=== PATIENT | male | born 1990 | race Caucasian/White ===

== ENCOUNTER 2016-09-14 23:15 | Emergency (ER) | payer BC, OTHER ==
[~2016-09-14] VITALS: Ht 175.3 cm; Wt 66.0 kg
[~2016-09-14 23:15] MED LIST: CALC0.5C2 PO; [UNRECOGNIZED DRUG - CODE] PO
[2016-09-14 23:20] VITALS: TEMP 36.8; Ht 175.3 cm; Wt 66.0 kg
[2016-09-14] MEDS ORDERED: SODIUM CHLORIDE 0.9% 1000ML 1,000 ML IV STA (23:40)
[2016-09-15 00:27] LABS: ALT/SGPT 24 U/L (12-78); AST/SGOT 17 U/L (15-37); BLOOD UREA NITROGEN 15 mg/dl (7-18); BUN/CREATININE RATIO 5.2 (10-20); CALCIUM 7.5 mg/dl (8.5-10.1); CARBON DIOXIDE 17 mmol/L (21-32); CHLORIDE 115 mmol/L (98-107); GLUCOSE 84 mg/dl (70-99); MAGNESIUM 1.9 mg/dl (1.8-2.4); POTASSIUM 3.6 mmol/L (3.5-5.1); SODIUM 143 mmol/L (136-145)
[2016-09-15 00:29] LABS: HEMATOCRIT 32.2 % (42-52); MEAN CELL VOLUME 86.3 fL (80-100); MEAN CORPUSCULAR HEMOGLOBIN 29.5 pg (25-34); MEAN CORPUSCULAR HGB CONC 34.2 g/dl (32-36); MEAN PLATELET VOLUME 9.6 fL (7.4-10.4); PLATELET COUNT 156 K/uL (130-400); RED BLOOD COUNT 3.73 M/uL (4.7-6.1); WHITE BLOOD COUNT 5.29 K/uL (4.8-10.8)
[2016-09-15 00:30] LABS: ALKALINE PHOSPHATASE 136 U/L (45-117)
[2016-09-15 00:31] LABS: BASO % 0.6 %; BASO ABS # 0.03 K/uL (0-0.2); COMPLETE YES; EOS % 2.8 %; LYMPH % 24.8 %; LYMPH ABS # 1.31 K/uL (1.2-3.4); MONO % 6.2 %; NEUT % 65.6 %; PLT ESTIMATE NORMAL
--- NOTE | 2016-09-15 01:56 | EMERGENCY ROOM VISIT NOTE ---
History First contact with patient: 23:23 Chief Complaint: ABDOMINAL PAIN Stated Complaint: SHAKING - DIARRHEA - SIDE PAIN - JOINT PAIN Nursing Triage Summary: Pt c/o of diarrhea, abdominal pain, nausea. States he has stage 3 CKD and the last time this happened "he couldn't move." History of Present Illness The patient is a 26 year old male who presents to the Emergency Room with complaints of diarrhea, cramping and feeling faint. The patient states that his symptoms began one week ago and has been intermittent. He reports he has had diarrhea, pain in his right side and feelings of lightheadedness. He states this his joints are achy. The patient has had similar episodes in the past and has needed admitted for electrolyte abnormalities. He has stage III kidney failure and sees Dr. Nolan. He reports that his symptoms at this time are not as severe as they have been in the past. He has been attempting to increase his fluid intake. He rates his overall discomfort a 5/10. He denies any chest pain, shortness of breath, vomiting or syncope. Review of Systems A complete 10 point review of systems was reviewed with the patient with pertinent positives and negatives as per history of present illness. All else were negative. Past Medical/Surgical History Medical Problems: (1) CKD (chronic kidney disease), stage III (2) Fanconi syndrome (3) Nephrogenic diabetes insipidus (4) Renal tubular acidosis Family History Crohn's disease MOTHER Kidney disease Social History Smoking Status: Current Every Day Smoker Alcohol Use: none Drug Use: none Current/Historical Medications Scheduled Calcitriol (Rocaltrol), 0.5 MCG PO DAILY Cholecalciferol (Vitamin D3), 7,000 INTER.UNIT PO DAILY Cysteamine Bitartrate (Cystagon), 100 MG PO QID Cysteamine Bitartrate (Cystagon), 450 MG PO QID Levocarnitine (Metabolic Modif (Levocarnitine), 660 MG PO TID Magnesium Oxide (Mg Supplement (Magnesium Oxide), 400 MG PO DAILY Omeprazole (Omeprazole), 20 MG PO QAM Potassium Chloride (Klor-Con M20), 6 TABS PO QID Sodium Bicarbonate (Antacid) (Sodium Bicarbonate), 2 TABS PO TID Scheduled PRN Ondansetron Hcl (Zofran), 8 MG PO Q8 PRN for Nausea Allergies Coded Allergies: No Known Allergies (Verified , 09/14/16) Physical Exam Vital Signs Date Time Temp Pulse Resp B/P (MAP) Pulse Ox O2 Delivery O2 Flow Rate FiO2 09/15/16 02:02 78 18 100/52 97 09/15/16 01:39 78 18 100/52 97 Room Air 09/14/16 23:20 36.8 79 18 119/66 98 Physical Exam VITALS: Vitals are noted on the nurse's note and reviewed by myself. Vital signs stable. GENERAL: This is a 26-year-old male, in no acute distress, nondiaphoretic, well- developed well-nourished. SKIN: Capillary reflex less than 2 seconds. HEENT: Normocephalic. PERRLA. EOMI. Nares patent. Mucous membranes moist. Neck is supple without nuchal rigidity. HEART: Regular rate and rhythm without murmurs gallops or rubs. LUNGS: Clear to auscultation bilaterally without wheezes, rales or rhonchi. ABDOMEN: Positive bowel sounds x 4. Soft, nontender, without masses or organomegaly. MUSCULOSKELETAL: Full range of motion throughout, strength 5/5 throughout. NEURO: Patient was alert and oriented to person place and time. Normal sensation to light and sharp touch. Medical Decision & Procedures ER Provider Diagnostic Interpretation: CHEST X-RAY: No acute cardiopulmonary abnormality. Laboratory Results 09/14/16 23:59 Red Blood Count 3.73, Mean Corpuscular Volume 86.3, Mean Corpuscular Hemoglobin 29.5, Mean Corpuscular Hemoglobin Concent 34.2, Mean Platelet Volume 9.6, Neutrophils (%) (Auto) 65.6, Lymphocytes (%) (Auto) 24.8, Monocytes (%) (Auto) 6.2, Eosinophils (%) (Auto) 2.8, Basophils (%) (Auto) 0.6, Neutrophils # (Auto) 3.47, Lymphocytes # (Auto) 1.31, Monocytes # (Auto) 0.33, Eosinophils # (Auto) 0.15, Basophils # (Auto) 0.03 09/14/16 23:59 Test 09/14/16 23:59 White Blood Count 5.29 K/uL (4.8-10.8) Red Blood Count 3.73 M/uL (4.7-6.1) Hemoglobin 11.0 g/dL (14.0-18.0) Hematocrit 32.2 % (42-52) Mean Corpuscular Volume 86.3 fL (80-100) Mean Corpuscular Hemoglobin 29.5 pg (25-34) Mean Corpuscular Hemoglobin Concent 34.2 g/dl (32-36) Platelet Count 156 K/uL (130-400) Mean Platelet Volume 9.6 fL (7.4-10.4) Neutrophils (%) (Auto) 65.6 % Lymphocytes (%) (Auto) 24.8 % Monocytes (%) (Auto) 6.2 % Eosinophils (%) (Auto) 2.8 % Basophils (%) (Auto) 0.6 % Neutrophils # (Auto) 3.47 K/uL (1.4-6.5) Lymphocytes # (Auto) 1.31 K/uL (1.2-3.4) Monocytes # (Auto) 0.33 K/uL (0.11-0.59) Eosinophils # (Auto) 0.15 K/uL (0-0.5) Basophils # (Auto) 0.03 K/uL (0-0.2) RDW Standard Deviation 42.7 fL (36.4-46.3) RDW Coefficient of Variation 13.4 % (11.5-14.5) Immature Granulocyte % (Auto) 0.0 % Immature Granulocyte # (Auto) 0.00 K/uL (0.00-0.02) Platelet Estimate NORMAL Red Blood Cell Morphology Unremarkable Anion Gap 11.0 mmol/L (3-11) Est Creatinine Clear Calc Drug Dose 36.7 ml/min Estimated GFR () 33.6 Estimated GFR (Non- 28.9 BUN/Creatinine Ratio 5.2 (10-20) Calcium Level 7.5 mg/dl (8.5-10.1) Magnesium Level 1.9 mg/dl (1.8-2.4) Total Bilirubin 0.2 mg/dl (0.2-1) Direct Bilirubin < 0.1 mg/dl (0-0.2) Aspartate Amino Transf (AST/SGOT) 17 U/L (15-37) Alanine Aminotransferase (ALT/SGPT) 24 U/L (12-78) Alkaline Phosphatase 136 U/L (45-117) Total Protein 6.8 gm/dl (6.4-8.2) Albumin 3.2 gm/dl (3.4-5.0) Medications Administered Medications (Trade) Dose Ordered Sig/Rafat Route Start Time Stop Time Status Last Admin Dose Admin Sodium Chloride 1,000 ml @ 999 mls/hr Q1H1M STAT IV 09/14/16 23:40 09/15/16 00:40 DC 09/15/16 00:02 999 MLS/HR ED Course The patient was evaluated as above. Labs were drawn and IV access was obtained. Patient was medicated with 1 L normal saline solution. Patient was reevaluated and stated he was feeling better. Discharge instructions were reviewed with the patient. The patient verbalized understanding of my assessment and treatment plan and was discharged home in good condition. Medical Decision Differential diagnosis includes acute kidney injury, dehydration, electrolyte abnormality, infection, among others. The patient is a 26-year-old male who presents today complaining of generalized cramping and diarrhea. Labs revealed no leukocytosis or concerning anemia. Patient's creatinine was found to be 2.90, which is his baseline. Patient is hypocalcemic at 7.5, but this also appears to be his baseline. Patient has been admitted multiple times previously for hypokalemia, however potassium is within normal limits today. The patient was informed of these findings. He felt better after 1 L of fluids. The patient appears to be at his baseline. I do not feel he needs admission at this time, however cautioned him that if his condition worsens he will need to return. 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 The patient's case was reviewed with Dr. Cordova, ED attending physician, who agreed with my assessment and treatment plan. Based on the patient's presentation and work up, I feel the patient is stable for outpatient treatment. The patient was educated to return to the emergency department for any worsening of their current condition or new/concerning symptoms. He will follow up with his renewable energy trader. Medication reconciliation: I attest that I have personally reviewed the patient 's current medication list. Blood pressure screening: Patient was found to have low-normal blood pressure on screening and does not require follow-up. Impression Primary Impression: Diarrhea Departure Information Dispostion Home / Self-Care Condition GOOD Referrals Malorie Nolan I., DO (PCP) Patient Instructions My [facility] Additional Instructions Drink plenty of fluids to stay well-hydrated. Call Dr. Nolan's office tomorrow to schedule follow-up. Return to the emergency department sooner for any worsening of your current condition or new/concerning symptoms.
[2016-09-15 02:02] VITALS: BP 100/52; PULSE 78; O2SAT 97
--- NOTE | 2016-09-15 07:19 | DIAGNOSTIC IMAGING REPORT ---
SINGLE VIEW CHEST CLINICAL HISTORY: Generalized abdominal pain. Diarrhea. FINDINGS: An AP, portable, upright chest radiograph is compared to study dated 09/26/2015. The examination is degraded by portable technique and patient rotation. The cardiomediastinal silhouette is unremarkable. There are patchy airspace opacities at the left lung base. No large pleural effusion or Pneumothorax is seen. The bony thorax is grossly intact. IMPRESSION: There are patchy airspace opacities at the left lung base. This could represent atelectasis versus developing pneumonia. Clinical correlation will be required. Electronically signed by: Jos Jimenez M.D. 09/15/2016 7:17 AM Dictated Date/Time: 09/15/2016 7:16 AM
== END 2016-09-15 02:02 | disposition home or self-care (01) ==
LOC: C.EDB 23:16 → C.EDA 09-15 02:02
DX: R19.7 Diarrhea, unspecified (principal); N18.3 Chronic kidney disease, stage 3 (moderate); N25.1 Nephrogenic diabetes insipidus; N25.89 Other disorders resulting from impaired renal tubular function; Z83.79 Family history of other diseases of the digestive system; Z84.1 Family history of disorders of kidney and ureter; F17.210 Nicotine dependence, cigarettes, uncomplicated; Z79.899 Other long term (current) drug therapy

== ENCOUNTER 2016-11-12 15:08 | Observation (INO) | payer BC, OTHER ==
[~2016-11-12] VITALS: Ht 175.3 cm; Wt 68.1 kg
[2016-11-12] MEDS ORDERED: ONDANSETRON INJ 2 MG/ML 2 ML VIAL IV STA (15:28)
[2016-11-12] MEDS ORDERED: ALBUT/IPRATROP 3MG/0.5MG NEB 3 ML VIAL INH STA (15:28)
[2016-11-12] MEDS ORDERED: MoRPHine SULFATE 10 MG/ML CARP/VIAL IM STA (15:28)
[2016-11-12] MEDS ORDERED: SODIUM CHLORIDE 0.9% 1000ML 1,000 ML IV STA (15:28)
[2016-11-12 15:39] LABS: BASO % 0.3 %; BASO ABS # 0.02 K/uL (0-0.2); COMPLETE YES; IG% 0.2 %; LYMPH % 12.8 %; LYMPH ABS # 0.84 K/uL (1.2-3.4); MEAN CELL VOLUME 86.4 fL (80-100); MEAN CORPUSCULAR HEMOGLOBIN 29.9 pg (25-34); MEAN CORPUSCULAR HGB CONC 34.6 g/dl (32-36); MEAN PLATELET VOLUME 9.8 fL (7.4-10.4); MONO % 4.9 %; NEUT % 81.8 %; PLATELET COUNT 158 K/uL (130-400); RED BLOOD COUNT 4.05 M/uL (4.7-6.1); WHITE BLOOD COUNT 6.57 K/uL (4.8-10.8)
[2016-11-12 15:52] LABS: POINT OF CARE TROPONIN I < 0.030 ng/ml (0-0.045)
[2016-11-12] MEDS ORDERED: MoRPHine SULFATE 10 MG/ML CARP/VIAL IV STA (15:54)
[2016-11-12 15:57] LABS: ALT/SGPT 21 U/L (12-78); AST/SGOT 12 U/L (15-37); BLOOD UREA NITROGEN 28 mg/dl (7-18); BUN/CREATININE RATIO 8.3 (10-20); CALCIUM 8.5 mg/dl (8.5-10.1); CARBON DIOXIDE 20 mmol/L (21-32); CHLORIDE 113 mmol/L (98-107); GLUCOSE 101 mg/dl (70-99); POTASSIUM 3.8 mmol/L (3.5-5.1); SODIUM 141 mmol/L (136-145)
[2016-11-12 16:00] LABS: ALKALINE PHOSPHATASE 153 U/L (45-117)
[2016-11-12] MEDS ORDERED: MoRPHine SULFATE 4 MG/ML 1 ML CARP\\VIAL IV STA (16:11)
--- NOTE | 2016-11-12 16:30 | DIAGNOSTIC IMAGING REPORT ---
CHEST ONE VIEW PORTABLE HISTORY: Atypical CHEST PAIN COMPARISON: Chest 09/15/2016. FINDINGS: The lungs are clear. Cardiac silhouette is normal in size. No pleural effusions. No pneumothorax. IMPRESSION: No acute process. Electronically signed by: Keegan Osuna M.D. 11/12/2016 4:28 PM Dictated Date/Time: 11/12/2016 4:27 PM
[2016-11-12] MEDS ORDERED: CALC1CAP36 PO (16:43)
[2016-11-12] MEDS ORDERED: POTTAB2 PO (16:43)
[2016-11-12] MEDS ORDERED: [UNRECOGNIZED DRUG - CODE] OPB (16:43)
[2016-11-12] MEDS ORDERED: [UNRECOGNIZED DRUG - CODE] PO (16:43)
[2016-11-12] MEDS ORDERED: CALC500C3 PO (16:43)
[2016-11-12] MEDS ORDERED: CALCIUM CARBONATE 500 MG CHEWABLE PO PRN (17:30)
[2016-11-12] MEDS ORDERED: IV FLUIDS COMPLETED PRN ×2 (17:30→18:45)
[2016-11-12] MEDS ORDERED: ONDANSETRON 8 MG TAB PO PRN (17:30)
--- NOTE | 2016-11-12 17:36 | DIAGNOSTIC IMAGING REPORT ---
RENAL ULTRASOUND CLINICAL HISTORY: Left flank pain. Acute renal failure. COMPARISON STUDY: CT of the abdomen and pelvis August 20, 2011. TECHNIQUE: Sonography of the kidneys and the urinary bladder was performed. FINDINGS: The right kidney measures 9.2 x 3.6 x 4.6 cm and the left measures 10.3 x 3.1 x 4.5 cm. There is no hydronephrosis. Echogenic foci within each kidney suggest medullary nephrocalcinosis with numerous tiny calculi identified. Both ureteral jets were identified. Mild renal cortical thinning is noted. Interval note is made of moderate splenomegaly. IMPRESSION: 1. No hydronephrosis. 2. Findings consistent with medullary nephrocalcinosis. 3. Moderate splenomegaly, similar to CT of August 20, 2011. Electronically signed by: Sascha Garcia M.D. 11/12/2016 5:34 PM Dictated Date/Time: 11/12/2016 5:28 PM
[2016-11-12 17:40] VITALS: O2SAT 99; Ht 175.3 cm; Wt 68.1 kg
--- NOTE | 2016-11-12 17:48 | History and Physical ---
History & Physical Date & Time of Service: Nov 12, 2016 at 17:26 Chief Complaint: Side Pain,Chest Pain,Vomitting Primary Care Physician: Malorie Nolan DO History of Present Illness Source: patient Patient is a 26yo M with a PMH of Fanconi syndrome, CKD Stage IV, nephrogenic diabetes insipidus and hypertriglyceridemia who presents with chest pain and L flank pain x 1 week. Chest pain is located on the left side and is sharp, intermittent and non-radiating. Worse with inspiration and with any type of movement. Is currently a 5/10 and at its worst is ranked as a 9/10. Denies experiencing pain like this in the past. Denies an increase in physical activity or recent muscular strain. Denies IVDU. No palpitations, dyspnea, SOB. Does endorse a productive cough over the past few days but no fever, chills. Patient also endorses L sided flank pain over the past week that started at the same time as the chest pain. Describes pain as stabbing, intermittent, worse with urination and movement. Associated with nausea and 1-2 episodes of vomiting /day that is mostly bile. Has also been experiencing a decreased appetite and a few episodes of diarrhea over the past few days. Denies any dysuria, hematuria, change in color or odor. Denies a history of kidney stones. Of note, patient follows with Dr. Nolan for Fanconi syndrome. Has been taking medications as prescribed. Per last visit on 11/02, had a discussion about the need for dialysis in the future and potential transplant once GFR is <20. During clinic visit, Cr was 3.8, GFR was in low 20s and K was stable. Today, Cr is 3.4, GFR is 24 and K is stable. Past Medical/Surgical History Medical Problems: (1) CKD (chronic kidney disease), stage III Status: Chronic (2) Fanconi syndrome Status: Chronic (3) Nephrogenic diabetes insipidus Status: Chronic (4) Renal tubular acidosis Status: Chronic Family History Crohn's disease MOTHER Kidney disease Social History Smoking Status: Current Every Day Smoker (1/2 PPD x 6 years) Drug Use: none Housing status: lives with roommate Occupational Status: employed Immunizations History of Tetanus Vaccine?: Yes Tetanus Immunization Date: Sep 06, 2008 Multi-Drug Resistant Organisms History of MDRO: No Allergies Coded Allergies: No Known Allergies (Verified , 09/14/16) Home Medications Scheduled Calcitriol (Calcitriol), 0.25 MCG PO DAILY Cholecalciferol (Vitamin D3), 7,000 INTER.UNIT PO DAILY Cysteamine Bitartrate (Cystagon), 4 CAP PO QID Cysteamine Bitartrate (Cystagon), 2 CAP PO QID Cysteamine Hcl (Cystaran), 1 DROP OPB Q1H Levocarnitine (Metabolic Modif (Levocarnitine), 660 MG PO TID Magnesium Oxide (Mg Supplement (Magnesium Oxide), 400 MG PO DAILY Omeprazole (Omeprazole), 20 MG PO QAM Pot Phosphate Monobasic W/ Sod (Phospha 250 Neutral), 1 CAP PO BID Potassium Chloride (Klor-Con M20), 7 TABS PO QID Sodium Bicarbonate (Antacid) (Sodium Bicarbonate), 3 TABS PO QID Scheduled PRN Calcium Carbonate (Tums), 3 TABS PO HS PRN for Ondansetron Hcl (Zofran), 8 MG PO Q8 PRN for Nausea Review of Systems Ten systems reviewed and negative except as noted in the HPI. Physical Exam Vital Signs Date Time Temp Pulse Resp B/P (MAP) Pulse Ox O2 Delivery O2 Flow Rate FiO2 11/12/16 16:08 70 18 124/67 98 Room Air 11/12/16 15:40 76 11/12/16 15:11 36.8 84 16 120/71 100 Room Air General Appearance: WD/WN, no apparent distress Head: normocephalic, atraumatic Eyes: normal inspection, PERRL, sclerae normal ENT: hearing grossly normal Neck: supple, no adenopathy, trachea midline Respiratory/Chest: chest non-tender (No TTP of L chest wall ), lungs clear, normal breath sounds, no respiratory distress Cardiovascular: regular rate, rhythm, no murmur, normal peripheral pulses Abdomen/GI: normal bowel sounds, non tender, soft, no organomegaly Back: normal inspection, no muscle spasm, + left CVA tenderness Extremities/Musculoskelatal: normal inspection, no calf tenderness, normal capillary refill, no pedal edema Neurologic/Psych: no motor/sensory deficits, alert, normal mood/affect ( Somewhat flattened affect), oriented x 3 Skin: normal color, warm/dry, no rash Diagnostics Laboratory Results Results Past 24 Hours Test 11/12/16 15:29 11/12/16 15:34 Range/Units White Blood Count 6.57 4.8-10.8 K/uL Red Blood Count 4.05 4.7-6.1 M/uL Hemoglobin 12.1 14.0-18.0 g/dL Hematocrit 35.0 42-52 % Mean Corpuscular Volume 86.4 80-100 fL Mean Corpuscular Hemoglobin 29.9 25-34 pg Mean Corpuscular Hemoglobin Concent 34.6 32-36 g/dl Platelet Count 158 130-400 K/uL Mean Platelet Volume 9.8 7.4-10.4 fL Neutrophils (%) (Auto) 81.8 % Lymphocytes (%) (Auto) 12.8 % Monocytes (%) (Auto) 4.9 % Eosinophils (%) (Auto) 0.0 % Basophils (%) (Auto) 0.3 % Neutrophils # (Auto) 5.38 1.4-6.5 K/uL Lymphocytes # (Auto) 0.84 1.2-3.4 K/uL Monocytes # (Auto) 0.32 0.11-0.59 K/uL Eosinophils # (Auto) 0.00 0-0.5 K/uL Basophils # (Auto) 0.02 0-0.2 K/uL RDW Standard Deviation 42.4 36.4-46.3 fL RDW Coefficient of Variation 13.3 11.5-14.5 % Immature Granulocyte % (Auto) 0.2 % Immature Granulocyte # (Auto) 0.01 0.00-0.02 K/uL Sodium Level 141 136-145 mmol/L Potassium Level 3.8 3.5-5.1 mmol/L Chloride Level 113 98-107 mmol/L Carbon Dioxide Level 20 21-32 mmol/L Anion Gap 8.0 3-11 mmol/L Blood Urea Nitrogen 28 7-18 mg/dl Creatinine 3.40 0.60-1.40 mg/dl Est Creatinine Clear Calc Drug Dose 32.3 ml/min Estimated GFR () 27.7 Estimated GFR (Non- 23.9 BUN/Creatinine Ratio 8.3 10-20 Random Glucose 101 70-99 mg/dl Calcium Level 8.5 8.5-10.1 mg/dl Total Bilirubin 0.3 0.2-1 mg/dl Direct Bilirubin < 0.1 0-0.2 mg/dl Aspartate Amino Transf (AST/SGOT) 12 15-37 U/L Alanine Aminotransferase (ALT/SGPT) 21 12-78 U/L Alkaline Phosphatase 153 45-117 U/L Total Protein 7.3 6.4-8.2 gm/dl Albumin 3.3 3.4-5.0 gm/dl Lipase 126 73-393 U/L Bedside D-Dimer 444 0-450 ng/mlFEU Bedside Troponin I < 0.030 0-0.045 ng/ml Diagnostic Radiology Renal Ultrasound: CXR normal Normal EKG Impression Assessment and Plan Patient is a 26yo M with a PMH of Fanconi syndrome, CKD Stage IV, nephrogenic diabetes insipidus and hypertriglyceridemia who presents with chest pain and L flank pain x 1 week. L flank pain: -Stabbing, intermittent pain x 1 week - Associated nausea/vomiting -Afebrile, no leukocytosis, UA pending -Renal ultrasound: -findings consistent with medullary nephrocalcinosis -no hydronephrosis -moderate splenomegaly, similar to 2012 ultrasound -Started protonix, zofran -Continue NSS fluid resuscitation -Discussed with Dr. Nolan. Will see patient tomorrow Diarrhea: -Stool cx and c diff gene ordered -Unlikely infectious cause. No fever, chills, leukocytosis Chest pain: -Unlikely ACS due to young age, no risk factors -No MSK pain on exam, no epigastric pain -CXR normal. No pleural effusions, pneumothorax -ECG normal, vitals stable -D dimer normal -Trop x 1 negative -Continue trending cardiac enzymes -Monitor on tele Fanconi syndrome: -Followed closely by Dr. Nolan -Continue all home meds -Family will bring in Cystagon, as it is not on formulary Chronic Kidney Disease Stage IV: -2/2 Fanconi syndrome -Kidney function is currently at baseline; no RY -Cr is currently close to baseline at 3.4 -Has ranged from 2.9 - 3.8 over the past few months -GFR ranges in the mid-20s and is currently 24 -Per last clinic note, the plan is to discuss dialysis further at next appointment -Plan to refer patient for transplant once GFR <20 DVT Ppx: unfractionated heparin Code status: FULL PCP: Ovidio Maharaj Dispo: Plan to return home once medically stable Attending addendum: Agree with the above H&P, please see above for more details. Patient presents to the hospital for complaints of left sided flank and chest pain as well as referral from outpatient Nephro clinic due to worse creatinine. The patient states his chest pain is worse with movement and deep breathing, but not made worse with palpation. He states he has constant pain but also sharp stabbing sensation of pain. He also reports having diarrhea and decreased PO intake. He states his symptoms have been ongoing for about a week. He was called regarding his worsening creatinine from labs yesterday and was encouraged to come in for evaluation in light of his other complaints. Cardiac: RR, S1 and S2 auscultated, no murmurs, no chest wall tenderness to palpation Resp: CTA B/L no wheezes, rales, rhonchi GI: soft, mildly tender on the left, ND, + BS, + left flank pain but no CVA tenderness LEFT SIDED CHEST PAIN: -unlikely cardiac, EKG and first CM were negative -will complete serial CM -CXR negative -most likely related to intercostals or MSK pain; doubt this is related to pulmonary source but is considered in the differential LEFT FLANK PAIN: -renal US does not show evidence of hydro or obstructing renal calculus -patient to be placed on IV fluids -Nephro consulted and aware of patient Level of Care Telemetry Resuscitation Status FULL RESUSCITATION VTE Prophylaxis VTE Risk Assessment Done? Y/N: Yes Risk Level: Moderate Given or contraindicated: Unfractionated heparin SQ
[2016-11-12 18:22] VITALS: BP 108/61; PULSE 69; TEMP 36.7; O2SAT 99
[2016-11-12] MEDS ORDERED: [UNRECOGNIZED DRUG - CODE] PO (18:23)
[2016-11-12] MEDS: SODIUM CHLORIDE 0.9% 1000ML 1,000 ML IV SCH (18:32)
[2016-11-12 19:17] LABS: PARTIAL THROMBOPLASTIN RATIO 1.1; PROTHROMBIN TIME (PATIENT) 10.9 SECONDS (9.0-12.0)
[2016-11-12] MEDS ORDERED: NURSING VERBAL MED ORDER ONE (19:45)
[2016-11-12 20:00] VITALS: BP 109/61; PULSE 59; TEMP 37; O2SAT 99
[2016-11-12] MEDS: PANTOprazole SOD 40 MG TAB PO SCH (20:04)
[2016-11-12] MEDS: POT PHOSPHATE MONOBASIC W/ SOD TAB PO SCH (20:06)
[2016-11-12] MEDS ORDERED: LEVO330T PO (20:37)
[2016-11-12] MEDS ORDERED: MAGN1TAB19 PO (20:37)
[2016-11-12] MEDS ORDERED: OMEP20TA PO (20:37)
[2016-11-12] MEDS ORDERED: SODI650T8 PO (20:37)
[2016-11-12] MEDS ORDERED: VTMD1000 PO (20:37)
[2016-11-12] MEDS ORDERED: POTASSIUM CHLORIDE 20 MEQ TABCR PO SCH (21:00)
[2016-11-12] MEDS: HEPARIN SOD 5000 UNIT/0.5 ML CARP SQ SCH (21:00)
[2016-11-12] MEDS ORDERED: [UNRECOGNIZED DRUG - OTHER] PO SCH (21:00)
[2016-11-12] MEDS ORDERED: SODIUM BICARBONATE 650 MG TAB PO SCH (21:00)
[2016-11-12] MEDS ORDERED: [UNRECOGNIZED DRUG - OTHER] PO SCH (21:00)
[2016-11-12 21:54] LABS: CKMB/CK RATIO 3.7 (0-3.0)
[2016-11-12 22:42] LABS: URINE APPEARANCE CLEAR (CLEAR); URINE BILIRUBIN NEG (NEG); URINE COLOR YELLOW; URINE EPITHELIAL CELL AUTO 0-5 /lpf (0-5); URINE NITRITE NEG (NEG); URINE SPECIFIC GRAVITY 1.012 (1.000-1.030); UROBILINOGEN NEG (NEG)
[2016-11-12 22:44] LABS: MANUAL MICROSCOPIC REQUIRED? NO; REVIEW REQ? NO
[2016-11-12 23:10] LABS: BENZODIAZEPINE, URINE NEG (NEG); COCAINE,URINE NEG (NEG); PHENCYCLIDINE, URINE NEG (NEG)
[2016-11-12] MEDS ORDERED: MCRK20 PO (23:19)
[2016-11-12] MEDS ORDERED: ONDA8TAB6 PO (23:21)
[2016-11-12 23:48] VITALS: BP 100/59; PULSE 65; TEMP 36.7; O2SAT 98
[2016-11-13] VITALS (10 sets, daily range): BP systolic 104–108; BP diastolic 54–63; PULSE 62–79; TEMP 36.5–37; O2SAT 96–100
[2016-11-13] MEDS: [UNRECOGNIZED DRUG - OTHER] PO SCH ×5 (00:24→23:40)
[2016-11-13] MEDS: [UNRECOGNIZED DRUG - OTHER] PO SCH ×5 (00:24→23:41)
[2016-11-13] MEDS: POTASSIUM CHLORIDE 20 MEQ TABCR PO SCH ×5 (00:25→23:38)
[2016-11-13] MEDS: SODIUM BICARBONATE 650 MG TAB PO SCH ×5 (00:26→23:36)
--- NOTE | 2016-11-13 00:51 | EMERGENCY ROOM VISIT NOTE ---
ED Visit Note First contact with patient: 15:16 Chief Complaint: Having chest pain and left flank pain. History of Present Illness: Mr. Kapoor is a 26-year-old white male who ambulates into the ED complaining of left-sided chest pain and left flank pain. Historically patient has a history of Fanconi syndrome and chronic kidney disease. Patient reports approximately one week ago at the same time he started developing left sided chest pain and left flank pain while at rest. He reports initially it was mild and has gradually increased in intensity. He describes both of his discomfort as a sharp, stabbing sensation. The chest pain is located just lateral to the sternum at the level of the nipple and extends over to the anterior axillary line and his flank pain is located over the costovertebral angle. He rates both his discomfort 7/10. His pains are nonradiating. His pains worsen with palpation and deep inspiration. He has not identified any alleviating factors related to the pain. He has not taken any medications for pain prior to arrival at the hospital. Associated with his pain he reports he has been having some mild chills but no yoni fevers, he has had a decreased appetite, he has been nauseated and has had 2 episodes of bilious vomiting today. He denies sweats, skin eruptions, skin color changes, headache, dizziness, lightheadedness, upper respiratory tract symptoms, cough, wheezing, shortness of breath, palpitations, orthopnea, dependent edema, previous clots, claudication, cramping, recent surgery/inactivity/extended travel, abdominal pain, diarrhea, constipation, urinary symptoms, hematuria, genital paresthesias , bowel and bladder dysfunction, lower extremity weakness/numbness/tingling. Review of Systems: As noted above in history of present illness. All body systems were reviewed and found to be negative as noted above. Past Medical History: As previously noted and nephrogenic diabetes insipidus, renal tubular acidosis. Current Medications: Medications Dose Route/Sig Max Daily Dose Days Date Category Dose Instructions Phospha 250 Neutral (Pot Phosphate Monobasic W/ Sod) 1 Tab Tab 1 Cap PO BID 11/12/16 Reported Cystagon (Cysteamine Bitartrate) 50 Mg Cap 2 Cap PO QID 11/12/16 Reported Cystaran (Cysteamine Hcl) 0.44 % Annie 1 Drop OPB Q1H 11/12/16 Reported WHILE AWAKE Tums (Calcium Carbonate) 500 Mg Chew 3 Tabs PO HS PRN 11/12/16 Reported Calcitriol 0.25 Mcg Cap 0.25 Mcg PO DAILY 11/12/16 Reported Zofran (Ondansetron HCl) 8 Mg Tab 8 Mg PO Q8 PRN 09/26/15 Reported Klor-Con M20 (Potassium Chloride) 20 Meq Tabcr 7 Tabs PO QID 09/26/15 Reported Omeprazole 20 Mg Tab 20 Mg PO QAM 02/19/15 Reported Magnesium Oxide (Magnesium Oxide (Mg Supplement) 400 Mg Tab 400 Mg PO DAILY 02/19/15 Reported Vitamin D3 (Cholecalciferol) 1,000 Inter.unit Tab 7,000 Inter.unit PO DAILY 02/19/15 Reported Sodium Bicarbonate (Sodium Bicarbonate (Antacid)) 650 Mg Tab 3 Tabs PO QID 02/19/15 Reported Levocarnitine (Levocarnitine (Metabolic Modif) 330 Mg Tab 660 Mg PO TID 02/19/15 Reported Cystagon (Cysteamine Bitartrate) 150 Mg Cap 4 Cap PO QID 02/19/15 Reported TAKE WITH 2, 50 MG CAPS QID Allergies to Medications: Patient denies. Social History: Patient is currently employed; he feels safe in his home environment; he admits to tobacco use and denies alcohol use. Physical Examination: Vital Signs: Date Time Temp Pulse Resp B/P (MAP) Pulse Ox O2 Delivery O2 Flow Rate FiO2 11/12/16 16:08 70 18 124/67 98 Room Air 11/12/16 15:40 76 11/12/16 15:11 36.8 84 16 120/71 100 Room Air GENERAL: 26-year-old male in moderate distress due to pain, nontoxic-appearing, afebrile and hemodynamically stable. NEUROLOGICAL: Awake, alert and oriented to person, place and time. Answering questions appropriately and following commands. Normal gait. Good hand eye coordination. No focal motor sensory deficits. SKIN: Warm, dry and pink. No soft tissue eruptions or trauma noted. HEENT: Atraumatic and normocephalic. PERRLA. Sclera white and conjunctiva pink. No drainage from naris. Oral cavity moist and pink. Pharynx is nonerythematous or edematous. Speech normal. No lymphadenopathy. Trachea midline. No jugular venous distention. No carotid bruits. BACK: No tenderness over the bony cervical, thoracic and lumbar spine. No tenderness or spasm of the paraspinous muscles. Positive left-sided CVA tenderness CVA tenderness. THORAX: Lungs sounds are clear to auscultation with mild decrease of air in the bases. Equal bilaterally with symmetrical chest wall. No wheezing, rales or rhonchi. Mild to moderate tenderness over the left anterior chest wall without bony deformity, bony crepitus, swelling, erythema or subcutaneous air. No increased respiratory effort or rate. HEART: Regular rate and rhythm. No gallops, rubs or murmurs are appreciated. PMI is not displaced. No lifts, heaves or thrills. ABDOMEN: Flat, soft and nontender. Positive bowel sounds in all quadrants. No guarding, rigidity or organomegaly. EXTREMITIES: Moves all extremities well on command and with purpose. All distal neurovascular statuses are intact and equal bilaterally. No calf tenderness or cords. ED Course: Patient is assessed as noted above. Patient's medication list was reviewed. Laboratory Testing: Test 11/12/16 15:29 11/12/16 15:34 Range/Units White Blood Count 6.57 4.8-10.8 K/uL Red Blood Count 4.05 4.7-6.1 M/uL Hemoglobin 12.1 14.0-18.0 g/dL Hematocrit 35.0 42-52 % Mean Corpuscular Volume 86.4 80-100 fL Mean Corpuscular Hemoglobin 29.9 25-34 pg Mean Corpuscular Hemoglobin Concent 34.6 32-36 g/dl Platelet Count 158 130-400 K/uL Mean Platelet Volume 9.8 7.4-10.4 fL Neutrophils (%) (Auto) 81.8 % Lymphocytes (%) (Auto) 12.8 % Monocytes (%) (Auto) 4.9 % Eosinophils (%) (Auto) 0.0 % Basophils (%) (Auto) 0.3 % Neutrophils # (Auto) 5.38 1.4-6.5 K/uL Lymphocytes # (Auto) 0.84 1.2-3.4 K/uL Monocytes # (Auto) 0.32 0.11-0.59 K/uL Eosinophils # (Auto) 0.00 0-0.5 K/uL Basophils # (Auto) 0.02 0-0.2 K/uL RDW Standard Deviation 42.4 36.4-46.3 fL RDW Coefficient of Variation 13.3 11.5-14.5 % Immature Granulocyte % (Auto) 0.2 % Immature Granulocyte # (Auto) 0.01 0.00-0.02 K/uL Sodium Level 141 136-145 mmol/L Potassium Level 3.8 3.5-5.1 mmol/L Chloride Level 113 98-107 mmol/L Carbon Dioxide Level 20 21-32 mmol/L Anion Gap 8.0 3-11 mmol/L Blood Urea Nitrogen 28 7-18 mg/dl Creatinine 3.40 0.60-1.40 mg/dl Est Creatinine Clear Calc Drug Dose 32.3 ml/min Estimated GFR () 27.7 Estimated GFR (Non- 23.9 BUN/Creatinine Ratio 8.3 10-20 Random Glucose 101 70-99 mg/dl Calcium Level 8.5 8.5-10.1 mg/dl Total Bilirubin 0.3 0.2-1 mg/dl Direct Bilirubin < 0.1 0-0.2 mg/dl Aspartate Amino Transf (AST/SGOT) 12 15-37 U/L Alanine Aminotransferase (ALT/SGPT) 21 12-78 U/L Alkaline Phosphatase 153 45-117 U/L Total Protein 7.3 6.4-8.2 gm/dl Albumin 3.3 3.4-5.0 gm/dl Lipase 126 73-393 U/L Bedside D-Dimer 444 0-450 ng/mlFEU Bedside Troponin I < 0.030 0-0.045 ng/ml Chest X-Rays: Were read by myself and the radiologist showing no acute infiltrates, effusions or pneumothorax. Normal heart silhouette and bony anatomy. Renal Ultrasound: Was reviewed by myself and read by the radiologist and shows no hydronephrosis, medullary nephrocalcinosis, and moderate splenomegaly. EKG: Was read by myself and reviewed with my attending and shows normal sinus rhythm with a ventricular rate of 69 bpm. Early repolarization was noted. This was compared to a previous from [address] elevations present in the inferior leads, nonspecific changes in the ST segments in the anterior leads , nonspecific T-wave abnormalities no longer evident in the inferior leads, T- wave inversions in the anterior leads are no longer present. Patient was hydrated with normal saline and was given a total of 10 mg of morphine IV for pain, 4 mg of Zofran IV and an albuterol/Atrovent nebulizer breathing treatment. Patient was reassessed multiple times during his stay in the emergency department. Patient's case was reviewed with Dr. Elias; we agreed on diagnostic approach, treatment, disposition and plan. Patient's case was consulted with case management and Ms. Dylan Canas, hospitalist, for medical observation/admission. Patient was educated about today's findings. Clinical Impression: Acute renal failure. Left flank pain. Left-sided chest pain. Decision-Making: Initially my differential diagnosis I considered kidney stone, pyelonephritis, musculoskeletal disorder, pulmonary embolism, acute coronary syndrome, pneumonia, thoracic aneurysm and other causes. Disposition and Plan: Patient is to be brought in the hospital for observation/ admission; please see the [facility] hospitalist notes and orders for final disposition and plan.
[2016-11-13 03:32] LABS: HEMATOCRIT 30.8 % (42-52); MEAN CORPUSCULAR HEMOGLOBIN 29.4 pg (25-34); MEAN CORPUSCULAR HGB CONC 33.4 g/dl (32-36); MEAN PLATELET VOLUME 9.9 fL (7.4-10.4); PLATELET COUNT 129 K/uL (130-400); WHITE BLOOD COUNT 5.52 K/uL (4.8-10.8)
[2016-11-13 03:47] LABS: ALT/SGPT 16 U/L (12-78); AST/SGOT 7 U/L (15-37); BLOOD UREA NITROGEN 24 mg/dl (7-18); BUN/CREATININE RATIO 6.8 (10-20); CALCIUM 7.7 mg/dl (8.5-10.1); CARBON DIOXIDE 19 mmol/L (21-32); CHLORIDE 119 mmol/L (98-107); GLUCOSE 94 mg/dl (70-99); POTASSIUM 4.2 mmol/L (3.5-5.1); SODIUM 144 mmol/L (136-145)
[2016-11-13 03:52] LABS: ALB/GLOB RATIO 0.9 (0.9-2); ALKALINE PHOSPHATASE 104 U/L (45-117); CKMB/CK RATIO 4.5 (0-3.0)
[2016-11-13] MEDS: SODIUM CHLORIDE 0.9% 1000ML 1,000 ML IV SCH ×3 (04:43→21:26)
[2016-11-13] MEDS ORDERED: ONDANSETRON INJ 2 MG/ML 2 ML VIAL ONE (07:48)
[2016-11-13] MEDS ORDERED: NURSING VERBAL MED ORDER ONE (08:00)
[2016-11-13] MEDS ORDERED: ONDANSETRON INJ 2 MG/ML 2 ML VIAL IV ONE (08:00)
[2016-11-13] MEDS: CHOLECALCIFEROL 1000 INTER.UNIT TAB PO SCH (08:22)
[2016-11-13] MEDS: CALCITRIOL 0.25 MCG CAP PO SCH (08:22)
[2016-11-13] MEDS: MAGNESIUM OXIDE 400 MG TAB PO SCH (08:22)
[2016-11-13] MEDS: PANTOprazole SOD 40 MG TAB PO SCH (08:22)
[2016-11-13] MEDS: POT PHOSPHATE MONOBASIC W/ SOD TAB PO SCH ×2 (08:22→20:27)
[2016-11-13] MEDS: HEPARIN SOD 5000 UNIT/0.5 ML CARP SQ SCH ×3 (08:26→20:30)
[2016-11-13] MEDS ORDERED: CALCIUM GLUCONATE 10% 1,000 MG in SODIUM CHLORIDE 0.9% 50ML 50 ML IV ONE (08:30)
[2016-11-13] MEDS ORDERED: ONDANSETRON INJ 2 MG/ML 2 ML VIAL IV PRN (08:30)
--- NOTE | 2016-11-13 17:43 | Progress Note ---
Internal Med Progress Note Date of Service: Nov 13, 2016. Provider Documentation: SUBJECTIVE: back pain and chest pain has improved markedly was nauseous this AM symptom has resolved finished dinner offers no complain parents present at bedside worried about -pt being very stressed and depressed lately had poor appetite -concern his symptom may be related to to that requesting to have therapist /psychiatrist to assess for depression OBJECTIVE: Vital Signs-as noted below Exam: General-young male, chronically ill appearing , at present no apparent distress Eyes-sclera non icteric ENT-nad Neck-no JVD Lungs-CTA Heart-regular S1/S2 Abdomen-soft, non tender Extremities-no lower ext edema Neuro-no focal deficit , AAO x3 Lab data as noted below. ASSESSMENT & PLAN: Patient is a 26yo M with a PMH of Fanconi syndrome, CKD Stage IV, nephrogenic diabetes insipidus and hypertriglyceridemia who presented with chest pain and L flank pain x 1 week. L flank pain: -not sure of the etiology , possible dehydration ? symptom has improved with IV hydration -Afebrile, no leukocytosis, UA negative -Renal ultrasound: -findings consistent with medullary nephrocalcinosis -no hydronephrosis -moderate splenomegaly, similar to 2012 ultrasound -offers no complain or pain or discomfort was nauseous earlier today symptom has resolved , tolerating diet DEPRESSION : parents mentions pt having a lot of stress -dealing with his chronic illness / difficulty with relationship ( girlfriend /fiance ) has been very depressed and withdrawn poor appetite mentions to parent few times " it is not worth living like this " pt has never been on antidepressants has not been able to establish with psychiatrist pt and family will like to have consult with Psychiatrist while in hospital to discuss with depression symptom /possible antidepressant and establish out pt follow up Psychiatry consult requested Chest pain: no symptom at present -CXR normal. No pleural effusions, pneumothorax -ECG normal, vitals stable -D dimer normal stable to transfer to medical floor Fanconi syndrome: renal function , electrolytes stable at baseline -Followed closely by Dr. Nolan ; consulted -Continue all home meds Chronic Kidney Disease Stage IV: -2/2 Fanconi syndrome -Kidney function is currently at baseline; -Cr is currently close to baseline at 3.4 -Has ranged from 2.9 - 3.8 over the past few months -GFR ranges in the mid-20s and is currently 24 -Per last clinic note, the plan is to discuss dialysis further at next appointment -Plan to refer patient for transplant once GFR <20 DVT Ppx: unfractionated heparin Code status: FULL DISPOSITION discharge home in next 1-2 days as medically stable medicine follow up with Dr Maharaj Nephrology follow up with Dr Nolan Vital Signs: Date Time Temp Pulse Resp B/P (MAP) Pulse Ox O2 Delivery O2 Flow Rate FiO2 11/14/16 06:53 36.8 70 18 111/66 (81) 99 Room Air 11/14/16 04:00 60 Room Air 11/14/16 02:58 36.7 80 17 111/60 (77) 98 Room Air 11/14/16 00:03 36.4 60 15 114/68 (83) 100 Room Air 11/13/16 23:59 99 Room Air 11/13/16 20:00 Room Air 11/13/16 19:44 36.6 62 17 108/60 (76) 100 Room Air 11/13/16 16:00 Room Air 11/13/16 15:48 36.5 78 17 108/62 (77) 100 Room Air 11/13/16 12:00 99 Room Air 11/13/16 11:30 37.0 63 17 105/63 (77) 99 Room Air Lab Results: Results Past 24 Hours Test 11/14/16 06:31 Range/Units Sodium Level 145 136-145 mmol/L Potassium Level 4.3 3.5-5.1 mmol/L Chloride Level 119 98-107 mmol/L Carbon Dioxide Level 20 21-32 mmol/L Anion Gap 6.0 3-11 mmol/L Blood Urea Nitrogen 13 7-18 mg/dl Creatinine 3.10 0.60-1.40 mg/dl Est Creatinine Clear Calc Drug Dose 35.4 ml/min Estimated GFR () 31.0 Estimated GFR (Non- 26.7 BUN/Creatinine Ratio 4.2 10-20 Random Glucose 95 70-99 mg/dl Calcium Level 7.8 8.5-10.1 mg/dl Phosphorus Level 2.0 2.5-4.9 mg/dl Magnesium Level 2.0 1.8-2.4 mg/dl
[2016-11-13] MEDS: LEVOCARNITINE 330 MG TAB PO SCH (21:25)
[2016-11-14 00:03] VITALS: BP 114/68; PULSE 60; TEMP 36.4; O2SAT 100
[2016-11-14 02:58] VITALS: BP 111/60; PULSE 80; TEMP 36.7; O2SAT 98
[2016-11-14 04:00] VITALS: PULSE 60
[2016-11-14] MEDS: [UNRECOGNIZED DRUG - OTHER] PO SCH (06:12)
[2016-11-14] MEDS: [UNRECOGNIZED DRUG - OTHER] PO SCH (06:13)
[2016-11-14] MEDS: POTASSIUM CHLORIDE 20 MEQ TABCR PO SCH (06:14)
[2016-11-14] MEDS: SODIUM BICARBONATE 650 MG TAB PO SCH (06:16)
[2016-11-14 06:53] VITALS: BP 111/66; PULSE 70; TEMP 36.8; O2SAT 99
[2016-11-14 07:20] LABS: BUN/CREATININE RATIO 4.2 (10-20); CALCIUM 7.8 mg/dl (8.5-10.1); CREATININE 3.1 mg/dl (0.60-1.40); POTASSIUM 4.3 mmol/L (3.5-5.1)
[2016-11-14] MEDS: MAGNESIUM OXIDE 400 MG TAB PO SCH (07:55)
[2016-11-14] MEDS: CHOLECALCIFEROL 1000 INTER.UNIT TAB PO SCH (07:55)
[2016-11-14] MEDS: POT PHOSPHATE MONOBASIC W/ SOD TAB PO SCH (07:55)
[2016-11-14] MEDS: CALCITRIOL 0.25 MCG CAP PO SCH (07:55)
[2016-11-14] MEDS: LEVOCARNITINE 330 MG TAB PO SCH (07:56)
[2016-11-14 08:00] VITALS: O2SAT 99
[2016-11-14] MEDS: HEPARIN SOD 5000 UNIT/0.5 ML CARP SQ SCH (08:00)
[2016-11-14] MEDS: PANTOprazole SOD 40 MG TAB PO SCH (08:34)
[2016-11-14] MEDS: SODIUM CHLORIDE 0.9% 1000ML 1,000 ML IV SCH (08:35)
--- NOTE | 2016-11-14 10:30 | Discharge Instructions ---
Discharge Instructions Date of Service Nov 14, 2016. Admission Reason for Admission: Chest Pain, Left Flank Pain Discharge Discharge Diagnosis / Problem: BACK PAIN .NAUSEA -RESOLVED /DEPRESSION Discharge Goals Goal(s): Decrease discomfort, Improve disease control, Diagnostic testing Activity Recommendations Activity Limitations: resume your previous activity . Instructions / Follow-Up Instructions / Follow-Up HOSPITAL FOLLOW UP : 11/18/2016 1:00 PM Cammie Alberto DO Internal Medicine [facility] WILL NEED OUT PATIENT PSYCHIATRY FOLLOW UP Current Hospital Diet Patient's current hospital diet: Renal Diet Discharge Diet Recommended Diet: Renal Diet Pending Studies Studies pending at discharge: no Medical Emergencies . Who to Call and When: Medical Emergencies: If at any time you feel your situation is an emergency, please call 911 immediately. . Non-Emergent Contact Non-Emergency issues call your: Primary Care Provider . . "Provider Documentation" section prepared by Carol Bain. . VTE Core Measure Inpt VTE Proph given/why not?: Unfractionated heparin SQ
--- NOTE | 2016-11-14 10:54 | NEPHROLOGY CONSULTATION ---
DATE OF CONSULTATION: 11/14/2016 DATE OF CONSULTATION: 11/14/2016 ATTENDING OF RECORD: Dr. Bain. REASON FOR CONSULTATION: CKD. 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 The patient over the past 3 months has started taking his cystine eyedrops as well which is good. The patient has been under more stress lately with recent girl problems and presented with chest pain and left flank pain, worse with inspiration. The patient underwent a cardiac workup which was negative. The patient's pain is also improved. Renal ultrasound did show moderate splenomegaly as well as medullary nephrocalcinosis. The patient's creatinine is at baseline at 3.1 with a potassium level that is good for him at 4.3 and bicarb that is good at 20. Magnesium levels are good as well. Troponin is negative x3. REVIEW OF SYSTEMS: Positive headaches. Positive light sensitivity. No shortness of breath. Positive chest pain which has resolved. Positive flank pain that has resolved. Positive intermittent nausea, vomiting. No diarrhea or constipation. No dysuria. No rash or itching. All other review of systems otherwise negative. PAST MEDICAL HISTORY/PAST SURGICAL HISTORY: Cystinosis, CKD stage IV, nephrogenic diabetes insipidus, Fanconi syndrome, RTA. FAMILY HISTORY: Significant for Crohn's disease. SOCIAL HISTORY: Active smoker with intermittent use of marijuana. No alcohol, no drugs other than marijuana. Lives with a friend. MEDICATIONS: Levocarnitine 660 mg p.o. t.i.d., calcitriol 0.25 mcg daily, vitamin D 7000 units daily, magnesium 400 mg daily, Cystagon 700 mg q. 6 hours, potassium 140 mEq q. 6 hours, sodium bicarb 1950 q. 6 hours, heparin 5,000 units subQ q. 12, phosphate supplements twice a day, calcium carbonate as needed, normal saline at 100 mL an hour. PHYSICAL EXAMINATION: VITAL SIGNS: Temperature 36.8, pulse 70, respiratory rate 18, blood pressure 111/66, satting 99% on room air. GENERAL: Awake, alert, oriented x3. EYES: No scleral icterus. EARS, NOSE, THROAT: Moist mucous membranes. NECK: Supple. PULMONARY: Clear to auscultation. CARDIAC: Regular rate and rhythm. ABDOMEN: Bowel sounds positive, soft, nontender, nondistended. EXTREMITIES: No clubbing, cyanosis or edema. NEUROLOGICALLY: Nonfocal. DERM: No rash or ulcers noted. LABORATORY DATA: Sodium was 145, potassium 4.3, chloride is 119, bicarb 20, BUN is 13, creatinine is 3.1, glucose 95, calcium 7.8, phosphorus is 2. Mag is 2. White count is 5. H&H 10 and 30, platelet count 129. UA shows a pH of 7, specific gravity 1.012, 2+ protein, 1+ glucose, trace blood. INR is 1. Urine tox screen is positive for opiates. IMPRESSION AND PLAN: Chronic kidney disease stage IV, creatinine stable. Continue current outpatient Cystagon. Will need this lifelong. When GFR is under 20 will refer for transplant. We will continue to follow up with previously scheduled follow-up appointment with me in [place]. The patient does get monthly lab work for me and will get lab work in the next month to follow levels. The patient overall doing relatively well given his multiple comorbidities. No further changes. Okay from renal perspective to go home and will follow up with me as previously scheduled. Appreciate consultation. SHARIF
[2016-11-14 11:19] VITALS: BP 107/66; PULSE 71; TEMP 37; O2SAT 97
--- NOTE | 2016-11-14 12:04 | Progress Note ---
Internal Med Progress Note Date of Service: Nov 14, 2016. Provider Documentation: SUBJECTIVE: no complain of pain or discomfort no nausea appetite normal evaluated by Nephrology , medically stable to be discharged pt wants to leave [facility] does not want to wait to till to see Psychiatrist OBJECTIVE: Vital Signs-as noted below Exam: General-young male, chronically ill appearing , at present no apparent distress Eyes-sclera non icteric ENT-nad Neck-no JVD Lungs-CTA Heart-regular S1/S2 Abdomen-soft, non tender Extremities-no lower ext edema Neuro-no focal deficit , AAO x3 Lab data as noted below. ASSESSMENT & PLAN: Patient is a 26yo M with a PMH of Fanconi syndrome, CKD Stage IV, nephrogenic diabetes insipidus and hypertriglyceridemia who presented with chest pain and L flank pain x 1 week. L flank pain: -symptom has resolved etiology unknown ? possible dehydration, given IVF renal function remains stable -Afebrile, no leukocytosis, UA negative -Renal ultrasound: -findings consistent with medullary nephrocalcinosis -no hydronephrosis -moderate splenomegaly, similar to 2012 ultrasound -offers no complain or pain or discomfort stable to be discharged home DEPRESSION : parents mentions pt having a lot of stress -dealing with his chronic illness / difficulty with relationship ( girlfriend /fiance ) has been very depressed and withdrawn pt has never been on antidepressants has not been able to establish with psychiatrist Psych consult requested pt does not want to wait till to talk to a psych liaison wants to be discharged has appointment scheduled with Family physician next week , wants to discuss depression on that office visit and have referral to out patient psychiatrist if needed Psychiatry consult requested Chest pain: no cardiac, possible anxiety related no symptom at present -CXR normal. No pleural effusions, pneumothorax -ECG normal, vitals stable -D dimer normal no further cardiac work up needed Fanconi syndrome: renal function , electrolytes stable at baseline -Followed closely by Dr. Nolan ; consulted -appreciate input stable to be discharged home today -Continue all home meds Chronic Kidney Disease Stage IV: -2/2 Fanconi syndrome -Kidney function is currently at baseline; -Cr is currently close to baseline at 3.4 -Has ranged from 2.9 - 3.8 over the past few months -GFR ranges in the mid-20s and is currently 24 -Per last clinic note, the plan is to discuss dialysis further at next appointment -Plan to refer patient for transplant once GFR <20 pt will continue to follow up with Dr Nolan as out patient DVT Ppx: unfractionated heparin Code status: FULL DISPOSITION discharge home today medicine follow up with Dr Alberto at [facility] Nephrology follow up with Dr Nolan Vital Signs: Date Time Temp Pulse Resp B/P (MAP) Pulse Ox O2 Delivery O2 Flow Rate FiO2 11/14/16 11:19 37.0 71 17 107/66 (80) 97 Room Air 11/14/16 10:39 36.8 70 18 99 Room Air 11/14/16 08:00 99 Room Air 11/14/16 06:53 36.8 70 18 111/66 (81) 99 Room Air 11/14/16 04:00 60 Room Air 11/14/16 02:58 36.7 80 17 111/60 (77) 98 Room Air 11/14/16 00:03 36.4 60 15 114/68 (83) 100 Room Air 11/13/16 23:59 99 Room Air 11/13/16 20:00 Room Air 11/13/16 19:44 36.6 62 17 108/60 (76) 100 Room Air 11/13/16 16:00 Room Air 11/13/16 15:48 36.5 78 17 108/62 (77) 100 Room Air 11/13/16 12:00 99 Room Air Lab Results: Results Past 24 Hours Test 11/14/16 06:31 Range/Units Sodium Level 145 136-145 mmol/L Potassium Level 4.3 3.5-5.1 mmol/L Chloride Level 119 98-107 mmol/L Carbon Dioxide Level 20 21-32 mmol/L Anion Gap 6.0 3-11 mmol/L Blood Urea Nitrogen 13 7-18 mg/dl Creatinine 3.10 0.60-1.40 mg/dl Est Creatinine Clear Calc Drug Dose 35.4 ml/min Estimated GFR () 31.0 Estimated GFR (Non- 26.7 BUN/Creatinine Ratio 4.2 10-20 Random Glucose 95 70-99 mg/dl Calcium Level 7.8 8.5-10.1 mg/dl Phosphorus Level 2.0 2.5-4.9 mg/dl Magnesium Level 2.0 1.8-2.4 mg/dl
--- NOTE | 2016-11-14 12:05 | Discharge Summary ---
Discharge Summary Date of Service Nov 14, 2016. Discharge Summary Admission Date: Nov 12, 2016 at 17:02 Discharge Date: Nov 14, 2016 Discharge Disposition: Home Principal Diagnosis: BACK PAIN .NAUSEA -RESOLVED /DEPRESSION Procedures: CHEST XRAY Consultations: NEPHROLOGY ONCAnne Medication Reconciliation Continued Medications: Calcitriol (Calcitriol) 0.25 Mcg Cap 0.25 MCG PO DAILY, #90 Calcium Carbonate (Tums) 500 Mg Chew 3 TABS PO HS PRN for Cholecalciferol (Vitamin D3) 1,000 Inter.unit Tab 7000 INTER.UNIT PO DAILY Cysteamine Bitartrate (Cystagon) 150 Mg Cap 4 CAP PO QID TAKE WITH 2, 50 MG CAPS QID Cysteamine Bitartrate (Cystagon) 50 Mg Cap 2 CAP PO QID Cysteamine Hcl (Cystaran) 0.44 % Annie 1 DROP OPB Q1H, #60 WHILE AWAKE Levocarnitine (Metabolic Modif (Levocarnitine) 330 Mg Tab 660 MG PO TID Magnesium Oxide (Mg Supplement (Magnesium Oxide) 400 Mg Tab 400 MG PO DAILY Omeprazole (Omeprazole) 20 Mg Tab 20 MG PO QAM, 1 Refill Ondansetron Hcl (Zofran) 8 Mg Tab 8 MG PO Q8 PRN for Nausea Pot Phosphate Monobasic W/ Sod (Phospha 250 Neutral) 1 Tab Tab 1 CAP PO BID, #180 Potassium Chloride (Klor-Con M20) 20 Meq Tabcr 7 TABS PO QID Sodium Bicarbonate (Antacid) (Sodium Bicarbonate) 650 Mg Tab 3 TABS PO QID, 5 Refills Admission Information HPI (per Admitting provider): Patient is a 26yo M with a PMH of Fanconi syndrome, CKD Stage IV, nephrogenic diabetes insipidus and hypertriglyceridemia who presents with chest pain and L flank pain x 1 week. Chest pain is located on the left side and is sharp, intermittent and non-radiating. Worse with inspiration and with any type of movement. Is currently a 5/10 and at its worst is ranked as a 9/10. Denies experiencing pain like this in the past. Denies an increase in physical activity or recent muscular strain. Denies IVDU. No palpitations, dyspnea, SOB. Does endorse a productive cough over the past few days but no fever, chills. Patient also endorses L sided flank pain over the past week that started at the same time as the chest pain. Describes pain as stabbing, intermittent, worse with urination and movement. Associated with nausea and 1-2 episodes of vomiting /day that is mostly bile. Has also been experiencing a decreased appetite and a few episodes of diarrhea over the past few days. Denies any dysuria, hematuria, change in color or odor. Denies a history of kidney stones. Of note, patient follows with Dr. Nolan for Fanconi syndrome. Has been taking medications as prescribed. Per last visit on 11/02, had a discussion about the need for dialysis in the future and potential transplant once GFR is <20. During clinic visit, Cr was 3.8, GFR was in low 20s and K was stable. Today, Cr is 3.4, GFR is 24 and K is stable. Physical Exam (per Admitting): General Appearance: WD/WN, no apparent distress Head: normocephalic, atraumatic Eyes: normal inspection, PERRL, sclerae normal ENT: hearing grossly normal Neck: supple, no adenopathy, trachea midline Respiratory/Chest: chest non-tender (No TTP of L chest wall ), lungs clear, normal breath sounds, no respiratory distress Cardiovascular: regular rate, rhythm, no murmur, normal peripheral pulses Abdomen/GI: normal bowel sounds, non tender, soft, no organomegaly Back: normal inspection, no muscle spasm, + left CVA tenderness Extremities/Musculoskelatal: normal inspection, no calf tenderness, normal capillary refill, no pedal edema Neurologic/Psych: no motor/sensory deficits, alert, normal mood/affect ( Somewhat flattened affect), oriented x 3 Skin: normal color, warm/dry, no rash Hospital Course Patient is a 26yo M with a PMH of Fanconi syndrome, CKD Stage IV, nephrogenic diabetes insipidus and hypertriglyceridemia who presented with chest pain and L flank pain x 1 week. L flank pain: -symptom has resolved etiology unknown ? possible dehydration, given IVF renal function remains stable -Afebrile, no leukocytosis, UA negative -Renal ultrasound: -findings consistent with medullary nephrocalcinosis -no hydronephrosis -moderate splenomegaly, similar to 2012 ultrasound -offers no complain or pain or discomfort stable to be discharged home DEPRESSION : parents mentions pt having a lot of stress -dealing with his chronic illness / difficulty with relationship ( girlfriend /fiance ) has been very depressed and withdrawn pt has never been on antidepressants has not been able to establish with psychiatrist Psych consult requested pt does not want to wait till to talk to a psych liaison wants to be discharged has appointment scheduled with Family physician next week , wants to discuss depression on that office visit and have referral to out patient psychiatrist if needed Psychiatry consult requested Chest pain: no cardiac, possible anxiety related no symptom at present -CXR normal. No pleural effusions, pneumothorax -ECG normal, vitals stable -D dimer normal no further cardiac work up needed Fanconi syndrome: renal function , electrolytes stable at baseline -Followed closely by Dr. Nolan ; consulted -appreciate input stable to be discharged home today -Continue all home meds Chronic Kidney Disease Stage IV: -2/2 Fanconi syndrome -Kidney function is currently at baseline; -Cr is currently close to baseline at 3.4 -Has ranged from 2.9 - 3.8 over the past few months -GFR ranges in the mid-20s and is currently 24 -Per last clinic note, the plan is to discuss dialysis further at next appointment -Plan to refer patient for transplant once GFR <20 pt will continue to follow up with Dr Nolan as out patient DVT Ppx: unfractionated heparin Code status: FULL DISPOSITION discharge home today medicine follow up with Dr Alberto at [facility] Nephrology follow up with Dr Nolan Total time spent on discharge = 35 m ins This includes examination of the patient, discharge planning, medication reconciliation, and communication with other providers. Discharge Instructions DI: Medical v4 Discharge Instructions Date of Service Nov 14, 2016. Admission Reason for Admission: Chest Pain, Left Flank Pain Discharge Discharge Diagnosis / Problem: BACK PAIN .NAUSEA -RESOLVED /DEPRESSION Discharge Goals Goal(s): Decrease discomfort, Improve disease control, Diagnostic testing Activity Recommendations Activity Limitations: resume your previous activity . Instructions / Follow-Up Instructions / Follow-Up HOSPITAL FOLLOW UP : 11/18/2016 1:00 PM Cammie Alberto DO Internal Medicine [facility] WILL NEED OUT PATIENT PSYCHIATRY FOLLOW UP Current Hospital Diet Patient's current hospital diet: Renal Diet Discharge Diet Recommended Diet: Renal Diet Pending Studies Studies pending at discharge: no Medical Emergencies . Who to Call and When: Medical Emergencies: If at any time you feel your situation is an emergency, please call 911 immediately. . Non-Emergent Contact Non-Emergency issues call your: Primary Care Provider . . "Provider Documentation" section prepared by Carol Bain. . VTE Core Measure Inpt VTE Proph given/why not?: Unfractionated heparin SQ Additional Copies To Cammie Alberto D.O. Oncu, Kerim I., DO
[2016-11-16 14:29] LABS: COD UR NEGATIVE NG/ML (CUTOFF=50); HYDROCOD UR NEGATIVE NG/ML (CUTOFF=50); HYDROMOR UR NEGATIVE NG/ML (CUTOFF=50); MORPHINE UR 514 NG/ML (CUTOFF=50); NORHYDROCODONE CONF UR NEGATIVE NG/ML (CUTOFF=50); OXYMORPH UR NEGATIVE NG/ML (CUTOFF=50)
--- NOTE | 2016-11-18 14:37 | Psychiatric Consultation ---
Psychiatric Consultation Date of Service: Nov 18, 2016. barrel burner provider was unable to see patient primary to discharge by the primary team.
== END 2016-11-14 11:22 | disposition home or self-care (01) ==
LOC: C.EDB 15:11 → C.2T 17:02 → ENRESERV 17:27 → CANRESERV 11-14 09:17 → ENRESERV 11-14 09:17 → CANBEDREQ 11-14 10:08
PROVIDERS: ADMIT Internal Medicine; ATTEND Hospitalist
DX: R10.9 Unspecified abdominal pain (principal); F32.9 Major depressive disorder, single episode, unspecified; R07.89 Other chest pain; E72.09 Other disorders of amino-acid transport; E11.22 Type 2 diabetes mellitus with diabetic chronic kidney disease; N18.4 Chronic kidney disease, stage 4 (severe); N25.1 Nephrogenic diabetes insipidus; N25.89 Other disorders resulting from impaired renal tubular function; E78.1 Pure hyperglyceridemia; F17.210 Nicotine dependence, cigarettes, uncomplicated; Z79.899 Other long term (current) drug therapy

== ENCOUNTER 2017-02-20 19:06 | Emergency (ER) | payer BC, OTHER ==
[~2017-02-20] VITALS: Ht 175.3 cm; Wt 71.9 kg
[~2017-02-20 19:06] MED LIST changes: -CALC0.5C2 PO; +CALC1CAP36 PO; +CALC500C3 PO; +OMEP20TA PO; +POTTAB2 PO; +VTMD1000 PO; +[UNRECOGNIZED DRUG - CODE] OPB; +[UNRECOGNIZED DRUG - CODE] PO
[2017-02-20 19:08] VITALS: TEMP 36.7; Ht 175.3 cm; Wt 71.9 kg
[2017-02-20] MEDS ORDERED: CHOL1TAB12 PO (19:25)
[2017-02-20] MEDS ORDERED: SERT1TAB88 PO (19:26)
[2017-02-20] MEDS ORDERED: HYDROCODONE/ACETAMOPHEN 5/325MG TAB PO ONE (19:45)
--- NOTE | 2017-02-20 20:07 | DIAGNOSTIC IMAGING REPORT ---
LUMBAR SPINE 5 VIEWS HISTORY: L lumbar back pain COMPARISON: Lumbar spine 07/21/2014. FINDINGS: There is no fracture. No subluxation. Multiple bilateral renal calculi are again noted. No ureteral calculi identified. Disc spaces are preserved. IMPRESSION: 1. No fractures or subluxation within the lumbar spine. 2. Bilateral nephrolithiasis is again noted. Electronically signed by: Keegan Osuna M.D. 02/20/2017 8:05 PM Dictated Date/Time: 02/20/2017 8:00 PM
[2017-02-20] MEDS ORDERED: SODI650T8 PO (20:37)
[2017-02-20] MEDS ORDERED: MAGN1TAB19 PO (20:37)
[2017-02-20] MEDS ORDERED: LEVO330T PO (20:37)
--- NOTE | 2017-02-20 21:04 | DIAGNOSTIC IMAGING REPORT ---
ABDOMEN AND PELVIS CT WITHOUT CONTRAST CT DOSE: 289.96 mGy.cm HISTORY: lower back pain and hematuria TECHNIQUE: Multiaxial CT images of the abdomen and pelvis were performed without the use of intravenous and oral contrast according to the standard department stone protocol. A dose lowering technique was utilized adhering to the principles of ALARA. COMPARISON STUDY: Abdomen and pelvis CT 08/20/2011. FINDINGS: A few linear densities at the lung bases suggestive of subsegmental atelectasis are scarring. No pneumoperitoneum. No pneumatosis. No fractures within the visualized osseous structures. No hepatic or splenic masses on this unenhanced study. The spleen remains enlarged measuring 17.5 cm in length. The unenhanced adrenal glands and pancreas appear unremarkable. The gallbladder is decompressed and not well visualized. There are multiple bilateral renal calculi consistent with medullary nephrocalcinosis. There are no ureteral or bladder calculi identified. The bladder is moderately distended. There is mild hydroureteronephrosis. Suboptimal evaluation for bowel pathology due to the lack of intravenous and oral contrast. However, there is no definite bowel wall thickening or obstruction. Normal appendix. Moderate stool seen throughout the colon. No retroperitoneal lymphadenopathy. Multiple stable prominent mesenteric lymph nodes. IMPRESSION: 1. Multiple bilateral renal calculi consistent with medullary nephrocalcinosis. 2. Mild bilateral hydroureteronephrosis to the level of the ureterovesical junctions. There are no ureteral or bladder stones identified. Therefore, this is likely due to the moderately distended bladder. 3. No definite bowel wall thickening or obstruction. 4. Normal appendix. 5. Stable splenomegaly. 6. Multiple stable prominent mesenteric lymph nodes. Electronically signed by: Keegan Osuna M.D. 02/20/2017 9:03 PM Dictated Date/Time: 02/20/2017 8:52 PM
[2017-02-20 21:58] LABS: BASO % 0.6 %; BASO ABS # 0.03 K/uL (0-0.2); COMPLETE YES; EOS % 3.3 %; LYMPH % 22.8 %; LYMPH ABS # 1.24 K/uL (1.2-3.4); MEAN CELL VOLUME 85.6 fL (80-100); MEAN CORPUSCULAR HEMOGLOBIN 29.6 pg (25-34); MEAN CORPUSCULAR HGB CONC 34.5 g/dl (32-36); MEAN PLATELET VOLUME 9.7 fL (7.4-10.4); MONO % 6.1 %; NEUT % 67.2 %; PLATELET COUNT 171 K/uL (130-400); RED BLOOD COUNT 3.62 M/uL (4.7-6.1); WHITE BLOOD COUNT 5.45 K/uL (4.8-10.8)
[2017-02-20] MEDS ORDERED: ONDANSETRON INJ 2 MG/ML 2 ML VIAL IV STA (22:05)
[2017-02-20] MEDS ORDERED: MoRPHine SULFATE 4 MG/ML 1 ML CARP\\VIAL IV STA (22:05)
[2017-02-20 22:08] LABS: BUN/CREATININE RATIO 11.6 (10-20); CREATININE 3.71 mg/dl (0.60-1.40); POTASSIUM 3.6 mmol/L (3.5-5.1)
[2017-02-20] MEDS ORDERED: OXYC1TAB3 PO (22:43)
[2017-02-20] MEDS ORDERED: OXYCODONE IR HOME PACK PO ONE (22:45)
[2017-02-20 23:00] VITALS: BP 120/57; PULSE 80; O2SAT 98
[2017-02-20] MEDS ORDERED: MCRK20 PO (23:19)
[2017-02-20] MEDS ORDERED: ONDA8TAB6 PO (23:21)
--- NOTE | 2017-02-20 23:24 | EMERGENCY ROOM VISIT NOTE ---
ED Visit Note First contact with patient: 19:12 Chief Complaint: Low back pain. History of Present Illness: Young is a 27-year-old white male who ambulates into the ED complaining of lumbar back pain. Historically patient reports she has a history of chronic kidney disease, Franconi syndrome and renal tubular acidosis. Patient reports after waking yesterday morning, approximately 36 hours ago, he developed lumbar back pain. Since that time the pain has been constant. He places his discomfort just lateral to the L5-S1 area. The pain radiates approximately 3-5 cm laterally of of the spine. He describes his pain as a sharp sensation. He rates his discomfort 8/10. His pain worsens with palpation , sitting down and all movements of the lumbar spine. He has not identified any alleviating factors related to the pain. He reports he has been taking Tylenol for pain without relief of his discomfort. He denies any associated symptoms including fevers, chills, sweats, skin eruptions, skin color changes, recent direct or repetitive trauma to the lumbar spine, upper respiratory tract symptoms, chest pain, abdominal pain, nausea, vomiting, diarrhea, constipation, rectal bleeding, black/tarry stools, urinary symptoms, hematuria, flank pain, genital paresthesias, bowel and bladder dysfunction, lower extremity weakness/ numbness/tingling. Review of Systems: As noted above in history of present illness. All body systems were reviewed and found to be negative as noted above. Past Medical History: As noted previously and neurogenic diabetics insipidus, pneumonia, unspecified stomach disorder. Current Medications: Medications Dose Route/Sig Max Daily Dose Days Date Category Dose Instructions Sertraline HCl 25 Mg Tab 25 Mg PO DAILY 02/20/17 Reported Vitamin D3 (Cholecalciferol) 3,000 Unit Tab 3,000 Inter.unit PO DAILY 02/20/17 Reported Phospha 250 Neutral (Pot Phosphate Monobasic W/ Sod) 1 Tab Tab 1 Tab PO BID 11/12/16 Reported Cystagon (Cysteamine Bitartrate) 50 Mg Cap 100 Mg PO QID 11/12/16 Reported Cystaran (Cysteamine Hcl) 0.44 % Annie 1 Drop OPB Q1H 11/12/16 Reported WHILE AWAKE Tums (Calcium Carbonate) 500 Mg Chew 1,500 Mg PO HS PRN 11/12/16 Reported Calcitriol 0.25 Mcg Cap 0.25 Mcg PO DAILY 11/12/16 Reported Zofran (Ondansetron HCl) 8 Mg Tab 8 Mg PO Q8 PRN 09/26/15 Reported Klor-Con M20 (Potassium Chloride) 20 Meq Tabcr 140 Meq PO QID 09/26/15 Reported TAKE 7 TABLETS DIRECTED Magnesium Oxide (Magnesium Oxide (Mg Supplement) 400 Mg Tab 400 Mg PO DAILY 02/19/15 Reported Sodium Bicarbonate (Sodium Bicarbonate (Antacid)) 650 Mg Tab 1,950 Mg PO QID 02/19/15 Reported TAKE 3 TABLETS DIRECTED Levocarnitine (Levocarnitine (Metabolic Modif) 330 Mg Tab 660 Mg PO TID 02/19/15 Reported Cystagon (Cysteamine Bitartrate) 150 Mg Cap 600 Mg PO QID 02/19/15 Reported Allergies to Medications: Patient denies. Social History: Patient is currently employed; he feels safe in his home environment; he admits to tobacco use and denies alcohol use. Physical Examination: Vital Signs: Date Time Temp Pulse Resp B/P (MAP) Pulse Ox O2 Delivery O2 Flow Rate FiO2 02/20/17 23:00 80 18 120/57 98 02/20/17 21:00 71 16 114/65 99 Room Air 02/20/17 19:08 36.7 88 16 123/71 99 Room Air GENERAL: 27-year-old male in mild to moderate distress due to pain, nontoxic- appearing, afebrile and hemodynamically stable. NEUROLOGICAL: Awake, alert and oriented to person, place and time. Answering questions appropriately and following commands. Normal gait. Good hand eye coordination. No focal motor or sensory deficits. SKIN: Warm, dry and pink. No soft tissue eruptions or trauma noted. HEENT: Atraumatic and normocephalic. PERRLA. Sclera white and conjunctiva pink. No drainage from naris. Oral cavity moist and pink. Pharynx is nonerythematous or edematous. Speech normal. No lymphadenopathy. Trachea midline. No jugular venous distention. BACK: No tenderness over the bony cervical and thoracic spine. No tenderness throughout the cervical and thoracic lumbar paraspinous musculature. No CVA tenderness. Tenderness at the S5 L1 area with left-sided prominence. I do not appreciate any bony deformity, step-offs, swelling, ecchymosis or erythema. There is also mild tenderness in the paraspinous musculature just lateral to this area without any muscle spasm. Decreased range of motion in all movements due to pain. Negative straight leg raise test. THORAX: Lungs sounds are clear to auscultation and equal bilaterally with symmetrical chest wall. No wheezing, rales or rhonchi. ABDOMEN: Flat, soft and nontender. Positive bowel sounds in all quadrants. No guarding, rigidity or organomegaly. EXTREMITIES: Moves all extremities well on command and with purpose. All distal neurovascular statuses are intact and equal bilaterally. No calf tenderness or cords. LOWER EXTREMITY: Gross bony deformity. No tenderness in the hips, knees, ankles or feet. No shortening or malrotation. 5/5 muscle strength in all movements of the hips, knees and ankles. 2+ patellar and Achilles deep tendon reflexes intact and equal bilaterally. ED Course: A she is assessed as noted above. Patient's medication list was reviewed. Patient was given one Percocet 5/325 mg tablet by mouth for pain. Lumbar Spine X-Rays: Were read by myself and the radiologist showing no fractures or subluxations. Radiologist notes bilateral renal calculi. At this time I elected to do urinalysis and found that he had blood in his urine and a noncontrast abdominal/pelvis stone study was performed. Abdominal/Pelvic CT: Was reviewed by myself and read by the radiologist and shows no ureteral or bladder stones identified, multiple bilateral renal calculi consistent with medullary nephrocalcinosis, mild bilateral hydroureter nephrosis to the level of the UVJ; radiologist felt this was related to moderate bladder distention, no bowel wall thickening or obstruction, normal- appearing appendix, stable splenomegaly and multiple stable prominent mesenteric lymph nodes. I reviewed the case with my attending, Dr. Flores; he recommended we do some basic labs to make sure of his kidney function with a hydronephrosis. Laboratory Testing: Test 02/20/17 21:23 Range/Units White Blood Count 5.45 4.8-10.8 K/uL Red Blood Count 3.62 4.7-6.1 M/uL Hemoglobin 10.7 14.0-18.0 g/dL Hematocrit 31.0 42-52 % Mean Corpuscular Volume 85.6 80-100 fL Mean Corpuscular Hemoglobin 29.6 25-34 pg Mean Corpuscular Hemoglobin Concent 34.5 32-36 g/dl Platelet Count 171 130-400 K/uL Mean Platelet Volume 9.7 7.4-10.4 fL Neutrophils (%) (Auto) 67.2 % Lymphocytes (%) (Auto) 22.8 % Monocytes (%) (Auto) 6.1 % Eosinophils (%) (Auto) 3.3 % Basophils (%) (Auto) 0.6 % Neutrophils # (Auto) 3.67 1.4-6.5 K/uL Lymphocytes # (Auto) 1.24 1.2-3.4 K/uL Monocytes # (Auto) 0.33 0.11-0.59 K/uL Eosinophils # (Auto) 0.18 0-0.5 K/uL Basophils # (Auto) 0.03 0-0.2 K/uL RDW Standard Deviation 41.1 36.4-46.3 fL RDW Coefficient of Variation 13.1 11.5-14.5 % Immature Granulocyte % (Auto) 0.0 % Immature Granulocyte # (Auto) 0.00 0.00-0.02 K/uL Sodium Level 141 136-145 mmol/L Potassium Level 3.6 3.5-5.1 mmol/L Chloride Level 111 98-107 mmol/L Carbon Dioxide Level 22 21-32 mmol/L Anion Gap 8.0 3-11 mmol/L Blood Urea Nitrogen 43 7-18 mg/dl Creatinine 3.71 0.60-1.40 mg/dl Est Creatinine Clear Calc Drug Dose 30.5 ml/min Estimated GFR () 24.7 Estimated GFR (Non- 21.3 BUN/Creatinine Ratio 11.6 10-20 Random Glucose 85 70-99 mg/dl Calcium Level 8.0 8.5-10.1 mg/dl Patient reported an increase in pain during his laboratory tests studies and he received 4 mg of morphine IV for pain and 4 mg of Zofran IV. I re-reviewed patient case with Dr. Flores and also compared them to previous laboratory tests performed to the [facility]. We agreed on diagnostic approach, treatment, disposition and plan. Patient was educated about today's findings and instructed on her treatment plan ; he verbalized understanding and agreement with this plan. Clinical Impression: Lumbar back pain. Decision-Making: Initially my differential diagnosis I considered muscle strain , herniated disc, discitis, ureter calculus and other causes. Disposition: Patient discharged home in stable condition accompanied by female friends; prior to departure he was reassessed and subjectively reported he was feeling much better and rated his discomfort 2/10. Plan: Comfort measures were discussed with the patient including use of ice and heat, proper lifting and moving techniques and he was given a short prescription of OxyIR for breakthrough pain and encouraged to use Tylenol every 6 hours as needed for pain. He was given appropriate narcotic precautions and his name was checked in the state database and no red flags were noted. Patient was encouraged to follow-up with his primary care provider for recheck. Patient was encouraged return ED for worsening/uncontrolled pain, fevers, vomiting, genital paresthesias, bowel and bladder dysfunction, lower extremity weakness/numbness/tingling or any new/concerning symptoms.
== END 2017-02-20 22:57 | disposition home or self-care (01) ==
LOC: C.EDB 19:07 → C.EDC 22:57
DX: M54.5 Low back pain (principal); F17.200 Nicotine dependence, unspecified, uncomplicated; Z87.19 Personal history of other diseases of the digestive system; Z87.01 Personal history of pneumonia (recurrent); Z79.899 Other long term (current) drug therapy

== ENCOUNTER 2017-04-21 12:14 | Emergency (ER) | payer BC, OTHER ==
[~2017-04-21] VITALS: Ht 175.3 cm; Wt 74.0 kg
[~2017-04-21 12:14] MED LIST changes: +CHOL1TAB12 PO; +LEVO330T PO; +MAGN1TAB19 PO; +MCRK20 PO; -OMEP20TA PO; +ONDA8TAB6 PO; +OXYC1TAB3 PO; +SERT1TAB88 PO; +SODI650T8 PO; -VTMD1000 PO
[2017-04-21 12:20] VITALS: TEMP 36.9; Ht 175.3 cm; Wt 74.0 kg
[2017-04-21] MEDS ORDERED: ACETAMINOPHEN 500 MG TAB PO STA (12:55)
[2017-04-21] MEDS ORDERED: SODIUM CHLORIDE 0.9% 1000ML 1,000 ML IV STA (12:55)
[2017-04-21 13:36] LABS: BASO % 0.4 %; BASO ABS # 0.02 K/uL (0-0.2); HEMOGLOBIN 10.6 g/dL (14.0-18.0); LYMPH % 16.9 %; LYMPH ABS # 0.89 K/uL (1.2-3.4); MEAN CELL VOLUME 85.2 fL (80-100); MEAN CORPUSCULAR HEMOGLOBIN 29.1 pg (25-34); MEAN CORPUSCULAR HGB CONC 34.2 g/dl (32-36); MEAN PLATELET VOLUME 9.6 fL (7.4-10.4); MONO % 6.1 %; MONO ABS # 0.32 K/uL (0.11-0.59); NEUT % 76.6 %; NEUT ABS # 4.04 K/uL (1.4-6.5); PLATELET COUNT 178 K/uL (130-400); RED CELL DISTRIBUTION WIDTH CV 13.4 % (11.5-14.5); RED CELL DISTRIBUTION WIDTH SD 41.8 fL (36.4-46.3); WHITE BLOOD COUNT 5.27 K/uL (4.8-10.8)
[2017-04-21 13:53] LABS: ALBUMIN 3.5 gm/dl (3.4-5.0); ALT/SGPT 23 U/L (12-78); AST/SGOT 16 U/L (15-37); BLOOD UREA NITROGEN 32 mg/dl (7-18); CALCIUM 8.2 mg/dl (8.5-10.1); CARBON DIOXIDE 16 mmol/L (21-32); CREATININE 4.29 mg/dl (0.60-1.40); GLUCOSE 84 mg/dl (70-99); LIPASE 128 U/L (73-393); POTASSIUM 3.5 mmol/L (3.5-5.1); SODIUM 137 mmol/L (136-145)
[2017-04-21 13:56] LABS: ALKALINE PHOSPHATASE 102 U/L (45-117); TOTAL PROTEIN 7.5 gm/dl (6.4-8.2)
--- NOTE | 2017-04-21 14:45 | DIAGNOSTIC IMAGING REPORT ---
ABDOMEN AND PELVIS CT WITHOUT CONTRAST CT DOSE: 457.51 mGycm HISTORY: Acute right mid abdominal pain R mid ab pain, no CVATTP, no hematuria, CKD/fanconi, blood stool TECHNIQUE: Multiaxial CT images of the abdomen and pelvis were performed without contrast. A dose lowering technique was utilized adhering to the principles of ALARA. COMPARISON STUDY: CT abdomen and pelvis 02/20/2017 FINDINGS: Mild dependent subsegmental bibasilar atelectasis. No pneumatosis or pneumoperitoneum identified. Imaged inferior cardiac chambers are unremarkable. Evaluation of the solid abdominal organs is limited without the use of IV contrast. Within the limitations of the study, the liver, spleen and adrenal glands are within normal limits. Spleen is enlarged, 15.8 cm. Extensive medullary nephrocalcinosis is redemonstrated bilaterally. Mild bilateral hydroureteronephrosis persists without ureteral calculi or distal short process identified. Bladder distention is again noted measuring up to 13 cm in craniocaudal dimension. Prostate appears mildly enlarged for patient age, 4.6 cm transversely. Aorta is normal in course and caliber. No bulky adenopathy. There is no bowel obstruction or focal bowel wall thickening. There is moderate wall thickening of the mid to distal sigmoid colon and rectum with mild surrounding inflammatory stranding. High attenuating material is noted within the lumen of the colon. Additionally, there is mild wall thickening within the transverse colon. No evidence of acute appendicitis. Mildly prominent mesenteric lymph nodes are unchanged. Soft tissues are unremarkable. Mild central depression is noted involving the superior and inferior endplates of the vertebral bodies which is a nonspecific finding. IMPRESSION: 1. Mild wall thickening with surrounding inflammatory stranding involves the transverse and sigmoid colon and rectum suggesting a nonspecific infectious or inflammatory colitis with proctitis. 2. Bilateral medullary nephrocalcinosis. 3. Unchanged mild bilateral hydroureteronephrosis with urinary bladder distention. No obstructing ureteral calculi identified. Correlate clinically to exclude bladder outlet obstruction. 4. Unchanged splenomegaly. Electronically signed by: Caleb Rogel M.D. 04/21/2017 2:44 PM Dictated Date/Time: 04/21/2017 2:33 PM
--- NOTE | 2017-04-21 15:05 | EMERGENCY ROOM VISIT NOTE ---
History Report prepared by Christo: Zach Schaefer Under the Supervision of: Dr. Jimbo Martinez M.D. First contact with patient: 12:36 Chief Complaint: ABDOMINAL PAIN Stated Complaint: BLOOD IN STOOL,LOWER ABD PAIN Nursing Triage Summary: pt to the ED with c/o blood in stool and right sided lower abd pain that started today + diarrhea with bright red blood History of Present Illness The patient is a 27 year old male with a PMH of Fanconi Syndrome, and CKD who presents to the Emergency Room with complaints of intermittent right sided abdominal pain beginning today. He also complains of diarrhea. The patient has noticed bright red blood in his diarrhea. He states that the blood is only present on the stool. Nothing has improved his pain. The patient denies pain with defecation, or leg swelling. He is not on any blood thinners. He has no family history of colon cancer. The patient has no history of kidney stones. 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 Source of History: patient Onset: Today Position: abdomen (right sided) Timing: intermittent Modifying Factors (Relieving): other (none) Associated Symptoms: + hematochezia, + diarrhea Note: The patient denies pain with defecation, or leg swelling. Review of Systems See HPI for pertinent positives and negatives. A total of ten systems were reviewed and were otherwise negative. 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 Family History Crohn's disease MOTHER Kidney disease Social History Smoking Status: Former Smoker Alcohol Use: none Drug Use: none Occupation Status: employed Current/Historical Medications Scheduled Amoxicillin & Pot Clavulanate (Augmentin 500MG), 1 TAB PO BID Calcitriol (Calcitriol), 0.25 MCG PO DAILY Cholecalciferol (Vitamin D3), 3,000 INTER.UNIT PO DAILY Cysteamine Bitartrate (Cystagon), 600 MG PO QID Cysteamine Bitartrate (Cystagon), 100 MG PO QID Cysteamine Hcl (Cystaran), 1 DROP OPB Q1H Levocarnitine (Metabolic Modif (Levocarnitine), 660 MG PO TID Magnesium Oxide (Mg Supplement (Magnesium Oxide), 400 MG PO DAILY Pot Phosphate Monobasic W/ Sod (Phospha 250 Neutral), 1 TAB PO BID Potassium Chloride (Klor-Con M20), 140 MEQ PO QID Sertraline HCl (Sertraline HCl), 25 MG PO DAILY Sodium Bicarbonate (Antacid) (Sodium Bicarbonate), 1,950 MG PO QID Scheduled PRN Calcium Carbonate (Tums), 1,500 MG PO HS PRN for Indigestion Ondansetron Hcl (Zofran), 8 MG PO Q8 PRN for Nausea Oxycodone Immediate Rel Tab (Roxicodone Ir), 5 MG PO Q6H PRN for Pain Allergies Coded Allergies: No Known Allergies (Verified , 04/21/17) Physical Exam Vital Signs Date Time Temp Pulse Resp B/P (MAP) Pulse Ox O2 Delivery O2 Flow Rate FiO2 04/21/17 14:18 60 16 103/62 100 Room Air 04/21/17 12:20 36.9 78 16 121/72 98 Room Air Physical Exam GENERAL: Awake, alert, well-appearing, NAD HENT: Normocephalic, atraumatic. EYES: Normal conjunctiva. Sclera non-icteric. NECK: Supple. No nuchal rigidity. FROM. RESPIRATORY: CTAB, no rhonchi, wheezing, crackles CARDIAC: RRR, no MRG ABDOMEN: Soft, BS+. Mild right mid-abdominal pain. No RLQ tenderness. No CVA TTP. Scar on the left abdomen. RECTAL: No hemorrhoids. No gross blood. No melanotic stool. Hemoccult negative. MSK: No chest wall TTP, no LE edema NEURO: GCS 15, CN 2-12 intact, moves all 4s on command SKIN: No rash or jaundice noted. Tattoos noted. Medical Decision & Procedures ER Provider Diagnostic Interpretation: Radiology results as stated below per my review and radiologist interpretation: ABDOMEN AND PELVIS CT WITHOUT CONTRAST FINDINGS: Mild dependent subsegmental bibasilar atelectasis. No pneumatosis or pneumoperitoneum identified. Imaged inferior cardiac chambers are unremarkable. Evaluation of the solid abdominal organs is limited without the use of IV contrast. Within the limitations of the study, the liver, spleen and adrenal glands are within normal limits. Spleen is enlarged, 15.8 cm. Extensive medullary nephrocalcinosis is redemonstrated bilaterally. Mild bilateral hydroureteronephrosis persists without ureteral calculi or distal short process identified. Bladder distention is again noted measuring up to 13 cm in craniocaudal dimension. Prostate appears mildly enlarged for patient age, 4.6 cm transversely. Aorta is normal in course and caliber. No bulky adenopathy. There is no bowel obstruction or focal bowel wall thickening. There is moderate wall thickening of the mid to distal sigmoid colon and rectum with mild surrounding inflammatory stranding. High attenuating material is noted within the lumen of the colon. Additionally, there is mild wall thickening within the transverse colon. No evidence of acute appendicitis. Mildly prominent mesenteric lymph nodes are unchanged. Soft tissues are unremarkable. Mild central depression is noted involving the superior and inferior endplates of the vertebral bodies which is a nonspecific finding. IMPRESSION: 1. Mild wall thickening with surrounding inflammatory stranding involves the transverse and sigmoid colon and rectum suggesting a nonspecific infectious or inflammatory colitis with proctitis. 2. Bilateral medullary nephrocalcinosis. 3. Unchanged mild bilateral hydroureteronephrosis with urinary bladder distention. No obstructing ureteral calculi identified. Correlate clinically to exclude bladder outlet obstruction. 4. Unchanged splenomegaly. Electronically signed by: Caleb Rogel M.D. 04/21/2017 2:44 PM Laboratory Results 04/21/17 13:10 Red Blood Count 3.64, Mean Corpuscular Volume 85.2, Mean Corpuscular Hemoglobin 29.1, Mean Corpuscular Hemoglobin Concent 34.2, Mean Platelet Volume 9.6, Neutrophils (%) (Auto) 76.6, Lymphocytes (%) (Auto) 16.9, Monocytes (%) (Auto) 6.1, Eosinophils (%) (Auto) 0.0, Basophils (%) (Auto) 0.4, Neutrophils # (Auto) 4.04, Lymphocytes # (Auto) 0.89, Monocytes # (Auto) 0.32, Eosinophils # (Auto) 0.00, Basophils # (Auto) 0.02 04/21/17 13:10 Test 04/21/17 13:00 04/21/17 13:10 Urine Color YELLOW Urine Appearance CLEAR (CLEAR) Urine pH 6.0 (4.5-7.5) Urine Specific [place] 1.006 (1.000-1.030) Urine Protein 2+ (NEG) Urine Glucose (UA) 1+ (NEG) Urine Ketones TRACE (NEG) Urine Occult Blood 1+ (NEG) Urine Nitrite NEG (NEG) Urine Bilirubin NEG (NEG) Urine Urobilinogen NEG (NEG) Urine Leukocyte Esterase NEG (NEG) Urine WBC (Auto) 1-5 /hpf (0-5) Urine RBC (Auto) 0-4 /hpf (0-4) Urine Hyaline Casts (Auto) 0 /lpf (0-5) Urine Epithelial Cells (Auto) 0-5 /lpf (0-5) Urine Bacteria (Auto) NEG (NEG) White Blood Count 5.27 K/uL (4.8-10.8) Red Blood Count 3.64 M/uL (4.7-6.1) Hemoglobin 10.6 g/dL (14.0-18.0) Hematocrit 31.0 % (42-52) Mean Corpuscular Volume 85.2 fL (80-100) Mean Corpuscular Hemoglobin 29.1 pg (25-34) Mean Corpuscular Hemoglobin Concent 34.2 g/dl (32-36) Platelet Count 178 K/uL (130-400) Mean Platelet Volume 9.6 fL (7.4-10.4) Neutrophils (%) (Auto) 76.6 % Lymphocytes (%) (Auto) 16.9 % Monocytes (%) (Auto) 6.1 % Eosinophils (%) (Auto) 0.0 % Basophils (%) (Auto) 0.4 % Neutrophils # (Auto) 4.04 K/uL (1.4-6.5) Lymphocytes # (Auto) 0.89 K/uL (1.2-3.4) Monocytes # (Auto) 0.32 K/uL (0.11-0.59) Eosinophils # (Auto) 0.00 K/uL (0-0.5) Basophils # (Auto) 0.02 K/uL (0-0.2) RDW Standard Deviation 41.8 fL (36.4-46.3) RDW Coefficient of Variation 13.4 % (11.5-14.5) Immature Granulocyte % (Auto) 0.0 % Immature Granulocyte # (Auto) 0.00 K/uL (0.00-0.02) Anion Gap 8.0 mmol/L (3-11) Est Creatinine Clear Calc Drug Dose 26.3 ml/min Estimated GFR () 20.8 Estimated GFR (Non- 17.9 BUN/Creatinine Ratio 7.4 (10-20) Calcium Level 8.2 mg/dl (8.5-10.1) Total Bilirubin 0.4 mg/dl (0.2-1) Direct Bilirubin < 0.1 mg/dl (0-0.2) Aspartate Amino Transf (AST/SGOT) 16 U/L (15-37) Alanine Aminotransferase (ALT/SGPT) 23 U/L (12-78) Alkaline Phosphatase 102 U/L (45-117) Total Protein 7.5 gm/dl (6.4-8.2) Albumin 3.5 gm/dl (3.4-5.0) Lipase 128 U/L (73-393) Laboratory results reviewed by me Medications Administered Medications (Trade) Dose Ordered Sig/Rafat Route Start Time Stop Time Status Last Admin Dose Admin Sodium Chloride 1,000 ml @ 999 mls/hr Q1H1M STAT IV 04/21/17 12:55 04/21/17 13:55 DC 04/21/17 12:55 999 MLS/HR Acetaminophen (Tylenol Tab) 1,000 mg NOW STAT PO 04/21/17 12:55 04/21/17 12:57 DC 04/21/17 12:55 1,000 MG ECG Indication: abdominal pain Rate (beats per minute): 75 Rhythm: normal sinus Findings: ST elevation (likely consistent with benign early repolarization), other (Normal intervals. Normal axis. ) ED Course 1251: The patient was evaluated in room C11B. A complete history and physical exam was performed. 1520: I reevaluated the patient. Discussed results and discharge instructions: he verbalized understanding and agreement. The patient is ready for discharge. Medical Decision The patient is a 27 year old male with a PMH of Fanconi Syndrome, and CKD who presents to the Emergency Room with complaints of intermittent right sided abdominal pain beginning today. Differential diagnosis: Etiologies such as appendicitis, diverticulitis, PUD, biliary pathology, UTI, pancreatitis, obstruction, mesenteric ischemia, aortic pathology, infections, inflammatory bowel disease, renal colic, as well as others were entertained. Patient was seen and evaluated the bedside. Patient does have a known history of Fanconi syndrome. Patient was complaining some mild right sided abdominal pain with some blood in stool. Patient denies any blood with wiping. Patient denies any dizziness or lightheadedness. Patient does not take any blood thinning medications. On exam the patient does have some very mild right-sided abdominal discomfort but no CVA tenderness and has a nonsurgical abdomen. Patient did have blood work completed along with a CT of the abdomen pelvis noncontrast. The patient's blood work showed stable chronic anemia with a normal platelet count. Patient had normal coagulation studies. Patient's kidney function is fairly consistent with priors. Patient CT the abdomen pelvis did show that he does have some nonspecific inflammation to the transverse and sigmoid colon along with some colitis. Patient did have a rectal exam performed which showed no gross blood, no melenic stool, and was Hemoccult negative. Given the patient's findings on CT I did discuss with the pharmacist about an appropriate agent given the nonspecific colitis. Given the patient's stable chronic anemia with normal platelet count and coagulation studies and without any significant discomfort concerning for possible ischemic bowel I believe he is suitable to follow-up as an outpatient. Patient denies any history of IBD or colon cancer within the family. Patient was given a prescription and told to take these medications for the time being. Patient was in suitable for outpatient follow-up and treatment at this time. Patient was given strict follow-up, discharge, and return precautions. All questions were answered. Patient was deemed suitable for outpatient follow-up at this time. Patient agreed with the plan of care and was safely discharged home. Medication Reconcilliation Current Medication List: was personally reviewed by me Blood Pressure Screening Patient's blood pressure: Normal blood pressure Blood pressure disposition: Did not require urgent referral Impression Primary Impression: Colitis Additional Impressions: Proctitis CKD (chronic kidney disease) stage 4, GFR 15-29 ml/min Scribe Attestation The scribe's documentation has been prepared under my direction and personally reviewed by me in its entirety. I confirm that the note above accurately reflects all work, treatment, procedures, and medical decision making performed by me. Departure Information Dispostion Home / Self-Care Prescriptions Amoxicillin & Pot Clavulanate (AUGMENTIN 500MG) 1 Tab Tab 1 TAB PO BID for 7 Days, #14 TAB Prov: Jimbo Martinez M.D. 04/21/17 Referrals Malorie Nolan DO (PCP) Patient Instructions Abdominal Pain - [facility], Bleeding Rectal, My [facility] Additional Instructions Please return to the emergency department if you have worsening or recurrent symptoms not amenable to at-home treatment. Please call for a follow-up appointment with her primary care physician. Please take your medications as prescribed. If you have other concerns and/or complaints please feel free to also call your primary care physician's office or return the ED for further evaluation, management, and treatment. You may take tylenol 1000 mg every 6 hours as needed for pain. Take your medications as prescribed. If taking an antibiotic consider taking a probiotic and/or eating yogurt, but at the least, please take with food as it can cause upset stomach. If culture results are not available at discharge, if they are positive for concern of infection, you will be informed of the results as soon as they are available. You have been examined and treated today on an emergency basis only. This is not a substitute for, or an effort to provide, complete comprehensive medical care. It is impossible to recognize and treat all injuries or illnesses in a single emergency department visit. It is therefore important that you follow up closely with [facility], your PCP, and/or your specialist(s). Call as soon as possible for an appointment. Thank you for your time and consideration. I look forward to speaking with you again soon. Please don't hesitate to call us if you have any questions. Problem Qualifiers
[2017-04-21] MEDS ORDERED: AMOX500T PO (15:18)
[2017-04-21 15:41] VITALS: BP 110/60; PULSE 65; O2SAT 100
== END 2017-04-21 15:42 | disposition home or self-care (01) ==
LOC: C.EDB 12:15 → C.EDC 15:42
DX: K52.9 Noninfective gastroenteritis and colitis, unspecified (principal); K62.89 Other specified diseases of anus and rectum; N18.4 Chronic kidney disease, stage 4 (severe); Z87.891 Personal history of nicotine dependence

== ENCOUNTER 2017-05-17 10:09 | Emergency (ER) | payer BC ==
[~2017-05-17] VITALS: Ht 175.3 cm; Wt 75.9 kg
[~2017-05-17 10:09] MED LIST changes: -CALC1CAP36 PO; -CALC500C3 PO; -CHOL1TAB12 PO; -LEVO330T PO; -MAGN1TAB19 PO; -MCRK20 PO; -ONDA8TAB6 PO; -POTTAB2 PO; -SERT1TAB88 PO; -SODI650T8 PO; -[UNRECOGNIZED DRUG - CODE] OPB; -[UNRECOGNIZED DRUG - CODE] PO; -[UNRECOGNIZED DRUG - CODE] PO
[2017-05-17 10:13] VITALS: TEMP 36.7; Ht 175.3 cm; Wt 75.9 kg
--- NOTE | 2017-05-17 10:50 | EMERGENCY ROOM VISIT NOTE ---
ED Visit Note First contact with patient: 10:18 CHIEF COMPLAINT: Bilateral flank pain, cramping in hands and feet HISTORY OF PRESENTING ILLNESS: This is a 27-year-old male with past medical history significant for Fanconi syndrome with resultant stage IV chronic kidney disease, nephrogenic diabetes insipidus and hypertriglyceridemia who presents to the emergency department with complaint of bilateral flank pain and cramping in his hands and feet. He states that the pain is constant, sharp, 7/10. He has not taken any medications for his pain. Patient states that he was sick with vomiting and diarrhea over the past few days, positive recent sick contacts. He has been feeling dehydrated. He does make a normal amount urine in spite of his kidney disease, but states that his urine has been darker than usual and he has had decreased output. Patient states that he often gets these cramps in his hands and feet when he has electrolyte abnormalities. He states that he is on renal transplant list, but has not been started dialysis. He denies any headaches, neck pain or stiffness, chest pain, shortness of breath, abdominal pain, bloody emesis or stools, dysuria, or rash. REVIEW OF SYSTEMS: A complete 10 point review of systems was reviewed with the patient with pertinent positives and negatives as per history of present illness. All else were negative. PAST MEDICAL HISTORY: Reviewed in chart. SOCIAL HISTORY: Lives at home. ALLERGIES: No known allergies. PHYSICAL EXAM: CONSTITUTIONAL: Pleasant and cooperative. No acute distress, but appears to be in some pain. Mildly dehydrated, but otherwise well appearing and well nourished. HEENT: Normocephalic, atraumatic. Pupils equal, round and reactive to light, EOMI. TMs normal. Pharynx normal. Tacky mucous membranes. NECK: Supple, full active range of motion without discomfort. No cervical adenopathy. RESPIRATORY: Clear to auscultation bilaterally with no wheezing, crackles, rhonchi or stridor. Equal expansion bilaterally. CARDIOVASCULAR: Regular rate and rhythm with no murmurs, rubs or gallops. Normal peripheral perfusion. No edema. GASTROINTESTINAL: Soft, nontender, nondistended. No palpable masses or HSM. Bowel sounds present in all quadrants. Bilateral CVA tenderness to palpation. MUSCULOSKELETAL: Full range of motion of all joints without discomfort. INTEGUMENTARY: No rash or other significant dermatologic conditions noted. NEUROLOGIC: Alert and oriented X 4 with normal affect. Normal strength and sensation all 4 extremities. No focal neurologic deficits noted. Normal speech. Normal gait observed. ED COURSE AND MEDICAL DECISION MAKING: CC: Patient presenting with complaint of flank pain and muscle cramps DIFFERENTIAL DIAGNOSIS: Includes, but not limited to electrolyte imbalance, dehydration, worsening kidney function, UTI, pyelonephritis, renal stone, among others. INTERPRETATION OF LABS: Mild leukopenia and anemia (consistent with baseline), hypokalemia, hypocalcemia (consistent with baseline), renal function appears consistent with baseline, normal liver enzymes. UA negative for infection. MEDICATION RECONCILIATION: I attest that I have personally reviewed the patient 's current medication list. INITIAL VITAL SIGNS REVIEW: I reviewed the patient's initial vital signs and interpret them as follows: T: Afebrile; BP: Normotensive; HR: Within normal limits; RR: Within normal limits; Pulse Ox: Within normal limits on room air. Blood pressure screening: The patient was found to have normal blood pressure on screening and does not require follow-up for repeat blood pressure check. SUMMARY: Patient was evaluated at bedside, history and physical exam performed. Patient is alert and oriented, no acute distress, resting calmly in the stretcher. Patient does have bilateral CVA tenderness to palpation. He states that he has chronic pain here, but this is worse than usual. No abdominal tenderness. He does appear to be mildly dehydrated on exam. Orders were placed at bedside for labs, UA, IV fluids for hydration to evaluate for worsening kidney function and electrolyte abnormality. Patient discussed with Dr. Martinez, who agrees with my assessment and plan. Labs reviewed as above, notable for hypokalemia, this was replaced with 40 mEq oral KCl. Patient reassessed multiple times throughout ED stay, he is feeling improved after pain medication and IV fluids. Patient was updated on all results and plan for discharge, he was encouraged to follow closely with his primary care provider and clinical specialist. Patient was also given strict return precautions should his symptoms worsen, he verbalized understanding. Patient was discharged home in stable condition and ambulatory. Problem List Medical Problems: (1) Chronic kidney disease, stage 4 (severe) Status: Chronic (2) Fanconi syndrome Status: Chronic (3) Nephrogenic diabetes insipidus Status: Chronic (4) Renal tubular acidosis Status: Chronic Current/Historical Medications Scheduled Calcitriol (Calcitriol), 0.25 MCG PO DAILY Cholecalciferol (Vitamin D3), 3,000 INTER.UNIT PO DAILY Cysteamine Bitartrate (Cystagon), 600 MG PO QID Cysteamine Bitartrate (Cystagon), 100 MG PO QID Cysteamine Hcl (Cystaran), 1 DROP OPB Q1H Levocarnitine (Metabolic Modif (Levocarnitine), 660 MG PO TID Magnesium Oxide (Mg Supplement (Magnesium Oxide), 400 MG PO DAILY Pot Phosphate Monobasic W/ Sod (Phospha 250 Neutral), 1 TAB PO BID Potassium Chloride (Klor-Con M20), 140 MEQ PO QID Sertraline HCl (Sertraline HCl), 25 MG PO DAILY Sodium Bicarbonate (Antacid) (Sodium Bicarbonate), 1,950 MG PO QID Scheduled PRN Calcium Carbonate (Tums), 1,500 MG PO HS PRN for Indigestion Ondansetron Hcl (Zofran), 8 MG PO Q8 PRN for Nausea Allergies Coded Allergies: No Known Allergies (Verified , 04/21/17) Vital Signs Date Time Temp Pulse Resp B/P (MAP) Pulse Ox O2 Delivery O2 Flow Rate FiO2 05/17/17 14:08 63 18 108/64 100 05/17/17 12:08 61 18 105/53 99 Room Air 05/17/17 10:13 36.7 72 16 118/78 98 Room Air Laboratory Results 05/17/17 11:04 Red Blood Count 3.57, Mean Corpuscular Volume 85.2, Mean Corpuscular Hemoglobin 29.7, Mean Corpuscular Hemoglobin Concent 34.9, Mean Platelet Volume 9.7, Neutrophils (%) (Auto) 68.9, Lymphocytes (%) (Auto) 20.1, Monocytes (%) (Auto) 6.6, Eosinophils (%) (Auto) 4.0, Basophils (%) (Auto) 0.2, Neutrophils # (Auto) 3.26, Lymphocytes # (Auto) 0.95, Monocytes # (Auto) 0.31, Eosinophils # (Auto) 0.19, Basophils # (Auto) 0.01 05/17/17 11:04 Test 05/17/17 10:55 05/17/17 11:04 Urine Color YELLOW Urine Appearance CLEAR (CLEAR) Urine pH 7.0 (4.5-7.5) Urine Specific [place] 1.007 (1.000-1.030) Urine Protein 3+ (NEG) Urine Glucose (UA) 2+ (NEG) Urine Ketones NEG (NEG) Urine Occult Blood 1+ (NEG) Urine Nitrite NEG (NEG) Urine Bilirubin NEG (NEG) Urine Urobilinogen NEG (NEG) Urine Leukocyte Esterase NEG (NEG) Urine WBC (Auto) /hpf (0-5) Urine RBC (Auto) /hpf (0-4) Urine Hyaline Casts (Auto) /lpf (0-5) Urine Epithelial Cells (Auto) /lpf (0-5) Urine Bacteria (Auto) (NEG) Urine RBC 0-4 /hpf (0-4) Urine WBC 0 /hpf (0-5) Urine Epithelial Cells 0-5 /lpf (0-5) Urine Bacteria NEG (NEG) White Blood Count 4.73 K/uL (4.8-10.8) Red Blood Count 3.57 M/uL (4.7-6.1) Hemoglobin 10.6 g/dL (14.0-18.0) Hematocrit 30.4 % (42-52) Mean Corpuscular Volume 85.2 fL (80-100) Mean Corpuscular Hemoglobin 29.7 pg (25-34) Mean Corpuscular Hemoglobin Concent 34.9 g/dl (32-36) Platelet Count 130 K/uL (130-400) Mean Platelet Volume 9.7 fL (7.4-10.4) Neutrophils (%) (Auto) 68.9 % Lymphocytes (%) (Auto) 20.1 % Monocytes (%) (Auto) 6.6 % Eosinophils (%) (Auto) 4.0 % Basophils (%) (Auto) 0.2 % Neutrophils # (Auto) 3.26 K/uL (1.4-6.5) Lymphocytes # (Auto) 0.95 K/uL (1.2-3.4) Monocytes # (Auto) 0.31 K/uL (0.11-0.59) Eosinophils # (Auto) 0.19 K/uL (0-0.5) Basophils # (Auto) 0.01 K/uL (0-0.2) RDW Standard Deviation 41.1 fL (36.4-46.3) RDW Coefficient of Variation 13.1 % (11.5-14.5) Immature Granulocyte % (Auto) 0.2 % Immature Granulocyte # (Auto) 0.01 K/uL (0.00-0.02) Hypersegmented Polys 1+ Anion Gap 11.0 mmol/L (3-11) Est Creatinine Clear Calc Drug Dose 27.8 ml/min Estimated GFR () 22.2 Estimated GFR (Non- 19.1 BUN/Creatinine Ratio 12.3 (10-20) Calcium Level 7.6 mg/dl (8.5-10.1) Phosphorus Level 3.9 mg/dl (2.5-4.9) Magnesium Level 2.1 mg/dl (1.8-2.4) Total Bilirubin 0.3 mg/dl (0.2-1) Aspartate Amino Transf (AST/SGOT) 17 U/L (15-37) Alanine Aminotransferase (ALT/SGPT) 24 U/L (12-78) Alkaline Phosphatase 105 U/L (45-117) Total Protein 7.4 gm/dl (6.4-8.2) Albumin 3.5 gm/dl (3.4-5.0) Globulin 3.9 gm/dl (2.5-4.0) Albumin/Globulin Ratio 0.9 (0.9-2) Medications Administered Medications (Trade) Dose Ordered Sig/Rafat Route Start Time Stop Time Status Last Admin Dose Admin Sodium Chloride 1,000 ml @ 999 mls/hr Q1H1M STAT IV 05/17/17 10:57 05/17/17 11:57 DC 05/17/17 11:21 999 MLS/HR Morphine Sulfate (MoRPHine SULFATE INJ) 4 mg NOW STAT IV 05/17/17 11:06 05/17/17 11:07 DC 05/17/17 11:21 4 MG Ondansetron HCl (Zofran Inj) 4 mg NOW STAT IV 05/17/17 11:14 05/17/17 11:15 DC 05/17/17 11:21 4 MG Potassium Chloride (Klor-Con M10) 40 meq NOW STAT PO 05/17/17 13:06 05/17/17 13:07 DC 05/17/17 13:15 40 MEQ Departure Information Impression Primary Impression: Hypokalemia Additional Impressions: Bilateral flank pain Dehydration Dispostion Home / Self-Care Condition GOOD Referrals Shanita Maharaj M.D. (PCP) Patient Instructions ED Dehydration, ED Diet High Potassium, My [facility] Additional Instructions You have been treated in the Emergency Department today for dehydration and low potassium level. Laboratory results have ruled out any emergent reasons for further evaluation or admission. You have been given a potassium supplement today. You should also incorporate foods that are high in potassium into your diet. It is ESSENTIAL that you maintain adequate hydration with oral fluids! Some suggestions include: - Water is the IDEAL replacement for lost fluids. You should initially sip at the water to help facilitate increased intestinal absorption rate and to decrease the possibility of nausea/vomiting. - Carbohydrate/Electrolyte-Containing Drinks (i.e. Gatorade, Powerade, Pedialyte). All of these are good choices, but it is important to remember that all of these drinks contain a high concentration of sugar. - Popsicles, ice chips, and fruit juices are all other options. - My FAVORITE dehydration remedy is to mix a 1:1 solution of bottled Gatorade with bottled water. This dilution allows for a palatable flavor with added benefit of a reduction in the amount of sugar consumption. Please follow-up with your primary care provider and your clinical specialist in the next few days for further management. Return to the Emergency Department for severe worsening pain, persistent vomiting and cannot keep anything down, blood in the stool or urine, fevers/ chills, or any other concerns. Problem Qualifiers
[2017-05-17] MEDS ORDERED: SODIUM CHLORIDE 0.9% 1000ML 1,000 ML IV STA (10:57)
[2017-05-17] MEDS ORDERED: MoRPHine SULFATE 4 MG/ML 1 ML CARP\\VIAL IV STA (11:06)
[2017-05-17] MEDS ORDERED: ONDANSETRON INJ 2 MG/ML 2 ML VIAL IV STA (11:14)
[2017-05-17 11:20] LABS: HEMATOCRIT 30.4 % (42-52); HEMOGLOBIN 10.6 g/dL (14.0-18.0); MEAN CELL VOLUME 85.2 fL (80-100); MEAN CORPUSCULAR HEMOGLOBIN 29.7 pg (25-34); MEAN CORPUSCULAR HGB CONC 34.9 g/dl (32-36); MEAN PLATELET VOLUME 9.7 fL (7.4-10.4); PLATELET COUNT 130 K/uL (130-400); RED CELL DISTRIBUTION WIDTH CV 13.1 % (11.5-14.5); RED CELL DISTRIBUTION WIDTH SD 41.1 fL (36.4-46.3); WHITE BLOOD COUNT 4.73 K/uL (4.8-10.8)
[2017-05-17 11:43] LABS: ALBUMIN 3.5 gm/dl (3.4-5.0); CALCIUM 7.6 mg/dl (8.5-10.1); CREATININE 4.06 mg/dl (0.60-1.40); POTASSIUM 3.2 mmol/L (3.5-5.1)
[2017-05-17 11:45] LABS: PHOSPHORUS 3.9 mg/dl (2.5-4.9); TOTAL PROTEIN 7.4 gm/dl (6.4-8.2)
[2017-05-17 11:48] LABS: BASO % 0.2 %; BASO ABS # 0.01 K/uL (0-0.2); EOS ABS # 0.19 K/uL (0-0.5); IG# 0.01 K/uL (0.00-0.02); LYMPH % 20.1 %; LYMPH ABS # 0.95 K/uL (1.2-3.4); MONO % 6.6 %; MONO ABS # 0.31 K/uL (0.11-0.59); NEUT % 68.9 %; NEUT ABS # 3.26 K/uL (1.4-6.5)
[2017-05-17] MEDS ORDERED: POTASSIUM CHLORIDE 10 MEQ TABCR PO STA (13:06)
[2017-05-17 14:08] VITALS: BP 108/64; PULSE 63; O2SAT 100
[2017-05-17] MEDS ORDERED: CALC1CAP36 PO (16:43)
[2017-05-17] MEDS ORDERED: POTTAB2 PO (16:43)
[2017-05-17] MEDS ORDERED: [UNRECOGNIZED DRUG - CODE] PO (16:43)
[2017-05-17] MEDS ORDERED: CALC500C3 PO (16:43)
[2017-05-17] MEDS ORDERED: [UNRECOGNIZED DRUG - CODE] OPB (16:43)
[2017-05-17] MEDS ORDERED: [UNRECOGNIZED DRUG - CODE] PO (18:23)
[2017-05-17] MEDS ORDERED: CHOL1TAB12 PO (19:25)
[2017-05-17] MEDS ORDERED: SERT1TAB88 PO (19:26)
[2017-05-17] MEDS ORDERED: LEVO330T PO (20:37)
[2017-05-17] MEDS ORDERED: MAGN1TAB19 PO (20:37)
[2017-05-17] MEDS ORDERED: SODI650T8 PO (20:37)
[2017-05-17] MEDS ORDERED: MCRK20 PO (23:19)
[2017-05-17] MEDS ORDERED: ONDA-170 PO (23:21)
== END 2017-05-17 14:09 | disposition home or self-care (01) ==
LOC: C.EDB 10:11 → C.EDA 14:09
DX: E87.6 Hypokalemia (principal); R10.9 Unspecified abdominal pain; E86.0 Dehydration; N18.4 Chronic kidney disease, stage 4 (severe); E72.09 Other disorders of amino-acid transport; N25.1 Nephrogenic diabetes insipidus; N25.89 Other disorders resulting from impaired renal tubular function; Z79.891 Long term (current) use of opiate analgesic

== ENCOUNTER 2018-05-20 17:44 | Inpatient (IN) ==
[2018-05-20] MEDS ORDERED: ONDANSETRON INJ 2 MG/ML 2 ML VIAL IV STA (19:27)
[2018-05-20] MEDS ORDERED: SODIUM CHLORIDE 0.9% 1000ML 1,000 ML IV SCH ×2 (19:30→23:28)
--- NOTE | 2018-05-20 19:31 | Emergency Department Note ---
Entered by Minna Khan acting as a scribe for History of Present Illness General Chief complaint: Vomiting Stated complaint: VOMITING, ABD PAIN, STATE 5 KIDNEY FAILURE Time Seen by Provider: 05/20/18 19:22 Source: patient Mode of arrival: ambulatory Limitations: no limitations History of Present Illness Onset (ago): day(s) 2 Location: abdomen Radiation: non-radiation Pain Consistency: + constant Maximum Pain Intensity: 8 Relieved By: + none Exacerbated By: + none Associated symptoms: + weakness and + other (+diarrhea) Treatments prior to arrival: none The patient is a 28 year old male who presents to the Emergency Room with complaints of persistent vomiting since yesterday. He admits to a history of stage 5 kidney failure since , and follows with Dr. Trejo at [facility]. His Mom states he has a history of hypokalemia. He denies any recent sick contacts. The patient also complains of diarrhea, hand cramping and weakness. Home Medications Home Medications Medication Instructions Recorded Confirmed Type Marijuana 1 dose PO BID PRN 03/14/18 03/30/18 History calcitriol 0.25 mcg PO QAM 03/14/18 03/14/18 History calcium carbonate 1,177 mg PO UD PRN 03/14/18 03/30/18 History cholecalciferol (vitamin D3) 1,000 unit PO TID 03/14/18 03/30/18 History [Vitamin D3] cysteamine bitartrate 100 mg PO QID 03/14/18 03/30/18 History cysteamine bitartrate 350 mg PO QID 03/14/18 03/30/18 History levocarnitine 660 mg PO TID 03/14/18 03/14/18 History magnesium oxide 400 mg PO QID 03/14/18 03/30/18 History ondansetron HCl [Zofran] 8 mg PO TID PRN 03/14/18 03/14/18 History potassium chloride [Klor-Con] 140 meq PO QID 03/14/18 03/30/18 History potassium phosphate, monobasic 1 tab PO QID 03/14/18 03/30/18 History sodium bicarbonate 1,950 mg PO QID 03/14/18 03/14/18 History oxycodone-acetaminophen [Percocet] 1 tab PO Q6H PRN #30 tab 03/30/18 Rx Allergies Allergy/AdvReac Type Severity Reaction Status Date / Time No Known Allergies Allergy Verified 03/30/18 06:40 Past Med/Surg History Medical History Fanconi syndrome (Chronic) Nephrogenic diabetes insipidus (Chronic) Chronic kidney disease, stage 4 (severe) (Chronic) DR THOMASON-ON KIDNEY TRANSPLANT LIST THRU [facility] Anemia of chronic disease Depression Nephropathic cystinosis Surgical History History of tooth extraction WISDOM TEETH Social History Preferred Language: Spanish Communication Ability: Effective Beliefs That Will Affect Care: None Current Living Situation: Significant Other Feels Safe at Home: Yes Smoking Status: Never smoker Hx Alcohol Use: No Hx Substance Use: No Review of Systems See HPI for pertinent positives & negatives. and A total of 10 systems reviewed and were otherwise negative Physical Exam Vital Signs Vital Signs - 24 hr 05/20/18 17:47 05/20/18 19:27 05/20/18 20:24 Temperature 36.5 C Temperature Source Oral Sepsis Recent Fever Within 48 Hours No Sepsis New/Unexplained Change in Mental Status No Sepsis Action Taken by Nursing No Action Required Pulse Rate 82 Respiratory Rate 20 25 H Blood Pressure 132/65 Blood Pressure [Left Arm] 129/62 Blood Pressure Mean 87 Blood Pressure Mean [Left Arm] 84 Pulse Oximetry 100 97 97 Oxygen Delivery Method Room Air Room Air Room Air CONSTITUTIONAL/VITAL SIGNS: Reviewed / noted above. GENERAL: Non-toxic in appearance. INTEGUMENTARY: Warm, dry, and [place]. HEAD: Normocephalic. EYES: without scleral icterus or trauma. ENT/OROPHARYNX: clear and moist. LYMPHADENOPATHY/NECK: Is supple without lymphadenopathy or meningismus. RESPIRATORY: Lungs clear and equal. CARDIOVASCULAR: Regular rate and rhythm. GI/ABDOMEN: Soft and nontender. No organomegaly or pulsatile mass. No rebound or guarding. Normal bowel sounds. EXTREMITIES: Warm and well perfused. BACK: No CVA tenderness. NEUROLOGICAL: Intact without focal deficits. PSYCHIATRIC: normal affect. MUSCULOSKELETAL: Normally developed with good muscle tone. Course 1923: Past medical records reviewed. The patient was evaluated in room C1, and a complete history and physical examination were performed. 2011: Nursing informed me the patient has an elevated Potassium. 2022: I discussed the patients case with Yasmine Miller Hospitalist. The patient will be further evaluated. Consultations Consultation #1: I discussed the patients case with Yasmine Miller Hospitalist. The patient will be further evaluated. Time: 20:23 Administered Medications Discontinued Medications Sodium Chloride (Nss 1000ml) 1,000 mls @ 999 mls/hr IV .Q1H1M MELITA Stop: 05/20/18 20:30 Last Admin: 05/20/18 19:51 Dose: 999 mls/hr Documented by: [id number] Ondansetron HCl (Zofran) 4 mg IV NOW STA Stop: 05/20/18 19:28 Last Admin: 05/20/18 19:52 Dose: 4 mg Documented by: [id number] Medical Decision Making Differential Diagnosis Etiologies such as Gastroenteritis, food borne illness, infections, appendicitis, diverticulitis, inflammatory bowel disease, obstruction, GI bleed, biliary pathology as well as others were entertained. Medical Records Attestation: I reviewed the patient's medical records. Home Medications Current Medication List: was personally reviewed by me Laboratory Data Attestation: I reviewed the patient's lab results. Result diagrams: 05/20/18 19:25 05/20/18 19:25 Lab Results 05/20/18 05/20/18 05/20/18 Range/Units 19:25 19:25 19:30 WBC 6.52 (4.8-10.8) K/uL RBC 3.36 L (4.7-6.1) M/uL Hgb 10.0 L (14.0-18.0) g/dL Hct 29.8 L (42-52) % MCV 88.7 (80-100) fL MCH 29.8 (25-34) pg MCHC 33.6 (32-36) g/dL RDW Std Deviation 44.0 (36.4-46.3) fL RDW Coeff of [place] 13.5 (11.5-14.5) % Plt Count 185 (130-400) K/uL MPV 9.3 (7.4-10.4) fL Immature Gran % (Auto) 0.2 % Neut % (Auto) 87.7 % Lymph % (Auto) 8.1 % [place] % (Auto) 3.7 % Eos % (Auto) 0.0 % Baso % (Auto) 0.3 % Immature Gran # (Auto) 0.01 (0.00-0.02) K/uL Neut # (Auto) 5.72 (1.4-6.5) K/uL Lymph # (Auto) 0.53 L (1.2-3.4) K/uL [place] # (Auto) 0.24 (0.11-0.59) K/uL Eos # (Auto) 0.00 (0-0.5) K/uL Baso # (Auto) 0.02 (0-0.2) K/uL Sodium 139 (136-145) mmol/L Potassium 7.9 H* (3.5-5.1) mmol/L Chloride 117 H (98-107) mmol/L Carbon Dioxide 18 L (21-32) mmol/L Anion Gap 5.0 (3-11) BUN 38 H (7-18) mg/dl Creatinine 4.79 H* (0.6-1.4) mg/dl Est Cr Clr Drug Dosing 22.3 ml/min Est GFR ( Amer) 18.0 Est GFR (Non-Af Amer) 15.6 BUN/Creatinine Ratio 8.0 L (10-20) Glucose 100 H (70-99) mg/dl Calcium 7.6 L (8.5-10.1) mg/dl Total Bilirubin 0.4 (0.2-1) mg/dl AST 17 (15-37) U/L ALT 28 (12-78) U/L Alkaline Phosphatase 124 H (45-117) U/L Total Protein 8.2 (6.4-8.2) gm/dl Albumin 3.8 (3.4-5.0) gm/dl Globulin 4.4 H (2.5-4.0) gm/dl Albumin/Globulin Ratio 0.9 (0.9-2) Lipase 158 (73-393) U/L Urine Color Yellow Urine Appearance Clear (Clear) Urine pH 8.5 H (4.5-7.5) Ur Specific [place] 1.009 (1.000-1.030) Urine Protein 1+ H (Negative) Urine Glucose (UA) 1+ H (Negative) Urine Ketones 1+ H (Negative) Urine Blood Trace H (Negative) Urine Nitrite Negative (Negative) Urine Bilirubin Negative (Negative) Urine Urobilinogen Negative (Negative) Ur Leukocyte Esterase Negative (Negative) Urine WBC (Auto) 1-5 (0-5) /hpf Urine RBC (Auto) 0-4 (0-4) /hpf U Hyaline Cast (Auto) 1-5 (0-5) /lpf U Epithel Cells (Auto) 0-5 (0-5) /lpf Urine Bacteria (Auto) Negative (Negative) ECG Data Attestation: I personally reviewed and interpreted this ECG as follows: Indication: weakness Rate (beats per minute): 72 Rhythm: sinus rhythm Findings: + other (Peaked T-waves) Blood Pressure Blood Pressure Findings: Normal blood pressure Blood Pressure Disposition: did not require urgent referral MDM Narrative This is a 28-year-old male who presents to the ED with a chief complaint of nausea, vomiting and diarrhea that started yesterday. He states that he feels weak in his hands are crampy. He has a history of stage V kidney failure due to a chronic problem. The patient follows with Dr. Thomason for this. His physical exam was unremarkable. CBC was unremarkable. Urine revealed some protein and glucose which is chronic for this patient. There was also some ketones and trace blood. The chemistry panel reveals a creatinine of 4.79. This is about baseline for the patient. The potassium 7.9. Twelve-lead EKG re veals a sinus rhythm at a rate of 72 with peaking T waves. The patient was treated with IV fluids as well as IV Zofran. He was given oral Kayexalate, IV sodium bicarbonate, IV insulin, IV dextrose and IV calcium gluconate. The patient will by seen by the hospitalist for further inpatient evaluation. Of note, the patient does have a fistula but he is not currently on dialysis. Impression & Plan Hyperkalemia Critical Care Time I have personally spent 35 minutes of critical care time in the direct management of this patient. This includes bedside care, interpretation of diagnostic studies, and testing, discussion with consultants, patient, and family members, and other required patient management activities. This 35 minutes is in excess of all separately billable procedures. Critical Care Time: Yes Total Critical Care Time: 35 Discharge Plan Visit Data Chief Complaint: Vomiting Stated Complaint: VOMITING, ABD PAIN, STATE 5 KIDNEY FAILURE ED Provider: Dong Waller Discharge Problem: Hyperkalemia Patient Disposition: Being Evaluated by Hospitalist Forms Stand Alone Forms: My [facility] Prescriptions Prescriptions: No Action calcitriol 0.25 mcg Capsule 0.25 mcg PO QAM RF: 0 cholecalciferol (vitamin D3) [Vitamin D3] 1,000 unit Capsule 1,000 unit PO TID RF: 0 calcium carbonate 1,177 mg Tablet,Chewable 1,177 mg PO UD PRN (Reason: Stomach Upset) RF: 0 cysteamine bitartrate 150 mg Capsule 350 mg PO QID RF: 0 cysteamine bitartrate 50 mg Capsule 100 mg PO QID RF: 0 ondansetron HCl [Zofran] 8 mg Tablet 8 mg PO TID PRN (Reason: Nausea) RF: 0 levocarnitine 330 mg Tablet 660 mg PO TID RF: 0 magnesium oxide 400 mg Capsule 400 mg PO QID RF: 0 potassium chloride [Klor-Con] 20 mEq Packet 140 meq PO QID RF: 0 potassium phosphate, monobasic 500 mg Tablet,Soluble 1 tab PO QID RF: 0 sodium bicarbonate 650 mg Tablet 1,950 mg PO QID RF: 0 Marijuana 1 dose PO BID PRN (Reason: Pain) RF: 0 oxycodone-acetaminophen [Percocet] 5-325 mg tablet 1 tab PO Q6H PRN (Reason: pain) Qty: 30 RF: 0 Referrals Referrals: Shanita Maharaj MD [Primary Care Provider] - The scribe's documentation has been prepared under my direction and personally reviewed by me in its entirety. I confirm that the note above accurately reflects all work, treatment, procedures, and medical decision making performed by me.
[2018-05-20 19:36] LABS: Hematocrit (blood only) 29.8 % (42-52); Mean Corpuscular Hgb Conc 33.6 g/dL (32-36); Mean Corpuscular Volume 88.7 fL (80-100); Mean Platelet Volume 9.3 fL (7.4-10.4); Platelet Count 185 K/uL (130-400); RDW Coefficient of Variation 13.5 % (11.5-14.5); Red Blood Count 3.36 M/uL (4.7-6.1); White Blood Count 6.52 K/uL (4.8-10.8)
[2018-05-20 19:50] LABS: Appearance Urine Clear (Clear); Bacteria Urine Automated Negative (Negative); Bilirubin Urine Negative (Negative); Blood Urine Trace (Negative); Color Urine Yellow; Epithelial Cell Urine Auto 0-5 /lpf (0-5); Glucose Urine UA 1+ (Negative); Ketones Urine 1+ (Negative); Leukocyte Esterase Urine Negative (Negative); Nitrite Urine Negative (Negative); RBC Urine Automated 0-4 /hpf (0-4); Specific Gravity Urine 1.009 (1.000-1.030); Urobilinogen Urine Negative (Negative); pH Urine 8.5 (4.5-7.5)
[2018-05-20 19:58] LABS: Protein Urine 1+ (Negative)
[2018-05-20 20:12] LABS: Albumin Globulin Ratio 0.9 (0.9-2); Albumin Level 3.8 gm/dl (3.4-5.0); Bilirubin,Total 0.4 mg/dl (0.2-1); Calcium 7.6 mg/dl (8.5-10.1); Creatinine Clr Calc Pharmacy 22.3 ml/min; Est GFR (Non-African American) 15.6; Globulin 4.4 gm/dl (2.5-4.0); Potassium 7.9 mmol/L (3.5-5.1); Total Protein 8.2 gm/dl (6.4-8.2)
[2018-05-20 20:13] LABS: Basophils # (auto) 0.02 K/uL (0-0.2); Basophils % (auto) 0.3 %; Immature Granulocytes # (auto) 0.01 K/uL (0.00-0.02); Immature Granulocytes % (auto) 0.2 %; Lymphocytes # (auto) 0.53 K/uL (1.2-3.4); Lymphocytes % (auto) 8.1 %; Monocytes # (auto) 0.24 K/uL (0.11-0.59); Monocytes % (auto) 3.7 %; Neutrophils # (auto) 5.72 K/uL (1.4-6.5); Neutrophils % (auto) 87.7 %
[2018-05-20] MEDS ORDERED: SODIUM BICARB 8.4% INJ 50 MEQ/50 ML SYR IV STA (20:13)
[2018-05-20] MEDS ORDERED: DEXTROSE 50% 50 ML SYRINGE IV STA (20:13)
[2018-05-20] MEDS ORDERED: SODIUM POLYSTYRENE SULFONATE 15G/60ML SUSP PO STA (20:13)
[2018-05-20] MEDS ORDERED: NovoLIN-R INSULIN PER UNIT CHARGE IV STA (20:13)
[2018-05-20] MEDS ORDERED: CALCIUM GLUCONATE 10% 10 ML VIAL IV STA (20:13)
--- NOTE | 2018-05-20 21:20 | History & Physical Report ---
Date of Service May 20, 2018 Assessment & Plan (1) Hyperkalemia: Pt presented to ER with c/o N/V/D x 1 day with muscle cramping and generalized weakness. In ER afebrile, P: 82, R: 20-25, BP:132/65, 100% on RA. Found to have K: 7.9. Peaked T waves on EKG In ER was given calcium gluconate 1000mg IV, insulin R 10U IV, dextrose, sodium bicarb 50meq IV, Kayexalte, 1L NSS Nephrology consult (2) End stage renal disease: (3) Fanconi syndrome: Hx CKD IV with recent diagnosis ESRD. Had AV fistula placed in 03/2018. Has not started dialysis yet. reports on transplant list (4) Diarrhea: Pt presented with nasuea, vomiting and diarrhea x approx 10 episodes. C/O diffuse abdominal discomfort, no specific tenderness to palpation on examination In ER was given zofran with reported decreased nausea. Follows with Dr Maharaj for routine care Pt was seen with Dr Lamas. See addendum for assessment and plan. History of Present Illness Chief Complaint: N/V/D Primary Care Provider: Shanita Maharaj Pt is 28 y/o M with PMH amino acid transport disease, fanconi syndrome, infantile nephropathic cystinosis, CKD IV, ESRD, nephrogenic diabetes insipidus presented to ER with c/o N/V/D started yesterday. Pt states had approx 10 episodes of vomiting and diarrhea. C/O diffuse abdominal discomfort. Denies fever/chills. Pt reports still makes urine and denies dysuria, hematuria. Denies back pain/flank pain. C/O muscle cramping and generalized weakness. Had AV fistula placed on 03/30/18 in anticipation of requiring dialysis soon. Follows with Dr Trejo - nephrology. Reports has been continuing to take his medications. Has zofran which helped a little with nausea and vomiting. Hx hypokalemia, denies hx hyperkalemia in past. Pt states couple of days ago was in bathroom and had syncope, denies recurrent syncope. Denies fever/chills, diaphoresis, hematemesis, melena, hematochezia, HEREDIA, vision changes, neck pain, CP, SOB, orthopnea, palpitations, cough, sore throat, choking, otalgia, rhinorrhea, paresthesias, extremity edema, rashes. Denies ill contacts, recent travel, new medications, recent antibiotic use. Allergies Allergy/AdvReac Type Severity Reaction Status Date / Time No Known Allergies Allergy Verified 05/20/18 20:39 Home Medications Home Medications Medication Instructions Recorded Confirmed Type cholecalciferol (vitamin D3) 7 cap PO DAILY 03/14/18 05/20/18 History [Vitamin D3] cysteamine bitartrate 4 cap PO QID 03/14/18 05/20/18 History cysteamine bitartrate 100 mg PO QID 03/14/18 05/20/18 History levocarnitine 660 mg PO TID 03/14/18 05/20/18 History sodium bicarbonate 3 tab PO QID 03/14/18 05/20/18 History amiloride 5 mg PO DAILY 05/20/18 05/20/18 History calcitriol 0.5 mcg PO QAM 05/20/18 05/20/18 History calcium carbonate 3 tab PO HS 05/20/18 05/20/18 History magnesium oxide 400 mg PO DAILY 05/20/18 05/20/18 History omeprazole 1 cap PO DAILY 05/20/18 05/20/18 History ondansetron 8 mg TRANSLINGUAL Q8H PRN 05/20/18 05/20/18 History potassium chloride 7 tab PO QID 05/20/18 05/20/18 History sod phos di, mono-K phos mono 250 mg PO BID 05/20/18 05/20/18 History [Phospha 250 Neutral] venlafaxine 75 mg PO DAILY 05/20/18 05/20/18 History Past Med/Surg History Medical History AV fistula (Chronic) Amino-acid transport disease (Chronic) End stage renal disease (Chronic) Fanconi syndrome (Chronic) Nephrogenic diabetes insipidus (Chronic) Chronic kidney disease, stage 4 (severe) (Chronic) DR THOMASON-ON K[facility]NEY TRANSPLANT L[facility]RU [facility] Anemia of chronic disease Depression Nephropathic cystinosis Surgical History History of tooth extraction WISDOM TEETH Social History Preferred Language: [place] Communication Ability: Effective Beliefs That Will Affect Care: None Current Living Situation: Significant Other Other Information That Helps Us Care for You: No Feels Safe at Home: Yes Safety Concerns: Feels Safe At This Time Smoking Status: Former smoker Hx Alcohol Use: No Hx Substance Use: No Review of Systems All systems reviewed & are unremarkable except as noted in HPI & below Physical Exam Vital Signs (Past 24 Hours): Last Vital Signs Temp 36.5 C 05/20/18 17:47 Pulse 82 05/20/18 17:47 Resp 25 H 05/20/18 20:24 BP 129/62 05/20/18 20:24 Pulse Ox 97 05/20/18 20:24 Physical Exam: General: chronic ill appearing young male, thin Head: normocephalic, atraumatic Eyes: PERRL, EOM's intact, conjunctiva non-injected, anicteric ENT: normal inspection external ears, nose, mucous membranes mildly dry Neck: supple, trachea midline Lungs: clear, no respiratory distress, no wheezing/rhonchi/rales CV: RRR, no pretibial edema Abd: normal BS, soft, non-tender to palpation, no CVA tenderness to palpation Ext: no cyanosis, no calf tenderness Neuro: A&O x 3, no focal deficits noted, normal affect Skin: warm, dry Results & Data Laboratory Results Short CBC 05/20/18 Range/Units 19:25 WBC 6.52 (4.8-10.8) K/uL Hgb 10.0 L (14.0-18.0) g/dL Hct 29.8 L (42-52) % Plt Count 185 (130-400) K/uL BMP 05/20/18 19:25 Sodium 139 Potassium 7.9 H* Chloride 117 H Carbon Dioxide 18 L BUN 38 H Creatinine 4.79 H* Glucose 100 H Calcium 7.6 L Liver Function 05/20/18 Range/Units 19:25 Total Bilirubin 0.4 (0.2-1) mg/dl AST 17 (15-37) U/L ALT 28 (12-78) U/L Alkaline Phosphatase 124 H (45-117) U/L Albumin 3.8 (3.4-5.0) gm/dl Urine 05/20/18 Range/Units 19:30 Urine Color Yellow Urine Appearance Clear (Clear) Urine pH 8.5 H (4.5-7.5) Ur Specific [place] 1.009 (1.000-1.030) Urine Protein 1+ H (Negative) Urine Glucose (UA) 1+ H (Negative) Supervising Physician Co-Signing Physician Notes IM ATTENDING : Patient seen and examined. History obtained from patient and records. Preceding documentation by Ms. Suri Lebron PA-C reviewed. FINAL ASSESSMENT AND PLAN as follows : Hyperkalemia secondary to diarrheal illness (rule out C. 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 difficile DVT prophylaxis Heparin subcu Full code
[2018-05-20] MEDS ORDERED: CALCIUM GLUCONATE 10% 1,000 MG in SODIUM CHLORIDE 0.9% 50 ML IV ONE (21:45)
--- NOTE | 2018-05-20 22:00 | CT Scan Report ---
CT SCAN OF THE ABDOMEN AND PELVIS WITHOUT CONTRAST CLINICAL HISTORY: Generalized abdominal pain COMPARISON STUDY: April 21, 2017 TECHNIQUE: CT scan of the abdomen and pelvis was performed from the lung bases to the proximal femurs . Images are reviewed in the axial, sagittal, and coronal planes. IV contrast was not administered fo r this examination. A dose lowering technique was utilized adhering to the principles of ALARA. CT DOSE: 287.19 mGy.cm FINDINGS: Lower chest: The heart is normal in size and configuration, without pericardial effusion. The lung ba ses and pleural spaces are clear. Liver: The unenhanced liver is normal in size, contour, and attenuation. There is no intrahepatic shahzad iary ductal dilatation. Gallbladder: Unremarkable. Spleen: The spleen is moderately enlarged measuring 16.7 cm. Pancreas: Unremarkable. Adrenal glands: Unremarkable. Kidneys: There are innumerable bilateral renal calculi. There is mild fullness of the renal collectin g systems similar to the prior study. No ureteral calculi are visualized.. Bowel: There are no transition zones indicate bowel obstruction. There is no evidence of acute divert iculitis. The appendix appears normal as visualized. Borderline rectosigmoid wall thickening may be s econdary to nondistention Peritoneum: There is no intraperitoneal free air or abdominal ascites. Vasculature: The abdominal aorta is normal in course and caliber. Adenopathy: None. Pelvic viscera: The bladder, and pelvic viscera are unremarkable. Skeletal structures: No destructive osseous lesions are seen. IMPRESSION: 1. No evidence of bowel obstruction. No evidence of free air 2. Normal appendix. 3. Stable splenomegaly 4. Bilateral medullary nephrocalcinosis. Stable mild fullness of the left collecting systems. No uret eral calculi identified. Electronically signed by: Salty Argueta M.D. 05/20/2018 9:57 PM
[2018-05-20] MEDS ORDERED: SODIUM CHLORIDE 0.9% 1000ML 1,000 ML IV ONE (22:13)
--- NOTE | 2018-05-20 22:15 | XRay Report ---
XR chest 1V portable CLINICAL HISTORY: renal failure COMPARISON STUDY: 11/12/2016 FINDINGS: The heart is the upper limits of normal in size. There is no failure. There is no focal pul monary consolidation. There are no pleural effusions.[ IMPRESSION: No active disease in the chest. Electronically signed by: Salty Argueta M.D. 05/20/2018 10:14 PM
[2018-05-20 22:18] LABS: Base Excess VBG -8.9 mEq/L; pH VBG 7.34 (7.36-7.41)
[2018-05-20 22:25] LABS: Magnesium 1.8 mg/dl (1.8-2.4)
[2018-05-20 22:45] LABS: BUN Creatinine Ratio 7.8 (10-20); Calcium 7.5 mg/dl (8.5-10.1); Creatinine Clr Calc Pharmacy 23.3 ml/min; Est GFR (Non-African American) 16.4; Potassium 6.1 mmol/L (3.5-5.1)
[2018-05-20] MEDS ORDERED: HYDROmorphone INJ 0.5 MG/0.5 ML SYR IV PRN (23:28)
[2018-05-20] MEDS ORDERED: HEPARIN SOD 5,000 UNIT/0.5 ML VIAL SQ SCH (23:28)
[2018-05-20] MEDS ORDERED: ACETAMINOPHEN 325 MG TAB PO PRN (23:28)
[2018-05-20] MEDS ORDERED: SODIUM CHLORIDE 0.45 % 1,000 ML IV SCH (23:45)
[2018-05-20] MEDS: TRAMADOL HCL 50 MG TABLET PO PRN (23:49)
[2018-05-20] MEDS ORDERED: INSULIN HUMAN REGULAR PER UNIT 5 UNITS in SYRINGE 0 ML IV STA (23:54)
[2018-05-20] MEDS ORDERED: DEXTROSE 50% 50 ML SYRINGE IV ONE (23:54)
[2018-05-20 23:55] LABS: Hematocrit (blood only) 26.5 % (42-52); Mean Corpuscular Volume 90.8 fL (80-100); Mean Platelet Volume 9.3 fL (7.4-10.4); Platelet Count 133 K/uL (130-400); RDW Coefficient of Variation 13.4 % (11.5-14.5); Red Blood Count 2.92 M/uL (4.7-6.1); White Blood Count 5.63 K/uL (4.8-10.8)
[2018-05-21] MEDS ORDERED: INSULIN HUMAN REGULAR PER UNIT 5 UNITS in SYRINGE 4.95 ML IV ONE (00:30)
[2018-05-21] MEDS ORDERED: DEXTROSE 50% 50 ML SYRINGE IV ONE (00:30)
[2018-05-21] MEDS ORDERED: LOPERAMIDE HCL 2 MG CAP PO PRN (03:42)
[2018-05-21 04:37] LABS: Basophils # (auto) 0.02 K/uL (0-0.2); Basophils % (auto) 0.4 %; Eosinophils # (auto) 0.22 K/uL (0-0.5); Eosinophils % (auto) 4.8 %; Hematocrit (blood only) 24.8 % (42-52); Hemoglobin 8.3 g/dL (14.0-18.0); Immature Granulocytes # (auto) 0.01 K/uL (0.00-0.02); Immature Granulocytes % (auto) 0.2 %; Lymphocytes # (auto) 1.02 K/uL (1.2-3.4); Lymphocytes % (auto) 22.3 %; Mean Corpuscular Hgb Conc 33.5 g/dL (32-36); Mean Corpuscular Volume 90.2 fL (80-100); Mean Platelet Volume 9.1 fL (7.4-10.4); Monocytes # (auto) 0.24 K/uL (0.11-0.59); Monocytes % (auto) 5.3 %; Neutrophils # (auto) 3.06 K/uL (1.4-6.5); Platelet Count 113 K/uL (130-400); RDW Coefficient of Variation 13.5 % (11.5-14.5); RDW Standard Deviation 44.3 fL (36.4-46.3); Red Blood Count 2.75 M/uL (4.7-6.1); White Blood Count 4.57 K/uL (4.8-10.8)
[2018-05-21 05:08] LABS: BUN Creatinine Ratio 6.8 (10-20); Calcium 7.1 mg/dl (8.5-10.1); Est GFR (African American) 18.8; Est GFR (Non-African American) 16.2; Potassium 5.3 mmol/L (3.5-5.1); RBC Morphology Unremarkable
[2018-05-21] MEDS ORDERED: SODIUM CHLORIDE 0.45 % 1,000 ML IV ONE (05:12)
[2018-05-21] MEDS: VENLAFAXINE HCL XR 75 MG CAPXR PO SCH (08:53)
[2018-05-21] MEDS: SODIUM BICARBONATE 650 MG TAB PO SCH ×4 (08:54→21:03)
[2018-05-21] MEDS: PANTOprazole 40 MG TAB PO SCH (08:54)
[2018-05-21 12:43] LABS: BUN Creatinine Ratio 6.4 (10-20); Creatinine Clr Calc Pharmacy 22.4 ml/min; Est GFR (Non-African American) 15.6; Potassium 4.7 mmol/L (3.5-5.1)
--- NOTE | 2018-05-21 13:09 | Nephrology Consultation ---
Date of Consultation May 21, 2018 Assessment & Plan (1) Hyperkalemia: presenting K 7.9 in pt with ESRD not on dialysis but also dependent on massive K supplements historically-takes amiloride and 140 mEq bid K as outpt (rx'd qid 70 mEq K but he is nonadherent). needs med adjustment which is particularly tricky with esrd and nonadherence -all K supplements held since admission and K improving/normalized w/ medical therapy -his father tells me he was feeling poorly so doubled up on K on 05/20; also pt admits many high K foods lately -will take off low K diet -repeat labs ordered - see below Present on Admission?: Yes (2) End stage renal disease: -challenging situation b/c pt needs massive repletion historically of phos, of K, of Ca, of mag, of bicarb -- but these needs are changing w/ new ESRD -I told him this will take a few days - he is anxious to leave/worried about bills; we compromised tentatively on 05/23 d/c but labs need to be improved -has maturing AVF; not needing dialysis yet; needs med titration; listed for txplt Present on Admission?: Yes (3) Fanconi syndrome: from cystinosis. levocarnitine and cystagon are nonformulary>pt's dad to bring them in tomorrow first thing; then resume home doses -> he needs to continue cystagon 700 mg qid, now and after txplt >> resume home dose of this and of levocarnitine -will stop amiloride at d/c; cont to hold here -recheck chemistries stat this evening and look to see what supplements need to be resumed of mag, phos, K -continue sodium bicarbonate current dose Present on Admission?: Yes (4) AV fistula: maturing nicely Present on Admission?: Yes (5) Polypharmacy: he has a massive pill burden as OP and is nonadherent frequently; will look to consolidate/eliminate as many pills as possible but will be difficult for him ever to get away from large pill burden Present on Admission?: Yes History of Present Illness Requesting Physician: Dr Martin Attending Physician: Natacha Martin MD History of Present Illness 28 y/o M whom I'm asked to see for hyperkalemia w/ presenting K 7.9 and ECG changes in ER last night. He came to ER b/c of N/V/D and diffuse abd pain. He had calcium gluconate, IV insulin, sodium bicarb, kayexalate, 1LNS. His AVF was placed 03/30/2018. He follows w/ me in CKD clinic, last seen 01/2018. He has ckd 4 w/ nephrotic range proteinuria from nephropathic cystinosis with accompanying severe electrolyte disorders needing massive chronic repletion, including massive doses of K (140 mEq qid). His sbp in clinic is generally 90-100s. His OP creatinine has run in 4s-low 5's since at least late 2016, though in 2018 his creatinine is more mid 5s, last one 5.6 on 03/30. He is active on the transplant list at [facility] [place] and is not currently on dialysis. Repeat K has been 5.3 this am and 4.7 at noon today. His creatinine is running high 4s. He is getting NS at 80 mL hourly; his qid sodium bicarb was continued. cystagon, neutraphos, amiloride, K supplements, mag, levocarnitine all held. Allergies Allergy/AdvReac Type Severity Reaction Status Date / Time No Known Allergies Allergy Verified 05/20/18 20:39 Home Medications Home Medications Medication Instructions Recorded Confirmed Type cholecalciferol (vitamin D3) 7 cap PO DAILY 03/14/18 05/20/18 History [Vitamin D3] cysteamine bitartrate 4 cap PO QID 03/14/18 05/20/18 History cysteamine bitartrate 100 mg PO QID 03/14/18 05/20/18 History levocarnitine 660 mg PO TID 03/14/18 05/20/18 History sodium bicarbonate 3 tab PO QID 03/14/18 05/20/18 History amiloride 5 mg PO DAILY 05/20/18 05/20/18 History calcitriol 0.5 mcg PO QAM 05/20/18 05/20/18 History calcium carbonate 3 tab PO HS 05/20/18 05/20/18 History magnesium oxide 400 mg PO DAILY 05/20/18 05/20/18 History omeprazole 1 cap PO DAILY 05/20/18 05/20/18 History ondansetron 8 mg TRANSLINGUAL Q8H PRN 05/20/18 05/20/18 History potassium chloride 7 tab PO QID 05/20/18 05/20/18 History sod phos di, mono-K phos mono 250 mg PO BID 05/20/18 05/20/18 History [Phospha 250 Neutral] venlafaxine 75 mg PO DAILY 05/20/18 05/20/18 History Patient History Medical History AV fistula (Chronic) Amino-acid transport disease (Chronic) End stage renal disease (Chronic) Fanconi syndrome (Chronic) Nephrogenic diabetes insipidus (Chronic) Chronic kidney disease, stage 4 (severe) (Chronic) DR THOMASON-ON KIDNEY TRANSPLANT LIST [facility]RU [facility] Anemia of chronic disease Depression Nephropathic cystinosis Surgical History History of tooth extraction WISDOM TEETH Social History Preferred Language: [place] Communication Ability: Effective Beliefs That Will Affect Care: None Current Living Situation: Significant Other Other Information That Helps Us Care for You: No Feels Safe at Home: Yes Safety Concerns: Feels Safe At This Time Smoking Status: Former smoker Hx Alcohol Use: No Hx Substance Use: No Review of Systems Constitutional: + fatigue and + weakness; no fever Eyes: no worsening vision Ear, Nose, Mouth, Throat: no dry mouth Respiratory: no dyspnea Cardiovascular: no chest pain, no palpitations and no edema Gastrointestinal: as per Subjective / HPI Genitourinary (Male): no dysuria, no difficulty urinating, no urinary hesitancy and no hematuria Musculoskeletal: no back pain, no joint pain and no myalgia Integumentary: no rash and no non-healing lesions Neurologic: no falls Psychiatric: no behavioral changes Endocrine: + fatigue Hematologic / Lymphatic: no easy bleeding Physical Exam Vital Signs (Past 24 Hours): Last Vital Signs Temp 36.8 C 05/21/18 11:31 Pulse 70 05/21/18 11:31 Resp 18 05/21/18 11:31 BP 106/57 L 05/21/18 11:31 Pulse Ox 100 05/21/18 11:31 Constitutional: well developed and well nourished on ra maneuvers readily for exam focussed on his phone for much of interview Eyes: EOM intact bilaterally ENMT: Ears: no external ear abnormality Nose: no external nose abnormality Mouth: + dry oral mucous membranes Neck: no nuchal rigidity Respiratory: normal respiratory effort Auscultation: + diminished lung sounds Cardiovascular: RRR, no murmur, no edema Extremities: + AV fistula (L r-c + t/b) Gastrointestinal (Abdomen): Inspection/Auscultation: normal bowel sounds Percussion/Palpation: abdomen soft; abdomen nontender Musculoskeletal: no cyanosis or clubbing, extremities motor strength 5/5 Extremities: strength 5/5 throughout Skin: no rashes, warm and dry Neurologic: gaitan, fluent speech, no tremor Psychiatric: Orientation: alert, oriented x 3 and + guarded Eye Contact: + poor eye contact Speech: normal rate/rhythm/volume of speech Affect: + flat affect Results & Data Laboratory Results Abnormal lab results 05/20/18 05/20/18 05/20/18 Range/Units 19:25 19:25 19:30 WBC (4.8-10.8) K/uL RBC 3.36 L (4.7-6.1) M/uL Hgb 10.0 L (14.0-18.0) g/dL Hct 29.8 L (42-52) % Plt Count (130-400) K/uL Lymph # (Auto) 0.53 L (1.2-3.4) K/uL VBG pH (7.36-7.41) VBG pCO2 (38-50) mmHg Potassium 7.9 H* (3.5-5.1) mmol/L Chloride 117 H (98-107) mmol/L Carbon Dioxide 18 L (21-32) mmol/L BUN 38 H (7-18) mg/dl Creatinine 4.79 H* (0.6-1.4) mg/dl BUN/Creatinine Ratio 8.0 L (10-20) Glucose 100 H (70-99) mg/dl Calcium 7.6 L (8.5-10.1) mg/dl Alkaline Phosphatase 124 H (45-117) U/L Globulin 4.4 H (2.5-4.0) gm/dl Urine pH 8.5 H (4.5-7.5) Urine Protein 1+ H (Negative) Urine Glucose (UA) 1+ H (Negative) Urine Ketones 1+ H (Negative) Urine Blood Trace H (Negative) 05/20/18 05/20/18 05/20/18 Range/Units 22:04 22:05 23:46 WBC (4.8-10.8) K/uL RBC 2.92 L (4.7-6.1) M/uL Hgb 9.0 L (14.0-18.0) g/dL Hct 26.5 L (42-52) % Plt Count (130-400) K/uL Lymph # (Auto) (1.2-3.4) K/uL VBG pH 7.34 L (7.36-7.41) VBG pCO2 30 L (38-50) mmHg Potassium 6.1 H* D (3.5-5.1) mmol/L Chloride 121 H (98-107) mmol/L Carbon Dioxide 17 L (21-32) mmol/L BUN 36 H (7-18) mg/dl Creatinine 4.59 H* (0.6-1.4) mg/dl BUN/Creatinine Ratio 7.8 L (10-20) Glucose (70-99) mg/dl Calcium 7.5 L (8.5-10.1) mg/dl Alkaline Phosphatase (45-117) U/L Globulin (2.5-4.0) gm/dl Urine pH (4.5-7.5) Urine Protein (Negative) Urine Glucose (UA) (Negative) Urine Ketones (Negative) Urine Blood (Negative) 05/21/18 05/21/18 05/21/18 Range/Units 04:22 04:22 11:53 WBC 4.57 L (4.8-10.8) K/uL RBC 2.75 L (4.7-6.1) M/uL Hgb 8.3 L (14.0-18.0) g/dL Hct 24.8 L (42-52) % Plt Count 113 L (130-400) K/uL Lymph # (Auto) 1.02 L (1.2-3.4) K/uL VBG pH (7.36-7.41) VBG pCO2 (38-50) mmHg Potassium 5.3 H (3.5-5.1) mmol/L Chloride 120 H 117 H (98-107) mmol/L Carbon Dioxide 17 L 18 L (21-32) mmol/L BUN 31 H 31 H (7-18) mg/dl Creatinine 4.63 H* 4.79 H* (0.6-1.4) mg/dl BUN/Creatinine Ratio 6.8 L 6.4 L (10-20) Glucose (70-99) mg/dl Calcium 7.1 L 7.0 L (8.5-10.1) mg/dl Alkaline Phosphatase (45-117) U/L Globulin (2.5-4.0) gm/dl Urine pH (4.5-7.5) Urine Protein (Negative) Urine Glucose (UA) (Negative) Urine Ketones (Negative) Urine Blood (Negative)
[2018-05-21 14:54] LABS: Hematocrit (blood only) 24.4 % (42-52); Hemoglobin 8.1 g/dL (14.0-18.0)
--- NOTE | 2018-05-21 14:55 | Hospitalist Progress Note ---
Date of Service May 21, 2018 Assessment & Plan (1) Hyperkalemia: Presented on admission with N/V/D muscle cramping and generalized weakness. Received ER was given calcium gluconate 1000mg IV, insulin R 10U IV, dextrose, sodium bicarb 50meq IV, Kayexalte, 1L NSS K 4.7 today Nephrology on broad (2) End stage renal disease: (3) Fanconi syndrome: Hx CKD IV with recent diagnosis ESRD. Had AV fistula placed in 03/2018. Continue monitor (4) Diarrhea: CT abd showed no evidence of bowel obstruction. No evidence of free air Tolerated diet Resolved Anemia Due to chronic kidney dx/ in the setting of dilution from IVF Hbg dropped 8.3 Monitor H/H DVT px pt ambulated Heparin D/C due to low hemoglobin Subjective Pt was seen and examined Lying in bed with no distress Pt said that diarrhea and vomiting stopped Tolerated clear liquid diet Denies any chest pain, palpitation, dizziness and SOB Physical Exam Vital Signs (Past 24 Hours): Last Vital Signs Temp 36.8 C 05/21/18 11:31 Pulse 70 05/21/18 11:31 Resp 18 05/21/18 11:31 BP 106/57 L 05/21/18 11:31 Pulse Ox 100 05/21/18 11:31 Physical Exam: General- No acute distress Head- atraumatic Eyes- PERRL, EOMI, ENT- oropharynx clear Neck- supple, no JVD Lungs- clear to auscultation Heart- regular rhythm; no murmur Abdomen- normal bowel sounds, soft, nontender Extremities- no calf tenderness Neuro- alert, oriented x 3; PERRL, EOMI; no facial palsy; no dysarthria Skin- warm & dry
[2018-05-21] MEDS: TRAMADOL HCL 50 MG TABLET PO PRN (19:07)
[2018-05-21 19:33] LABS: BUN Creatinine Ratio 5.7 (10-20); Est GFR (African American) 16.7; Est GFR (Non-African American) 14.4; Magnesium 1.7 mg/dl (1.8-2.4); Phosphorus 4.1 mg/dl (2.5-4.9); Potassium 4.1 mmol/L (3.5-5.1)
[2018-05-21] MEDS ORDERED: CALCIUM GLUCONATE 10% 2,000 MG in SODIUM CHLORIDE 0.9% 50 ML IV ONE (20:45)
[2018-05-21] MEDS: POTASSIUM CHLORIDE 20 MEQ TABCR PO SCH (21:00)
[2018-05-21] MEDS: MAGNESIUM OXIDE 400 MG TAB PO SCH (21:01)
[2018-05-21] MEDS: CALCIUM CARBONATE 1250MG TAB PO SCH (21:02)
[2018-05-21] MEDS: ERGOCALCIFEROL 50,000 UNITS CAP PO SCH (21:02)
[2018-05-22 07:51] LABS: BUN Creatinine Ratio 5.5 (10-20); Calcium 6.9 mg/dl (8.5-10.1); Creatinine Clr Calc Pharmacy 19.2 ml/min; Est GFR (African American) 15.5; Est GFR (Non-African American) 13.3; Magnesium 1.6 mg/dl (1.8-2.4); Phosphorus 4.1 mg/dl (2.5-4.9); Potassium 4.1 mmol/L (3.5-5.1)
[2018-05-22] MEDS ORDERED: MAGNESIUM SULFATE / D5W 1 GM/100 ML BAG IV ONE (09:15)
[2018-05-22 09:37] LABS: Hematocrit (blood only) 25.7 % (42-52); Hemoglobin 8.6 g/dL (14.0-18.0)
[2018-05-22] MEDS: MAGNESIUM OXIDE 400 MG TAB PO SCH ×2 (09:53→20:38)
[2018-05-22] MEDS: POTASSIUM CHLORIDE 20 MEQ TABCR PO SCH ×2 (09:53→20:38)
[2018-05-22] MEDS: CALCIUM CARBONATE 1250MG TAB PO SCH ×4 (09:53→20:37)
[2018-05-22] MEDS: ERGOCALCIFEROL 50,000 UNITS CAP PO SCH (09:54)
[2018-05-22] MEDS: SODIUM BICARBONATE 650 MG TAB PO SCH ×4 (09:54→20:37)
[2018-05-22] MEDS: PROCHLORPERAZINE 5 MG in SYRINGE 4 ML IV PRN (10:32)
--- NOTE | 2018-05-22 11:55 | Nephrology Progress Note ---
Date of Service May 22, 2018 Assessment & Plan (1) Hyperkalemia: presenting K 7.9 in pt with ESRD not on dialysis but also dependent on massive K supplements historically-takes amiloride and 140 mEq bid K as outpt (rx'd qid 70 mEq K but he is nonadherent). needs med adjustment which is pa rticularly tricky with esrd and nonadherence. his father tells me he was feeling poorly so doubled up on K on 05/20; also pt admits many high K foods lately -all K supplements held 1st 24 hrs after admission AND he had med tx to lower K >> 05/21 evening we resumed 80 po K bid and K 4.1 this am ->>>will start amiloride 5 mg daily (home med) and lower K to 40 mEq bid and see how he's doing -cont regular K diet -repeat labs ordered - see below (2) End stage renal disease: -challenging situation b/c pt needs massive repletion historically of phos, of K, of Ca, of mag, of bicarb -- but these needs are changing w/ new ESRD -I told him this will take a few days - he is anxious to leave/worried about bills; we compromised tentatively on 05/23 d/c but labs need to be improved -has maturing AVF; not needing dialysis yet; needs med titration; listed for txplt >not uremic except on the verge of this in terms of electrolyte issues (3) Fanconi syndrome: from cystinosis. levocarnitine and cystagon are nonformulary>pt on 05/22 AM resumed home doses -> he needs to continue cystagon 700 mg qid, now and after txplt -recheck chemistries stat this evening and look to see what supplements need to be resumed of mag, phos, K -continue sodium bicarbonate current dose -increased calcium to 2500 bid, for 2 gm elemental Ca daily; pharmacy help appreciated getting the calcium formulation w/ most elemental Ca in smallest # of pills -cont D2 daily (sic) 50K units (4) AV fistula: maturing nicely (5) Polypharmacy: he has a massive pill burden as OP and is nonadherent frequently; will look to consolidate/eliminate as many pills as possible but will be difficult for him ever to get away from large pill burden Subjective had emesis this am he states from pills. no n/v now. ate only about 1/2 of lunch > states this is normal fo rhim; parents do not contradict. no edema, no sob, no tremor or confusion Physical Exam Vital Signs (Past 24 Hours): Last Vital Signs Temp 36.9 C 05/22/18 07:00 Pulse 92 H 05/22/18 07:00 Resp 20 05/22/18 07:00 BP 113/69 05/22/18 07:00 Pulse Ox 94 05/22/18 07:00 Constitutional: well developed and well nourished on RA maenuversreadily for exam Eyes: EOM intact bilaterally ENMT: Ears: no external ear abnormality Nose: no external nose abnormality Mouth: + dry oral mucous membranes Neck: no nuchal rigidity Respiratory: normal respiratory effort Auscultation: + diminished lung sounds Cardiovascular: RRR, no murmur, no edema Extremities: + AV fistula (L r-c + t/b) Gastrointestinal (Abdomen): Inspection/Auscultation: normal bowel sounds Pe rcussion/Palpation: abdomen soft; abdomen nontender Musculoskeletal: no cyanosis or clubbing, extremities motor strength 5/5 Extremities: strength 5/5 throughout Skin: no rashes, warm and dry Psychiatric: Orientation: alert, oriented x 3 and + guarded Eye Contact: + poor eye contact Speech: normal rate/rhythm/volume of speech Affect: + flat affect Results & Data Laboratory Results Abnormal lab results 05/21/18 05/21/18 05/21/18 Range/Units 11:53 14:44 18:44 Hgb 8.1 L (14.0-18.0) g/dL Hct 24.4 L (42-52) % Chloride 117 H 115 H (98-107) mmol/L Carbon Dioxide 18 L (21-32) mmol/L BUN 31 H 29 H (7-18) mg/dl Creatinine 4.79 H* 5.11 H* D (0.6-1.4) mg/dl BUN/Creatinine Ratio 6.4 L 5.7 L (10-20) Calcium 7.0 L 7.0 L (8.5-10.1) mg/dl Ionized Calcium (1.12-1.32) mmol/L Magnesium 1.7 L (1.8-2.4) mg/dl 05/21/18 05/22/18 05/22/18 Range/Units 18:44 07:03 07:03 Hgb (14.0-18.0) g/dL Hct (42-52) % Chloride 117 H (98-107) mmol/L Carbon Dioxide 20 L (21-32) mmol/L BUN 29 H (7-18) mg/dl Creatinine 5.44 H* D (0.6-1.4) mg/dl BUN/Creatinine Ratio 5.5 L (10-20) Calcium 6.9 L (8.5-10.1) mg/dl Ionized Calcium 0.98 L 0.96 L (1.12-1.32) mmol/L Magnesium 1.6 L (1.8-2.4) mg/dl 05/22/18 Range/Units 07:07 Hgb 8.6 L (14.0-18.0) g/dL Hct 25.7 L (42-52) % Chloride (98-107) mmol/L Carbon Dioxide (21-32) mmol/L BUN (7-18) mg/dl Creatinine (0.6-1.4) mg/dl BUN/Creatinine Ratio (10-20) Calcium (8.5-10.1) mg/dl Ionized Calcium (1.12-1.32) mmol/L Magnesium (1.8-2.4) mg/dl
[2018-05-22] MEDS: PANTOprazole 40 MG TAB PO SCH (12:59)
[2018-05-22] MEDS: VENLAFAXINE HCL XR 75 MG CAPXR PO SCH (12:59)
[2018-05-22] MEDS: [UNRECOGNIZED DRUG - REMARK] PO SCH ×3 (13:51→20:38)
[2018-05-22] MEDS: [UNRECOGNIZED DRUG - REMARK] PO SCH ×3 (13:51→20:39)
[2018-05-22] MEDS: [UNRECOGNIZED DRUG - REMARK] PO SCH ×2 (13:53→20:40)
[2018-05-22] MEDS: AMILORIDE 5 MG PO SCH (17:00)
[2018-05-22 18:49] LABS: BUN Creatinine Ratio 4.8 (10-20); Calcium 6.4 mg/dl (8.5-10.1); Creatinine Clr Calc Pharmacy 18.5 ml/min; Est GFR (African American) 14.7; Est GFR (Non-African American) 12.7; Magnesium 2.1 mg/dl (1.8-2.4); Potassium 3.7 mmol/L (3.5-5.1)
--- NOTE | 2018-05-22 19:56 | Hospitalist Progress Note ---
Date of Service May 22, 2018 Assessment & Plan (1) Hyperkalemia: Presented on admission with N/V/D muscle cramping and generalized weakness. Received ER was given calcium gluconate 1000mg IV, insulin R 10U IV, dextrose, sodium bicarb 50meq IV, Kayexalte, 1L NSS K 3.7 today Nephrology on broad Check BMP in am (2) End stage renal disease: (3) Fanconi syndrome: Hx CKD IV with recent diagnosis ESRD. Had AV fistula placed in 03/2018. Continue monitor (4) Diarrhea: CT abd showed no evidence of bowel obstruction. No evidence of free air Tolerated diet Resolved Anemia Due to chronic kidney dx/ in the setting of dilution from IVF Hbg increased to 8.6 Monitor H/H DVT px Heparin D/C due to low hemoglobin Disposition Will discharge once medically stable from nephrology standpoint Subjective Pt was seen and examined Lying in bed with no distress Playing video game in his home Denies any complaints Physical Exam Vital Signs (Past 24 Hours): Last Vital Signs Temp 37 C 05/22/18 19:14 Pulse 90 05/22/18 19:23 Resp 20 05/22/18 19:14 BP 116/68 05/22/18 19:14 Pulse Ox 97 05/22/18 19:14 Physical Exam: General- No acute distress Head- atraumatic Eyes- PERRL, EOMI, ENT- oropharynx clear Neck- supple, no JVD Lungs- clear to auscultation Heart- regular rhythm; no murmur Abdomen- normal bowel sounds, soft, nontender Extremities- no calf tenderness Neuro- alert, oriented x 3; PERRL, EOMI; no facial palsy; no dysarthria Skin- warm & dry
[2018-05-22] MEDS ORDERED: CALCIUM GLUCONATE 10% 10 ML VIAL IV STA (20:24)
[2018-05-22] MEDS ORDERED: CALCIUM GLUCONATE 10% 2,000 MG in SODIUM CHLORIDE 0.9% 50 ML IV ONE (20:30)
--- NOTE | 2018-05-23 08:02 | Nephrology Progress Note ---
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 levocarnitine and cystagon are nonformulary>pt on 05/22 AM resumed home doses -> he needs to continue cystagon 700 mg qid, now and after txplt -recheck chemistries stat this evening and look to see what supplements need to be resumed of mag, phos, K -continue sodium bicarbonate current dose -increased calcium to 2500 bid, for 2 gm elemental Ca daily on 05/22 > pharmacy help appreciated getting the calcium formulation w/ most elemental Ca in smallest # of pills; even so ca needs high and ca cont to drop; he's been getting 2 gm ca gluconate infusinos daily; will incresae ca to 3750 tid -cont D2 daily (sic) 50K units; resumed calcitriol >>>if can't stabilize Ca, may need ca gtt (3) AV fistula: he was to get avf duplex today to follow maturation -- spoke to vascular they will do short/mini eval (4) Polypharmacy: he has a massive pill burden as OP and is nonadherent frequently; will look to consolidate/eliminate as many pills as possible but will be difficult for him ever to get away from large pill burden (5) Hypokalemia: presenting K 7.9 in pt with ESRD not on dialysis but also dependent on massive K supplements historically-takes amiloride and 140 mEq bid K as outpt (rx'd qid 70 mEq K but he is nonadherent). needs med adjustment which is particularly tricky with esrd and nonadherence. his father tells me he was feeling poorly so doubled up on K on 05/20; also pt admits many high K foods lately -all K supplements held 1st 24 hrs after admission AND he had med tx to lower K >> 3/16 evening we resumed 80 po K bid and K 3.0 this pm -will incresae amiloride to 10 mg daily (home med) -increase K to 100 mEq tid -cont regular K diet -repeat labs bid - see below Present on Admission?: No Subjective seen on rounds at 0840; slept well; tolerating pills; only c/o is emesis; no sob, no mm/joint pain; no palpitations; no rash; no voiding c/o; ambulates w/o issue Physical Exam Vital Signs (Past 24 Hours): Last Vital Signs Temp 36.9 C 05/23/18 06:56 Pulse 70 05/23/18 06:56 Resp 18 05/23/18 06:56 BP 112/66 05/23/18 06:56 Pulse Ox 99 05/23/18 06:56 Constitutional: well developed and well nourished on ra, a & o x 3 Eyes: EOM intact bilaterally ENMT: Ears: no external ear abnormality Nose: no external nose abnormality Mouth: + dry oral mucous membranes Neck: no nuchal rigidity Respiratory: normal respiratory effort Auscultation: + diminished lung sounds Cardiovascular: RRR, no murmur, no edema Extremities: + AV fistula (L r-c + t/b) Gastrointestinal (Abdomen): Inspection/Auscultation: normal bowel sounds Percussion/Palpation: abdomen soft; abdomen nontender Musculoskeletal: no cyanosis or clubbing, extremities motor strength 5/5 Extremities: strength 5/5 throughout Skin: no rashes, warm and dry Psychiatric: Orientation: alert, oriented x 3 and + guarded Eye Contact: + poor eye contact Speech: normal rate/rhythm/volume of speech Affect: + flat affect Results & Data Laboratory Results Abnormal lab results 05/22/18 05/22/18 05/23/18 Range/Units 07:07 18:00 07:38 Hgb 8.6 L (14.0-18.0) g/dL Hct 25.7 L (42-52) % Chloride 109 H (98-107) mmol/L Carbon Dioxide 20 L (21-32) mmol/L BUN 27 H (7-18) mg/dl Creatinine 5.66 H* (0.6-1.4) mg/dl BUN/Creatinine Ratio 4.8 L (10-20) Glucose 113 H (70-99) mg/dl Calcium 6.4 L (8.5-10.1) mg/dl Ionized Calcium 0.92 L (1.12-1.32) mmol/L
[2018-05-23] MEDS: PANTOprazole 40 MG TAB PO SCH (08:20)
[2018-05-23] MEDS: SODIUM BICARBONATE 650 MG TAB PO SCH ×4 (08:20→20:38)
[2018-05-23] MEDS: VENLAFAXINE HCL XR 75 MG CAPXR PO SCH (08:20)
[2018-05-23] MEDS: POTASSIUM CHLORIDE 20 MEQ TABCR PO SCH ×2 (08:21→21:07)
[2018-05-23] MEDS: CALCIUM CARBONATE 1250MG TAB PO SCH ×2 (08:21→21:19)
[2018-05-23] MEDS: MAGNESIUM OXIDE 400 MG TAB PO SCH ×2 (08:22→20:35)
[2018-05-23] MEDS: ERGOCALCIFEROL 50,000 UNITS CAP PO SCH (08:22)
[2018-05-23] MEDS: [UNRECOGNIZED DRUG - REMARK] PO SCH ×4 (08:23→20:36)
[2018-05-23] MEDS: AMILORIDE 5 MG PO SCH (08:23)
[2018-05-23] MEDS: [UNRECOGNIZED DRUG - REMARK] PO SCH ×4 (08:24→20:36)
[2018-05-23] MEDS: [UNRECOGNIZED DRUG - REMARK] PO SCH ×3 (08:24→20:36)
[2018-05-23 08:28] LABS: BUN Creatinine Ratio 4.8 (10-20); Calcium 6.8 mg/dl (8.5-10.1); Creatinine Clr Calc Pharmacy 17.3 ml/min; Est GFR (Non-African American) 12.1; Magnesium 2.2 mg/dl (1.8-2.4); Phosphorus 4.5 mg/dl (2.5-4.9); Potassium 3.7 mmol/L (3.5-5.1)
[2018-05-23] MEDS: CALCITRIOL 0.25 MCG CAPSULE PO SCH (08:35)
--- NOTE | 2018-05-23 10:22 | Communication Note ---
Date of Service: May 23, 2018 Pt's AVF eval at nephrology request. L forearm AVF with excellent thrill and bruit. AVF usable for HD whenever needed. Will cancel all office appts. Thank you
[2018-05-23] MEDS: PROCHLORPERAZINE 5 MG in SYRINGE 4 ML IV PRN ×2 (13:16→21:08)
[2018-05-23 20:01] LABS: BUN Creatinine Ratio 4.6 (10-20); Calcium 6.6 mg/dl (8.5-10.1); Creatinine Clr Calc Pharmacy 16.8 ml/min; Est GFR (African American) 13.5; Est GFR (Non-African American) 11.6; Magnesium 2.1 mg/dl (1.8-2.4); Phosphorus 3.9 mg/dl (2.5-4.9)
[2018-05-23] MEDS ORDERED: POTASSIUM CHLORIDE 10 MEQ TABCR PO STA (20:10)
[2018-05-23] MEDS ORDERED: CALCIUM GLUCONATE 10% 2,000 MG in SODIUM CHLORIDE 0.9% 50 ML IV STA (20:46)
--- NOTE | 2018-05-23 20:53 | Hospitalist Progress Note ---
Date of Service May 23, 2018 Assessment & Plan (1) Hyperkalemia: Presented on admission with N/V/D muscle cramping and generalized weakness. Received ER was given calcium gluconate 1000mg IV, insulin R 10U IV, dextrose, sodium bicarb 50meq IV, Kayexalte, 1L NSS K 3.7 today Nephrology on broad Check BMP in am (2) End stage renal disease: (3) Fanconi syndrome: Hx CKD IV with recent diagnosis ESRD. Had AV fistula placed in 03/2018. Nephrology on board Amiloride resumed Continue monitor (4) Diarrhea: CT abd showed no evidence of bowel obstruction. No evidence of free air Tolerated diet Resolved Anemia Due to chronic kidney dx/ in the setting of dilution from IVF Hbg increased to 8.6 Monitor H/H DVT px Heparin D/C due to low hemoglobin Disposition Will discharge once medically stable from nephrology standpoint Subjective Pt was seen and examined Lying in bed with no distress Denies any complaints Physical Exam Vital Signs (Past 24 Hours): Last Vital Signs Temp 36.9 C 05/23/18 15:16 Pulse 71 05/23/18 15:40 Resp 20 05/23/18 15:16 BP 112/64 05/23/18 15:16 Pulse Ox 95 05/23/18 15:16 Physical Exam: General- No acute distress Head- atraumatic Eyes- PERRL, EOMI, ENT- oropharynx clear Neck- supple, no JVD Lungs- clear to auscultation Heart- regular rhythm; no murmur Abdomen- normal bowel sounds, soft, nontender Extremities- no calf tenderness Neuro- alert, oriented x 3; PERRL, EOMI; no facial palsy; no dysarthria Skin- warm & dry
[2018-05-23] MEDS: AMILORIDE PO SCH (21:06)
[2018-05-23] MEDS: TRAMADOL HCL 50 MG TABLET PO PRN (21:20)
[2018-05-24] MEDS: [UNRECOGNIZED DRUG - REMARK] PO SCH ×4 (08:07→21:10)
[2018-05-24] MEDS: [UNRECOGNIZED DRUG - REMARK] PO SCH ×3 (08:07→21:10)
[2018-05-24] MEDS: CALCIUM CARBONATE 1250MG TAB PO SCH ×3 (08:07→21:11)
[2018-05-24] MEDS: [UNRECOGNIZED DRUG - REMARK] PO SCH ×4 (08:07→21:09)
[2018-05-24] MEDS: ERGOCALCIFEROL 50,000 UNITS CAP PO SCH (08:08)
[2018-05-24] MEDS: SODIUM BICARBONATE 650 MG TAB PO SCH ×4 (08:08→21:11)
[2018-05-24] MEDS: CALCITRIOL 0.25 MCG CAPSULE PO SCH (08:08)
[2018-05-24] MEDS: POTASSIUM CHLORIDE 20 MEQ TABCR PO SCH ×3 (08:09→21:08)
[2018-05-24] MEDS: MAGNESIUM OXIDE 400 MG TAB PO SCH ×2 (08:10→21:09)
[2018-05-24] MEDS: PANTOprazole 40 MG TAB PO SCH (08:10)
[2018-05-24] MEDS: VENLAFAXINE HCL XR 75 MG CAPXR PO SCH (08:10)
[2018-05-24] MEDS: AMILORIDE PO SCH (08:11)
[2018-05-24 08:45] LABS: BUN Creatinine Ratio 4.4 (10-20); Calcium 7.7 mg/dl (8.5-10.1); Creatinine Clr Calc Pharmacy 16.6 ml/min; Est GFR (African American) 13.3; Est GFR (Non-African American) 11.5; Magnesium 2.4 mg/dl (1.8-2.4); Phosphorus 3.9 mg/dl (2.5-4.9)
[2018-05-24] MEDS: PROCHLORPERAZINE 5 MG in SYRINGE 4 ML IV PRN (08:53)
--- NOTE | 2018-05-24 19:18 | Nephrology Progress Note ---
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 levocarnitine and cystagon are nonformulary>pt on 05/22 AM resumed home doses -> he needs to continue cystagon 700 mg qid, now and after txplt -recheck chemistries stat this evening and look to see what supplements need to be resumed of mag, phos, K -continue sodium bicarbonate current dose -last evening I increased calcium to 2500 bid, for 2 gm elemental Ca daily on 05/22 > pharmacy help appreciated getting the calcium formulation w/ most elemental Ca in smallest # of pills; even so ca needs high and ca cont to drop; he's been getting 2 gm ca gluconate infusions daily as recently as yesterday am; yesterday further increased ca to 3750 tid -cont D2 daily (sic) 50K units; resumed calcitriol >>>if can't stabilize Ca, may need ca gtt (3) AV fistula: ready to use (4) Polypharmacy: he has a massive pill burden as OP and is nonadherent frequently; will look to consolidate/eliminate as many pills as possible but will be difficult for him ever to get away from large pill burden (5) Hypokalemia: presenting K 7.9 in pt with ESRD not on dialysis but also dependent on massive K supplements historically-takes amiloride and 140 mEq bid K as outpt (rx'd qid 70 mEq K but he is nonadherent). needs med adjustment which is particularly tricky with esrd and nonadherence. his father tells me he was feeling poorly so doubled up on K on 05/20; also pt admits many high K foods lately -all K supplements held 1st 24 hrs after admission AND he had med tx to lower K >> 05/21 evening we resumed 80 po K bid and K dropping despite this -on 05/23 increased amiloride to 10 mg daily (home med) -increase K to 100 mEq tid on 05/23 -cont regular K diet -repeat labs bid - see above Subjective seen on rounds at 0930; no c/o N fatigue, focal numbness/weakness, paresthesias, denies voiding c/o or sob Physical Exam Vital Signs (Past 24 Hours): Last Vital Signs Temp 37.2 C 05/24/18 15:10 Pulse 79 05/24/18 15:10 Resp 16 05/24/18 15:10 BP 121/65 05/24/18 15:10 Pulse Ox 97 05/24/18 15:10 Constitutional: well developed and well nourished on ra maneuvers readily for exam Eyes: EOM intact bilaterally ENMT: Ears: no external ear abnormality Nose: no external nose abnormality Mouth: + dry oral mucous membranes Neck: no nuchal rigidity Respiratory: normal respiratory effort Auscultation: + diminished lung sounds Cardiovascular: RRR, no murmur, no edema Extremities: + AV fistula (L r-c + t/b) Gastrointestinal (Abdomen): Inspection/Auscultation: normal bowel sounds Percussion/Palpation: abdomen soft; abdomen nontender Musculoskeletal: no cyanosis or clubbing, extremities motor strength 5/5 Extremities: strength 5/5 throughout Skin: no rashes, warm and dry Neurologic: gaitan, fluent speech Psychiatric: Orientation: alert, oriented x 3 and + guarded Eye Contact: + fair eye contact and + poor eye contact Speech: normal rate/rhythm/volume of speech Affect: + flat affect Results & Data Laboratory Results Abnormal lab results 05/23/18 05/23/18 05/24/18 Range/Units 18:40 18:40 07:44 Potassium 3.0 L D (3.5-5.1) mmol/L Chloride 110 H 114 H (98-107) mmol/L Carbon Dioxide 20 L (21-32) mmol/L BUN 28 H 27 H (7-18) mg/dl Creatinine 6.10 H* 6.16 H* (0.6-1.4) mg/dl BUN/Creatinine Ratio 4.6 L 4.4 L (10-20) Glucose 158 H (70-99) mg/dl Calcium 6.6 L 7.7 L D (8.5-10.1) mg/dl Ionized Calcium 0.89 L (1.12-1.32) mmol/L PTH Intact (18.4-80.1) pg/ml 05/24/18 05/24/18 05/24/18 Range/Units 07:44 07:44 18:34 Potassium (3.5-5.1) mmol/L Chloride (98-107) mmol/L Carbon Dioxide (21-32) mmol/L BUN (7-18) mg/dl Creatinine (0.6-1.4) mg/dl BUN/Creatinine Ratio (10-20) Glucose (70-99) mg/dl Calcium (8.5-10.1) mg/dl Ionized Calcium 1.04 L 1.09 L (1.12-1.32) mmol/L PTH Intact 362.3 H (18.4-80.1) pg/ml
[2018-05-24 19:22] LABS: BUN Creatinine Ratio 4.4 (10-20); Calcium 7.9 mg/dl (8.5-10.1); Creatinine Clr Calc Pharmacy 17.4 ml/min; Est GFR (African American) 14.1; Est GFR (Non-African American) 12.2; Magnesium 2.4 mg/dl (1.8-2.4); Phosphorus 3.1 mg/dl (2.5-4.9); Potassium 4.4 mmol/L (3.5-5.1)
--- NOTE | 2018-05-24 19:30 | Hospitalist Progress Note ---
Date of Service May 24, 2018 Assessment & Plan (1) Hyperkalemia: Presented on admission with N/V/D muscle cramping and generalized weakness. Received ER was given calcium gluconate 1000mg IV, insulin R 10U IV, dextrose, sodium bicarb 50meq IV, Kayexalte, 1L NSS Repeat K 4.4 this afternoon Nephrology on broad Check BMP in am (2) End stage renal disease: (3) Fanconi syndrome: Hx CKD IV with recent diagnosis ESRD. Had AV fistula placed in 03/2018. Nephrology on board Amiloride increased to 10mg Continue monitor (4) Diarrhea: CT abd showed no evidence of bowel obstruction. No evidence of free air Tolerated diet Resolved Hypocalcemia Ca replaced as per nephrology continue monitor Anemia Due to chronic kidney dx/ in the setting of dilution from IVF Hbg increased to 8.6 Monitor H/H DVT px Heparin D/C due to low hemoglobin Disposition Will discharge once medically stable from nephrology standpoint Subjective Pt was seen and examined Lying in bed with no distress Pt said that he feels fine Denies any complains Physical Exam Vital Signs (Past 24 Hours): Last Vital Signs Temp 37.2 C 05/24/18 15:10 Pulse 79 05/24/18 15:10 Resp 16 05/24/18 15:10 BP 121/65 05/24/18 15:10 Pulse Ox 97 05/24/18 15:10 Physical Exam: General- No acute distress Head- atraumatic Eyes- PERRL, EOMI, ENT- oropharynx clear Neck- supple, no JVD Lungs- clear to auscultation Heart- regular rhythm; no murmur Abdomen- normal bowel sounds, soft, nontender Extremities- no calf tenderness Neuro- alert, oriented x 3; PERRL, EOMI; no facial palsy; no dysarthria Skin- warm & dry
[2018-05-25] MEDS: POTASSIUM CHLORIDE 20 MEQ TABCR PO SCH ×3 (08:28→20:58)
[2018-05-25] MEDS: CALCIUM CARBONATE 1250MG TAB PO SCH ×3 (08:28→21:01)
[2018-05-25] MEDS: VENLAFAXINE HCL XR 75 MG CAPXR PO SCH (08:28)
[2018-05-25] MEDS: SODIUM BICARBONATE 650 MG TAB PO SCH ×4 (08:29→21:00)
[2018-05-25] MEDS: PANTOprazole 40 MG TAB PO SCH (08:29)
[2018-05-25] MEDS: MAGNESIUM OXIDE 400 MG TAB PO SCH (08:29)
[2018-05-25] MEDS: ERGOCALCIFEROL 50,000 UNITS CAP PO SCH (08:29)
[2018-05-25] MEDS: [UNRECOGNIZED DRUG - REMARK] PO SCH ×4 (08:30→21:03)
[2018-05-25] MEDS: [UNRECOGNIZED DRUG - REMARK] PO SCH ×4 (08:31→21:02)
[2018-05-25] MEDS: AMILORIDE PO SCH (08:32)
[2018-05-25] MEDS: CALCITRIOL 0.25 MCG CAPSULE PO SCH (08:33)
[2018-05-25] MEDS: [UNRECOGNIZED DRUG - REMARK] PO SCH ×3 (08:33→21:05)
[2018-05-25 09:05] LABS: BUN Creatinine Ratio 4.3 (10-20); Calcium 8.1 mg/dl (8.5-10.1); Creatinine Clr Calc Pharmacy 17.1 ml/min; Est GFR (African American) 13.8; Est GFR (Non-African American) 11.9; Magnesium 2.5 mg/dl (1.8-2.4); Phosphorus 3.6 mg/dl (2.5-4.9); Potassium 4.9 mmol/L (3.5-5.1)
--- NOTE | 2018-05-25 14:36 | Nephrology Progress Note ---
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 levocarnitine and cystagon are nonformulary>pt on 05/22 AM resumed home doses -> he needs to continue cystagon 700 mg qid, now and after txplt ->>>>recheck chemistries in AM ->>>>increased sodium bicarbonate dose to 2600 mg ->>>>lowered mag to daily from bid ->>>>lowered K to 60 mEq tid -cont D2 daily (sic) 50K units; resumed calcitriol daily -cont oc MARICRUZ 500 3750 mg tid >> at d/c he needs a supplement that has 500-600 mg elemental calcium per tablet (3) AV fistula: ready to use (4) Polypharmacy: he has a massive pill burden as OP and is nonadherent frequently; will look to consolidate/eliminate as many pills as possible but will be difficult for him ever to get away from large pill burden Subjective N today and eating less today; needs food to take meds and needs zofran to keep meds down; not sob, no edema; no emesis; no rashes; denies voiding concerns. no paresthesias or tingling Physical Exam Vital Signs (Past 24 Hours): Last Vital Signs Temp 36.9 C 05/25/18 04:55 Pulse 54 L 05/25/18 07:24 Resp 18 05/25/18 04:55 BP 117/73 05/25/18 04:55 Pulse Ox 98 05/25/18 04:55 Constitutional: well developed and well nourished on ra, maneuvers readily for exam; untouched dinner tray at bedside Eyes: EOM intact bilaterally ENMT: Ears: no external ear abnormality Nose: no external nose abnormality Mouth: + dry oral mucous membranes Neck: no nuchal rigidity Respiratory: normal respiratory effort Auscultation: + diminished lung sounds Cardiovascular: RRR, no murmur, no edema Extremities: + AV fistula (L r-c + t/b) Gastrointestinal (Abdomen): Inspection/Auscultation: normal bowel sounds Percussion/Palpation: abdomen soft; abdomen nontender Musculoskeletal: no cyanosis or clubbing, extremities motor strength 5/5 Extremities: strength 5/5 throughout Skin: no rashes, warm and dry Psychiatric: Orientation: alert, oriented x 3 and + guarded Eye Contact: + fair eye contact and + poor eye contact Speech: normal rate/rhythm/volume of speech Affect: + flat affect Results & Data Laboratory Results Abnormal lab results 05/24/18 05/24/18 05/25/18 Range/Units 18:34 18:34 07:49 Chloride 112 H 117 H (98-107) mmol/L Carbon Dioxide 20 L (21-32) mmol/L BUN 26 H 25 H (7-18) mg/dl Creatinine 5.87 H* 5.96 H* (0.6-1.4) mg/dl BUN/Creatinine Ratio 4.4 L 4.3 L (10-20) Calcium 7.9 L 8.1 L (8.5-10.1) mg/dl Ionized Calcium 1.09 L (1.12-1.32) mmol/L Magnesium 2.5 H (1.8-2.4) mg/dl 05/25/18 Range/Units 07:49 Chloride (98-107) mmol/L Carbon Dioxide (21-32) mmol/L BUN (7-18) mg/dl Creatinine (0.6-1.4) mg/dl BUN/Creatinine Ratio (10-20) Calcium (8.5-10.1) mg/dl Ionized Calcium 1.11 L (1.12-1.32) mmol/L Magnesium (1.8-2.4) mg/dl
--- NOTE | 2018-05-25 16:07 | Hospitalist Progress Note ---
Date of Service May 25, 2018 Assessment & Plan (1) Hyperkalemia: Presented on admission with N/V/D muscle cramping and generalized weakness. Received ER was given calcium gluconate 1000mg IV, insulin R 10U IV, dextrose, sodium bicarb 50meq IV, Kayexalte, 1L NSS Repeat K 4.9 today Nephrology on broad Case discussed with Nephrology and changed potassium supplement to 60mg TID and bicarb increased 2600 mg Check BMP later (2) End stage renal disease: (3) Fanconi syndrome: Hx CKD IV with recent diagnosis ESRD. Had AV fistula placed in 03/2018. Nephrology on board Amiloride increased to 10mg Continue monitor (4) Diarrhea: CT abd showed no evidence of bowel obstruction. No evidence of free air Tolerated diet Resolved Hypocalcemia Ca replaced as per nephrology Continue calcium supplement Continue monitor Anemia Due to chronic kidney dx/ in the setting of dilution from IVF Hbg increased to 8.6 Monitor H/H DVT px Heparin D/C due to low hemoglobin Disposition Will discharge once medically stable from nephrology standpoint Subjective Pt was seen and examined Lying in bed with no distress with mother at bedside Pt said that is very anxious to go home Mother asked if he can get blood work done as an outpatient instead to stay in the hospital Mother said that in the past he used to get blood work done every other day to monitor his electrolytes Mother said that he has an appointment with his PCP on Wednesday and follow up appointment with Nephro on Wednesday Denies any chest pain, palpitation, dizziness and SOB Physical Exam Vital Signs (Past 24 Hours): Last Vital Signs Temp 36.5 C 05/25/18 12:00 Pulse 86 05/25/18 12:00 Resp 18 05/25/18 12:00 BP 163/49 H 05/25/18 12:00 Pulse Ox 99 05/25/18 12:00 Physical Exam: General- No acute distress Head- atraumatic Eyes- PERRL, EOMI, ENT- oropharynx clear Neck- supple, no JVD Lungs- clear to auscultation Heart- regular rhythm; no murmur Abdomen- normal bowel sounds, soft, nontender Extremities- no calf tenderness Neuro- alert, oriented x 3; PERRL, EOMI; no facial palsy; no dysarthria Skin- warm & dry
[2018-05-25] MEDS ORDERED: ONDANSETRON INJ 2 MG/ML 2 ML VIAL IV ONE (17:50)
[2018-05-25 19:53] VITALS: O2SAT 98
[2018-05-25] MEDS: TRAMADOL HCL 50 MG TABLET PO PRN (21:11)
[2018-05-25] MEDS: PROCHLORPERAZINE 5 MG in SYRINGE 4 ML IV PRN (21:39)
[2018-05-26 08:13] LABS: BUN Creatinine Ratio 4.5 (10-20); Calcium 8.1 mg/dl (8.5-10.1); Creatinine Clr Calc Pharmacy 16.5 ml/min; Est GFR (African American) 13.7; Est GFR (Non-African American) 11.8; Magnesium 2.4 mg/dl (1.8-2.4); Phosphorus 3.4 mg/dl (2.5-4.9); Potassium 4.3 mmol/L (3.5-5.1)
[2018-05-26] MEDS ORDERED: MAGNESIUM OXIDE 400 MG TAB PO SCH (09:00)
[2018-05-26] MEDS: [UNRECOGNIZED DRUG - REMARK] PO SCH ×2 (09:16→14:08)
[2018-05-26] MEDS: [UNRECOGNIZED DRUG - REMARK] PO SCH ×2 (09:17→14:08)
[2018-05-26] MEDS: [UNRECOGNIZED DRUG - REMARK] PO SCH ×2 (09:17→14:08)
[2018-05-26] MEDS: ERGOCALCIFEROL 50,000 UNITS CAP PO SCH (09:18)
[2018-05-26] MEDS: VENLAFAXINE HCL XR 75 MG CAPXR PO SCH (09:19)
[2018-05-26] MEDS: PANTOprazole 40 MG TAB PO SCH (09:19)
[2018-05-26] MEDS: CALCIUM CARBONATE 1250MG TAB PO SCH ×2 (09:19→14:07)
[2018-05-26] MEDS: POTASSIUM CHLORIDE 20 MEQ TABCR PO SCH ×2 (09:20→14:09)
[2018-05-26] MEDS: SODIUM BICARBONATE 650 MG TAB PO SCH ×2 (09:20→14:09)
[2018-05-26] MEDS: AMILORIDE PO SCH (09:21)
[2018-05-26] MEDS: CALCITRIOL 0.25 MCG CAPSULE PO SCH (09:22)
--- NOTE | 2018-05-26 09:31 | Nephrology Progress Note ---
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 levocarnitine and cystagon are nonformulary>pt on 05/22 AM resumed home doses -> he needs to continue cystagon 700 mg qid, now and after txplt ->>>>increased sodium bicarbonate dose to 2600 mg ->>>>lowered mag to daily from bid ->>>>lowered K to 60 mEq tid -cont D2 daily (sic) 50K units; resumed calcitriol daily -cont oc MARICRUZ 500 3750 mg tid >> at d/c he needs a supplement that has 500-600 mg elemental calcium per tablet>> LABS STABLE TODAY 05/26; DISCHARGE RECS: -KEEP 05/30 CKD CLINIC APPT w/ me -check non fasting labs AM of clinic appt<<<we will order tehse in epic -continue all meds as currently ordered at d/c -ER or weekend clinic w/ stat labs if ANY concerns over weekend -I will give him handout on supplements w/ highest elemental Ca content at clinic visit (3) AV fistula: ready to use (4) Polypharmacy: he has a massive pill burden as OP and is nonadherent frequently; will look to consolidate/eliminate as many pills as possible but will be difficult for him ever to get away from large pill burden Subjective seen on rounds this am 0710. fiancee bedside. emesis controlled, not sob, no edema. eating ok he states. no voiding concerns. Physical Exam Vital Signs (Past 24 Hours): Last Vital Signs Temp 36.8 C 05/26/18 07:35 Pulse 63 05/26/18 07:40 Resp 20 05/26/18 07:35 BP 110/65 05/26/18 07:35 Pulse Ox 98 05/26/18 07:35 Constitutional: well developed and well nourished on RA , manevuers readily for exam Eyes: EOM intact bilaterally ENMT: Ears: no external ear abnormality Nose: no external nose abnormality Mouth: + dry oral mucous membranes Neck: no nuchal rigidity Respiratory: normal respiratory effort Auscultation: + diminished lung sounds Cardiovascular: RRR, no murmur, no edema Extremities: + AV fistula (L r-c + t/b) Gastrointestinal (Abdomen): Inspection/Auscultation: normal bowel sounds Percussion/Palpation: abdomen soft; abdomen nontender Musculoskeletal: no cyanosis or clubbing, extremities motor strength 5/5 Extremities: strength 5/5 throughout Skin: no rashes, warm and dry Psychiatric: Orientation: alert, oriented x 3 and + guarded Eye Contact: + fair eye contact and + poor eye contact Speech: normal rate/rhythm/volume of speech Affect: + flat affect Results & Data Laboratory Results Abnormal lab results 05/26/18 Range/Units 07:10 Chloride 114 H (98-107) mmol/L BUN 27 H (7-18) mg/dl Creatinine 6.03 H* (0.6-1.4) mg/dl BUN/Creatinine Ratio 4.5 L (10-20) Calcium 8.1 L (8.5-10.1) mg/dl
--- NOTE | 2018-05-26 11:40 | Hospitalist Progress Note ---
Date of Service May 26, 2018 Assessment & Plan (1) Hyperkalemia: Serum potassium at time of admission was 7.9. Received calcium gluconate, insulin/dextrose, sodium bicarb, and Kayexalate. Nephrology consulted. Potassium chloride replacement adjusted. Serum potassium day of discharge was 4.3. KCl dose at time of discharge 60 mEq TID. Follow labs closely as an outpatient. (2) End stage renal disease: CKD stage V. Hemodialysis anticipated, but not yet necessary. Ongoing management per Nephrology. (3) Fanconi syndrome: Ongoing management per Nephrology. (4) Anemia: Hgb 8-10. Probable anemia of chronic kidney disease. Management per Nephrology. (5) DVT prophylaxis: Initially received SQ heparin, then SCDs utilized. (6) Discharge planning issues: Discharged to home. Family Medicine follow-up with Dr. Maharaj. Nephrology follow-up with Dr. Trejo. Subjective Feels well. Anxious to go home. Physical Exam Vital Signs (Past 24 Hours): Last Vital Signs Temp 36.8 C 05/26/18 07:35 Pulse 63 05/26/18 07:40 Resp 20 05/26/18 07:35 BP 110/65 05/26/18 07:35 Pulse Ox 98 05/26/18 07:35 Constitutional: no acute distress Respiratory: no respiratory distress Auscultation: lungs clear to auscultation bilaterally Cardiovascular: Rate/Rhythm: regular rate and regular rhythm Vessels: no JVD Extremities: no calf tenderness and no edema Gastrointestinal (Abdomen): normal bowel sounds, soft, nontender, no hepatosplenomegaly Skin: no rashes, warm and dry Psychiatric: Orientation: alert and oriented x 3 Results & Data Diagnostic Findings Sodium 141, potassium 4.3, chloride 114, CO2 21, BUN 27, creatinine 6.03, random glucose 96, calcium 8.1, ionized calcium 1.12, magnesium 2.4.
[2018-05-26 12:10] VITALS: BP 116/71; PULSE 86; TEMP 98.4
[2018-05-26] MEDS: PROCHLORPERAZINE 5 MG in SYRINGE 4 ML IV PRN (14:07)
--- NOTE | 2018-05-30 03:52 | Discharge Summary ---
Date of Service Date of admission: 05/20/18 Date of discharge: 05/26/18 Admission HPI Per Admitting Provider Pt is 28 y/o M with PMH amino acid transport disease, fanconi syndrome, infantile nephropathic cystinosis, CKD IV, ESRD, nephrogenic diabetes insipidus presented to ER with c/o N/V/D started yesterday. Pt states had approx 10 episodes of vomiting and diarrhea. C/O diffuse abdominal discomfort. Denies fever/chills. Pt reports still makes urine and denies dysuria, hematuria. Denies back pain/flank pain. C/O muscle cramping and generalized weakness. Had AV fistula placed on 03/30/18 in anticipation of requiring dialysis soon. Follows with Dr Trejo - nephrology. Reports has been continuing to take his medications. Has zofran which helped a little with nausea and vomiting. Hx hypokalemia, denies hx hyperkalemia in past. Pt states couple of days ago was in bathroom and had syncope, denies recurrent syncope. Denies fever/chills, diaphoresis, hematemesis, melena, hematochezia, HEREDIA, vision changes, neck pain, CP, SOB, orthopnea, palpitations, cough, sore throat, choking, otalgia, rhinorrhea, paresthesias, extremity edema, rashes. Denies ill contacts, recent travel, new medications, recent antibiotic use. Admission Exam Per Admitting Provider General: chronic ill appearing young male, thin Head: normocephalic, atraumatic Eyes: PERRL, EOM's intact, conjunctiva non-injected, anicteric ENT: normal inspection external ears, nose, mucous membranes mildly dry Neck: supple, trachea midline Lungs: clear, no respiratory distress, no wheezing/rhonchi/rales CV: RRR, no pretibial edema Abd: normal BS, soft, non-tender to palpation, no CVA tenderness to palpation Ext: no cyanosis, no calf tenderness Neuro: A&O x 3, no focal deficits noted, normal affect Skin: warm, dry Principal Diagnosis hyperkalemia CKD V Fanconi's syndrome Discharge Data Allergies Allergy/AdvReac Type Severity Reaction Status Date / Time No Known Allergies Allergy Verified 05/20/18 20:39 Consultations 05/20/18 20:35 ED Decision to Admit Stat 05/20/18 23:28 Consult Nephrology Routine Ordered Studies 05/20/18 21:29 CT abd pelvis wo con Stat Hospital Course (1) Hyperkalemia: Serum potassium at time of admission was 7.9. Received calcium gluconate, insulin/dextrose, sodium bicarb, and Kayexalate. Nephrology consulted. Potassium chloride replacement adjusted. Serum potassium day of discharge was 4.3. KCl dose at time of discharge 60 mEq TID. Follow labs closely as an outpatient. (2) End stage renal disease: CKD stage V. Hemodialysis anticipated, but not yet necessary. Ongoing management per Nephrology. (3) Fanconi syndrome: Ongoing management per Nephrology. (4) Anemia: Hgb 8-10. Probable anemia of chronic kidney disease. Management per Nephrology. (5) DVT prophylaxis: Initially received SQ heparin, then SCDs utilized. (6) Discharge planning issues: Discharged to home. Family Medicine follow-up with Dr. Maharaj. Nephrology follow-up with Dr. Trejo. Total Time Total Time Spent Total Time Spent (In Minutes): 35 Discharge Plan Discharge Items Patient Disposition: Home - Self-Care Reason For Visit: high potassium Discharge Diagnosis: high potassium Condition: Good Discharge Goals: Improve disease control Activity: Resume your previous activity Non-emergency contact: Primary Care Provider, Hospitalist and Supervisor Engine [employer] Call non-emergency contact if: you have any medication questions and your symptoms worsen Follow-up/Referrals: Kate Trejo MD, PhD [Family Provider] - (05/30/2018 2:10 PM Nephrology [facility]) Shanita Maharaj MD [Primary Care Provider] - (05/27/2018 11:00 AM) Diet: See below Diet Comment: as instructed by Dr. Trejo Addtl Provider Instructions: Please have labs drawn on 05/[address] Trejo. Please discuss growth on your right face with Dr. Maharaj. OTHER INSTRUCTIONS: Seek medical attention if you have: * temperature above 101 * chest pain or trouble breathing * abdominal pain, nausea, vomiting * diarrhea, dark stools or bloody stools * weakness, muscle spasms * any unanswered questions or concerns Call 911 if symptoms are severe. Call if you have any questions or problems. My cell # is [phone]. You can also reach a [facility] hospitalist on duty at [facility] 24 hours a day by calling [phone]. Prescriptions: New potassium chloride 20 mEq tablet extended release 60 meq PO TID 30 Days Qty: 270 RF: 5 magnesium oxide 400 mg magnesium tablet 400 mg PO DAILY Qty: 30 RF: 5 sodium bicarbonate 650 mg tablet 2,600 mg PO QID 30 Days Qty: 480 RF: 5 Continued cholecalciferol (vitamin D3) [Vitamin D3] 1,000 unit Capsule 7 cap PO DAILY RF: 0 cysteamine bitartrate 150 mg Capsule 600 mg PO QID RF: 0 cysteamine bitartrate 50 mg Capsule 100 mg PO QID RF: 0 levocarnitine 330 mg Tablet 660 mg PO TID RF: 0 ondansetron 8 mg tablet,disintegrating 8 mg Translingual Q8H PRN (Reason: Nausea) RF: 0 calcitriol 0.5 mcg capsule 0.5 mcg PO QAM RF: 0 Phospha 250 Neutral 250 mg tablet 250 mg PO BID RF: 0 calcium carbonate 500 mg calcium (1,250 mg) Tablet,Chewable 3 tab PO HS RF: 0 venlafaxine 75 mg Capsule,Extended Release 24hr 75 mg PO DAILY RF: 0 amiloride 5 mg Tablet 5 mg PO DAILY RF: 0 omeprazole 20 mg Capsule,Delayed Release(Dr/Ec) 1 cap PO DAILY RF: 0 Discontinued sodium bicarbonate 650 mg Tablet 3 tab PO QID RF: 0 potassium chloride 20 mEq Tablet,Er Particles/Crystals 7 tab PO QID RF: 0 magnesium oxide 400 mg magnesium Tablet 400 mg PO BID RF: 0 Stand-Alone Forms: My [facility] Discharge Orders: Discharge Order (Routine); Ordered 05/26/18 Ordered By: Mikey Bennett Admission Data Admit Date/Time: 05/20/18 21:40 Attending Provider: Mikey Bennett Admit Provider: Chente Lamas Primary Care Provider: Shanita Maharaj Other Providers: Chente Lamas ; Kate Trejo ; Natacha Martin Service: Telemetry Other Interventions: Discharge Summary Assessment (RN) Last Done: 05/26/18 13:26 DC Date/Time DO NOT enter until pt leaves facility: 05/26/18 14:30
== END 2018-05-26 14:30 | disposition home or self-care (01) | DRG 640 ==
LOC: ED 17:44 → 2W 21:40 → SUATTDRO 21:40 → 2W 22:57

== ENCOUNTER 2019-01-29 11:57 | Inpatient (IN) ==
[2019-01-29] MEDS ORDERED: PANTOprazole 80 MG in DEXTROSE 5% 100 ML IV ONE (12:45)
[2019-01-29 12:52] LABS: Basophils # (auto) 0.03 K/uL (0-0.2); Basophils % (auto) 0.4 %; Eosinophils # (auto) 0.36 K/uL (0-0.5); Eosinophils % (auto) 5.3 %; Hematocrit (blood only) 32.8 % (42-52); Hemoglobin 11.1 g/dL (14.0-18.0); Immature Granulocytes # (auto) 0.01 K/uL (0.00-0.02); Immature Granulocytes % (auto) 0.1 %; Lymphocytes % (auto) 10.2 %; Mean Corpuscular Hemoglobin 31.4 pg (25-34); Mean Corpuscular Hgb Conc 33.8 g/dL (32-36); Mean Corpuscular Volume 92.7 fL (80-100); Mean Platelet Volume 10.3 fL (7.4-10.4); Monocytes # (auto) 0.38 K/uL (0.11-0.59); Monocytes % (auto) 5.6 %; Neutrophils # (auto) 5.35 K/uL (1.4-6.5); Neutrophils % (auto) 78.4 %; Platelet Count 117 K/uL (130-400); RDW Coefficient of Variation 15.8 % (11.5-14.5); RDW Standard Deviation 53.7 fL (36.4-46.3); Red Blood Count 3.54 M/uL (4.7-6.1); White Blood Count 6.83 K/uL (4.8-10.8)
[2019-01-29 13:23] LABS: Albumin Level 3.5 gm/dl (3.4-5.0); BUN Creatinine Ratio 6.6 (10-20); Bilirubin,Total 0.3 mg/dl (0.2-1); Calcium 8.2 mg/dl (8.5-10.1); Creatinine Clr Calc Pharmacy 15.8 ml/min; Est GFR (African American) 11.6; Globulin 3.5 gm/dl (2.5-4.0); Magnesium 2.8 mg/dl (1.8-2.4); Phosphorus 6.5 mg/dl (2.5-4.9); Potassium 3.4 mmol/L (3.5-5.1)
[2019-01-29] MEDS: PANTOprazole 40 MG in DEXTROSE 5% 100 ML IV SCH ×2 (13:37→19:39)
--- NOTE | 2019-01-29 13:37 | CT Scan Report ---
CT abd pelvis wo con CT DOSE: 294.49 mGy.cm HISTORY: Pain abd pain vomiting blood TECHNIQUE: Multiaxial CT images of the abdomen and pelvis were performed without contrast. A dose lo wering technique was utilized adhering to the principles of ALARA. COMPARISON STUDY: 05/20/2018 FINDINGS: Minimal basilar dependent atelectasis. Extensive bilateral renal calcifications consistent with medullary sponge type kidney. Mild renal atrophy bilaterally. No evidence for an obstructing urinary tract calculus. Nonobstructive bowel pattern. Scattered radiopaque material throughout the bowel consistent with silvia sted medication. No evidence for gallbladder distention. Bladder is midline. There are no contained c alcifications. The appendix is poorly seen although there is no significant right lower quadrant infi ltrative process. IMPRESSION: 1. Stable bilateral nephrocalcinosis. 2. Mild bilateral renal atrophy. 3. Otherwise negative study of the abdomen and pelvis. The above report was generated using voice recognition software. It may contain grammatical, syntax or spelling errors. Electronically signed by: Messi Quevedo M.D. 01/29/2019 1:35 PM
--- NOTE | 2019-01-29 14:10 | Emergency Department Note ---
Entered by Polly Vela acting as a scribe for History of Present Illness General Chief complaint: Vomiting Stated complaint: THROWING UP BLOOD Source: patient History of Present Illness Onset (ago): hour(s) (1 hour and 15 minutes) Location: abdomen Pain Consistency: + other (episode ) Maximum Pain Intensity: 5 Quality: + other (vomiting up blood ) Associated symptoms: + other (positive abdominal pain) The patient is a 29 year old male with a PMHx of ESRD, Fanconi syndrome, and anemia who presents to the Emergency Room with complaints of an episode of vomiting up blood that occurred at 1115, approximately 1 hour and 15 minutes prior to arrival. The patient states that he had an episode of vomiting followed by another episode that had approximately 1/2 cup of bright red blood in it. The patient reports some abdominal pain currently. He states that he is on dialysis 5 days per week and states that he does this at home. The patient denies being on blood thinners. He denies ever having a colonoscopy or endoscopy. He notes that he did have some dark tarry stools earlier today but took a dose of iron last week. No other complaints with the exception of the epigastric abdominal pain which has been persistent. Home Medications Home Medications Medication Instructions Recorded Confirmed Type cysteamine bitartrate 50 mg PO TID 03/14/18 01/29/19 History cysteamine bitartrate 150 mg PO TID 03/14/18 01/29/19 History amiloride 5 mg PO QAM 05/20/18 01/29/19 History calcium carbonate 3 tab PO HS 05/20/18 01/29/19 History ondansetron 8 mg TRANSLINGUAL Q8H PRN 05/20/18 01/29/19 History calcium acetate 1,334 mg PO TIDM 01/29/19 01/29/19 History calcium acetate 667 mg PO UD 01/29/19 01/29/19 History cholecalciferol (vitamin D3) 4,000 unit PO QAM 01/29/19 01/29/19 History [Vitamin D3] ergocalciferol (vitamin D2) 50,000 unit PO WK 01/29/19 01/29/19 History magnesium oxide 400 mg PO QAM 01/29/19 01/29/19 History potassium chloride 40 meq PO QAM 01/29/19 01/29/19 History sodium bicarbonate 2,600 mg PO TID 01/29/19 01/29/19 History Allergies Allergy/AdvReac Type Severity Reaction Status Date / Time No Known Allergies Allergy Verified 01/29/19 13:36 Past Med/Surg History Medical History Amino-acid transport disease (Chronic) Anemia of chronic disease AV fistula (Chronic) Chronic kidney disease, stage 4 (severe) (Chronic) DR THOMASON-ON KIDNEY TRANSPLANT LIST THRU [facility] Depression End stage renal disease (Chronic) Fanconi syndrome (Chronic) Nephrogenic diabetes insipidus (Chronic) Nephropathic cystinosis Surgical History History of tooth extraction WISDOM TEETH Family History Other Crohn's disease Social History Preferred Language: Azeri Communication Ability: Effective Pulp Cooker Required: No Beliefs That Will Affect Care: None Current Living Situation: Significant Other Feels Safe at Home: Yes Smoking Status: Former smoker Tobacco Type: cigarettes ; Cigarettes Per Day: hx of 1+ ; Second Hand Exposure: No ; Hx Alcohol Use: No Hx Substance Use: No Review of Systems See HPI for pertinent positives & negatives. and A total of 10 systems reviewed and were otherwise negative Physical Exam Vital Signs Vital Signs - 24 hr 01/29/19 12:03 01/29/19 12:28 01/29/19 13:58 Temperature 36.5 C Temperature Source Oral Pulse Rate 66 Pulse Rate [Apical] 64 Respiratory Rate 20 18 Respiratory Effort / Characteristics Non-Labored Respiratory Depth Normal Blood Pressure 120/78 Blood Pressure [Right Arm] 120/71 Blood Pressure Mean 92 Blood Pressure Mean [Right Arm] 87 Pulse Oximetry 100 99 99 Oxygen Delivery Method Room Air Room Air Room Air Sepsis Recent Fever Within 48 Hours No Sepsis Action Taken by Nursing No Action Required GENERAL: Chronically ill-appearing, sitting up in bed, disheveled. EYE EXAM: normal conjunctiva OROPHARYNX: no exudate, no erythema, lips, buccal mucosa, and tongue normal and mucous membranes are dry NECK: supple, no nuchal rigidity, no adenopathy, non-tender LUNGS: Clear to auscultation. Normal chest wall mechanics HEART: no murmurs, S1 normal and S2 normal ABDOMEN: Tenderness to palpation of the epigastric region. Abdomen soft, normo- active bowel sounds, no masses, no rebound or guarding. BACK: Back is symmetrical on inspection and there is no deformity, no midline tenderness, no CVA tenderness. SKIN: no rashes and no bruising RECTAL: hem neg UPPER EXTREMITIES: Upper extremities are grossly normal. Fistula in the right forearm, positive thrill/bruit. LOWER EXTREMITIES: No pitting edema. NEURO EXAM: Normal sensorium, cranial nerves II-XII grossly intact, normal speech, no gross weakness of arms, no gross weakness of legs. Course Course ED COURSE: Vital signs were reviewed and showed normal vitals. The patients medical record was reviewed The above diagnostic studies were performed and reviewed. ED treatments and interventions as stated above. 1227: The patient was evaluated in room A4B. A complete history and physical examination was performed. 1352: Upon reevaluation, the patient is feeling better and resting comfortably. I discussed my findings with the patient and he understands and agrees with the treatment plan. 1354: I discussed the case with Dr. Thomason-Nephrology who states that the patient can be dialyzed tomorrow. Based on the patients age, coexisting illnesses, exam and lab findings the decision to treat as an inpatient was made. The patient remained stable while under my care. 1439: The patient will be evaluated for further management by Dr. Bennett- [facility] Hospitalist service. Administered Medications Pantoprazole Sodium 40 mg/ (Dextrose) 100 mls @ 20 mls/hr IV Q5H MELITA Stop: 02/28/19 12:59 Last Admin: 01/29/19 13:37 Dose: 20 mls/hr Documented by: [id number] Discontinued Medications Pantoprazole Sodium 80 mg/ (Dextrose) 120 mls @ 480 mls/hr IV ONE ONE Stop: 01/29/19 12:59 Last Infusion: 01/29/19 13:18 Dose: 0 mls/hr Documented by: [id number] Admin: 01/29/19 13:01 Dose: 480 mls/hr Documented by: [id number] Medical Decision Making Differential Diagnosis Differential diagnosis: Etiologies such as gastroenteritis, food borne illness, infections, appendicitis, diverticulitis, inflammatory bowel disease, obstruction, GI bleed, biliary pathology, as well as others were entertained. Medical Records Attestation: I reviewed the patient's medical records. Home Medications Current Medication List: was personally reviewed by me Laboratory Data Attestation: I reviewed the patient's lab results. Result diagrams: 01/29/19 12:40 01/29/19 12:40 Lab Results 01/29/19 01/29/19 01/29/19 Range/Units 12:40 12:40 13:05 WBC 6.83 (4.8-10.8) K/uL RBC 3.54 L (4.7-6.1) M/uL Hgb 11.1 L (14.0-18.0) g/dL Hct 32.8 L (42-52) % MCV 92.7 (80-100) fL MCH 31.4 (25-34) pg MCHC 33.8 (32-36) g/dL RDW Std Deviation 53.7 H (36.4-46.3) fL RDW Coeff of Chalo 15.8 H (11.5-14.5) % Plt Count 117 L (130-400) K/uL MPV 10.3 (7.4-10.4) fL Immature Gran % (Auto) 0.1 % Neut % (Auto) 78.4 % Lymph % (Auto) 10.2 % Grundy % (Auto) 5.6 % Eos % (Auto) 5.3 % Baso % (Auto) 0.4 % Immature Gran # (Auto) 0.01 (0.00-0.02) K/uL Neut # (Auto) 5.35 (1.4-6.5) K/uL Lymph # (Auto) 0.70 L (1.2-3.4) K/uL Grundy # (Auto) 0.38 (0.11-0.59) K/uL Eos # (Auto) 0.36 (0-0.5) K/uL Baso # (Auto) 0.03 (0-0.2) K/uL Sodium 139 (136-145) mmol/L Potassium 3.4 L (3.5-5.1) mmol/L Chloride 107 (98-107) mmol/L Carbon Dioxide 21 (21-32) mmol/L Anion Gap 11.0 (3-11) BUN 46 H (7-18) mg/dl Creatinine 6.86 H* (0.6-1.4) mg/dl Est Cr Clr Drug Dosing 15.8 ml/min Est GFR ( Amer) 11.6 Est GFR (Non-Af Amer) 10.0 BUN/Creatinine Ratio 6.6 L (10-20) Glucose 90 (70-99) mg/dl Calcium 8.2 L (8.5-10.1) mg/dl Phosphorus 6.5 H (2.5-4.9) mg/dl Magnesium 2.8 H (1.8-2.4) mg/dl Total Bilirubin 0.3 (0.2-1) mg/dl AST 11 L (15-37) U/L ALT 18 (12-78) U/L Alkaline Phosphatase 46 (45-117) U/L Total Protein 7.0 (6.4-8.2) gm/dl Albumin 3.5 (3.4-5.0) gm/dl Globulin 3.5 (2.5-4.0) gm/dl Albumin/Globulin Ratio 1.0 (0.9-2) Lipase 132 (73-393) U/L Blood Type O Positive Antibody Screen NEGATIVE Imaging Data Radiologist's Impression: Radiology results as stated below per my review and the radiologist's interpretation: CT abd pelvis wo con CT DOSE: 294.49 mGy.cm HISTORY: Pain abd pain vomiting blood TECHNIQUE: Multiaxial CT images of the abdomen and pelvis were performed without contrast. A dose lowering technique was utilized adhering to the principles of ALARA. COMPARISON STUDY: 05/20/2018 FINDINGS: Minimal basilar dependent atelectasis. Extensive bilateral renal calcifications consistent with medullary sponge type kidney. Mild renal atrophy bilaterally. No evidence for an obstructing urinary tract calculus. Nonobstructive bowel pattern. Scattered radiopaque material throughout the bowel consistent with ingested medication. No evidence for gallbladder distention. Marin dder is midline. There are no contained calcifications. The appendix is poorly seen although there is no significant right lower quadrant infiltrative process. IMPRESSION: 1. Stable bilateral nephrocalcinosis. 2. Mild bilateral renal atrophy. 3. Otherwise negative study of the abdomen and pelvis. The above report was generated using voice recognition software. It may contain grammatical, syntax or spelling errors. Electronically signed by: Messi Quevedo M.D. 01/29/2019 1:35 PM Blood Pressure Blood Pressure Findings: Normal blood pressure MDM Narrative Patient is a 29-year-old male with a past medical history of end-stage renal disease on dialysis Wednesday through Wednesday and Wednesday at home, fanconi syndrome, amino acid transfer disease, and nephrogenic diabetes who presents the ER for epigastric abdominal pain associated with vomiting half a cup of bright red blood prior to arrival. This was the second vomit or time vomiting today. IV was established blood work was obtained. Labs show no significant leukocytosis and hemoglobin of 11 up from a baseline of 8. Platelets are slightly low at 117. BMP with a creatinine 3.4. Creatinine was 6.86. Mag and phosphorus elevated. LFTs were unremarkable. Lipase was normal. BUN was double his baseline but rectal was heme-negative. With the hematemesis and dialysis do favor observation although question if this was a Chantale-Rosenberg tear. No vomiting while in the ER. CT abdomen pelvis showed no acute pathology. No history of varices. Discussed with nephrology and they agree that he does not need dialysis today and can stay here. Discussed with the hospitalist for observation. Patient/family were updated bedside. Impression & Plan Hematemesis, CKD (chronic kidney disease), Nausea, Weakness Discharge Plan Visit Data Chief Complaint: Vomiting Stated Complaint: THROWING UP BLOOD ED Provider: Azael Willis Discharge Problem: Hematemesis, CKD (chronic kidney disease), Nausea, Weakness Patient Disposition: Being Evaluated by Hospitalist Forms Stand Alone Forms: My [facility] Prescriptions Prescriptions: No Action sodium bicarbonate 650 mg tablet 2,600 mg PO TID RF: 0 ergocalciferol (vitamin D2) 50,000 unit capsule 50,000 unit PO WK RF: 0 calcium acetate 667 mg capsule 1,334 mg PO TIDM RF: 0 calcium acetate 667 mg capsule 667 mg PO UD RF: 0 Vitamin D3 4,000 unit capsule 4,000 unit PO QAM RF: 0 potassium chloride 20 mEq tablet extended release 40 meq PO QAM RF: 0 magnesium oxide 400 mg magnesium tablet 400 mg PO QAM RF: 0 cysteamine bitartrate 150 mg Capsule 150 mg PO TID RF: 0 cysteamine bitartrate 50 mg Capsule 50 mg PO TID RF: 0 ondansetron 8 mg tablet,disintegrating 8 mg Translingual Q8H PRN (Reason: Nausea) RF: 0 calcium carbonate 500 mg calcium (1,250 mg) Tablet,Chewable 3 tab PO HS RF: 0 amiloride 5 mg Tablet 5 mg PO QAM RF: 0 Referrals Referrals: Shanita Maharaj MD [Primary Care Provider] - Discharge Problem: Hematemesis Qualifiers: Nausea presence: with nausea Qualified Code(s): K92.0 - Hematemesis CKD (chronic kidney disease) Qualifiers: Chronic kidney disease stage: unspecified stage Qualified Code(s): N18.9 - Chronic kidney disease, unspecified The scribe's documentation has been prepared under my direction and personally reviewed by me in its entirety. I confirm that the note above accurately reflects all work, treatment, procedures, and medical decision making performed by me.
--- NOTE | 2019-01-29 14:56 | History & Physical Report ---
Date of Service January 29, 2019 Assessment & Plan (1) Hematemesis: Presented to ED with hematemesis. Patient reports dark stools, but stool was heme-negative in ED. No risk factors for PUD. History suggests Chantale-Rosenberg tear. H&H stable / hemodynamically stable. Received pantoprazole bolus and started on pantoprazole infusion in the ED which will be continued. Follow serial H&H's. Consult GI. (2) CKD (chronic kidney disease): CKD 5 on home hemodialysis 5 days a week. 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 Will administer bicarb and potassium chloride intravenously until GI symptoms improved. Consult Nephrology (discussed case with Dr. Ruiz). (3) Cystinosis: Continue cysteamine bitartrate. (4) DVT prophylaxis: No anticoagulants because of upper GI bleed. SCDs. Ambulate. (5) Discharge planning issues: Anticipated discharge to home. Family Medicine follow-up with Dr. Maharaj. Nephrology follow-up with Dr. Trejo. History of Present Illness Chief Complaint: hematemesis Primary Care Provider: Shanita Maharaj MD 29-year-old male followed by Dr. Maharaj for Family Medicine and Dr. Trejo for Nephrology. 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 Frequent nausea related to medications. Noted some pharyngitis associated with cough 2 days prior to admission; both symptoms have resolved. Experienced nausea and vomiting this morning. Initial emesis was clear, but second emesis was grossly bloody. No abdominal pain. Recent dark stools; no hematochezia. No history of peptic ulcer disease or other upper GI problems. Rarely uses nonsteroidal anti-inflammatory drugs and no recent use. Does not take any steroids. Only occasional alcohol intake. Allergies Allergy/AdvReac Type Severity Reaction Status Date / Time No Known Allergies Allergy Verified 01/29/19 13:36 Home Medications Home Medications Medication Instructions Recorded Confirmed Type cysteamine bitartrate 100 mg PO QID 03/14/18 01/29/19 History cysteamine bitartrate 600 mg PO QID 03/14/18 01/29/19 History calcium carbonate 3 tab PO BID 05/20/18 01/29/19 History ondansetron 8 mg TRANSLINGUAL Q8H PRN 05/20/18 01/29/19 History calcium acetate 1,334 mg PO TIDM 01/29/19 01/29/19 History cholecalciferol (vitamin D3) 4,000 unit PO DAILY 01/29/19 01/29/19 History [Vitamin D3] magnesium oxide 400 mg PO QAM 01/29/19 01/29/19 History potassium chloride 40 meq PO DAILY 01/29/19 01/29/19 History sodium bicarbonate 2,600 mg PO QID 01/29/19 01/29/19 History Past Med/Surg History Medical History (Updated 01/30/19 @ 03:34 by Mikey Bennett MD) Anemia (Chronic) Anemia of chronic disease AV fistula (Chronic) Cystinosis Depression End stage renal disease (Chronic) Dr. Trejo. Home hemodialysis. 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) Surgical History History of tooth extraction WISDOM TEETH Family History (Updated 01/30/19 @ 03:26 by Mikey Bennett MD) Mother Crohn's disease Social History (Updated 01/30/19 @ 03:26 by Mikey Bennett MD) Preferred Language: Pashto Communication Ability: Effective Bench Mechanic Required: No Beliefs That Will Affect Care: None Current Living Situation: Parent Other Information That Helps Us Care for You: No Feels Safe at Home: Yes Safety Concerns: Feels Safe At This Time Smoking Status: Current every day smoker Tobacco Type: cigarettes ; Cigarettes Per Day: 10 ; Do You Dip or Chew Tobacco: No ; Second Hand Exposure: No ; Tobacco Cessation Education Requested by Patient: No Hx Alcohol Use: Yes Alcohol Intake Frequency: Rarely Hx Substance Use: No Review of Systems Constitutional: + weight loss (few pounds); no fever Eyes: no diplopia and no worsening vision Ear, Nose, Mouth, Throat: + sore throat (resolved); no nasal congestion and no sinus pain/pressure Respiratory: + cough (resolved); no dyspnea Cardiovascular: no chest pain, no palpitations and no edema Gastrointestinal: as per Subjective / HPI Genitourinary: no dysuria and no hematuria Musculoskeletal: no joint pain and no myalgia Integumentary: no rash and no new lesions Neurologic: + headache(s) (occasional) Endocrine: no polydipsia and no polyuria Hematologic / Lymphatic: + easy bruising; no easy bleeding and no lymphadenopathy Physical Exam Constitutional: WD/WN, vitals as above no acute distress Eyes: PERRL, conjunctivae normal, anicteric sclerae ENMT: external ear and nose normal, oropharynx normal Neck: trachea midline, no thyromegaly Respiratory: normal respiratory effort, lungs clear to auscultation Cardiovascular: Rate/Rhythm: regular rate Heart Sounds: + murmur (I/ systolic murmur at base); no gallop and no cardiac rub Vessels: no JVD Extremities: normal capillary refill; no calf tenderness and no edema Gastrointestinal (Abdomen): normal bowel sounds, soft, nontender, no hepatos plenomegaly Musculoskeletal: Head/Neck/Chest: neck supple Extremities: strength 5/5 throughout; no cyanosis and no clubbing AV fistula LUE Skin: no rashes, warm and dry Neurologic: PERRL, EOMI no facial palsy no dysarthria or aphasia Psychiatric: Orientation: alert and oriented x 3 Affect: euthymic affect Lymphatic: no cervical lymphadenopathy Results & Data Vital Signs (Past 12 Hours) Vital Signs Temp Pulse Pulse Resp BP BP Pulse Ox 01/29/19 13:58 64 18 120/71 99 01/29/19 12:28 99 01/29/19 12:03 36.5 C 66 20 120/78 100 Laboratory Results Laboratory Tests 01/29/19 12:40 WBC 6.83 Hgb 11.1 L Plt Count 117 L Laboratory Tests 01/29/19 12:40 Sodium 139 Potassium 3.4 L Chloride 107 Carbon Dioxide 21 BUN 46 H Creatinine 6.86 H* Glucose 90 Calcium 8.2 L Phosphorus 6.5 H Magnesium 2.8 H Stools heme negative per ED provider. Code Status & VTE Plan VTE Prophylaxis Plan VTE Prophylaxis will be ordered: Yes (1) CKD (chronic kidney disease) Chronic kidney disease stage: unspecified stage Qualified Code(s): N18.9 - Chronic kidney disease, unspecified (2) Hematemesis Nausea presence: with nausea Qualified Code(s): K92.0 - Hematemesis
[2019-01-29] MEDS ORDERED: ZOLPIDEM TARTRATE 5 MG TAB PO PRN (16:03)
[2019-01-29 17:02] LABS: BUN Creatinine Ratio 6.9 (10-20); Calcium 8.5 mg/dl (8.5-10.1); Creatinine Clr Calc Pharmacy 15.9 ml/min; Est GFR (African American) 11.7; Est GFR (Non-African American) 10.1; Potassium 3.1 mmol/L (3.5-5.1)
[2019-01-29 17:38] LABS: Appearance Urine Clear (Clear); Bacteria Urine Automated Negative (Negative); Bilirubin Urine Negative (Negative); Blood Urine 1+ (Negative); Color Urine Yellow; Glucose Urine UA 2+ (Negative); Ketones Urine 1+ (Negative); Leukocyte Esterase Urine Negative (Negative); Nitrite Urine Negative (Negative); RBC Urine Automated 0-4 /hpf (0-4); Specific Gravity Urine 1.011 (1.000-1.030); Urobilinogen Urine Negative (Negative); pH Urine 7.5 (4.5-7.5)
[2019-01-29] MEDS: SODIUM BICARBONATE 8.4% 150 MEQ, POTASSIUM CHLORIDE 40 MEQ in DEXTROSE 5% 1,000 ML IV SCH (17:47)
[2019-01-29 17:52] LABS: Protein Urine 3+ (Negative)
[2019-01-29 17:53] LABS: Sulfosalicylic Acid Urine Positive (Negative)
[2019-01-29 18:06] LABS: Hematocrit (blood only) 32.1 % (42-52); Hemoglobin 10.8 g/dL (14.0-18.0)
[2019-01-29 18:38] LABS: BUN Creatinine Ratio 6.6 (10-20); Calcium 8.2 mg/dl (8.5-10.1); Creatinine Clr Calc Pharmacy 15.7 ml/min; Est GFR (African American) 11.6; Potassium 3.2 mmol/L (3.5-5.1)
[2019-01-29] MEDS ORDERED: [UNRECOGNIZED DRUG - OTHER] PO SCH (21:00)
[2019-01-29] MEDS ORDERED: [UNRECOGNIZED DRUG - OTHER] PO SCH (21:00)
[2019-01-29] MEDS: [UNRECOGNIZED DRUG - OTHER] PO SCH (21:02)
[2019-01-29] MEDS: [UNRECOGNIZED DRUG - OTHER] PO SCH (21:03)
[2019-01-30 03:00] LABS: Hematocrit (blood only) 32.4 % (42-52); Hemoglobin 10.9 g/dL (14.0-18.0)
[2019-01-30 03:30] LABS: BUN Creatinine Ratio 6.3 (10-20); Creatinine Clr Calc Pharmacy 15.3 ml/min; Est GFR (African American) 11.2; Est GFR (Non-African American) 9.7; Potassium 3.2 mmol/L (3.5-5.1)
[2019-01-30] MEDS: PANTOprazole 40 MG in DEXTROSE 5% 100 ML IV SCH ×4 (04:07→16:37)
[2019-01-30] MEDS: POTASSIUM CHLORIDE / WTR 10 MEQ/100 ML PLCT IV SCH ×2 (04:07→05:20)
[2019-01-30] MEDS: SODIUM BICARBONATE 8.4% 150 MEQ, POTASSIUM CHLORIDE 40 MEQ in DEXTROSE 5% 1,000 ML IV SCH ×2 (04:07→16:37)
--- NOTE | 2019-01-30 07:57 | Gastrointestinal Consultation ---
Date of Consultation January 30, 2019 Assessment & Plan (1) Hematemesis: 29 year old male with ESRD on home hemodialysis following w/ Dr. Ruiz, anemia of CKD w/ baseline HGB 9 recently started on PO iron who presents through the ED for evaluation of hematemesis x 1 on 01/29/19. He was made NPO, started on PPI bolus and drip and has remained hemodynamically stable. DDX discussed to include esophagitis, M-W tear etc NPO Continue IV PPI Trend HGB Monitor and document all GI output Appreciate nephrology consultation regarding timely of dialysis Tentative plan for EGD today Thank you for allowing us to participate in the care of this patient. Please call with any acute changes, questions or concerns. Please see addendum below with additional recommendation from my supervising physician. Attg add: I interviewed and examined pt, reviewed chart and labs now with single episode of hematemesis without hgb or BP drop. Suspect esophagitis, EGD today. Present on Admission?: Yes History of Present Illness Reason for Consultation: hematemesis Requesting Physician: Donald Attending Physician: Mikey Bennett MD History of Present Illness 29 year old male with history of ESRD on home hemodialysis 5x a week secondary to cystinosis, anemia of CKD w/ baseline HGB 9 who presents through the ED for evaluation of hematemesis - GI asked to evaluate. Pt notes that he has been suffering from upper respiratory symptoms x Wednesday. Suggests that yesterday developed mild upper abdominal pain associated w/ nausea and vomiting. The first episode was clear - the second episode was bright red blood. Suggests about 1/2 cup to 1 cup of blood. No clots. No coffee ground emesis. Notes his stools have looked dark x 3 days. Suggests he recently started on PO iron as an OP. No BRB. No weight loss. 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 Stool heme - No NSAIDs No ETOH New med: iron EGD/Colon: none Allergies Allergy/AdvReac Type Severity Reaction Status Date / Time No Known Allergies Allergy Verified 01/29/19 13:36 Home Medications Home Medications Medication Instructions Recorded Confirmed Type cysteamine bitartrate 100 mg PO QID 03/14/18 01/29/19 History cysteamine bitartrate 600 mg PO QID 03/14/18 01/29/19 History calcium carbonate 3 tab PO BID 05/20/18 01/29/19 History ondansetron 8 mg TRANSLINGUAL Q8H PRN 05/20/18 01/29/19 History calcium acetate 1,334 mg PO TIDM 01/29/19 01/29/19 History cholecalciferol (vitamin D3) 4,000 unit PO DAILY 01/29/19 01/29/19 History [Vitamin D3] magnesium oxide 400 mg PO QAM 01/29/19 01/29/19 History potassium chloride 40 meq PO DAILY 01/29/19 01/29/19 History sodium bicarbonate 2,600 mg PO QID 01/29/19 01/29/19 History Patient History Medical History Anemia (Chronic) Anemia of chronic disease AV fistula (Chronic) Cystinosis Depression End stage renal disease (Chronic) Dr. Trejo. Home hemodialysis. 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) Surgical History History of tooth extraction WISDOM TEETH Family History Mother Crohn's disease Social History (Updated 01/30/19 @ 03:26 by Mikey Bennett MD) Preferred Language: Romansh Communication Ability: Effective Patent Prosecution Attorney Required: No Beliefs That Will Affect Care: None Current Living Situation: Parent Other Information That Helps Us Care for You: No Feels Safe at Home: Yes Safety Concerns: Feels Safe At This Time Smoking Status: Current every day smoker Tobacco Type: cigarettes ; Cigarettes Per Day: 10 ; Do You Dip or Chew Tobacco: No ; Second Hand Exposure: No ; Tobacco Cessation Education Requested by Patient: No Hx Alcohol Use: Yes Alcohol Intake Frequency: Rarely Hx Substance Use: No Review of Systems Constitutional: no fever, no chills and no fatigue Respiratory: no cough and no dyspnea Cardiovascular: no chest pain, no dyspnea and no dyspnea on exertion Gastrointestinal: + hematemesis (x 1 yesterday); no abdominal pain, no early satiety, no heartburn, no coffee ground emesis, no blood in stools and no melena Physical Exam Constitutional: well developed and well nourished; no acute distress Respiratory: normal respiratory effort; no respiratory distress Auscultation: lungs clear to auscultation bilaterally Cardiovascular: Rate/Rhythm: regular rate and regular rhythm Gastrointestinal (Abdomen): Inspection/Auscultation: normal bowel sounds Percussion/Palpation: abdomen soft; abdomen nontender, no guarding and abdomen not rigid Skin: no rashes, warm and dry Results & Data Vital Signs (Past 12 Hours) Vital Signs Temp Pulse Pulse Resp BP Pulse Ox 01/30/19 07:07 36.8 C 61 16 109/56 L 98 01/30/19 04:03 36.4 C L 55 L 16 119/66 98 01/29/19 23:02 36.6 C 63 16 117/65 99 01/29/19 23:00 54 L Laboratory Results 01/30/19 01/30/19 01/30/19 Range/Units 07:56 07:56 07:56 WBC (4.8-10.8) K/uL RBC (4.7-6.1) M/uL Hgb Pending (14.0-18.0) g/dL Hct Pending (42-52) % MCV (80-100) fL MCH (25-34) pg MCHC (32-36) g/dL RDW Std Deviation (36.4-46.3) fL RDW Coeff of [place] (11.5-14.5) % Plt Count (130-400) K/uL MPV (7.4-10.4) fL Immature Gran % (Auto) % Neut % (Auto) % Lymph % (Auto) % [place] % (Auto) % Eos % (Auto) % Baso % (Auto) % Immature Gran # (Auto) (0.00-0.02) K/uL Neut # (Auto) (1.4-6.5) K/uL Lymph # (Auto) (1.2-3.4) K/uL [place] # (Auto) (0.11-0.59) K/uL Eos # (Auto) (0-0.5) K/uL Baso # (Auto) (0-0.2) K/uL PT Pending INR Pending APTT Pending PTT Ratio Pending Sodium Pending (136-145) mmol/L Potassium Pending (3.5-5.1) mmol/L Chloride Pending (98-107) mmol/L Carbon Dioxide Pending (21-32) mmol/L Anion Gap Pending (3-11) BUN Pending (7-18) mg/dl Creatinine Pending (0.6-1.4) mg/dl Est Cr Clr Drug Dosing Pending ml/min Est GFR ( Amer) Pending Est GFR (Non-Af Amer) Pending BUN/Creatinine Ratio Pending (10-20) Glucose Pending (70-99) mg/dl Calcium Pending (8.5-10.1) mg/dl Phosphorus Pending (2.5-4.9) mg/dl Magnesium (1.8-2.4) mg/dl Total Bilirubin (0.2-1) mg/dl AST (15-37) U/L ALT (12-78) U/L Alkaline Phosphatase (45-117) U/L Total Protein (6.4-8.2) gm/dl Albumin (3.4-5.0) gm/dl Globulin (2.5-4.0) gm/dl Albumin/Globulin Ratio (0.9-2) Lipase (73-393) U/L Urine Color Urine Appearance (Clear) Urine pH (4.5-7.5) Ur Specific [place] (1.000-1.030) Urine Protein (Negative) Urine Glucose (UA) (Negative) Urine Ketones (Negative) Urine Blood (Negative) Urine Nitrite (Negative) Urine Bilirubin (Negative) Urine Urobilinogen (Negative) Ur Leukocyte Esterase (Negative) Urine WBC (Auto) (0-5) /hpf Urine RBC (Auto) (0-4) /hpf U Hyaline Cast (Auto) (0-5) /lpf U Epithel Cells (Auto) (0-5) /lpf Urine Bacteria (Auto) (Negative) Blood Type Antibody Screen 01/30/19 01/30/19 01/29/19 Range/Units 02:47 02:47 17:50 WBC (4.8-10.8) K/uL RBC (4.7-6.1) M/uL Hgb 10.9 L (14.0-18.0) g/dL Hct 32.4 L (42-52) % MCV (80-100) fL MCH (25-34) pg MCHC (32-36) g/dL RDW Std Deviation (36.4-46.3) fL RDW Coeff of [place] (11.5-14.5) % Plt Count (130-400) K/uL MPV (7.4-10.4) fL Immature Gran % (Auto) % Neut % (Auto) % Lymph % (Auto) % [place] % (Auto) % Eos % (Auto) % Baso % (Auto) % Immature Gran # (Auto) (0.00-0.02) K/uL Neut # (Auto) (1.4-6.5) K/uL Lymph # (Auto) (1.2-3.4) K/uL [place] # (Auto) (0.11-0.59) K/uL Eos # (Auto) (0-0.5) K/uL Baso # (Auto) (0-0.2) K/uL PT INR APTT PTT Ratio Sodium 138 139 (136-145) mmol/L Potassium 3.2 L 3.2 L (3.5-5.1) mmol/L Chloride 109 H 112 H (98-107) mmol/L Carbon Dioxide 20 L 17 L (21-32) mmol/L Anion Gap 9.0 10.0 (3-11) BUN 45 H 45 H (7-18) mg/dl Creatinine 7.06 H* 6.88 H* (0.6-1.4) mg/dl Est Cr Clr Drug Dosing 15.3 15.7 ml/min Est GFR ( Amer) 11.2 11.6 Est GFR (Non-Af Amer) 9.7 10.0 BUN/Creatinine Ratio 6.3 L 6.6 L (10-20) Glucose 99 84 (70-99) mg/dl Calcium 8.0 L 8.2 L (8.5-10.1) mg/dl Phosphorus (2.5-4.9) mg/dl Magnesium (1.8-2.4) mg/dl Total Bilirubin (0.2-1) mg/dl AST (15-37) U/L ALT (12-78) U/L Alkaline Phosphatase (45-117) U/L Total Protein (6.4-8.2) gm/dl Albumin (3.4-5.0) gm/dl Globulin (2.5-4.0) gm/dl Albumin/Globulin Ratio (0.9-2) Lipase (73-393) U/L Urine Color Urine Appearance (Clear) Urine pH (4.5-7.5) Ur Specific [place] (1.000-1.030) Urine Protein (Negative) Urine Glucose (UA) (Negative) Urine Ketones (Negative) Urine Blood (Negative) Urine Nitrite (Negative) Urine Bilirubin (Negative) Urine Urobilinogen (Negative) Ur Leukocyte Esterase (Negative) Urine WBC (Auto) (0-5) /hpf Urine RBC (Auto) (0-4) /hpf U Hyaline Cast (Auto) (0-5) /lpf U Epithel Cells (Auto) (0-5) /lpf Urine Bacteria (Auto) (Negative) Blood Type Antibody Screen 01/29/19 01/29/19 01/29/19 Range/Units 17:50 17:11 16:10 WBC (4.8-10.8) K/uL RBC (4.7-6.1) M/uL Hgb 10.8 L (14.0-18.0) g/dL Hct 32.1 L (42-52) % MCV (80-100) fL MCH (25-34) pg MCHC (32-36) g/dL RDW Std Deviation (36.4-46.3) fL RDW Coeff of [place] (11.5-14.5) % Plt Count (130-400) K/uL MPV (7.4-10.4) fL Immature Gran % (Auto) % Neut % (Auto) % Lymph % (Auto) % [place] % (Auto) % Eos % (Auto) % Baso % (Auto) % Immature Gran # (Auto) (0.00-0.02) K/uL Neut # (Auto) (1.4-6.5) K/uL Lymph # (Auto) (1.2-3.4) K/uL [place] # (Auto) (0.11-0.59) K/uL Eos # (Auto) (0-0.5) K/uL Baso # (Auto) (0-0.2) K/uL PT INR APTT PTT Ratio Sodium 140 (136-145) mmol/L Potassium 3.1 L (3.5-5.1) mmol/L Chloride 112 H (98-107) mmol/L Carbon Dioxide 18 L (21-32) mmol/L Anion Gap 10.0 (3-11) BUN 47 H (7-18) mg/dl Creatinine 6.83 H* (0.6-1.4) mg/dl Est Cr Clr Drug Dosing 15.9 ml/min Est GFR ( Amer) 11.7 Est GFR (Non-Af Amer) 10.1 BUN/Creatinine Ratio 6.9 L (10-20) Glucose 87 (70-99) mg/dl Calcium 8.5 (8.5-10.1) mg/dl Phosphorus (2.5-4.9) mg/dl Magnesium (1.8-2.4) mg/dl Total Bilirubin (0.2-1) mg/dl AST (15-37) U/L ALT (12-78) U/L Alkaline Phosphatase (45-117) U/L Total Protein (6.4-8.2) gm/dl Albumin (3.4-5.0) gm/dl Globulin (2.5-4.0) gm/dl Albumin/Globulin Ratio (0.9-2) Lipase (73-393) U/L Urine Color Yellow Urine Appearance Clear (Clear) Urine pH 7.5 (4.5-7.5) Ur Specific [place] 1.011 (1.000-1.030) Urine Protein 3+ H (Negative) Urine Glucose (UA) 2+ H (Negative) Urine Ketones 1+ H (Negative) Urine Blood 1+ H (Negative) Urine Nitrite Negative (Negative) Urine Bilirubin Negative (Negative) Urine Urobilinogen Negative (Negative) Ur Leukocyte Esterase Negative (Negative) Urine WBC (Auto) 1-5 (0-5) /hpf Urine RBC (Auto) 0-4 (0-4) /hpf U Hyaline Cast (Auto) 1-5 (0-5) /lpf U Epithel Cells (Auto) 10-20 H (0-5) /lpf Urine Bacteria (Auto) Negative (Negative) Blood Type Antibody Screen 01/29/19 01/29/19 01/29/19 Range/Units 13:05 12:40 12:40 WBC 6.83 (4.8-10.8) K/uL RBC 3.54 L (4.7-6.1) M/uL Hgb 11.1 L (14.0-18.0) g/dL Hct 32.8 L (42-52) % MCV 92.7 (80-100) fL MCH 31.4 (25-34) pg MCHC 33.8 (32-36) g/dL RDW Std Deviation 53.7 H (36.4-46.3) fL RDW Coeff of [place] 15.8 H (11.5-14.5) % Plt Count 117 L (130-400) K/uL MPV 10.3 (7.4-10.4) fL Immature Gran % (Auto) 0.1 % Neut % (Auto) 78.4 % Lymph % (Auto) 10.2 % [place] % (Auto) 5.6 % Eos % (Auto) 5.3 % Baso % (Auto) 0.4 % Immature Gran # (Auto) 0.01 (0.00-0.02) K/uL Neut # (Auto) 5.35 (1.4-6.5) K/uL Lymph # (Auto) 0.70 L (1.2-3.4) K/uL [place] # (Auto) 0.38 (0.11-0.59) K/uL Eos # (Auto) 0.36 (0-0.5) K/uL Baso # (Auto) 0.03 (0-0.2) K/uL PT INR APTT PTT Ratio Sodium 139 (136-145) mmol/L Potassium 3.4 L (3.5-5.1) mmol/L Chloride 107 (98-107) mmol/L Carbon Dioxide 21 (21-32) mmol/L Anion Gap 11.0 (3-11) BUN 46 H (7-18) mg/dl Creatinine 6.86 H* (0.6-1.4) mg/dl Est Cr Clr Drug Dosing 15.8 ml/min Est GFR ( Amer) 11.6 Est GFR (Non-Af Amer) 10.0 BUN/Creatinine Ratio 6.6 L (10-20) Glucose 90 (70-99) mg/dl Calcium 8.2 L (8.5-10.1) mg/dl Phosphorus 6.5 H (2.5-4.9) mg/dl Magnesium 2.8 H (1.8-2.4) mg/dl Total Bilirubin 0.3 (0.2-1) mg/dl AST 11 L (15-37) U/L ALT 18 (12-78) U/L Alkaline Phosphatase 46 (45-117) U/L Total Protein 7.0 (6.4-8.2) gm/dl Albumin 3.5 (3.4-5.0) gm/dl Globulin 3.5 (2.5-4.0) gm/dl Albumin/Globulin Ratio 1.0 (0.9-2) Lipase 132 (73-393) U/L Urine Color Urine Appearance (Clear) Urine pH (4.5-7.5) Ur Specific [place] (1.000-1.030) Urine Protein (Negative) Urine Glucose (UA) (Negative) Urine Ketones (Negative) Urine Blood (Negative) Urine Nitrite (Negative) Urine Bilirubin (Negative) Urine Urobilinogen (Negative) Ur Leukocyte Esterase (Negative) Urine WBC (Auto) (0-5) /hpf Urine RBC (Auto) (0-4) /hpf U Hyaline Cast (Auto) (0-5) /lpf U Epithel Cells (Auto) (0-5) /lpf Urine Bacteria (Auto) (Negative) Blood Type O Positive Antibody Screen NEGATIVE (1) Hematemesis Nausea presence: with nausea Qualified Code(s): K92.0 - Hematemesis
[2019-01-30 08:09] LABS: Hematocrit (blood only) 31.4 % (42-52); Hemoglobin 10.8 g/dL (14.0-18.0)
[2019-01-30 08:21] LABS: INR 1.1 (0.9-1.1); Partial Thromboplastin Time 28.3 Seconds (21.0-31.0); Prothrombin Time 10.9 Seconds (9.0-12.0)
[2019-01-30 08:47] LABS: Calcium 8.1 mg/dl (8.5-10.1); Est GFR (Non-African American) 9.5; Potassium 3.4 mmol/L (3.5-5.1)
[2019-01-30] MEDS: [UNRECOGNIZED DRUG - OTHER] PO SCH ×3 (09:00→20:56)
[2019-01-30] MEDS: [UNRECOGNIZED DRUG - OTHER] PO SCH ×3 (09:00→20:55)
--- NOTE | 2019-01-30 09:49 | Nephrology Consultation ---
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 Last dialysis was on Wednesday. His electrolytes are stable with no signs of volume overload. We will hold off on dialysis today to allow time for EGD. We will dialyze him tomorrow morning if still inpatient. 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 No further episodes of hematemesis today. He is planned for EGD later today. Continue PPI per primary team. 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 Continue current sodium bicarbonate drip with potassium chloride. At 40 mEq of potassium by mouth today. (4) Anemia: Hemoglobin of 10.8 today. No need for Epogen with dialysis History of Present Illness Reason for Consultation: ESRD on dialysis complicated by hematemesis Requesting Physician: Mikey Bennett MD Attending Physician: Mikey Bennett MD History of Present Illness This is a 28-year-old male with ESRD secondary to cystinosis on home hemodialysis 5 days a week who was admitted on 01/29/2019 with hematemesis. Patient dialyzes using a left forearm AV fistula. He is off Wednesday and Wednesday. His last dialysis was Wednesday. He did not dialyze yesterday due to hematemesis. He had 2 days help respiratory symptoms. This was followed by episode of vomiting which was initially clear but the second 1 was grossly bloody. He denies any vomiting today. He is n.p.o. No shortness of breath. He is on a bicarb drip with potassium supplements. Mother was at the bedside all questions were answered. He is planned for EGD later today. Allergies Allergy/AdvReac Type Severity Reaction Status Date / Time No Known Allergies Allergy Verified 01/29/19 13:36 Home Medications Home Medications Medication Instructions Recorded Confirmed Type cysteamine bitartrate 100 mg PO QID 03/14/18 01/29/19 History cysteamine bitartrate 600 mg PO QID 03/14/18 01/29/19 History calcium carbonate 3 tab PO BID 05/20/18 01/29/19 History ondansetron 8 mg TRANSLINGUAL Q8H PRN 05/20/18 01/29/19 History calcium acetate 1,334 mg PO TIDM 01/29/19 01/29/19 History cholecalciferol (vitamin D3) 4,000 unit PO DAILY 01/29/19 01/29/19 History [Vitamin D3] magnesium oxide 400 mg PO QAM 01/29/19 01/29/19 History potassium chloride 40 meq PO DAILY 01/29/19 01/29/19 History sodium bicarbonate 2,600 mg PO QID 01/29/19 01/29/19 History Patient History Medical History (Updated 01/30/19 @ 03:34 by Mikey Bennett MD) Anemia (Chronic) Anemia of chronic disease AV fistula (Chronic) Cystinosis Depression End stage renal disease (Chronic) Dr. Trejo. Home hemodialysis. 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) Surgical History History of tooth extraction WISDOM TEETH Family History (Updated 01/30/19 @ 03:26 by Mikey Bennett MD) Mother Crohn's disease Social History (Updated 01/30/19 @ 03:26 by Mikey Bennett MD) Preferred Language: Estonian Communication Ability: Effective Electrical Checkout Mechanic Required: No Beliefs That Will Affect Care: None Current Living Situation: Parent Other Information That Helps Us Care for You: No Feels Safe at Home: Yes Safety Concerns: Feels Safe At This Time Smoking Status: Current every day smoker Tobacco Type: cigarettes ; Cigarettes Per Day: 10 ; Do You Dip or Chew Tobacco: No ; Second Hand Exposure: No ; Tobacco Cessation Education Requested by Patient: No Hx Alcohol Use: Yes Alcohol Intake Frequency: Rarely Hx Substance Use: No Review of Systems Review of Systems: All systems reviewed & are unremarkable except as noted in HPI & below Physical Exam Physical Exam: General exam: Appears comfortable, no acute distress HEENT: Pupils are equal and reactive to light Neck: No JVD, neck is supple trachea is midline Respiratory system: Clear breath sounds bilaterally. Gastrointestinal: Abdomen is soft, non distended, non tender, bowel sounds are present CVS: Regular rate and rhythm. No murmurs, rubs or gallops Musculoskeletal: No joint or muscle tenderness Extremities: Non tender, no edema, peripheral pulses are present Neuro: Oriented, no tremors, no focal neurological deficits Skin: No rashes Access: Left fore arm AV fistula with good bruit Results & Data Vital Signs (Past 12 Hours) Vital Signs Temp Pulse Pulse Resp BP Pulse Ox 01/30/19 07:07 36.8 C 61 16 109/56 L 98 01/30/19 04:03 36.4 C L 55 L 16 119/66 98 01/29/19 23:02 36.6 C 63 16 117/65 99 01/29/19 23:00 54 L Laboratory Results Laboratory Results - last 24 hr 01/29/19 01/29/19 01/29/19 12:40 12:40 13:05 WBC 6.83 RBC 3.54 L Hgb 11.1 L Hct 32.8 L MCV 92.7 MCH 31.4 MCHC 33.8 RDW Std Deviation 53.7 H RDW Coeff of Ch[place] 15.8 H Plt Count 117 L MPV 10.3 Immature Gran % (Auto) 0.1 Neut % (Auto) 78.4 Lymph % (Auto) 10.2 Good[place] % (Auto) 5.6 Eos % (Auto) 5.3 Baso % (Auto) 0.4 Immature Gran # (Auto) 0.01 Neut # (Auto) 5.35 Lymph # (Auto) 0.70 L Good[place] # (Auto) 0.38 Eos # (Auto) 0.36 Baso # (Auto) 0.03 PT INR APTT PTT Ratio Sodium 139 Potassium 3.4 L Chloride 107 Carbon Dioxide 21 Anion Gap 11.0 BUN 46 H Creatinine 6.86 H* Est Cr Clr Drug Dosing 15.8 Est GFR ( Amer) 11.6 Est GFR (Non-Af Amer) 10.0 BUN/Creatinine Ratio 6.6 L Glucose 90 Calcium 8.2 L Phosphorus 6.5 H Magnesium 2.8 H Total Bilirubin 0.3 AST 11 L ALT 18 Alkaline Phosphatase 46 Total Protein 7.0 Albumin 3.5 Globulin 3.5 Albumin/Globulin Ratio 1.0 Lipase 132 Urine Color Urine Appearance Urine pH Ur Specific Sharon Urine Protein Urine Glucose (UA) Urine Ketones Urine Blood Urine Nitrite Urine Bilirubin Urine Urobilinogen Ur Leukocyte Esterase Urine WBC (Auto) Urine RBC (Auto) U Hyaline Cast (Auto) U Epithel Cells (Auto) Urine Bacteria (Auto) Blood Type O Positive Antibody Screen NEGATIVE 01/29/19 01/29/19 01/29/19 16:10 17:11 17:50 WBC RBC Hgb 10.8 L Hct 32.1 L MCV MCH MCHC RDW Std Deviation RDW Coeff of [place] Plt Count MPV Immature Gran % (Auto) Neut % (Auto) Lymph % (Auto) [place] % (Auto) Eos % (Auto) Baso % (Auto) Immature Gran # (Auto) Neut # (Auto) Lymph # (Auto) Good[place] # (Auto) Eos # (Auto) Baso # (Auto) PT INR APTT PTT Ratio Sodium 140 Potassium 3.1 L Chloride 112 H Carbon Dioxide 18 L Anion Gap 10.0 BUN 47 H Creatinine 6.83 H* Est Cr Clr Drug Dosing 15.9 Est GFR ( Amer) 11.7 Est GFR (Non-Af Amer) 10.1 BUN/Creatinine Ratio 6.9 L Glucose 87 Calcium 8.5 Phosphorus Magnesium Total Bilirubin AST ALT Alkaline Phosphatase Total Protein Albumin Globulin Albumin/Globulin Ratio Lipase Urine Color Yellow Urine Appearance Clear Urine pH 7.5 Ur Specific Sharon 1.011 Urine Protein 3+ H Urine Glucose (UA) 2+ H Urine Ketones 1+ H Urine Blood 1+ H Urine Nitrite Negative Urine Bilirubin Negative Urine Urobilinogen Negative Ur Leukocyte Esterase Negative Urine WBC (Auto) 1-5 Urine RBC (Auto) 0-4 U Hyaline Cast (Auto) 1-5 U Epithel Cells (Auto) 10-20 H Urine Bacteria (Auto) Negative Blood Type Antibody Screen 01/29/19 01/30/19 01/30/19 17:50 02:47 02:47 WBC RBC Hgb 10.9 L Hct 32.4 L MCV MCH MCHC RDW Std Deviation RDW Coeff of [place] Plt Count MPV Immature Gran % (Auto) Neut % (Auto) Lymph % (Auto) [place] % (Auto) Eos % (Auto) Baso % (Auto) Immature Gran # (Auto) Neut # (Auto) Lymph # (Auto) Good[place] # (Auto) Eos # (Auto) Baso # (Auto) PT INR APTT PTT Ratio Sodium 139 138 Potassium 3.2 L 3.2 L Chloride 112 H 109 H Carbon Dioxide 17 L 20 L Anion Gap 10.0 9.0 BUN 45 H 45 H Creatinine 6.88 H* 7.06 H* Est Cr Clr Drug Dosing 15.7 15.3 Est GFR ( Amer) 11.6 11.2 Est GFR (Non-Af Amer) 10.0 9.7 BUN/Creatinine Ratio 6.6 L 6.3 L Glucose 84 99 Calcium 8.2 L 8.0 L Phosphorus Magnesium Total Bilirubin AST ALT Alkaline Phosphatase Total Protein Albumin Globulin Albumin/Globulin Ratio Lipase Urine Color Urine Appearance Urine pH Ur Specific Sharon Urine Protein Urine Glucose (UA) Urine Ketones Urine Blood Urine Nitrite Urine Bilirubin Urine Urobilinogen Ur Leukocyte Esterase Urine WBC (Auto) Urine RBC (Auto) U Hyaline Cast (Auto) U Epithel Cells (Auto) Urine Bacteria (Auto) Blood Type Antibody Screen 01/30/19 01/30/19 01/30/19 07:56 07:56 07:56 WBC RBC Hgb 10.8 L Hct 31.4 L MCV MCH MCHC RDW Std Deviation RDW Coeff of [place] Plt Count MPV Immature Gran % (Auto) Neut % (Auto) Lymph % (Auto) Good[place] % (Auto) Eos % (Auto) Baso % (Auto) Immature Gran # (Auto) Neut # (Auto) Lymph # (Auto) Gooding # (Auto) Eos # (Auto) Baso # (Auto) PT 10.9 INR 1.1 APTT 28.3 PTT Ratio 1.0 Sodium 139 Potassium 3.4 L Chloride 110 H Carbon Dioxide 19 L Anion Gap 11.0 BUN 42 H Creatinine 7.18 H* Est Cr Clr Drug Dosing 15.0 Est GFR ( Amer) 11.0 Est GFR (Non-Af Amer) 9.5 BUN/Creatinine Ratio 6.0 L Glucose 96 Calcium 8.1 L Phosphorus 5.0 H D Magnesium Total Bilirubin AST ALT Alkaline Phosphatase Total Protein Albumin Globulin Albumin/Globulin Ratio Lipase Urine Color Urine Appearance Urine pH Ur Specific Sharon Urine Protein Urine Glucose (UA) Urine Ketones Urine Blood Urine Nitrite Urine Bilirubin Urine Urobilinogen Ur Leukocyte Esterase Urine WBC (Auto) Urine RBC (Auto) U Hyaline Cast (Auto) U Epithel Cells (Auto) Urine Bacteria (Auto) Blood Type Antibody Screen (1) Hematemesis Nausea presence: with nausea Qualified Code(s): K92.0 - Hematemesis
[2019-01-30] MEDS ORDERED: PROPOFOL IV EMULSION 10 MG/ML 20 ML VIAL IV ONE (12:17)
[2019-01-30] MEDS ORDERED: LIDOCAINE HCL 2% 2 ML VIAL/AMP(20MG/ML) INFIL ONE (12:17)
--- NOTE | 2019-01-30 12:24 | Anesthesiology Consultation ---
Date of Service January 30, 2019 Assessment & Plan (1) Encounter for pre-operative examination: Chart Review Chart Review: Acceptable Risk for Surgery Consults Requested none ASA ASA4 Proposed Anesthesia Anesthesia Type: MAC Risk / Benefits Reviewed With: PT / POA / Parent / Guardian, Accepts Plan and Informed Consent Obtained History Surgery Operation Date: 01/30/19 17:40 Proposed Procedures p Esophagogastroduodenoscopy - GI Bleed Dr Blake Mcclure Height/Weight Height: 5 ft 9 in Weight: 68.7 kg Allergies Allergy/AdvReac Type Severity Reaction Status Date / Time No Known Allergies Allergy Verified 01/29/19 13:36 Medications Home Medications Medication Instructions Recorded Confirmed Last Taken cysteamine bitartrate 100 mg PO QID 03/14/18 01/29/19 01/29/19 08:00 cysteamine bitartrate 600 mg PO QID 03/14/18 01/29/19 01/29/19 08:00 calcium carbonate 3 tab PO BID 05/20/18 01/29/19 01/28/19 ondansetron 8 mg TRANSLINGUAL Q8H PRN 05/20/18 01/29/19 07/10/18 23:55 calcium acetate 1,334 mg PO TIDM 01/29/19 01/29/19 01/29/19 08:00 cholecalciferol (vitamin D3) 4,000 unit PO DAILY 01/29/19 01/29/19 Unknown [Vitamin D3] magnesium oxide 400 mg PO QAM 01/29/19 01/29/19 01/29/19 potassium chloride 40 meq PO DAILY 01/29/19 01/29/19 01/29/19 sodium bicarbonate 2,600 mg PO QID 01/29/19 01/29/19 01/29/19 08:00 Active Medications Generic Name Dose Route Start Last Admin Trade Name Freq PRN Reason Stop Dose Admin Cysteamine Bitartrate 1 ea 01/29/19 21:00 01/29/19 21:03 Cystagon PO 02/28/19 20:59 1 ea TID MELITA Administration Cysteamine Bitartrate 1 ea 01/29/19 21:00 01/29/19 21:02 Cystagon PO 02/28/19 20:59 1 ea TID MELITA Administration Pantoprazole Sodium 40 mg/ 100 mls @ 20 mls/hr 01/29/19 13:00 01/30/19 09:28 Dextrose IV 02/28/19 12:59 20 mls/hr Q5H MELITA Administration Sodium Bicarbonate 150 meq/ 1,170 mls @ 100 mls/hr 01/29/19 16:30 01/30/19 04:07 Potassium Chloride 40 meq/ IV 02/28/19 16:29 100 mls/hr Dextrose .[id number] MELITA Administration NPO Date Last Intake of Fluids: 01/29/19 Time Last Intake of Fluids: 21:00 Date Last Intake of Solids: 01/28/19 Past Medical History Medical History Anemia (Chronic) Anemia of chronic disease AV fistula (Chronic) Cystinosis Depression End stage renal disease (Chronic) Dr. Trejo. Home hemodialysis. 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) Exercise / Class Metabolic Activity II 4-5 Yardwork/Stairs/Walk up hill Past Family History Family History Mother Crohn's disease Past Surgical History Surgical History History of tooth extraction WISDOM TEETH Past Anesthesia History No Hx of Anesthesia Complications and No Family Hx of Anesthesia Complications History of PONV No Hx of PONV and No Hx of Motion Sickness Social History Smoking Status: Current every day smoker tobacco type: cigarettes Smoking cigarettes per day: 10 Do You Dip or Chew Tobacco: No Hx Alcohol Use: Yes Hx Substance Use: No substance use type: does not use Substance Use Type Other:: MEDICAL MARIJUANA FOR PAIN-DAILY BID PRN-WILL BRING CARD Physical Exam Vital Signs Last Vital Signs Temp 99.1 F 01/30/19 12:20 Pulse 68 01/30/19 12:20 Resp 16 01/30/19 12:20 BP 129/73 01/30/19 12:20 Pulse Ox 96 01/30/19 11:58 ENMT Mouth: + chipped teeth (Bottom R) Thyromental Distance: > or= 3.5 Finger Breadths Mallampati Class: II Neck normal visual inspection Respiratory normal respiratory effort Auscultation: lungs clear to auscultation bilaterally Cardiovascular Rate/Rhythm: regular rate and regular rhythm Testing Laboratory Results 01/30/19 07:56 01/30/19 07:56 PT 10.9 Seconds (9.0-12.0) 01/30/19 07:56 INR 1.1 (0.9-1.1) 01/30/19 07:56 APTT 28.3 Seconds (21.0-31.0) 01/30/19 07:56 Urine Color Yellow 01/29/19 17:11 Urine Appearance Clear (Clear) 01/29/19 17:11 Urine pH 7.5 (4.5-7.5) 01/29/19 17:11 Ur Specific [place] 1.011 (1.000-1.030) 01/29/19 17:11 Urine Protein 3+ (Negative) H 01/29/19 17:11 Urine Glucose (UA) 2+ (Negative) H 01/29/19 17:11 Urine Ketones 1+ (Negative) H 01/29/19 17:11 Urine Nitrite Negative (Negative) 01/29/19 17:11 Ur Leukocyte Esterase Negative (Negative) 01/29/19 17:11 Urine WBC (Auto) 1-5 /hpf (0-5) 01/29/19 17:11 Urine RBC (Auto) 0-4 /hpf (0-4) 01/29/19 17:11 U Hyaline Cast (Auto) 1-5 /lpf (0-5) 01/29/19 17:11 U Epithel Cells (Auto) 10-20 /lpf (0-5) H 01/29/19 17:11 Urine Bacteria (Auto) Negative (Negative) 01/29/19 17:11 Blood Type O Positive 01/29/19 13:05 Antibody Screen NEGATIVE 01/29/19 13:05
--- NOTE | 2019-01-30 12:36 | History & Physical Report ---
Date of Service January 30, 2019 History of Present Illness Primary Care Provider: Shanita Maharaj MD Allergies Allergy/AdvReac Type Severity Reaction Status Date / Time No Known Allergies Allergy Verified 01/29/19 13:36 Home Medications Home Medications Medication Instructions Recorded Confirmed Type cysteamine bitartrate 100 mg PO QID 03/14/18 01/29/19 History cysteamine bitartrate 600 mg PO QID 03/14/18 01/29/19 History calcium carbonate 3 tab PO BID 05/20/18 01/29/19 History ondansetron 8 mg TRANSLINGUAL Q8H PRN 05/20/18 01/29/19 History calcium acetate 1,334 mg PO TIDM 01/29/19 01/29/19 History cholecalciferol (vitamin D3) 4,000 unit PO DAILY 01/29/19 01/29/19 History [Vitamin D3] magnesium oxide 400 mg PO QAM 01/29/19 01/29/19 History potassium chloride 40 meq PO DAILY 01/29/19 01/29/19 History sodium bicarbonate 2,600 mg PO QID 01/29/19 01/29/19 History Past Med/Surg History Medical History Anemia (Chronic) Anemia of chronic disease AV fistula (Chronic) Cystinosis Depression End stage renal disease (Chronic) Dr. Trejo. Home hemodialysis. 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) Surgical History History of tooth extraction WISDOM TEETH Family History Mother Crohn's disease Social History (Updated 01/30/19 @ 03:26 by Mikey Bennett MD) Preferred Language: Spanish Communication Ability: Effective Workers Compensation Coordinator Required: No Beliefs That Will Affect Care: None Current Living Situation: Parent Other Information That Helps Us Care for You: No Feels Safe at Home: Yes Safety Concerns: Feels Safe At This Time Smoking Status: Current every day smoker Tobacco Type: cigarettes ; Cigarettes Per Day: 10 ; Do You Dip or Chew Tobacco: No ; Second Hand Exposure: No ; Tobacco Cessation Education Requested by Patient: No Hx Alcohol Use: Yes Alcohol Intake Frequency: Rarely Hx Substance Use: No Results & Data Vital Signs (Past 12 Hours) Vital Signs Temp Pulse Pulse Resp BP Pulse Ox 01/30/19 12:20 37.3 C 68 16 129/73 01/30/19 11:58 37.0 C 69 20 110/59 L 96 01/30/19 08:30 55 L 01/30/19 07:07 36.8 C 61 16 109/56 L 98 01/30/19 04:03 36.4 C L 55 L 16 119/66 98 Code Status & VTE Plan VTE Prophylaxis Plan VTE Prophylaxis will be ordered: Yes
--- NOTE | 2019-01-30 12:51 | GI REPORT ---
Patient Name: Korey Kapoor Procedure Date: 01/30/2019 12:28 PM Date of : 1990 Admit Type: Inpatient Age: 29 Gender: Male Attending MD: Felicia Mcclure MD Procedure: Upper GI endoscopy Providers: Felicia Mcclure MD Referring MD: Mikey Clayton Indications: Hematemesis Medicines: See the Anesthesia note for documentation of the administered medications Complications: No immediate complications. Estimated Blood Loss: Estimated blood loss: none. Procedure: Pre-Anesthesia Assessment: - ASA Grade Assessment: IV - A patient with severe systemic disease that is a constant threat to life. After obtaining informed consent, the endoscope was passed under direct vision. Throughout the procedure, the patient's blood pressure, pulse, and oxygen saturations were monitored continuously. The scope was introduced through the mouth, and advanced to the second part of duodenum. The upper GI endoscopy was accomplished without difficulty. The patient tolerated the procedure well. Findings: LA Grade B (one or more mucosal breaks greater than 5 mm, not extending between the tops of two mucosal folds) esophagitis with no bleeding was found. The exam of the esophagus was otherwise normal. There was a large amount of bilious fluid and food in the stomach. The stomach mucosa was grossly normal. The duodenum was normal. Impression: - LA Grade B reflux esophagitis. - Possible gastroparesis, with large amount of retained food. Recommendation: - Discharge patient to floor. Resume diet, once daily oral PPI. Would not pursue further w/u gastroparesis unless patient develops symptoms suggestive of this; will educate him about need for small frequent meals\. Felicia Mcclure M.D. eFlicia Mcclure MD 01/30/2019 12:50:31 PM This report has been signed electronically. Note Initiated On: 01/30/2019 12:28 PM Number of Addenda: 0 I attest to the content of the Intraoperative Record and orders documented therein, exceptions below {[id number]}
--- NOTE | 2019-01-30 13:26 | Anesthesiology Progress Note ---
Date of Service January 30, 2019 Anesthesia Post Procedure Vital Signs Vital Signs: Temp Pulse Pulse Pulse Resp BP BP 01/30/19 13:08 64 16 109/68 01/30/19 12:57 74 16 110/66 01/30/19 12:20 99.1 F 68 16 129/73 01/30/19 11:58 98.6 F 69 20 110/59 L 01/30/19 08:30 55 L 01/30/19 07:07 98.2 F 61 16 109/56 L 01/30/19 04:03 97.5 F L 55 L 16 119/66 01/29/19 23:02 97.9 F 63 16 117/65 01/29/19 23:00 54 L 01/29/19 19:18 98.2 F 65 18 113/58 L 01/29/19 15:59 65 01/29/19 15:20 66 17 120/74 01/29/19 13:58 64 18 120/71 Pulse Ox 01/30/19 13:08 98 01/30/19 12:57 97 01/30/19 12:20 01/30/19 11:58 96 01/30/19 08:30 01/30/19 07:07 98 01/30/19 04:03 98 01/29/19 23:02 99 01/29/19 23:00 01/29/19 19:18 98 01/29/19 15:59 01/29/19 15:20 98 01/29/19 13:58 99 Transfer of Care Handoff Completed per policy Notes Mental Status: alert / awake / arousable and participated in evaluation Patient Amnestic to Procedure: Yes Nausea / Vomiting: adequately controlled Pain: adequately controlled Airway Patency, RR, SpO2: stable & adequate BP & HR: stable & adequate Hydration State: stable & adequate Anesthetic Complications: no major complications apparent and Pt Satisfied with anesthetic care
[2019-01-30] MEDS: POTASSIUM CHLORIDE PWD 20 MEQ PACK PO SCH (14:39)
[2019-01-30 16:27] LABS: Hepatitis B Surface Ab Quant 85.76 mIU/mL (>or=10mIU/mL Immune); Hepatitis B Surface Antibody Immune
[2019-01-30 16:38] LABS: Hepatitis B Surface Antigen Neg (Neg)
[2019-01-30] MEDS: CALCIUM ACETATE 667 MG CAP PO SCH (16:40)
[2019-01-30] MEDS: SODIUM BICARBONATE 650 MG TAB PO SCH ×3 (18:08→20:56)
[2019-01-30] MEDS: CALCIUM CARBONATE 500 MG CHEWABLE TAB PO SCH ×2 (18:09→18:34)
[2019-01-30] MEDS: FAMOTIDINE 20 MG in SYRINGE 3 ML IV SCH (20:55)
[2019-01-30] MEDS: PANTOprazole 40 MG TAB PO SCH (20:58)
--- NOTE | 2019-01-30 21:52 | Hospitalist Progress Note ---
Date of Service January 30, 2019 Assessment & Plan (1) Hematemesis: Presented to ED with hematemesis. Patient reports dark stools, but stool was heme-negative in ED. No risk factors for PUD. Received pantoprazole bolus / infusion. H/H stable. GI consulted. EGD demonstrated grade B reflux esophagitis, possible gastroparesis. Ongoing treatment with PPI recommended. (2) CKD (chronic kidney disease): CKD 5 on home hemodialysis 5 days a week. 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 Received IV with bicarb and potassium chloride due to GI symptoms. Nephrology consulted. Management of hemodialysis and electrolytes per Nephrology. (3) Cystinosis: Continue cysteamine bitartrate. (4) DVT prophylaxis: No anticoagulants because of upper GI bleed. SCDs. Ambulate. (5) Discharge planning issues: Anticipated discharge to home. Family Medicine follow-up with Dr. Maharaj. Nephrology follow-up with Dr. Trejo. Subjective Recheck for UGI bleed and other problems. Patient seen in their room around 1400. No further emesis. No melena or hematochezia. No abdominal pain. Under EGD today without incident- findings as noted in A&P. Review of Systems: Constitutional- no fever. Cardiac- no chest pain. Pulmonary- no cough or SOB. GI- as noted above. - no urinary symptoms. Otherwise, as noted above. Physical Exam Constitutional: no acute distress Eyes: + anicteric sclerae Respiratory: no respiratory distress Auscultation: lungs clear to auscultation bilaterally Cardiovascular: Rate/Rhythm: regular rate and regular rhythm Heart Sounds: no gallop and no cardiac rub Vessels: no JVD Extremities: no calf tenderness and no edema Gastrointestinal (Abdomen): normal bowel sounds, soft, nontender, no hepatosplenomegaly Musculoskeletal: Extremities: + extremities abnormal to inspection (AV fistula LUE) Skin: no rashes, warm and dry Psychiatric: Orientation: alert and oriented x 3 Results & Data Vital Signs (Past 12 Hours) Vital Signs Temp Pulse Pulse Resp BP Pulse Ox 01/30/19 19:39 37.0 C 62 18 113/69 99 01/30/19 15:18 37.5 C 68 18 123/75 100 01/30/19 14:26 36.6 C 60 18 131/61 99 01/30/19 14:00 36.5 C 66 16 129/65 98 01/30/19 13:40 36.7 C 60 18 119/69 100 01/30/19 13:23 61 16 112/70 100 01/30/19 13:08 64 16 109/68 98 01/30/19 12:57 74 16 110/66 97 01/30/19 12:20 37.3 C 68 16 129/73 01/30/19 11:58 37.0 C 69 20 110/59 L 96 Laboratory Results 01/30/19 07:56 01/30/19 07:56 (1) Hematemesis Nausea presence: with nausea Qualified Code(s): K92.0 - Hematemesis (2) CKD (chronic kidney disease) Chronic kidney disease stage: unspecified stage Qualified Code(s): N18.9 - Chronic kidney disease, unspecified
[2019-01-31 06:21] LABS: Hematocrit (blood only) 34.2 % (42-52); Hemoglobin 11.6 g/dL (14.0-18.0)
[2019-01-31 07:09] LABS: BUN Creatinine Ratio 6.2 (10-20); Creatinine Clr Calc Pharmacy 14.8 ml/min; Est GFR (African American) 10.9; Est GFR (Non-African American) 9.4
[2019-01-31] MEDS ORDERED: HEPARIN SOD (PORCINE) 1000 UNIT/ML 10 ML VIAL IV SCH (08:00)
[2019-01-31] MEDS ORDERED: SODIUM CHLORIDE 0.9% 1000ML 1,000 ML IV PRN (08:02)
[2019-01-31] MEDS: SODIUM BICARBONATE 650 MG TAB PO SCH ×2 (08:06→12:11)
[2019-01-31] MEDS: CALCIUM ACETATE 667 MG CAP PO SCH ×2 (08:06→12:11)
[2019-01-31] MEDS: CALCIUM CARBONATE 500 MG CHEWABLE TAB PO SCH (08:06)
[2019-01-31] MEDS: PANTOprazole 40 MG TAB PO SCH (08:07)
[2019-01-31] MEDS: [UNRECOGNIZED DRUG - OTHER] PO SCH (08:07)
[2019-01-31] MEDS: POTASSIUM CHLORIDE PWD 20 MEQ PACK PO SCH (08:07)
[2019-01-31] MEDS: [UNRECOGNIZED DRUG - OTHER] PO SCH (08:08)
[2019-01-31] MEDS: FAMOTIDINE 20 MG in SYRINGE 3 ML IV SCH (08:35)
[2019-01-31] MEDS ORDERED: CHOLECALCIFEROL 1,000 UNITS TAB PO SCH (09:00)
[2019-01-31] MEDS ORDERED: POTASSIUM CHLORIDE 20 MEQ TABCR PO SCH (09:00)
[2019-01-31] MEDS ORDERED: MAGNESIUM OXIDE 400 MG TAB PO SCH (09:00)
--- NOTE | 2019-01-31 09:55 | Nephrology Progress Note ---
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 Last dialysis was on Wednesday. His electrolytes are stable with no signs of volume overload. We will hold off on dialysis today. Patient prefers to be discharged dialysis so he can do home hemodialysis in the evening. (2) Hematemesis: Due to gastritis by EGD. No further episodes of hematemesis today. Continue PPI per primary team. 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 And agree with current potassium supplementation. Patient will continue home regimen of supplements for potassium and sodium bicarbonate. (4) Anemia: Hemoglobin is stable. He will continue Procrit per protocol outpatient Subjective He feels better today. No shortness of breath, vomiting or hematemesis. He had an EGD yesterday which showed mild gastritis and gastroparesis. Recommendation was PPIs. Patient eager to be discharged home and prefers to do home dialysis. Review of Systems Review of Systems: All systems reviewed & are unremarkable except as noted in HPI & below Physical Exam Physical Exam: General exam: Appears comfortable, no acute distress HEENT: Pupils are equal and reactive to light Neck: No JVD, neck is supple trachea is midline Respiratory system: Clear breath sounds bilaterally. Gastrointestinal: Abdomen is soft, non distended, non tender, bowel sounds are present CVS: Regular rate and rhythm. No murmurs, rubs or gallops Musculoskeletal: No joint or muscle tenderness Extremities: Non tender, no edema, peripheral pulses are present Neuro: Oriented, no tremors, no focal neurological deficits Skin: No rashes Access: AV fistula on the left forearm with good bruit. Results & Data Vital Signs (Past 12 Hours) Vital Signs Temp Pulse Pulse Resp BP Pulse Ox 01/31/19 08:00 63 01/31/19 07:51 36.7 C 58 L 18 142/72 H 100 01/31/19 03:50 36.8 C 70 19 118/75 99 01/30/19 23:23 36.8 C 65 19 119/70 98 01/30/19 22:20 63 Laboratory Results Laboratory Results - last 24 hr 01/30/19 01/31/19 01/31/19 15:22 05:46 05:46 Hgb 11.6 L Hct 34.2 L Sodium 141 Potassium 3.0 L Chloride 111 H Carbon Dioxide 22 Anion Gap 8.0 BUN 45 H Creatinine 7.21 H* Est Cr Clr Drug Dosing 14.8 Est GFR ( Amer) 10.9 Est GFR (Non-Af Amer) 9.4 BUN/Creatinine Ratio 6.2 L Glucose 92 Calcium 8.0 L Hep Bs Antigen Neg Hep Bs Antibody Immune Hep Bs Antibody, Quant 85.76 (1) Hematemesis Nausea presence: with nausea Qualified Code(s): K92.0 - Hematemesis
[2019-01-31 11:16] VITALS: BP 114/67; TEMP 97.9; O2SAT 99
--- NOTE | 2019-01-31 12:12 | Hospitalist Progress Note ---
Date of Service January 31, 2019 Assessment & Plan (1) Hematemesis: Presented to ED with hematemesis. Patient reports dark stools, but stool was heme-negative in ED. No risk factors for PUD. Received pantoprazole bolus / infusion. H/H stable. GI consulted. EGD demonstrated grade B reflux esophagitis, possible gastroparesis. Ongoing treatment with PPI recommended. (2) CKD (chronic kidney disease): CKD 5 on home hemodialysis 5 days a week. 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 Received IV with bicarb and potassium chloride due to GI symptoms. Nephrology consulted. Management of hemodialysis and electrolytes per Nephrology- to continue usual home hemodialysis routine. Monitor Mg on PPI. (3) Cystinosis: Continue cysteamine bitartrate. (4) DVT prophylaxis: No anticoagulants because of upper GI bleed. SCDs. Ambulating. (5) Discharge planning issues: Discharge to home. Family Medicine follow-up with Dr. Maharaj. Nephrology follow-up with Dr. Trejo. Subjective Doing well. No abdominal pain, nausea, vomiting. Ready to go home. Physical Exam Constitutional: no acute distress Respiratory: no respiratory distress Auscultation: lungs clear to auscultation bilaterally Cardiovascular: Rate/Rhythm: regular rate and regular rhythm Heart Sounds: no gallop and no cardiac rub Vessels: no JVD Extremities: no calf t enderness and no edema Gastrointestinal (Abdomen): normal bowel sounds, soft, nontender, no hepatosplenomegaly Skin: no rashes, warm and dry Psychiatric: Orientation: alert and oriented x 3 Results & Data Vital Signs (Past 12 Hours) Vital Signs Temp Pulse Pulse Resp BP Pulse Ox 01/31/19 11:15 36.6 C 58 L 18 114/67 99 01/31/19 08:00 63 01/31/19 07:51 36.7 C 58 L 18 142/72 H 100 01/31/19 03:50 36.8 C 70 19 118/75 99 Laboratory Results 01/31/19 05:46 01/31/19 05:46 (1) Hematemesis Nausea presence: with nausea Qualified Code(s): K92.0 - Hematemesis (2) CKD (chronic kidney disease) Chronic kidney disease stage: unspecified stage Qualified Code(s): N18.9 - Chronic kidney disease, unspecified
[2019-01-31 12:35] VITALS: PULSE 68
--- NOTE | 2019-02-01 14:45 | Discharge Summary ---
Date of Service Date of Admission: 01/29/19 Date of Discharge: 01/31/19 Admission HPI Per Admitting Provider 29-year-old male followed by Dr. Maharaj for Family Medicine and Dr. Trejo for Nephrology. 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 Frequent nausea related to medications. Noted some pharyngitis associated with cough 2 days prior to admission; both symptoms have resolved. Experienced nausea and vomiting this morning. Initial emesis was clear, but second emesis was grossly bloody. No abdominal pain. Recent dark stools; no hematochezia. No history of peptic ulcer disease or other upper GI problems. Rarely uses nonsteroidal anti-inflammatory drugs and no recent use. Does not take any steroids. Only occasional alcohol intake. Principal Diagnosis upper GI bleed secondary to esophagitis Discharge Data Allergies Allergy/AdvReac Type Severity Reaction Status Date / Time No Known Allergies Allergy Verified 01/29/19 13:36 Consultations 01/29/19 13:58 ED Decision to Admit Stat 01/30/19 07:00 Consult Gastroenterology Routine Consult Nephrology Routine Procedures Performed Operation Date: 01/30/19 17:40 Actual Procedures p Esophagogastroduodenoscopy - Irphan E Gaslightwala Ordered Studies 01/29/19 12:37 CT abd pelvis wo con Stat Hospital Course (1) Hematemesis: Presented to ED with hematemesis. Patient reports dark stools, but stool was heme-negative in ED. No risk factors for PUD. Received pantoprazole bolus / infusion. H/H stable. GI consulted. EGD demonstrated grade B reflux esophagitis, possible gastroparesis. Ongoing treatment with PPI recommended. (2) CKD (chronic kidney disease): CKD 5 on home hemodialysis 5 days a week. 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 Received IV with bicarb and potassium chloride due to GI symptoms. Nephrology consulted. Management of hemodialysis and electrolytes per Nephrology- to continue usual home hemodialysis routine. Monitor Mg on PPI. (3) Cystinosis: Continue cysteamine bitartrate. (4) DVT prophylaxis: No anticoagulants because of upper GI bleed. SCDs. Ambulating. (5) Discharge planning issues: Discharged to home. Family Medicine follow-up with Dr. Maharaj. Nephrology follow-up with Dr. Trejo. Total Time Total Time Spent Total Time Spent (In Minutes): 35 Discharge Plan Discharge Items Patient Disposition: Home - Self-Care Reason For Visit: vomiting blood Discharge Diagnosis: esophagitis- inflammation of esophagus from acid reflux Condition on Discharge: Good Activity: Resume your previous activity Non-emergency contact: Primary Care Provider, Hospitalist and [place] Call non-emergency contact if: you have any medication questions, your symptoms worsen and your temperature is above 101 Follow-up/Referrals: Shanita Maharaj MD [Primary Care Provider] - (02/08/2019 1:00 PM Medhat Valladares MD (covering for Dr. Maharaj)) Diet: Heart Healthy and Low Potassium (2gm) Addtl Attending Provider Instructions: MEDICATION CHANGES: Start pantoprazole (Protonix) 40 mg daily for acid reflux. SUMMARY OF TEST RESULTS: Endoscopy showed inflammation of esophagus. OTHER INSTRUCTIONS: Continue dialysis as before. Eat small meals with snacks in between. Seek medical attention if you have: * temperature above 101 * chest pain or trouble breathing * abdominal pain, nausea, vomiting * diarrhea, dark stools or bloody stools * any unanswered questions or concerns Call [phone] if symptoms are severe. Please take good care of yourself. Call if you have any questions or problems. You can reach a [facility] hospitalist on duty at [facility] 24 hours a day by calling [phone]. My cell # is [phone]. Pending Studies at Discharge: No Stand-Alone Forms: My [facility], Smoking Cessation Medications and DC Order Prescriptions: New pantoprazole 40 mg tablet,delayed release (DR/EC) 40 mg PO DAILY Qty: 30 RF: 5 Continued sodium bicarbonate 650 mg tablet 2,600 mg PO QID RF: 0 calcium acetate 667 mg capsule 1,334 mg PO TIDM RF: 0 potassium chloride 20 mEq tablet extended release 40 meq PO DAILY RF: 0 magnesium oxide 400 mg magnesium tablet 400 mg PO QAM RF: 0 Vitamin D3 4,000 unit capsule 4,000 unit PO DAILY RF: 0 cysteamine bitartrate 150 mg Capsule 600 mg PO QID RF: 0 cysteamine bitartrate 50 mg Capsule 100 mg PO QID RF: 0 ondansetron 8 mg tablet,disintegrating 8 mg Translingual Q8H PRN (Reason: Nausea) RF: 0 calcium carbonate 500 mg calcium (1,250 mg) Tablet,Chewable 3 tab PO BID RF: 0 Discharge Orders: Discharge Order (Routine); Ordered 01/31/19 Ordered By: Mikey Najera/Other Patient Handouts: GERD, GERD Lifestyle Changes, GERD Meds Admission Data Admit Date/Time: 01/29/19 14:51 Attending Provider: Mikey Bennett Admit Provider: Mikey Bennett Primary Care Provider: Shanita Maharaj Other Providers: Felicia Mcclure ; Mikey Bennett ; Oscar Brumfield Other Interventions: Discharge Summary Assessment (RN) Last Done: 01/31/19 12:31 DC Date/Time DO NOT enter until pt leaves facility: 01/31/19 12:48
== END 2019-01-31 12:48 | disposition home or self-care (01) | DRG 391 ==
LOC: ED 11:57 → 2S 14:51

== ENCOUNTER 2020-04-24 09:46 | Inpatient (IN) ==
[2020-04-24] MEDS ORDERED: CEFEPIME 2,000 MG/20 ML VIAL IV STA (10:01)
[2020-04-24] MEDS ORDERED: ACETAMINOPHEN 325 MG TAB PO STA (10:01)
[2020-04-24] MEDS ORDERED: SODIUM CHLORIDE 0.9% 1000ML 1,000 ML IV ONE (10:01)
--- NOTE | 2020-04-24 10:06 | Emergency Department Note ---
Impression & Plan Pyelonephritis, Renal transplant, status post, High serum chloride ED Provider Note NAME: FAMILIA Youssef YOUNG AGE: 30 SEX: M : 1990 ARRIVES VIA: Walk-In INFORMANT: Patient ED PROVIDER(S): Aazel Willis DO CHIEF COMPLAINT: Fever and abdominal pain HPI: Patient is a 30-year-old male with a past medical history of RTA, anemia, cystinosis, end-stage renal disease initially on dialysis but recently received a kidney transplant in the summer 2019 who presents the ER for abdominal pain. Pain started this morning over his transplanted kidney and in the right lower quadrant. He notes last week he was having fevers as high as 105 but since then does not believe that he has had any. He is still sweating. He denies any headache or change in vision. No cough or runny nose. No chest pain or shortness of breath. Belly pain is fairly persistent. He does have some on his left side and he has some mild left lateral back pain which is worse with twisting turning and bending. Denies any weakness or numbness in his arms or legs. No dysuria urgency or frequency. ROS: See above HPI for pertinent positives & negatives. A total of 10 systems reviewed and were otherwise negative. PAST MEDICAL HISTORY:See Below PAST SURGICAL HISTORY:See Below FAMILY HISTORY:See Below SOCIAL HISTORY:See Below HOME MEDICATIONS:See Below ALLERGIES:See Below VITALS:See Below PHYSICAL EXAMINATION: GENERAL: Sitting up in bed, alert, chronically ill-appearing, disheveled, no ac [place] distress EYE EXAM: normal conjunctiva. OROPHARYNX: no exudate, no erythema, lips, buccal mucosa, and tongue normal and mucous membranes are moist NECK: supple, no nuchal rigidity, no adenopathy, non-tender LUNGS: Clear to auscultation. Normal chest wall mechanics HEART: no murmurs, S1 normal and S2 normal ABDOMEN: abdomen soft, incision in right lower quadrant with palpable mass and mild tenderness, normo-active bowel sounds, no masses, no rebound or guarding. BACK: Back is symmetrical on inspection and there is no deformity, no midline tenderness, no CVA tenderness. Tenderness in the left lumbar paraspinal region UPPER EXTREMITIES: upper extremities are grossly normal. LOWER EXTREMITIES: No pitting edema. NEURO EXAM: Normal sensorium, cranial nerves II-XII grossly intact, normal speech, no gross weakness of arms, no gross weakness of legs. MEDICAL DECISION MAKING: Patient is a 30-year-old male with a past medical history of Fanconi syndrome, cystinosis, RTA initially on dialysis now with a renal transplant who presents the ER for abdominal pain and fevers. He had one episode of vomiting this morning. Last week he had fevers as high as 105. He does not believe he had any fevers recently. Today he is febrile and tachycardic. IV was established blood cultures were obtained. Labs showed no significant leukocytosis and mild anemia 11.5 consistent with previous. INR was at 1.2. BMP with slightly elevated chloride. Lactate was normal. Magnesium was slightly low. T bili and LFTs were normal. Troponin was negative. Covid was negative. Chest x-ray was unremarkable. Patient was given a bolus of IV fluids as well as IV cefepime. CT showed heterogeneous uptake along with inflammation around the transplanted kidney. UA confirms pyelonephritis. Discussed with [facility] nephrology who agrees with keeping the patient here and discussed with the hospitalist who then we discussed the case with nephrology as well as transplant team patient was admitted to [facility]. Triage Nursing notes reviewed. Limited review of prior medical records performed Vital Signs: reviewed and remarkable for febrile and tachycardic Differential diagnosis: Differential diagnosis includes etiologies such as sepsis, UTI, pneumonia, metabolic, electrolyte abnormalities, cardiac sources, intracerebral event, toxicologic, neurological, as well as others were entertained. ER treatment provided: See below Diagnostics interpreted by me: ECG: Sinus rhythm rate of 94 Normal axis No PVCs J-point elevation V3 to V6 Cardiac Monitoring: An order was placed for continuous cardiac monitoring. The monitor shows a rate of 98 with sinus rhythm. Laboratory studies: As stated above and show below. Imaging studies: Portable AP upright view the chest shows no focal infiltrate or pneumothorax Consultation(s): Discussed with hospitalist for further evaluation Discussed with [facility] nephrology who agrees to keep patient here with renal transplant pyelonephritis Procedures: none Critical Care: None Past Med/Surg History Medical History (Updated 04/24/20 @ 13:34 by Suri Lebron PA-C) Anemia Anemia of chronic disease AV fistula Cystinosis Depression End stage renal disease Dr. Trejo. Home hemodialysis. 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 Surgical History (Updated 04/24/20 @ 13:34 by Suri Lebron PA-C) History of tooth extraction WISDOM TEETH Family History Mother Crohn's disease Social History Smoking Status: Current every day smoker Tobacco Type: Cigarettes Cigarettes Per Day: 5; Second Hand Exposure: No; Hx Alcohol Use: No Hx Substance Use: Yes (medical marijuana) Last Used Substance Other:: last pm pt uses vaporizer Substance Use Type Other:: MEDICAL MARIJUANA FOR PAIN-DAILY BID PRN-WILL BRING CARD Preferred Language: [place] Communication Ability: Effective Retort Load Expediter Required: No Beliefs That Will Affect Care: None Current Living Situation: Spouse Other Information That Helps Us Care for You: No Feels Safe at Home: Yes Assistive Devices: None Allergies Allergies Allergy/AdvReac Type Severity Reaction Status Date / Time No Known Allergies Allergy Verified 04/24/20 11:44 Home Meds Home Medications Medication Instructions Recorded Confirmed cysteamine bitartrate [Procysbi] 25 mg PO Q12H 11/27/19 04/24/20 cysteamine bitartrate [Procysbi] 900 mg PO Q12H 11/27/19 04/24/20 tacrolimus 3 mg PO DAILY 11/27/19 04/24/20 amiloride 5 mg PO DAILY 04/24/20 04/24/20 aspirin 81 mg PO DAILY 04/24/20 04/24/20 mycophenolate mofetil 250 mg PO Q12H 04/24/20 04/24/20 tacrolimus 4 mg PO PM 04/24/20 04/24/20 Results & Data (ED) Vital Signs Vital Signs - 24 hr 04/24/20 09:49 04/24/20 10:08 04/24/20 11:16 Temperature 37.9 C H Temperature Source Skin Pulse Rate 100 H Pulse Rate [Apical] Pulse Rate from SpO2 Sensor Pulse Rhythm Regular Pulse Strength Normal Respiratory Rate 20 Respiratory Effort / Characteristics Non-Labored Non-Labored Respiratory Depth Normal Respiratory Pattern Regular Blood Pressure 133/83 Blood Pressure [Left Arm] Blood Pressure Mean 99 Blood Pressure Mean [Left Arm] Pulse Oximetry 99 99 98 Oxygen Delivery Method Room Air Room Air Room Air Sepsis Recent Fever Within 48 Hours No Sepsis New/Unexplained Change in Mental Status N/A Sepsis Action Taken by Nursing No Action Required 04/24/20 11:18 04/24/20 11:30 04/24/20 12:00 Temperature Temperature Source Pulse Rate 83 86 84 Pulse Rate [Apical] Pulse Rate from SpO2 Sensor 85 85 83 Pulse Rhythm Pulse Strength Respiratory Rate 21 25 H Respiratory Effort / Characteristics Respiratory Depth Respiratory Pattern Blood Pressure 113/68 127/74 125/75 Blood Pressure [Left Arm] Blood Pressure Mean 83 91 91 Blood Pressure Mean [Left Arm] Pulse Oximetry 98 99 100 Oxygen Delivery Method Sepsis Recent Fever Within 48 Hours Sepsis New/Unexplained Change in Mental Status Sepsis Action Taken by Nursing 04/24/20 12:20 04/24/20 12:30 04/24/20 13:00 Temperature 37.9 C H Temperature Source Oral Pulse Rate 80 81 Pulse Rate [Apical] 87 Pulse Rate from SpO2 Sensor 80 80 Pulse Rhythm Pulse Strength Respiratory Rate 25 H 20 20 Respiratory Effort / Characteristics Non-Labored Respiratory Depth Normal Respiratory Pattern Regular Blood Pressure 124/68 122/68 Blood Pressure [Left Arm] 125/75 Blood Pressure Mean 86 86 Blood Pressure Mean [Left Arm] 91 Pulse Oximetry 98 97 97 Oxygen Delivery Method Room Air Sepsis Recent Fever Within 48 Hours Sepsis New/Unexplained Change in Mental Status Sepsis Action Taken by Nursing 04/24/20 13:30 Temperature Temperature Source Pulse Rate 81 Pulse Rate [Apical] Pulse Rate from SpO2 Sensor 81 Pulse Rhythm Pulse Strength Respiratory Rate 24 Respiratory Effort / Characteristics Respiratory Depth Respiratory Pattern Blood Pressure 120/70 Blood Pressure [Left Arm] Blood Pressure Mean 86 Blood Pressure Mean [Left Arm] Pulse Oximetry 97 Oxygen Delivery Method Sepsis Recent Fever Within 48 Hours Sepsis New/Unexplained Change in Mental Status Sepsis Action Taken by Nursing Laboratory Data Result diagrams: 04/24/20 10:05 04/24/20 10:05 Lab Results 04/24/20 04/24/20 04/24/20 Range/Units 10:05 10:05 10:05 WBC 10.20 (4.8-10.8) K/uL RBC 4.01 L (4.7-6.1) M/uL Hgb 11.5 L (14.0-18.0) g/dL Hct 34.1 L (42-52) % MCV 85.0 (80-100) fL MCH 28.7 (25-34) pg MCHC 33.7 (32-36) g/dL RDW Std Deviation 42.5 (36.4-46.3) fL RDW Coeff of [place] 13.5 (11.5-14.5) % Plt Count 188 (130-400) K/uL MPV 9.4 (7.4-10.4) fL Immature Gran % (Auto) 0.1 % Neut % (Auto) 88.2 % Lymph % (Auto) 5.0 % [place] % (Auto) 6.5 % Eos % (Auto) 0.0 % Baso % (Auto) 0.2 % Neut # (Auto) 9.00 H (1.4-6.5) K/uL Lymph # (Auto) 0.51 L (1.2-3.4) K/uL [place] # (Auto) 0.66 H (0.11-0.59) K/uL Eos # (Auto) 0.00 (0-0.5) K/uL Baso # (Auto) 0.02 (0-0.2) K/uL Immature Gran # (Auto) 0.01 (0.00-0.02) K/uL PT 11.9 (9.0-12.0) Seconds INR 1.2 H (0.9-1.1) APTT 30.2 (21.0-31.0) Seconds PTT Ratio 1.1 Sodium 141 (136-145) mmol/L Potassium 3.9 (3.5-5.1) mmol/L Chloride 110 H (98-107) mmol/L Carbon Dioxide 22 (21-32) mmol/L Anion Gap 9.0 (3-11) BUN 17 (7-18) mg/dl Creatinine 1.38 (0.6-1.4) mg/dl Est Cr Clr Drug Dosing 71.9 ml/min Est GFR ( Amer) 80.1 Est GFR (Non-Af Amer) 69.1 BUN/Creatinine Ratio 12.5 (10-20) Glucose 105 H (70-99) mg/dl Lactate (0.4-2.0) mmol/L Calcium 8.7 (8.5-10.1) mg/dl Magnesium 1.7 L (1.8-2.4) mg/dl Total Bilirubin 0.4 (0.2-1) mg/dl AST 5 L (15-37) U/L ALT 17 (12-78) U/L Alkaline Phosphatase 53 (45-117) U/L Troponin I < 0.015 (0-0.045) ng/ml Total Protein 8.1 (6.4-8.2) gm/dl Albumin 3.1 L (3.4-5.0) gm/dl Globulin 5.0 H (2.5-4.0) gm/dl Albumin/Globulin Ratio 0.6 L (0.9-2) Procalcitonin (0-0.5) ng/ml Urine Color Urine Appearance (Clear) Urine pH (4.5-7.5) Ur Specific [place] (1.000-1.030) Urine Protein (Negative) Urine Glucose (UA) (Negative) Urine Ketones (Negative) Urine Blood (Negative) Urine Nitrite (Negative) Urine Bilirubin (Negative) Urine Urobilinogen (Negative) Ur Leukocyte Esterase (Negative) Urine WBC (Auto) (0-5) /hpf Urine RBC (Auto) (0-4) /hpf U Hyaline Cast (Auto) (0-5) /lpf U Epithel Cells (Auto) (0-5) /lpf Urine Bacteria (Auto) (Negative) COVID-19 Eval Order SARS-CoV-2, RNA, NAAT (NEGATIVE) 04/24/20 04/24/20 04/24/20 Range/Units 10:05 10:21 10:21 WBC (4.8-10.8) K/uL RBC (4.7-6.1) M/uL Hgb (14.0-18.0) g/dL Hct (42-52) % MCV (80-100) fL MCH (25-34) pg MCHC (32-36) g/dL RDW Std Deviation (36.4-46.3) fL RDW Coeff of [place] (11.5-14.5) % Plt Count (130-400) K/uL MPV (7.4-10.4) fL Immature Gran % (Auto) % Neut % (Auto) % Lymph % (Auto) % [place] % (Auto) % Eos % (Auto) % Baso % (Auto) % Neut # (Auto) (1.4-6.5) K/uL Lymph # (Auto) (1.2-3.4) K/uL [place] # (Auto) (0.11-0.59) K/uL Eos # (Auto) (0-0.5) K/uL Baso # (Auto) (0-0.2) K/uL Immature Gran # (Auto) (0.00-0.02) K/uL PT (9.0-12.0) Seconds INR (0.9-1.1) APTT (21.0-31.0) Seconds PTT Ratio Sodium (136-145) mmol/L Potassium (3.5-5.1) mmol/L Chloride (98-107) mmol/L Carbon Dioxide (21-32) mmol/L Anion Gap (3-11) BUN (7-18) mg/dl Creatinine (0.6-1.4) mg/dl Est Cr Clr Drug Dosing ml/min Est GFR ( Amer) Est GFR (Non-Af Amer) BUN/Creatinine Ratio (10-20) Glucose (70-99) mg/dl Lactate (0.4-2.0) mmol/L Calcium (8.5-10.1) mg/dl Magnesium (1.8-2.4) mg/dl Total Bilirubin (0.2-1) mg/dl AST (15-37) U/L ALT (12-78) U/L Alkaline Phosphatase (45-117) U/L Troponin I (0-0.045) ng/ml Total Protein (6.4-8.2) gm/dl Albumin (3.4-5.0) gm/dl Globulin (2.5-4.0) gm/dl Albumin/Globulin Ratio (0.9-2) Procalcitonin 0.06 (0-0.5) ng/ml Urine Color Urine Appearance (Clear) Urine pH (4.5-7.5) Ur Specific [place] (1.000-1.030) Urine Protein (Negative) Urine Glucose (UA) (Negative) Urine Ketones (Negative) Urine Blood (Negative) Urine Nitrite (Negative) Urine Bilirubin (Negative) Urine Urobilinogen (Negative) Ur Leukocyte Esterase (Negative) Urine WBC (Auto) (0-5) /hpf Urine RBC (Auto) (0-4) /hpf U Hyaline Cast (Auto) (0-5) /lpf U Epithel Cells (Auto) (0-5) /lpf Urine Bacteria (Auto) (Negative) COVID-19 Eval [facility] SARS-CoV-2, RNA, NAAT NEGATIVE (NEGATIVE) 04/24/20 04/24/20 Range/Units 10:25 11:20 WBC (4.8-10.8) K/uL RBC (4.7-6.1) M/uL Hgb (14.0-18.0) g/dL Hct (42-52) % MCV (80-100) fL MCH (25-34) pg MCHC (32-36) g/dL RDW Std Deviation (36.4-46.3) fL RDW Coeff of [place] (11.5-14.5) % Plt Count (130-400) K/uL MPV (7.4-10.4) fL Immature Gran % (Auto) % Neut % (Auto) % Lymph % (Auto) % [place] % (Auto) % Eos % (Auto) % Baso % (Auto) % Neut # (Auto) (1.4-6.5) K/uL Lymph # (Auto) (1.2-3.4) K/uL [place] # (Auto) (0.11-0.59) K/uL Eos # (Auto) (0-0.5) K/uL Baso # (Auto) (0-0.2) K/uL Immature Gran # (Auto) (0.00-0.02) K/uL PT (9.0-12.0) Seconds INR (0.9-1.1) APTT (21.0-31.0) Seconds PTT Ratio Sodium (136-145) mmol/L Potassium (3.5-5.1) mmol/L Chloride (98-107) mmol/L Carbon Dioxide (21-32) mmol/L Anion Gap (3-11) BUN (7-18) mg/dl Creatinine (0.6-1.4) mg/dl Est Cr Clr Drug Dosing ml/min Est GFR ( Amer) Est GFR (Non-Af Amer) BUN/Creatinine Ratio (10-20) Glucose (70-99) mg/dl Lactate 0.6 (0.4-2.0) mmol/L Calcium (8.5-10.1) mg/dl Magnesium (1.8-2.4) mg/dl Total Bilirubin (0.2-1) mg/dl AST (15-37) U/L ALT (12-78) U/L Alkaline Phosphatase (45-117) U/L Troponin I (0-0.045) ng/ml Total Protein (6.4-8.2) gm/dl Albumin (3.4-5.0) gm/dl Globulin (2.5-4.0) gm/dl Albumin/Globulin Ratio (0.9-2) Procalcitonin (0-0.5) ng/ml Urine Color Yellow Urine Appearance Cloudy A (Clear) Urine pH 7.0 (4.5-7.5) Ur Specific [place] 1.028 (1.000-1.030) Urine Protein 2+ H (Negative) Urine Glucose (UA) 1+ H (Negative) Urine Ketones Trace H (Negative) Urine Blood 1+ H (Negative) Urine Nitrite Positive A (Negative) Urine Bilirubin Negative (Negative) Urine Urobilinogen Negative (Negative) Ur Leukocyte Esterase 1+ H (Negative) Urine WBC (Auto) >30 H (0-5) /hpf Urine RBC (Auto) 10-30 H (0-4) /hpf U Hyaline Cast (Auto) 10-30 H (0-5) /lpf U Epithel Cells (Auto) 0-5 (0-5) /lpf Urine Bacteria (Auto) 2+ H (Negative) COVID-19 Eval Order SARS-CoV-2, RNA, NAAT (NEGATIVE) Administered Medications Discontinued Medications Acetaminophen (Acetaminophen 325 Mg Tab) 650 mg PO NOW STA Stop: 04/24/20 10:02 Last Admin: 04/24/20 11:13 Dose: 650 mg Documented by: [id number] Sodium Chloride (Nss 1000ml) 1,000 mls @ 999 mls/hr IV .Q1H1M ONE Stop: 04/24/20 11:01 Last Admin: 04/24/20 11:14 Dose: 999 mls/hr Documented by: [id number] Cefepime HCl (Maxipime) 2,000 mg in 20 mls @ 5 mls/min IV NOW STA; Protocol Stop: 04/24/20 10:04 Last Admin: 04/24/20 11:13 Dose: 5 mls/min Documented by: [id number] Ioversol (Ioversol 100ml) 94 ml IV ONCE ONE Stop: 04/24/20 11:15 Last Admin: 04/24/20 11:14 Dose: 94 ml Documented by: [id number] Discharge Plan Visit Data Chief Complaint: Pain (Generalized) Stated Complaint: ABD PAIN RADIATING INTO LEGS ED Provider: Azael Willis Discharge Problem: Pyelonephritis, Renal transplant, status post, High serum chloride Forms Stand Alone Forms: My [facility] Prescriptions Prescriptions: No Action mycophenolate mofetil 250 mg capsule 250 mg PO Q12H RF: 0 aspirin 81 mg tablet,delayed release (DR/EC) 81 mg PO DAILY RF: 0 amiloride 5 mg Tablet 5 mg PO DAILY RF: 0 tacrolimus 1 mg capsule 4 mg PO PM RF: 0 tacrolimus 1 mg capsule 3 mg PO DAILY RF: 0 Procysbi 25 mg capsule, delayed rel sprinkle 25 mg PO Q12H RF: 0 Procysbi 75 mg capsule, delayed rel sprinkle 900 mg PO Q12H RF: 0
--- NOTE | 2020-04-24 10:15 | XRay Report ---
XR chest 1V portable CLINICAL HISTORY: SEPSIS COMPARISON STUDY: Chest radiograph May 20, 2018. FINDINGS: Lung volumes are normal. Linear bibasilar opacities favor atelectasis. There is no pneumoth orax or pleural effusion. Cardiac size is normal. Mediastinal contours are normal. There is no eviden ce for pulmonary edema. IMPRESSION: No acute cardiopulmonary findings. ACT 112: Negative or not required by law. Electronically signed by: Sascha Garcia M.D. 04/24/2020 10:14 AM
[2020-04-24 10:18] LABS: Basophils # (auto) 0.02 K/uL (0-0.2); Basophils % (auto) 0.2 %; Hematocrit (blood only) 34.1 % (42-52); Hemoglobin 11.5 g/dL (14.0-18.0); Immature Granulocytes # (auto) 0.01 K/uL (0.00-0.02); Immature Granulocytes % (auto) 0.1 %; Lymphocytes # (auto) 0.51 K/uL (1.2-3.4); Mean Corpuscular Hemoglobin 28.7 pg (25-34); Mean Corpuscular Hgb Conc 33.7 g/dL (32-36); Mean Platelet Volume 9.4 fL (7.4-10.4); Monocytes # (auto) 0.66 K/uL (0.11-0.59); Monocytes % (auto) 6.5 %; Neutrophils % (auto) 88.2 %; Platelet Count 188 K/uL (130-400); RDW Coefficient of Variation 13.5 % (11.5-14.5); RDW Standard Deviation 42.5 fL (36.4-46.3); Red Blood Count 4.01 M/uL (4.7-6.1)
[2020-04-24 10:28] LABS: INR 1.2 (0.9-1.1); Partial Thromboplastin Ratio 1.1; Partial Thromboplastin Time 30.2 Seconds (21.0-31.0); Prothrombin Time 11.9 Seconds (9.0-12.0)
[2020-04-24 10:35] LABS: Alanine Aminotransferase 17 U/L (12-78); Albumin Level 3.1 gm/dl (3.4-5.0); Aspartate Aminotransferase 5 U/L (15-37); BUN Creatinine Ratio 12.5 (10-20); Blood Urea Nitrogen 17 mg/dl (7-18); Calcium 8.7 mg/dl (8.5-10.1); Carbon Dioxide 22 mmol/L (21-32); Chloride 110 mmol/L (98-107); Creatinine Clr Calc Pharmacy 71.9 ml/min; Est GFR (African American) 80.1; Est GFR (Non-African American) 69.1; Glucose 105 mg/dl (70-99); Magnesium 1.7 mg/dl (1.8-2.4); Potassium 3.9 mmol/L (3.5-5.1); Sodium 141 mmol/L (136-145)
[2020-04-24 10:40] LABS: Albumin Globulin Ratio 0.6 (0.9-2); Alkaline Phosphatase 53 U/L (45-117); Bilirubin,Total 0.4 mg/dl (0.2-1); Total Protein 8.1 gm/dl (6.4-8.2); Troponin I < 0.015 ng/ml (0-0.045)
[2020-04-24] MEDS ORDERED: IOVERSOL 100ml IV ONE (11:14)
--- NOTE | 2020-04-24 11:36 | CT Scan Report ---
ABDOMEN AND PELVIS CT WITH IV CONTRAST CT DOSE: 276.72 mGy.cm HISTORY: Right-sided abd pain and fever TECHNIQUE: Multiaxial CT images of the abdomen and pelvis were performed following the use of intrave nous contrast. A dose lowering technique was utilized adhering to the principles of ALARA. COMPARISON STUDY: Abdomen and pelvis CT 01/29/2019. FINDINGS: Patchy ground glass densities within the lung bases posteriorly. This remains unchanged in favor dependent change/atelectasis. No pneumoperitoneum. No pneumatosis. No suspicious lytic or blast ic osseous lesions. The heart remains borderline enlarged. Persistent hepatosplenomegaly. This is not significant changed. The main portal vein is patent. No hepatic or splenic masses identified. The ad renal glands, pancreas, gallbladder within normal limits. [place] atrophic kidneys containing multiple calcifications remain unchanged. No hydronephrosis within the [place] kidneys. Mild bladder wall thic kening given the degree of distention. No pelvic free fluid. No bowel wall thickening or obstruction. Interval right lower quadrant renal transplant. The renal transplant demonstrates slightly heterogen eous enhancement and mild perinephric fat stranding/edema. The renal transplant is slightly enlarged. No hydronephrosis. The transplanted renal vein and artery appear patent. The appendix is not identif ied with certainty. There are fluid-filled nondilated loops of small bowel in the deep pelvis and flu id levels within the proximal colon. This could represent a low-grade ileus. IMPRESSION: 1. Interval right lower quadrant renal transplant. The renal transplant appears slightly enlarged and demonstrates slight heterogeneous enhancement with mild perinephric fat stranding/edema. This raises the possibility of a pyelonephritis. Recommend correlation with urinalysis. 2. No bowel wall thickening or obstruction. Small fluid levels within the proximal colon and small [place] wel may represent a low-grade ileus. 3. Mild bladder wall thickening given the degree of distention. This could represent a cystitis. 4. Atrophic [place] kidneys containing multiple calcifications. No hydronephrosis. 5. No change in the hepatosplenomegaly. ACT 112: Negative or not required by law. Electronically signed by: Keegan Osuna M.D. 04/24/2020 11:34 AM
[2020-04-24 11:39] LABS: Appearance Urine Cloudy (Clear); Bacteria Urine Automated 2+ (Negative); Bilirubin Urine Negative (Negative); Blood Urine 1+ (Negative); Color Urine Yellow; Epithelial Cell Urine Auto 0-5 /lpf (0-5); Glucose Urine UA 1+ (Negative); Ketones Urine Trace (Negative); Leukocyte Esterase Urine 1+ (Negative); Nitrite Urine Positive (Negative); Protein Urine 2+ (Negative); Specific Gravity Urine 1.028 (1.000-1.030); Urobilinogen Urine Negative (Negative); WBC Urine Automated >30 /hpf (0-5)
--- NOTE | 2020-04-24 11:40 | CT Scan Report ---
LUMBAR SPINE CT CT DOSE: HISTORY: back pain l flank febrile renal transplant TECHNIQUE: Multiaxial CT images of the lumbar spine were performed and reformatted in the sagittal an d coronal plane without the use of contrast. A dose lowering technique was utilized adhering to the principles of ALARA. COMPARISON: Lumbar spine CT 11/27/2019. FINDINGS: No fractures. No subluxation. Paraspinal soft tissues are unremarkable. Atrophic kidneys co ntaining multiple calcifications are again noted. Small broad-based posterior disc bulge at L4-L5 res ults in mild central canal narrowing. This remains unchanged. IMPRESSION: No fractures within the lumbar spine. ACT 112: Negative or not required by law. Electronically signed by: Keegan Osuna M.D. 04/24/2020 11:39 AM
--- NOTE | 2020-04-24 13:35 | History & Physical Report ---
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 Today with N/V, left flank pain, right abdominal pain In ER pt with temp of 37.9C, P: 100, R: 20, BP: 133/83, 99% on RA. WBC: 10.2, K: 3.9, Cr: 1.38 (was 1.5 on 04/06/20). Normal lactate and procalcitonin UA: 1+ blood, +nitrite, >30 WBC, 10-30 RBC, 2+ bacteria, 10-[address] ABD/PELVIS: The renal transplant appears slightly enlarged and demonstrates slight heterogeneous enhancement with mild perinephric fat stranding/edema. Mild bladder wall thickening given the degree of distention In ER was given 1L NSS, Cefepime 2GM IV, Tylenol 650mg po Urine culture, Blood cultures pending Will continue Cefepime pending cultures IVF Pt did receive IV contrast CT scan Closely monitor renal functions Nephrology consult Spoke with transplant team - Dr Zeus Main at [facility] [place]. Advises pt admitted with close monitor on creatinine and IV antibiotics/IVF. Would like daily update on pt and creatinine and tacrolimus level. Hold Cellcept per transplant team Continue tacrolimus. Transplant team recommends daily tacrolimus trough Continue amiloride, tacrolimus, Procysbi H/O tubular dysfunction. 04/08/20 nephro had d/c sodium bicarb (4) Hypomagnesemia: magnesium: 1.7 Replace and monitor (5) ST segment changes on electrocardiogram: EKG with ST elevation consistent with repolarization Initial troponin negative. Follow troponin EKG in am DVT Prophylaxis -SCDs Follows with Dr Maharaj for routine care Pt was seen and care coordinated with Dr Ordoñez. 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 Initially reported some mild dysuria. Also c/o sweats, rigors. Today with left flank and right sided abdominal pain, nausea, vomiting. Denies any missed med doses. Reports had normal BM today. Denies hematemesis, hematuria, urinary frequency, urinary retention, diarrhea, constipation, dizziness, syncope, vision changes, neck pain, CP, SOB, orthopnea, palpitations, cough, sore throat, choking, otalgia, rhinorrhea, paresthesias, weakness, extremity weakness, extremity edema, rashes. Pt being admitted for UTI, pyelonephritis Allergies Allergy/AdvReac Type Severity Reaction Status Date / Time No Known Allergies Allergy Verified 04/24/20 11:44 Home Medications Medication Instructions Recorded Confirmed Type cysteamine bitartrate [Procysbi] 25 mg PO Q12H 11/27/19 04/24/20 History cysteamine bitartrate [Procysbi] 900 mg PO Q12H 11/27/19 04/24/20 History tacrolimus 3 mg PO DAILY 11/27/19 04/24/20 History amiloride 5 mg PO DAILY 04/24/20 04/24/20 History aspirin 81 mg PO DAILY 04/24/20 04/24/20 History mycophenolate mofetil 250 mg PO Q12H 04/24/20 04/24/20 History tacrolimus 4 mg PO PM 04/24/20 04/24/20 History Past Med/Surg History Medical History (Updated 04/24/20 @ 13:59 by Suri Lebron PA-C) Anemia Anemia of chronic disease AV fistula Cystinosis Depression End stage renal disease Dr. Trejo. Home hemodialysis. 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 Surgical History History of tooth extraction WISDOM TEETH Family History Mother Crohn's disease Social History Smoking Status: Current every day smoker Tobacco Type: Cigarettes Cigarettes Per Day: 5; Second Hand Exposure: No; Hx Alcohol Use: No Hx Substance Use: Yes (medical marijuana) Last Used Substance Other:: last pm pt uses vaporizer Substance Use Type Other:: MEDICAL MARIJUANA FOR PAIN-DAILY BID PRN-WILL BRING CARD Preferred Language: Austrian Communication Ability: Effective Poultry Hatchery Supervisor Required: No Beliefs That Will Affect Care: None Current Living Situation: Spouse Other Information That Helps Us Care for You: No Feels Safe at Home: Yes Assistive Devices: None Review of Systems Review of Systems: All systems reviewed & are unremarkable except as noted in HPI & below Physical Exam Physical Exam: General: no acute distress, WDWN Head: normocephalic, atraumatic Eyes: conjunctiva non-injected, anicteric ENT: normal inspection external ears, nose, mucous membranes moist Neck: supple, trachea midline Lungs: clear, no respiratory distress, no wheezing/rhonchi/rales CV: RRR, no murmur, no pretibial edema Abd: normal BS, soft, +tenderness left CVA, +tenderness right mid and lower abdomen Ext: no cyanosis, ROM intact Neuro: A&O x 3, no focal deficits noted, normal affect Skin: warm, dry Results & Data Results & Data ([facility]) Vital Signs (Past 12 Hours) Vital Signs Temp Pulse Pulse Resp BP BP Pulse Ox 04/24/20 12:20 37.9 C H 87 25 H 125/75 98 04/24/20 11:30 86 21 127/74 99 04/24/20 11:18 83 113/68 98 04/24/20 11:16 98 04/24/20 10:08 99 04/24/20 09:49 37.9 C H 100 H 20 133/83 99 Laboratory Results Short CBC 04/24/20 Range/Units 10:05 WBC 10.20 (4.8-10.8) K/uL Hgb 11.5 L (14.0-18.0) g/dL Hct 34.1 L (42-52) % Plt Count 188 (130-400) K/uL BMP 04/24/20 10:05 Sodium 141 Potassium 3.9 Chloride 110 H Carbon Dioxide 22 BUN 17 Creatinine 1.38 Glucose 105 H Calcium 8.7 Cardiac Enzymes 04/24/20 Range/Units 10:05 Troponin I < 0.015 (0-0.045) ng/ml Liver Function 04/24/20 Range/Units 10:05 Total Bilirubin 0.4 (0.2-1) mg/dl AST 5 L (15-37) U/L ALT 17 (12-78) U/L Alkaline Phosphatase 53 (45-117) U/L Albumin 3.1 L (3.4-5.0) gm/dl Urine 04/24/20 Range/Units 11:20 Urine Color Yellow Urine Appearance Cloudy A (Clear) Urine pH 7.0 (4.5-7.5) Ur Specific Barn[place] 1.028 (1.000-1.030) Urine Protein 2+ H (Negative) Urine Glucose (UA) 1+ H (Negative) Diagnostic Findings CXR: IMPRESSION: No acute cardiopulmonary findings. CT ABD/PELVIS with IV Contrast: IMPRESSION: 1. Interval right lower quadrant renal transplant. The renal transplant appears slightly enlarged and demonstrates slight heterogeneous enhancement with mild perinephric fat stranding/edema. This raises the possibility of a pyelonephritis. Recommend correlation with urinalysis. 2. No bowel wall thickening or obstruction. Small fluid levels within the proximal colon and small bowel may represent a low-grade ileus. 3. Mild bladder wall thickening given the degree of distention. This could rep resent a cystitis. 4. Atrophic the [place] kidneys containing multiple calcifications. No hydronephrosis. 5. No change in the hepatosplenomegaly. CT Lumbar spine: IMPRESSION: No fractures within the lumbar spine. Supervising Physician Co-Signing Physician Notes Patient is a 30-year-old male with history of cystinosis S/P right renal transplant and other medical problems presents with history of left flank, right lower quadrant abdominal pain, fever associated with nausea, vomiting since 1 week duration. Patient states that the abdominal pain worsens with movement and improved with rest. Please review HPI for complete details of presentation. CT abdomen showed findings suggestive of acute pyelonephritis of the right transplanted kidney. Contacted transplant team at [facility] and obtained recommendations. On exam patient is thin, frail, no apparent distress, normocephalic atraumatic, lungs are clear to auscultation, normal breath sounds, s2,90, abdomen--left flank tender, right lower quadrant tender, normal bowel sounds, alert, awake, oriented, grossly no focal deficits, no pedal edema,+ multiple tattoos. Patient is admitted for management of acute pyelonephritis. Blood, urine cultures obtained. We will start him on IV fluids, IV cefepime. Will check tacrolimus levels daily. We will plan to hold CellCept as per transplant team. Will consult nephrology and monitor renal function. Will replace magnesium. Abnormal EKG noted. No significant change from prior EKG. Patient denies chest pain. Will trend troponins and repeat EKG in the morning. I personally reviewed the record. Patient is interviewed and examined at bedside. Patient's care is coordinated with Suri Felix. Please refer to the documentation above for details of patient's presentation and for discussion of other issues.
[2020-04-24] MEDS ORDERED: [UNRECOGNIZED DRUG - OTHER] PO SCH (15:56)
[2020-04-24] MEDS ORDERED: ONDANSETRON INJ 2 MG/ML 2 ML VIAL IV PRN (15:56)
[2020-04-24] MEDS: SODIUM CHLORIDE 0.9% 1000ML 1,000 ML IV SCH ×2 (16:23→23:52)
[2020-04-24] MEDS ORDERED: MAGNESIUM SULFATE / D5W 1 GM/100 ML BAG IV ONE (16:30)
[2020-04-24] MEDS: CEFEPIME 2,000 MG in SYRINGE 0 ML IV SCH (18:45)
[2020-04-24] MEDS: TACROLIMUS 1 MG CAP PO SCH (20:18)
[2020-04-24] MEDS: ACETAMINOPHEN 325 MG TAB PO PRN ×2 (20:21→23:49)
[2020-04-25] MEDS: CEFEPIME 2,000 MG in SYRINGE 0 ML IV SCH ×3 (01:46→17:58)
[2020-04-25 06:03] LABS: Hematocrit (blood only) 30.9 % (42-52); Mean Corpuscular Hgb Conc 32.4 g/dL (32-36); Mean Corpuscular Volume 86.6 fL (80-100); Mean Platelet Volume 9.2 fL (7.4-10.4); Platelet Count 156 K/uL (130-400); RDW Coefficient of Variation 13.7 % (11.5-14.5); RDW Standard Deviation 43.9 fL (36.4-46.3); Red Blood Count 3.57 M/uL (4.7-6.1); White Blood Count 5.98 K/uL (4.8-10.8)
--- NOTE | 2020-04-25 06:13 | Electrocardiogram Report ---
Test Reason : Blood Pressure : / mmHG Vent. Rate : 094 BPM Atrial Rate : 094 BPM P-R Int : 122 ms QRS Dur : 084 ms QT Int : 352 ms P-R-T Axes : 074 062 042 degrees QTc Int : 440 ms Normal sinus rhythm ST elevation, consider early repolarization Borderline ECG When compared with ECG of 20-MAY-2018 20:22, T wave amplitude has decreased in Anterolateral leads Confirmed by Jose Camara ([id number]) on 04/25/2020 6:13:12 AM Referred By: REFERRED SELF Confirmed By:Joes Camara
[2020-04-25 06:33] LABS: BUN Creatinine Ratio 13.2 (10-20); Calcium 8.3 mg/dl (8.5-10.1); Creatinine Clr Calc Pharmacy 79.6 ml/min; Est GFR (African American) 89.4; Est GFR (Non-African American) 77.1; Magnesium 1.8 mg/dl (1.8-2.4); Potassium 4.2 mmol/L (3.5-5.1)
[2020-04-25] MEDS: ASPIRIN 81 MG ECTAB PO SCH (09:15)
[2020-04-25] MEDS: aMILoride HCL 5 MG TAB PO SCH (09:15)
[2020-04-25] MEDS: TACROLIMUS 1 MG CAP PO SCH ×2 (09:15→20:48)
--- NOTE | 2020-04-25 11:32 | Consultation Report ---
DATE OF CONSULTATION: 04/25/2020 NEPHROLOGY CONSULTATION NOTE REASON FOR CONSULT: Renal transplant patient admitted with possible pyelonephritis. HISTORY OF PRESENT ILLNESS: The patient is a 30-year-old male with past medical history of nephronophthisis stenosis, status post kidney transplant on 06/16/2019 at [facility]. He presented to the Emergency Department yesterday complaining of fever for the last 5-6 days associated with dysuria as well as chills and rigors. He complained of left flank as well as right-sided abdominal pain, nausea, vomiting. Urinalysis was very consistent with UTI. He also had a CAT scan done with contrast and showed possible pyelonephritis in the transplanted kidney. He is currently getting IV fluid and IV antibiotics for presumed pyelonephritis. Prograf level has been sent and is pending. He also had a lumbar spine CT, which did not show any fractures or any suspicious spots. His creatinine at the time of admission was 1.38 and this morning is 1.26, which is consistent with his baseline. ALLERGY LIST: None. MEDICATIONS: Home medications list was reviewed and includes tacrolimus 3 mg daily, amiloride 5 daily, aspirin 81 daily, CellCept 250 q.12, Prograf 4 mg in the evening and 3 mg in the morning. 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 FAMILY HISTORY: Positive for Crohn disease in mother. SOCIAL HISTORY: Current every day smoker. Medical marijuana - yes. Occasional alcohol. and lives with his spouse. REVIEW OF SYSTEMS: Unless stated otherwise in HPI, 12 systems reviewed and negative. PHYSICAL EXAMINATION: GENERAL: Young, thin male who is not in any respiratory distress. He is awake, alert, oriented x3. HEENT: Mucous membranes moist. NECK: Supple. No jugular venous distention. CHEST: Bilateral clear to auscultation. CARDIOVASCULAR: S1, S2 regular. ABDOMEN: Soft, nontender other than mild tenderness in the right mid and lower abdomen. EXTREMITIES: Show no edema. NEUROLOGIC: Awake, alert, oriented x3. No focal deficit noted. SKIN: Warm and dry. VITAL SIGNS: Showed blood pressure 97/54, pulse rate 68, temperature 37.2, 95% on room air. LABORATORY TESTS: Hemoglobin 10, WBC count 6, platelet count 156. Blood work from this morning shows sodium 141, potassium 4.2, chloride 112, CO2 23, creatinine 1.26, calcium 8.3, magnesium 1.8. ASSESSMENT AND PLAN: A 30-year-old male with nephronophthisis, status post kidney transplant in 2019, now admitted with pyelonephritis of the transplanted kidney. 1. Renal transplant status: At this time, renal function is at baseline. We will try to do the Prograf level every day, but the reality is the result does not come on time, so it is of no practical use at this time. I do not expect the patient needing prolonged hospitalization. He is already back to normal. Continue IV antibiotics for 1 more day and consider switching over to oral agent once we have the sensitivities back. Until then, continue IV antibiotics. 2. The patient's blood pressure is somewhat low, so I would continue with IV fluid for at least 1 more day. 3. No further workup is needed.
[2020-04-25] MEDS: SODIUM CHLORIDE 0.45 % 1,000 ML IV SCH (11:41)
--- NOTE | 2020-04-25 19:05 | Hospitalist Progress Note ---
Date of Service April 25, 2020 Assessment & Plan (1) Pyelonephritis: (2) Nephropathic cystinosis: (3) Renal transplant, status post: Per admitting service : Pt is 30 y/o M with H nephropathic cystinosis s/p right kidney [place]16[place] [facility] [place] presents to ER with c/o fever since 04/08/20. with N/V, left flank pain, right abdominal pain In ER pt with temp of 37.9C, P: 100, R: 20, BP: 133/83, 99% on RA. WBC: 10.2, K: 3.9, Cr: 1.38 (was 1.5 on 04/06/20). Normal lactate and procalcitonin UA: 1+ blood, +nitrite, >30 WBC, 10-30 RBC, 2+ bacteria, 10-[address] ABD/PELVIS: The renal transplant appears slightly enlarged and demonstrates slight heterogeneous enhancement with mild perinephric fat stranding/edema. Mild bladder wall thickening given the degree of distention pt has been afebrile since admission flank pain , GI symptoms has resolved urine culture + gram negative bacilli cont on IV cefepime , abx will be changed to PO when sensitivity available will need 7-10 days tx Renal transplant status : appreciate Nephrology consult -renal function remains stable/monitor per admitting team note : Spoke with transplant team - Dr Zeus Main at [facility]. Advises pt admitted with close monitor on creatinine and IV antibiotics/IVF. Would like daily update on pt and creatinine and tacrolimus level. Hold Cellcept per transplant team Continue tacrolimus. Transplant team recommends daily tacrolimus trough Continue amiloride, tacrolimus, Procysbi (4) Hypomagnesemia: replaced (5) ST segment changes on electrocardiogram: EKG with ST elevation consistent with repolarization no complain of chest pain or SOB , no evidence of ACS DVT Prophylaxis -SCDanaid Follows with Dr Maharaj for routine care plan is to discharge home tomorrow with oral antibiotics if pt remains medically stable plan of care discussed with pt in detail agreeable and comfortable with treatment plan , all questions answered Admission and Anticipated Discharge Date Admission Date: April 24, 2020 Subjective Follow up visit for bilateral flank pain /pyelonephritis : pt reports of feeling better no complain of flank pain , no fever or chills normal appetite , no nausea , vomiting or abdominal pain Review of Systems Review of Systems: All systems reviewed & are unremarkable except as noted in Subjective Physical Exam Physical Exam: General: no acute distress, WDWN Head: normocephalic, atraumatic Eyes: conjunctiva non-injected, anicteric ENT: normal inspection external ears, nose, mucous membranes moist Neck: supple, trachea midline Lungs: clear, no respiratory distress, no wheezing/rhonchi/rales CV: RRR, no murmur, no pretibial edema Abd: normal BS, soft, NO CVA TENDERNESS Ext: no cyanosis, ROM intact Neuro: A&O x 3, no focal deficits noted, normal affect Skin: warm, dry Results & Data Results & Data ([facility]) Vital Signs (Past 12 Hours) Vital Signs Temp Pulse Pulse Resp BP Pulse Ox 04/25/20 16:00 79 04/25/20 15:06 36.9 C 75 20 110/60 97 04/25/20 08:00 90 04/25/20 07:47 37.2 C 68 18 97/54 L 95
[2020-04-26] MEDS: SODIUM CHLORIDE 0.45 % 1,000 ML IV SCH (00:16)
[2020-04-26] MEDS: CEFEPIME 2,000 MG in SYRINGE 0 ML IV SCH ×2 (01:06→10:22)
--- NOTE | 2020-04-26 06:09 | Electrocardiogram Report ---
Test Reason : Blood Pressure : / mmHG Vent. Rate : 093 BPM Atrial Rate : 093 BPM P-R Int : 128 ms QRS Dur : 088 ms QT Int : 356 ms P-R-T Axes : 087 083 079 degrees QTc Int : 442 ms Normal sinus rhythm Early repolarization Normal ECG When compared with ECG of 24-APR-2020 10:19, No significant change was found Confirmed by Jose Camara ([id number]) on 04/26/2020 6:09:10 AM Referred By: REFERRED SELF Confirmed By:Jose Camara
[2020-04-26] MEDS: TACROLIMUS 1 MG CAP PO SCH (08:26)
[2020-04-26] MEDS: ASPIRIN 81 MG ECTAB PO SCH (08:27)
[2020-04-26] MEDS: aMILoride HCL 5 MG TAB PO SCH (08:27)
[2020-04-26 10:42] LABS: Basophils # (auto) 0.01 K/uL (0-0.2); Basophils % (auto) 0.2 %; Hematocrit (blood only) 31.1 % (42-52); Hemoglobin 10.4 g/dL (14.0-18.0); Lymphocytes # (auto) 0.74 K/uL (1.2-3.4); Lymphocytes % (auto) 16.5 %; Mean Corpuscular Hemoglobin 28.2 pg (25-34); Mean Corpuscular Volume 84.3 fL (80-100); Mean Platelet Volume 9.6 fL (7.4-10.4); Monocytes # (auto) 0.29 K/uL (0.11-0.59); Monocytes % (auto) 6.5 %; Neutrophils # (auto) 3.45 K/uL (1.4-6.5); Neutrophils % (auto) 76.8 %; Platelet Count 177 K/uL (130-400); RDW Coefficient of Variation 13.5 % (11.5-14.5); RDW Standard Deviation 41.3 fL (36.4-46.3); Red Blood Count 3.69 M/uL (4.7-6.1); White Blood Count 4.49 K/uL (4.8-10.8)
[2020-04-26 10:45] LABS: Mean Corpuscular Hgb Conc 33.4 g/dL (32-36)
--- NOTE | 2020-04-26 10:57 | Progress Notes ---
DATE: 04/26/2020 NEPHROLOGY PROGRESS NOTE SUBJECTIVE: Overnight, no new issues. He feels completely normal and he is desperate to go home. No longer has dysuria or fever or chills. OBJECTIVE: VITAL SIGNS: Blood pressure 122/70, pulse rate 68, temperature 36.7, 96% on room air. HEENT: Mucous membranes moist. NECK: Supple. No jugular venous distention. CHEST: Bilaterally clear to auscultation. CARDIOVASCULAR: S1, S2 regular. ABDOMEN: Soft, nontender. EXTREMITIES: Shows no edema. LABORATORY TESTS: This morning is pending. Prograf level at the time of admission is back and is high at 11.7, but this was not a properly timed drug level, which means it is of no clinical significance. Urine culture report shows gram-negative bacilli and the colony count is low, so they will not be doing any sensitivity report. ASSESSMENT AND PLAN: A 30-year-old male with nephronophthisis status post kidney transplant in 2019, now admitted with possible pyelonephritis of the transplanted kidney. 1. Renal transplant status at this time, renal function is at baseline with normal creatinine. Prograf level has been ordered, but the result has not come back on time, so it is of no practical use. 2. Possible pyelonephritis: The patient has improved very fast, so I am not sure he actually has pyelonephritis, but we should give him the benefit of doubt and we will treat with antibiotics for at least 7 days. Urine culture report says gram-negative bacilli with no sensitivity report. So we will preemptively treat with ciprofloxacin 500 twice daily for 1 week. He will need to be followed up in nephrology clinic/transplant within the next 1 week.
[2020-04-26 11:08] LABS: Albumin Level 2.8 gm/dl (3.4-5.0); BUN Creatinine Ratio 14.3 (10-20); Calcium 8.9 mg/dl (8.5-10.1); Est GFR (African American) 88.5; Est GFR (Non-African American) 76.4; Phosphorus 2.4 mg/dl (2.5-4.9); Potassium 4.4 mmol/L (3.5-5.1)
[2020-04-26] MEDS ORDERED: CIPROFLOXACIN 500 MG TAB PO SCH (11:30)
--- NOTE | 2020-04-26 11:34 | Discharge Summary ---
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 Initially reported some mild dysuria. Also c/o sweats, rigors. Today with left flank and right sided abdominal pain, nausea, vomiting. Denies any missed med doses. Reports had normal BM today. Denies hematemesis, hematuria, urinary frequency, urinary retention, diarrhea, constipation, dizziness, syncope, vision changes, neck pain, CP, SOB, orthopnea, palpitations, cough, sore throat, choking, otalgia, rhinorrhea, paresthesias, weakness, extremity weakness, extremity e kerline, rashes. Pt being admitted for UTI, pyelonephritis Principal Diagnosis Pyelonephritis Hx of renal transplant Discharge Exam Constitutional WD/WN, vitals as above Eyes PERRL, conjunctivae normal, anicteric sclerae ENMT external ear and nose normal, oropharynx normal Neck trachea midline, no thyromegaly Respiratory normal respiratory effort, lungs clear to auscultation Cardiovascular RRR, no murmur, no edema Gastrointestinal (Abdomen) normal bowel sounds, soft, nontender, no hepatosplenomegaly Musculoskeletal no cyanosis or clubbing, extremities motor strength 5/5 Skin no rashes, warm and dry Neurologic PERRL, EOMI, accommodation nl, no face palsy, no dysarthria Psychiatric A+Ox3, euthymic affect Discharge Data Allergies Allergy/AdvReac Type Severity Reaction Status Date / Time No Known Allergies Allergy Verified 04/24/20 11:44 Consultations 04/24/20 11:53 ED Decision to Admit Stat 04/24/20 15:56 Consult Nephrology Routine Ordered Studies 04/24/20 10:01 CT abd pelvis IV con only Stat CT lumbar spine wo con Stat Hospital Course (1) Pyelonephritis: (2) Nephropathic cystinosis: (3) Renal transplant, status post: Per admitting service : Pt is 30 y/o M with PMH nephropathic cystinosis s/p right kidney transplant on 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 with N/V, left flank pain, right abdominal pain In ER pt with temp of 37.9C, P: 100, R: 20, BP: 133/83, 99% on RA. WBC: 10.2, K: 3.9, Cr: 1.38 (was 1.5 on 04/06/20). Normal lactate and procalcitonin UA: 1+ blood, +nitrite, >30 WBC, 10-30 RBC, 2+ bacteria, 10-[address] ABD/PELVIS: The renal transplant appears slightly enlarged and demonstrates slight heterogeneous enhancement with mild perinephric fat stranding/edema. Mild bladder wall thickening given the degree of distention pt has been afebrile since admission flank pain , GI symptoms has resolved urine culture + gram negative bacilli discharged home today with PO Cipro for 7 days Renal transplant status : appreciate Nephrology consult -renal function remains stable/monitor per admitting team note : Spoke with transplant team - Dr Zeus Main at [facility] [place]. Advises pt admitted with close monitor on creatinine and IV antibiotics/IVF. Would like daily update on pt and creatinine and tacrolimus level. Hold Cellcept per transplant team Continue tacrolimus. Transplant team recommends daily tacrolimus trough Continue amiloride, tacrolimus, Procysbi (4) Hypomagnesemia: replaced (5) ST segment changes on electrocardiogram: EKG with ST elevation consistent with repolarization no complain of chest pain or SOB , no evidence of ACS DVT Prophylaxis -SCDs Follows with Dr Maharaj for routine care stable to discharge home today Total Time Total Time Spent Total Time Spent (In Minutes): 35 mins Total Time Includes: Examination of the Patient, Discharge Planning and Medication Reconciliation Discharge Plan Discharge Items Patient Disposition: Home - Self-Care Reason For Visit: PYELONEPHRITIS Discharge Diagnosis: Pyelonephritis Hx of renal transplant Activity: Resume your previous activity Non-emergency contact: Primary Care Provider Call non-emergency contact if: you have any medication questions Follow-up/Referrals: Shanita Maharaj MD [Primary Care Provider] - 05/03/20 11:00 am (Date & Time 05/03/2020 11:00 AM Provider Shanita Maharaj MD Department Internal Medicine [facility] ) Diet: Regular Addtl Attending Provider Instructions: Antibiotic : ciprofloxacin 500mg 1 tablet twice daily for 1 week. take over the counter Probiotics for 2 weeks to prevent diarrhea due to antibiotic Follow up in nephrology clinic/transplant within the next 1 week. Lab work : Basic Metabolic panel with next physician visit Pending Studies at Discharge: No Stand-Alone Forms: My [facility], Smoking Cessation Medications and DC Order Prescriptions: New ciprofloxacin HCl 500 mg Tablet 500 mg PO BID 7 Days Qty: 14 RF: 0 Continued mycophenolate mofetil 250 mg capsule 250 mg PO Q12H RF: 0 aspirin 81 mg tablet,delayed release (DR/EC) 81 mg PO DAILY RF: 0 amiloride 5 mg Tablet 5 mg PO DAILY RF: 0 tacrolimus 1 mg capsule 4 mg PO PM RF: 0 tacrolimus 1 mg capsule 3 mg PO DAILY RF: 0 Procysbi 25 mg capsule, delayed rel sprinkle 25 mg PO Q12H RF: 0 Procysbi 75 mg capsule, delayed rel sprinkle 900 mg PO Q12H RF: 0 Discharge Orders: Discharge Order (Routine); Ordered 04/26/20 Ordered By: Carol Bain Admission Data Admit Date/Time: 04/24/20 13:29 Attending Provider: Carol Bain Admit Provider: Jair Ordoñez Primary Care Provider: Shanita Maharaj Other Providers: Jair Ordoñez ; Micky Velasquez Other Interventions: Discharge Summary Assessment (RN) Last Done: 04/26/20 11:36
== END 2020-04-26 12:44 | disposition home or self-care (01) | DRG 699 ==
LOC: ED 09:46 → 2N 13:29 → SUATTDRO 13:29 → 2N 15:26

== ENCOUNTER 2024-11-13 06:12 | Inpatient (IN) ==
[2024-11-13 06:59] LABS: Hematocrit (blood only) 16.9 % (42.0-52.0); Hemoglobin 5.4 g/dl (14.0-18.0); Mean Corpuscular Hemoglobin 27.3 pg (25.0-34.0); Mean Corpuscular Volume 85.4 fL (80.0-100.0); Platelet Count 160 K/uL (130-400); RDW Standard Deviation 49.8 fL (36.4-46.3); Red Blood Count 1.98 M/uL (4.70-6.10); White Blood Count 1.94 K/ul (4.8-10.8)
[2024-11-13 07:05] LABS: Immature Granulocytes # (auto) 0.01 K/uL (0.01-0.20); Immature Granulocytes % (auto) 0.5 %
[2024-11-13] MEDS ORDERED: SODIUM CHLORIDE 0.9% 100 ML IV PRN (07:08)
[2024-11-13 07:16] LABS: Alanine Aminotransferase 10.0 U/L (7-52); Albumin Globulin Ratio 1.2 (0.9-2); Alkaline Phosphatase 52.0 U/L (34-104); Anion Gap 15.0 (3-11); Bilirubin,Total 0.4 mg/dl (0.2-1.0); Blood Urea Nitrogen 85.0 mg/dl (6-23); Calcium 9.1 mg/dl (8.6-10.3); Carbon Dioxide 25.0 mmol/L (21-32); Chloride 97.0 mmol/L (98-107); Creatinine Clr Calc Pharmacy 9.5 ml/min; Globulin 2.9 gm/dl (2.5-4.0); Glucose 101.0 mg/dl (70-99(Fasting)); Potassium 5.5 mmol/L (3.5-5.1); Sodium 137.0 mmol/L (136-145); Total Protein 6.5 gm/dl (6.0-8.3)
--- NOTE | 2024-11-13 07:31 | Emergency Department Note ---
Impression & Plan Anemia in ESRD (end-stage renal disease), Encounter for hemodialysis for ESRD ED Provider Note CHIEF COMPLAINT: Abnormal laboratory work, missed dialysis HISTORY OF PRESENT ILLNESS: This 34-year-old male patient past medical history of end-stage renal disease on hemodialysis presents to the emergency department from the dialysis clinic stating he needs to have his laboratory work checked. Apparently his hemoglobin had been low on 11/06. The patient has missed his last 2 treatments, but states he feels fine. He is a bit frustrated that he was sent to the hospital instead of having his laboratory repeated at the clinic. He denies fevers, chills, chest pain, palpitations, vomiting and diarrhea. REVIEW OF SYSTEMS: A review of systems was performed with positives and pertinent negatives listed in the history of present illness. 10 systems were reviewed and are otherwise negative. ALLERGIES: see below MEDICATIONS: see below PMH: see below SOCIAL HISTORY: see below DDx: Electrolyte abnormality, anemia, fluid overload, cardiac arrhythmia, pneumonia among others. PHYSICAL EXAM: Vital signs reviewed. Noted to be hypertensive General: Chronically ill-appearing 34-year-old male, in no significant distress. HEENT: No scleral icterus, PERRLA, neck supple. Atraumatic. Pale conjunctiva Cardiovascular: Regular rate and rhythm, no extra sounds. Pulmonary: Clear to auscultation bilaterally, normal work of breathing. Abdomen: Soft, nontender, nondistended, positive bowel sounds. Musculoskeletal: Atraumatic, no peripheral edema. Neurologic: Patient awake alert and oriented x 3, speech is clear Skin: Warm, dry, no rash EMERGENCY DEPARTMENT COURSE/MDM: This patient was evaluated and appeared to be in no significant distress. Laboratory work indicates a hemoglobin of 5.4. Outpatient dialysis center was contacted and stated they were not comfortable dialyzing the patient due to his low hemoglobin. The patient has refused blood transfusion. Dr. Velasquez of nephrology was contacted and made arrangements for the patient to receive dialysis at the hospital today. He will receive Procrit. Patient was advised by both myself and Dr. Velasquez about the severity of his anemia and the risks of not receiving a blood transfusion today however he has again declined. The patient did receive a full dialysis treatment and will be discharged AGAINST MEDICAL ADVICE as blood transfusion and hospitalization have been recommended. Patient is expressed understanding and agrees. I received a phone call from the patient's at approximately 1526 asking more questions about the blood transfusion recommendation. I explained the recommendation for blood transfusion, the risks and benefits. She stated she and her [id number] are having great difficulty "getting through" to the patient regarding the serious nature of the anemia. He was given Procrit. She reports that the patient's father is due to pick him up in the emergency department. He is scheduled for dialysis in 2 days as an outpatient. I advised that they follow-up closely with the patient's business systems developer, Dr. Trejo and return to the emergency department for worsening of symptoms or any medical concerns. [id number] refused blood transfusion and hospitalization, stated he would except dialysis treatment. Potassium is 5.5 and vital signs are stable. Case management will contact the outpatient dialysis center. [phone] case management contacted the outpatient dialysis center who stated they are not comfortable taking the patient back with such a low hemoglobin. The dialysis nurse has requested nephrology consultation regarding the blood transfusion. Dr. Velasquez of [facility] nephrology has been contacted. MONITORING: An order for cardiac monitoring was placed and the patient is noted to be in a normal sinus rhythm at 80 beats per minute. EKG: To my interpretation reveals normal sinus rhythm at [address] segments. Previous septal infarct. No PVC, no PAC. QTc of 419. DIAGNOSIS: Anemia, end-stage renal disease on hemodialysis, noncompliance with dialysis treatment. DISPOSITION: Home/AMA I have personally spent greater than 45 minutes of critical care time in the direct management of this patient. This includes bedside care, interpretation of diagnostic studies, and testing, discussion with consultants, patient, and family members, and other required patient management activities. This 45 minutes is in excess of all separately billable procedures. 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 Trejo. Home hemodialysis. Fanconi syndrome (Chronic) Medical History Anemia of chronic disease Depression Surgical History History of tooth extraction WISDOM TEETH Family History Mother Crohn's disease Social History Smoking Status: Current every day smoker Tobacco Type: E-cigarettes / Vaping Cigarettes Per Day: 5; Second Hand Exposure: No; Do You Dip or Chew Tobacco: No; Hx Alcohol Use: No Hx Substance Use: Yes (medical marijuana) Last Used Substance Other:: last pm pt uses vaporizer Substance Use Type Other:: MEDICAL MARIJUANA FOR PAIN-DAILY BID PRN-WILL BRING CARD Preferred Language: Hungarian Communication Ability: Effective Cycle Repairer Required: No Beliefs That Will Affect Care: None Current Living Situation: Spouse Feels Safe at Home: Yes Assistive Devices: None Allergies Allergies Allergy/AdvReac Type Severity Reaction Status Date / Time No Known Allergies Allergy Verified 11/13/24 09:45 Home Meds Home Medications Medication Instructions Recorded Confirmed cysteamine bitartrate 25 mg 0 mg PO Q12H 11/27/19 11/13/24 capsule,delayed release sprinkle (Procysbi) cysteamine bitartrate 75 mg 0 mg PO Q12H 11/27/19 11/13/24 capsule,delayed release sprinkle (Procysbi) tacrolimus 1 mg capsule, 3 mg PO QAM 11/27/19 11/13/24 immediate-release aspirin 81 mg tablet,delayed 81 mg PO DAILY 04/24/20 11/13/24 release mycophenolate mofetil 250 mg 500 mg PO BID 04/24/20 11/13/24 capsule tacrolimus 1 mg capsule, 2 mg PO HS 04/24/20 11/13/24 immediate-release clindamycin phosphate 1 % topical 1 applic topical QAM 11/13/24 11/13/24 gel dapsone 100 mg tablet 100 mg PO DAILY 11/13/24 11/13/24 fluconazole 200 mg tablet 200 mg PO DAILY 11/13/24 11/13/24 metoprolol tartrate 25 mg tablet 25 mg PO DAILY 11/13/24 11/13/24 Results & Data (ED) Vital Signs Vital Signs - 24 hr 11/13/24 06:16 11/13/24 06:19 11/13/24 06:24 Temperature 36.7 C Temperature Source Oral Pulse Rate 84 82 Pulse Rate [Apical] 81 Pulse Rate from SpO2 Sensor Respiratory Rate 18 Respiratory Effort / Characteristics Non-Labored Spontaneous Respiratory Depth Normal Respiratory Pattern Regular Blood Pressure 154/104 H Blood Pressure [Right Arm] Blood Pressure Mean 120 Blood Pressure Mean [Right Arm] Blood Pressure Position Sitting Blood Pressure Position [Right Arm] Pulse Oximetry 94 Oxygen Delivery Method Room Air Sepsis Recent Fever Within 48 Hours No Sepsis New/Unexplained Change in Mental Status N/A Sepsis Action Taken by Nursing No Action Required 11/13/24 08:00 11/13/24 08:02 11/13/24 09:00 Temperature Temperature Source Pulse Rate 83 89 Pulse Rate [Apical] 82 Pulse Rate from SpO2 Sensor 89 Respiratory Rate 18 16 28 H Respiratory Effort / Characteristics Non-Labored Spontaneous Respiratory Depth Normal Respiratory Pattern Blood Pressure 164/96 H 148/100 H Blood Pressure [Right Arm] 164/96 H Blood Pressure Mean 123 116 Blood Pressure Mean [Right Arm] 118 Blood Pressure Position Blood Pressure Position [Right Arm] Semi-fowlers Pulse Oximetry 98 98 97 Oxygen Delivery Method Room Air Sepsis Recent Fever Within 48 Hours Sepsis New/Unexplained Change in Mental Status Sepsis Action Taken by Nursing 11/13/24 09:30 11/13/24 09:33 Temperature Temperature Source Pulse Rate 78 76 Pulse Rate [Apical] Pulse Rate from SpO2 Sensor 77 Respiratory Rate 17 28 H Respiratory Effort / Characteristics Respiratory Depth Respiratory Pattern Blood Pressure 154/108 H Blood Pressure [Right Arm] Blood Pressure Mean 118 Blood Pressure Mean [Right Arm] Blood Pressure Position Blood Pressure Position [Right Arm] Pulse Oximetry 99 98 Oxygen Delivery Method Sepsis Recent Fever Within 48 Hours Sepsis New/Unexplained Change in Mental Status Sepsis Action Taken by [facility] Medications Current Medication List: was personally reviewed by me Laboratory Data Attestation: I reviewed the patient's lab results. 11/13/24 06:25 11/13/24 06:25 Lab Results 11/13/24 11/13/24 Range/Units 06:25 06:28 WBC 1.94 L (4.8-10.8) K/ul RBC 1.98 L (4.70-6.10) M/uL Hgb 5.4 L* (14.0-18.0) g/dl Hct 16.9 L* (42.0-52.0) % MCV 85.4 (80.0-100.0) fL MCH 27.3 (25.0-34.0) pg MCHC 32.0 (32.0-36.0) g/dL RDW Std Deviation 49.8 H (36.4-46.3) fL RDW Coeff of [place] 16.3 H (11.5-14.5) % Plt Count 160 (130-400) K/uL MPV 10.1 (9.4-12.4) fL Immature Gran % (Auto) 0.5 % Neut % (Auto) 61.3 % Lymph % (Auto) 18.6 % [place] % (Auto) 17.5 % Eos % (Auto) 2.1 % Baso % (Auto) 0.0 % Neut # (Auto) 1.19 L (1.40-6.50) K/uL Lymph # (Auto) 0.36 L (1.20-3.40) K/uL [place] # (Auto) 0.34 (0.11-0.59) K/uL Eos # (Auto) 0.04 (0.00-0.50) K/uL Baso # (Auto) 0.00 (0.00-0.20) K/uL Immature Gran # (Auto) 0.01 (0.01-0.20) K/uL Sodium 137 (136-145) mmol/L Potassium 5.5 H (3.5-5.1) mmol/L Chloride 97 L (98-107) mmol/L Carbon Dioxide 25 (21-32) mmol/L Anion Gap 15 H (3-11) BUN 85 H (6-23) mg/dl Creatinine 11.17 H* (0.6-1.4) mg/dl Est Cr Clr Drug Dosing 9.5 ml/min eGFR 5.67 BUN/Creatinine Ratio 7.6 L (10-20) Glucose 101 H (70-99(Fasting)) mg/dl Calcium 9.1 (8.6-10.3) mg/dl Phosphorus 7.8 H (2.5-4.9) mg/dl Magnesium 2.5 H (1.7-2.4) mg/dl Total Bilirubin 0.4 (0.2-1.0) mg/dl AST 13 (13-39) U/L ALT 10 (7-52) U/L Alkaline Phosphatase 52 (34-104) U/L Total Protein 6.5 (6.0-8.3) gm/dl Albumin 3.6 (3.4-5.0) gm/dl Globulin 2.9 (2.5-4.0) gm/dl Albumin/Globulin Ratio 1.2 (0.9-2) Blood Type O Positive Antibody Screen NEGATIVE Crossmatch See Detail Administered Medications Discontinued Medications Acetaminophen (Acetaminophen Susp 160 Mg/5 Ml Btl) 1,000 mg PO NOW STA Stop: 11/13/24 13:17 Last Admin: 11/13/24 13:54 Dose: 1,000 mg Documented By: TUSHAR Epoetin Pierre (Epoetin Pierre 40,000 Units/Ml Vial) 40,000 units IV NOW STA Stop: 11/13/24 09:29 Last Admin: 11/13/24 13:21 Dose: 40,000 units Documented By: TUSHAR Iron Sucrose 300 mg/ Sodium (Chloride) 265 mls @ 176.667 mls/hr IV TODAY ONE Stop: 11/13/24 12:25 Last Admin: 11/13/24 13:21 Dose: 176.7 mls/hr Documented By: TUSHAR Discharge Plan Visit Data Chief Complaint: Abnormal Labs/Diagnostic Testing Stated Complaint: abnormal lab value/dialysis patient ED Provider: Tabatha Talamantes Discharge Problem: Anemia in ESRD (end-stage renal disease), Encounter for hemodialysis for ESRD Patient Disposition: Against Medical Advice Condition: Fair
[2024-11-13 08:15] LABS: Magnesium 2.5 mg/dl (1.7-2.4)
[2024-11-13 10:31] VITALS: RESP 21; O2SAT 96
--- NOTE | 2024-11-13 12:45 | Electrocardiogram Report ---
Test Reason : Blood Pressure : */* mmHG Vent. Rate : 78 BPM Atrial Rate : 78 BPM P-R Int : 148 ms QRS Dur : 88 ms QT Int : 368 ms P-R-T Axes : 72 58 51 degrees QTcB Int : 419 ms Normal sinus rhythm ST elevation, consider early repolarization, pericarditis, or injury Abnormal ECG When compared with ECG of 25-Oct-2024 16:13, T wave inversion no longer evident in Inferior leads T wave amplitude has increased in Lateral leads Confirmed by Radu Conteh ([id number]) on 11/13/2024 12:44:38 PM Referred By: REFERRED SELF Confirmed By: Radu Conteh
[2024-11-13] MEDS: EPOETIN ALFA 40,000 UNITS/ML VIAL IV STA (13:21)
[2024-11-13] MEDS: IRON SUCROSE 300 MG in SODIUM CHLORIDE 0.9% 250 ML IV ONE (13:21)
[2024-11-13] MEDS: ACETAMINOPHEN SUSP 160 MG/5 ML BTL PO STA (13:54)
--- NOTE | 2024-11-13 14:24 | Nephrology Consultation ---
Date of Consultation November 13, 2024 Assessment & Plan (1) End stage renal disease: recently restarted dialysis after failed transplant. 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 Transplant apparently happened because of nonadherence to medications secondary to social stressors. 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 unfortunately his issues with nonadherence is persistent including missing mu ltiple dialysis since his discharge on November 01. currently has severe anemia. most likely anemia is combination of recent transplant medications as well as severe renal failure with nonadherence. does not appear he is having active bleeding he has refused blood transfusion we will do dialysis for 4 hours today and try to take 2-3 kilos off will also give him Procrit 56460 units and Venofer 300 to help anemia recovery if he stays in the hospital I would like to do dialysis again tomorrow as well as Wednesday to get him back on the schedule. (2) Nephropathic cystinosis: (3) Renal transplant, status post: I spoke with Dr. Olivas at [facility] transplant Department by phone. updated the current clinical situation including nonadherence to dialysis. he suggested to continue tacrolimus--- we will do 1 mg twice daily. we will stop Mycophenolate significantly lower the prednisone to 5 mg with the plan of tapering prednisone by 1 mg every week. so it will be 4 mg for 1 week 3 mg for 1 week 2 mg for 1 week and 1 mg for 1 week then stop. Plan Case complexity high and I was significantly involved with care coordination. involved multiple interaction with Emergency Department physician as well as dialysis nurse and direct phone communication with transplant department at [facility]. 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 This was because of rejection after he stopped taking his medications-- lack of insurance cost personal choice. in fact he was transferred from [facility] to [facility] October 2024 because of that. he was discharged from [facility] on October 31 to continue dialysis at [facility] in [place]. However he has been very noncompliant with dialysis. I reviewed his discharge transplant medication. he had T cell mediated rejection due to non adherence due to social stressors. Received ATG (3 mg/Kg) and steroids. Initiated on dialysis via AVF on 10/25/24. and for outpatient he was supposed to take 1.5 mg of tacrolimus in the morning and 1 mg in the evening as well as mycophenolate 1000 mg twice daily plus prednisone 20 mg with a taper over next few months. I do not know whether the patient is taking these medications or not. it is very difficult to communicate with him. as for this admission he was sent over from the dialysis unit because of severe anemia. Hemoglobin today is 5.4. Does not appear he has bleeding from anywhere he refused to do blood transfusion despite extensive discussion both by phone as well as in-person. he refused to the Emergency Department doctor also. he agreed to do dialysis which he is getting at this time. So far no issues with dialysis. review of systems-------- patient feels completely asymptomatic and says he feels fine and does not feel he needs blood transfusion physical examination: young white male who is thinly built and not in any respiratory distress. mucous membrane is moist neck is supple he does appear pale chest bilateral clear to auscultation CVS S1 and S2 regular abdomen is soft nontender extremities without edema and he has a good AV fistula Allergies Allergy/AdvReac Type Severity Reaction Status Date / Time No Known Allergies Allergy Verified 11/13/24 09:45 Home Medications Medication Instructions Recorded Confirmed Type cysteamine bitartrate 25 mg 0 mg PO Q12H 11/27/19 11/13/24 History capsule,delayed release sprinkle (Procysbi) cysteamine bitartrate 75 mg 0 mg PO Q12H 11/27/19 11/13/24 History capsule,delayed release sprinkle (Procysbi) tacrolimus 1 mg capsule, 3 mg PO QAM 11/27/19 11/13/24 History immediate-release aspirin 81 mg tablet,delayed 81 mg PO DAILY 04/24/20 11/13/24 History release mycophenolate mofetil 250 mg 500 mg PO BID 04/24/20 11/13/24 History capsule tacrolimus 1 mg capsule, 2 mg PO HS 04/24/20 11/13/24 History immediate-release clindamycin phosphate 1 % topical 1 applic topical QAM 11/13/24 11/13/24 History gel dapsone 100 mg tablet 100 mg PO DAILY 11/13/24 11/13/24 History fluconazole 200 mg tablet 200 mg PO DAILY 11/13/24 11/13/24 History metoprolol tartrate 25 mg tablet 25 mg PO DAILY 11/13/24 11/13/24 History Patient History Medical History Anemia of chronic disease Depression Surgical History History of tooth extraction WISDOM TEETH Family History Mother Crohn's disease Social History Smoking Status: Current every day smoker Tobacco Type: E-cigarettes / Vaping Cigarettes Per Day: 5; Second Hand Exposure: No; Do You Dip or Chew Tobacco: No; Hx Alcohol Use: No Hx Substance Use: Yes (medical marijuana) Last Used Substance Other:: last pm pt uses vaporizer Substance Use Type Other:: MEDICAL MARIJUANA FOR PAIN-DAILY BID PRN-WILL BRING CARD Preferred Language: Macedonian Communication Ability: Effective Creel Selector Required: No Beliefs That Will Affect Care: None Current Living Situation: Spouse Feels Safe at Home: Yes Assistive Devices: None Results & Data Vital Signs (Past 12 Hours) Vital Signs Temp Pulse Pulse Pulse Resp BP BP 11/13/24 13:30 97 H 171/106 H 11/13/24 13:00 99 H 159/109 H 11/13/24 12:30 97 H 156/101 H 11/13/24 12:00 61 146/66 H 11/13/24 11:30 90 143/103 H 11/13/24 11:00 88 160/104 H 11/13/24 10:42 88 164/94 H 11/13/24 10:33 36.6 C 92 H 11/13/24 10:03 82 21 149/99 H 11/13/24 09:33 76 28 H 11/13/24 09:30 78 17 154/108 H 11/13/24 09:00 89 28 H 148/100 H 11/13/24 08:02 82 16 164/96 H 11/13/24 08:00 83 18 164/96 H 11/13/24 06:24 81 11/13/24 06:19 82 11/13/24 06:16 36.7 C 84 18 154/104 H Pulse Ox O2 Del Method 11/13/24 13:30 11/13/24 13:00 11/13/24 12:30 11/13/24 12:00 11/13/24 11:30 11/13/24 11:00 11/13/24 10:42 11/13/24 10:33 11/13/24 10:03 96 11/13/24 09:33 98 11/13/24 09:30 99 11/13/24 09:00 97 11/13/24 08:02 98 Room Air 11/13/24 08:00 98 11/13/24 06:24 11/13/24 06:19 11/13/24 06:16 94 Room Air Laboratory Results CBC renal panel
[2024-11-13 16:08] VITALS: BP 157/91; PULSE 99
[2024-11-13 16:09] VITALS: TEMP 97.7
[2024-11-13] MEDS ORDERED: TACROLIMUS 1 MG CAP PO SCH (21:00)
--- NOTE | 2024-11-15 11:15 | Nephrology Consultation ---
Date of Consultation November 15, 2024 History of Present Illness Reason for Consultation: ESRD on dialysis with severe anemia Attending Physician: ED Doctor History of Present Illness Assessment & Plan (1) End stage renal disease: recently restarted dialysis after failed transplant. 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 Transplant apparently happened because of nonadherence to medications secondary to social stressors. 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 unfortunately his issues with nonadherence is persistent including missing multiple dialysis since his discharge on November 01. currently has severe anemia. most likely anemia is combination of recent transplant medications as well as severe renal failure with nonadherence. does not appear he is having active bleeding he has refused blood transfusion on Wednesday but now after his scoled him he has agreed so came to ED. Will do 2 units PRBC with Dialysis while in hospital. we will do dialysis for 4 hours today and try to take 3 kilos off will also give him Procrit 39478 units to help anemia recovery. hgb today was 6.1 compared to 5.4 on wednesday. He can be discharged after Dialysis today--wont stay anyway. next HD outpt in [place] unit. (2) Nephropathic cystinosis: (3) Renal transplant, status post: I spoke with Dr. Olivas at [facility] transplant Department by phone on Wednesday updated the current clinical situation including nonadherence to dialysis. he suggested to continue tacrolimus--- we will do 1 mg twice daily. we will stop Mycophenolate significantly lower the prednisone to 5 mg with the plan of tapering prednisone by 1 mg every week. so it will be 4 mg for 1 week 3 mg for 1 week 2 mg for 1 week and 1 mg for 1 week then stop. So for this admission and discharge should be on prograf 1 bid and pred 5 daily. 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 This was because of rejection after he stopped taking his medications-- lack of insurance cost personal choice. in fact he was transferred from [facility] to [facility] October 2024 because of that. he was discharged from [facility] on October 31 to continue dialysis at [facility] in [place]. However he has been very noncompliant with dialysis. I reviewed his discharge transplant medication. he had T cell mediated rejection due to non adherence due to social stressors. Received ATG (3 mg/Kg) and steroids. Initiated on dialysis via AVF on 10/25/24. and for outpatient he was supposed to take 1.5 mg of tacrolimus in the morning and 1 mg in the evening as well as mycophenolate 1000 mg twice daily plus prednisone 20 mg with a taper over next few months. I do not know whether the patient is taking these medications or not. it is very difficult to communicate with him. as for this admission he was sent over from the dialysis unit because of severe anemia and PRBC. Does not appear he has bleeding from anywhere he refused to do blood transfusion despite extensive discussion both by phone as well as in-person. he refused to the Emergency Department doctor also. he agreed to do dialysis which he is getting at this time. So far no issues with dialysis. review of systems-------- patient feels completely asymptomatic and says he feels fine physical examination: young white male who is thinly built and not in any respiratory distress. mucous membrane is moist neck is supple he does appear pale. face appears puffy chest bilateral clear to auscultation CVS S1 and S2 regular abdomen is soft nontender extremities without edema and he has a good AV fistula Allergies Allergy/AdvReac Type Severity Reaction Status Date / Time No Known Allergies Allergy Verified 11/13/24 09:45 Home Medications Medication Instructions Recorded Confirmed Type cysteamine bitartrate 25 mg 0 mg PO Q12H 11/27/19 11/13/24 History capsule,delayed release sprinkle (Procysbi) cysteamine bitartrate 75 mg 0 mg PO Q12H 11/27/19 11/13/24 History capsule,delayed release sprinkle (Procysbi) tacrolimus 1 mg capsule, 3 mg PO QAM 11/27/19 11/13/24 History immediate-release aspirin 81 mg tablet,delayed 81 mg PO DAILY 04/24/20 11/13/24 History release mycophenolate mofetil 250 mg 500 mg PO BID 04/24/20 11/13/24 History capsule tacrolimus 1 mg capsule, 2 mg PO HS 04/24/20 11/13/24 History immediate-release clindamycin phosphate 1 % topical 1 applic topical QAM 11/13/24 11/13/24 History gel dapsone 100 mg tablet 100 mg PO DAILY 11/13/24 11/13/24 History fluconazole 200 mg tablet 200 mg PO DAILY 11/13/24 11/13/24 History metoprolol tartrate 25 mg tablet 25 mg PO DAILY 11/13/24 11/13/24 History Patient History Medical History Anemia of chronic disease Depression Surgical History History of tooth extraction WISDOM TEETH Family History Mother Crohn's disease Social History Smoking Status: Current every day smoker Tobacco Type: E-cigarettes / Vaping Cigarettes Per Day: 5; Second Hand Exposure: No; Do You Dip or Chew Tobacco: No; Hx Alcohol Use: No Hx Substance Use: Yes (medical marijuana) Last Used Substance Other:: last pm pt uses vaporizer Substance Use Type Other:: MEDICAL MARIJUANA FOR PAIN-DAILY BID PRN-WILL BRING CARD Preferred Language: Turkmen Communication Ability: Effective Seed Buyer Required: No Beliefs That Will Affect Care: None Current Living Situation: Spouse Feels Safe at Home: Yes Assistive Devices: None Allergies Allergy/AdvReac Type Severity Reaction Status Date / Time No Known Allergies Allergy Verified 11/13/24 09:45 Home Medications Medication Instructions Recorded Confirmed Type cysteamine bitartrate 25 mg 25 mg PO UD 11/27/19 11/15/24 History capsule,delayed release sprinkle (Procysbi) cysteamine bitartrate 75 mg 75 mg PO UD 11/27/19 11/15/24 History capsule,delayed release sprinkle (Procysbi) tacrolimus 1 mg capsule, 3 mg PO QAM 11/27/19 11/15/24 History immediate-release aspirin 81 mg tablet,delayed 81 mg PO DAILY 04/24/20 11/15/24 History release mycophenolate mofetil 250 mg 500 mg PO BID 04/24/20 11/15/24 History capsule tacrolimus 1 mg capsule, 2 mg PO HS 04/24/20 11/15/24 History immediate-release clindamycin phosphate 1 % topical 1 applic topical QAM 11/13/24 11/15/24 History gel dapsone 100 mg tablet 100 mg PO DAILY 11/13/24 11/15/24 History fluconazole 200 mg tablet 200 mg PO DAILY 11/13/24 11/15/24 History metoprolol tartrate 25 mg tablet 25 mg PO DAILY 11/13/24 11/15/24 History Patient History Medical History Anemia of chronic disease Depression Surgical History History of tooth extraction WISDOM TEETH Family History Mother Crohn's disease Social History Smoking Status: Former smoker Tobacco Type: E-cigarettes / Vaping Cigarettes Per Day: 5; Second Hand Exposure: No; Do You Dip or Chew Tobacco: No; Hx Alcohol Use: No Hx Substance Use: Yes (medical marijuana) Last Used Substance Other:: last pm pt uses vaporizer Substance Use Type Other:: MEDICAL MARIJUANA FOR PAIN-DAILY BID PRN-WILL BRING CARD Preferred Language: Turkmen Communication Ability: Effective Seed Buyer Required: No Beliefs That Will Affect Care: None Current Living Situation: Spouse Feels Safe at Home: Yes Assistive Devices: None
== END 2024-11-13 15:29 | disposition left against medical advice (07) | DRG 642 ==
LOC: ED 06:12 → EDINP 09:56

== ENCOUNTER 2024-11-15 06:11 | Inpatient (IN) ==
[2024-11-15] MEDS ORDERED: SODIUM CHLORIDE 0.9% 100 ML IV PRN (06:36)
[2024-11-15 06:55] LABS: Hematocrit (blood only) 19.1 % (42.0-52.0); Hemoglobin 6.1 g/dl (14.0-18.0); Mean Corpuscular Hemoglobin 28.0 pg (25.0-34.0); Mean Corpuscular Volume 87.6 fL (80.0-100.0); Platelet Count 192 K/uL (130-400); RDW Standard Deviation 53.2 fL (36.4-46.3); Red Blood Count 2.18 M/uL (4.70-6.10); White Blood Count 3.03 K/ul (4.8-10.8)
--- NOTE | 2024-11-15 07:07 | Emergency Department Note ---
History of Present Illness General Chief complaint: Abnormal Labs/Diagnostic Testing Stated complaint: LOW HEMOGLOBIN, REFUSED TRANFUSION LAST VISIT Time Seen by Provider: 11/15/24 06:27 Source: patient Mode of arrival: ambulatory Limitations: no limitations History of Present Illness Patient is a 34-year-old male who presents for blood transfusion in setting of low hemoglobin level. He was seen 2 days prior and left AMA after refusing transfusion. He is back in today to receive his blood transfusion. He has a history of end-stage renal disease on dialysis and initial low hemoglobin level was discovered at dialysis clinic. He last had dialysis on Wednesday. He denies any lightheadedness, dizziness, palpitations, chest pain or shortness of breath. No melena or hematochezia reported. Unknown if he has had a prior blood transfusion in the past. No prior transfusion in the past 3 months however. Home Medications Medication Instructions Recorded Confirmed Type cysteamine bitartrate 25 mg 25 mg PO UD 11/27/19 11/15/24 History capsule,delayed release sprinkle (Procysbi) cysteamine bitartrate 75 mg 75 mg PO UD 11/27/19 11/15/24 History capsule,delayed release sprinkle (Procysbi) tacrolimus 1 mg capsule, 3 mg PO QAM 11/27/19 11/15/24 History immediate-release aspirin 81 mg tablet,delayed 81 mg PO DAILY 04/24/20 11/15/24 History release mycophenolate mofetil 250 mg 500 mg PO BID 04/24/20 11/15/24 History capsule tacrolimus 1 mg capsule, 2 mg PO HS 04/24/20 11/15/24 History immediate-release clindamycin phosphate 1 % topical 1 applic topical QAM 11/13/24 11/15/24 History gel dapsone 100 mg tablet 100 mg PO DAILY 11/13/24 11/15/24 History fluconazole 200 mg tablet 200 mg PO DAILY 11/13/24 11/15/24 History metoprolol tartrate 25 mg tablet 25 mg PO DAILY 11/13/24 11/15/24 History Allergies Allergy/AdvReac Type Severity Reaction Status Date / Time No Known Allergies Allergy Verified 11/13/24 09:45 Past Med/Surg History Problem List (Updated 11/15/24 @ 11:15 by Esteban Cohen MD) Encounter for hemodialysis for ESRD (Acute) Anemia in ESRD (end-stage renal disease) (Acute) Nausea & vomiting RY (acute kidney injury) (Acute) Hypomagnesemia ST segment changes on electrocardiogram Nephropathic cystinosis Renal transplant, status post (Acute) Pyelonephritis Renal tubular acidosis (Chronic) Anemia (Chronic) 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 Trejo. Home hemodialysis. Fanconi syndrome (Chronic) Medical History Anemia of chronic disease Depression Surgical History History of tooth extraction WISDOM TEETH Family History Mother Crohn's disease Social History Smoking Status: Former smoker Tobacco Type: E-cigarettes / Vaping Cigarettes Per Day: 5; Second Hand Exposure: No; Do You Dip or Chew Tobacco: No; Hx Alcohol Use: No Hx Substance Use: Yes (medical marijuana) Last Used Substance Other:: last pm pt uses vaporizer Substance Use Type Other:: MEDICAL MARIJUANA FOR PAIN-DAILY BID PRN-WILL BRING CARD Preferred Language: Telugu Communication Ability: Effective Confectionery Cooker Required: No Beliefs That Will Affect Care: None Current Living Situation: Spouse Feels Safe at Home: Yes Assistive Devices: None Review of Systems review of systems negative outside of positive findings mentioned in HPI. Physical Exam Vital Signs Vital Signs - 24 hr 11/15/24 06:16 11/15/24 06:19 11/15/24 07:09 Temperature 36.8 C Temperature Source Oral Pulse Rate 90 96 H 95 H Pulse Rate from SpO2 Sensor 95 H Pulse Rhythm Pulse Strength Respiratory Rate 16 22 Respiratory Effort / Characteristics Non-Labored Spontaneous Respiratory Depth Normal Respiratory Pattern Regular Blood Pressure 152/99 H Blood Pressure Mean 116 Blood Pressure Position Pulse Oximetry 100 98 Oxygen Delivery Method Room Air Room Air Sepsis Recent Fever Within 48 Hours No Sepsis New/Unexplained Change in Mental Status N/A Sepsis Action Taken by Nursing No Action Required 11/15/24 08:20 11/15/24 08:35 11/15/24 08:50 Temperature 36.7 C 36.5 C 36.9 C Temperature Source Oral Oral Oral Pulse Rate 86 89 93 H Pulse Rate from SpO2 Sensor Pulse Rhythm Regular Regular Regular Pulse Strength Normal Normal Normal Respiratory Rate 24 22 20 Respiratory Effort / Characteristics Respiratory Depth Respiratory Pattern Blood Pressure 154/100 H 148/97 H 152/93 H Blood Pressure Mean 118 114 112 Blood Pressure Position Sitting Sitting Lying Pulse Oximetry 96 96 98 Oxygen Delivery Method Sepsis Recent Fever Within 48 Hours Sepsis New/Unexplained Change in Mental Status Sepsis Action Taken by Nursing 11/15/24 09:20 11/15/24 10:20 11/15/24 10:20 Temperature 36.7 C 36.7 C Temperature Source Oral Oral Pulse Rate 90 94 H 95 H Pulse Rate from SpO2 Sensor Pulse Rhythm Regular Regular Pulse Strength Normal Normal Respiratory Rate 22 16 Respiratory Effort / Characteristics Respiratory Depth Respiratory Pattern Blood Pressure 147/97 H 151/110 H Blood Pressure Mean 113 123 Blood Pressure Position Lying Sitting Pulse Oximetry 98 99 Oxygen Delivery Method Sepsis Recent Fever Within 48 Hours Sepsis New/Unexplained Change in Mental Status Sepsis Action Taken by Nursing See below Constitutional WD/WN, vitals as above Eyes Pale conjunctiva Respiratory normal respiratory effort, lungs clear to auscultation Cardiovascular RRR, no murmur, no edema Extremities: + AV fistula Musculoskeletal no cyanosis or clubbing, extremities motor strength 5/5 Skin Diffuse pallor Medical Decision Making Differential Diagnosis Acute blood loss anemia, anemia of chronic disease, end-stage renal disease on dialysis Medical Records Attestation: I reviewed the patient's medical records. Home Medications Current Medication List: was personally reviewed by me Laboratory Data Attestation: I reviewed the patient's lab results. 11/15/24 06:20 11/15/24 06:20 Lab Results 11/15/24 11/15/24 11/15/24 Range/Units 06:20 06:25 06:27 WBC 3.03 L (4.8-10.8) K/ul RBC 2.18 L (4.70-6.10) M/uL Hgb 6.1 L* (14.0-18.0) g/dl POC Hgb 5.8 L* (14.0-18.0) g/dl Hct 19.1 L* (42.0-52.0) % POC Hct 17 L* (42-52) % MCV 87.6 (80.0-100.0) fL MCH 28.0 (25.0-34.0) pg MCHC 31.9 L (32.0-36.0) g/dL RDW Std Deviation 53.2 H (36.4-46.3) fL RDW Coeff of [place] 16.8 H (11.5-14.5) % Plt Count 192 (130-400) K/uL MPV 9.9 (9.4-12.4) fL Immature Gran % (Auto) 0.3 % Neut % (Auto) 70.6 % Lymph % (Auto) 11.9 % [place] % (Auto) 16.5 % Eos % (Auto) 0.0 % Baso % (Auto) 0.7 % Neut # (Auto) 2.14 (1.40-6.50) K/uL Lymph # (Auto) 0.36 L (1.20-3.40) K/uL [place] # (Auto) 0.50 (0.11-0.59) K/uL Eos # (Auto) 0.00 (0.00-0.50) K/uL Baso # (Auto) 0.02 (0.00-0.20) K/uL Immature Gran # (Auto) 0.01 (0.01-0.20) K/uL RBC Morphology Unremarkable POC Sodium 133 L (135-144) mmol/L Sodium 136 (136-145) mmol/L POC Potassium 4.5 (3.3-5.0) mmol/L Potassium 4.5 (3.5-5.1) mmol/L POC Chloride 101 (101-112) mmol/L Chloride 98 (98-107) mmol/L Carbon Dioxide 25 (21-32) mmol/L POC Total CO2 23 L (24-31) mmol/L Anion Gap 13 H (3-11) POC Anion Gap 15.0 L (16-25) mmol/L POC BUN 40 H (7-18) mg/dl BUN 45 H D (6-23) mg/dl Creatinine 7.32 H* D (0.6-1.4) mg/dl POC Creatinine 8.2 H* (0.6-1.3) mg/dl Est Cr Clr Drug Dosing 14.4 ml/min eGFR 9.41 BUN/Creatinine Ratio 6.1 L (10-20) Glucose 110 H (70-99(Fasting)) mg/dl POC Glucose (other) 108 H (70-99) mg/dl Calcium 9.1 (8.6-10.3) mg/dl POC Ioniz Calcium Richie 1.12 (1.12-1.32) mmol/l Blood Type O Positive Antibody Screen NEGATIVE Crossmatch See Detail ECG Data Attestation: I personally reviewed and interpreted this ECG as follows: Indication: + other Rate (beats per minute): Missed dialysis Rhythm: + normal sinus ECG Intervals/blocks: + Normal QRS, + Normal QT and + Normal [place] ECG [place]: + Normal Change: no significant change Blood Pressure Blood Pressure Findings: Elevated blood pressure MDM Narrative Patient presents for blood transfusion. Hgb of 6.1 here today. No reported GI bleeding. Anemia 2/2 chronic disease. Order for 2 units of PRBC's here today. Patient due for dialysis today. Dr. Berumen with Nephrology saw patient bedside and recommends dialysis today inpatient. Will reach out to hospitalist team for admission. Impression & Plan Anemia, CKD (chronic kidney disease) Discharge Plan Visit Data Chief Complaint: Abnormal Labs/Diagnostic Testing Stated Complaint: LOW HEMOGLOBIN, REFUSED TRANFUSION LAST VISIT ED Provider: Esteban Cohen Discharge Problem: Anemia, CKD (chronic kidney disease) Patient Disposition: Admitted As Inpatient Condition: Good Forms Stand Alone Forms: My [facility] [employer] Prescriptions Prescriptions: No Action mycophenolate mofetil 250 mg capsule 500 mg PO BID aspirin 81 mg tablet,delayed release (DR/EC) 81 mg PO DAILY tacrolimus 1 mg capsule 2 mg PO HS tacrolimus 1 mg capsule 3 mg PO QAM Procysbi 25 mg capsule, delayed rel sprinkle 25 mg PO UD Patient Comments: Original Directions: 25mg by mouth once daily. Take w/ 12 of the 75mg capsules to equal 900mg. Currently on hold per patient. Rx Instructions: WITH X12(900MG) OF THE 75MG CAPS Procysbi 75 mg capsule, delayed rel sprinkle 75 mg PO UD Patient Comments: Original Directions: 900mg by mouth once daily. Take w/ 1 of the 25mg capsules to equal 900mg. Currently on hold per patient. Rx Instructions: WITH X1 OF THE 25MG CAPS fluconazole 200 mg tablet 200 mg PO DAILY clindamycin phosphate 1 % gel 1 applic TOPICAL QAM dapsone 100 mg tablet 100 mg PO DAILY metoprolol tartrate 25 mg tablet 25 mg PO DAILY Referrals Referrals: Shanita Maharaj MD [Primary Care Provider] -
[2024-11-15 07:13] LABS: Immature Granulocytes # (auto) 0.01 K/uL (0.01-0.20); Immature Granulocytes % (auto) 0.3 %; RBC Morphology Unremarkable
[2024-11-15 07:15] LABS: Anion Gap 13.0 (3-11); Blood Urea Nitrogen 45.0 mg/dl (6-23); Calcium 9.1 mg/dl (8.6-10.3); Carbon Dioxide 25.0 mmol/L (21-32); Chloride 98.0 mmol/L (98-107); Creatinine Clr Calc Pharmacy 14.4 ml/min; Glucose 110.0 mg/dl (70-99(Fasting)); Potassium 4.5 mmol/L (3.5-5.1); Sodium 136.0 mmol/L (136-145)
--- NOTE | 2024-11-15 12:57 | Communication Note ---
Date of Service: November 15, 2024 Attending addendum: The patient was seen and examined in emergency room He is here with low hemoglobin without any significant symptoms and definitely h e wants to go home today following dialysis and blood transfusion Denies any bleeding, no hematemesis and/or melena or bright red rectal bleed Denies any chest pain, palpitation or shortness of breath On examination No apparent distress at rest in the emergency room Remains hemodynamically stable with blood pressure on the upper side at 156/109 Chestclear to auscultation bilaterally HeartS1-S2, regular Abdomenbenign, bowel sound present Extremitiesno edema His labs, EKG and imaging studies reviewed Has significant anemia with hemoglobin of 6.1 with the patient with renal transplant and end-stage renal disease on hemodialysis without any obvious bleeding. The patient was seen and evaluated by wood router hand He will be receiving 2 units of blood transfusion during dialysis and following that he will be discharged He was advised to stay in the hospital for observation and monitoring of blood count but he declined Agree with assessment plan as outlined above by Roma Florian PA-C and take the full responsibility of care in the hospital Dr Dee Monte He received 1 unit of blood and went out for dialysis but that could not be done due to infiltration. He was sent back to emergency room. I saw him in the emergency room and has had a short discussion about dialysis and getting another unit of blood transfusion. He decided not to stay in the hospital even knowing that his infiltration can get worse and also his dialysis was not done and that can be critical for his health and even he could if he goes out of hospital AGAINST MEDICAL ADVICE. He understood the consequences of not staying in the hospital and he still decided to leave and signed AMA form. Dr. Gilma Monte
[2024-11-15] MEDS ORDERED: POLYETHYLENE (MIRALAX) 17 GM PACK PO PRN (13:25)
[2024-11-15] MEDS ORDERED: MAGNESIUM HYDROXIDE SUSP 30 ML UDC PO PRN (13:25)
[2024-11-15] MEDS ORDERED: ONDANSETRON INJ 2 MG/ML 2 ML VIAL IV PRN (13:25)
[2024-11-15] MEDS ORDERED: ACETAMINOPHEN 325 MG TAB PO PRN (13:25)
[2024-11-15] MEDS: EPOETIN ALFA 40,000 UNITS/ML VIAL IV STA (13:56)
[2024-11-15 15:12] VITALS: BP 174/107; RESP 20; O2SAT 99
[2024-11-15 16:30] VITALS: PULSE 92; TEMP 98.2
[2024-11-16] MEDS ORDERED: METOPROLOL TARTRATE 1 MG/ML VIAL IV STA (04:45)
== END 2024-11-15 15:38 | disposition left against medical advice (07) | DRG 683 ==
LOC: ED 06:11 → EDINP 13:08

== ENCOUNTER 2024-11-16 03:32 | Inpatient (IN) ==
[2024-11-16 04:22] LABS: Hematocrit (blood only) 19.2 % (42.0-52.0); Hemoglobin 6.3 g/dl (14.0-18.0); Mean Corpuscular Hemoglobin 28.1 pg (25.0-34.0); Mean Corpuscular Volume 85.7 fL (80.0-100.0); Platelet Count 208 K/uL (130-400); RDW Standard Deviation 50.9 fL (36.4-46.3); Red Blood Count 2.24 M/uL (4.70-6.10); White Blood Count 3.91 K/ul (4.8-10.8)
[2024-11-16 04:32] LABS: Immature Granulocytes # (auto) 0.03 K/uL (0.01-0.20); Immature Granulocytes % (auto) 0.8 %; RBC Morphology Unremarkable
[2024-11-16 04:33] LABS: Alanine Aminotransferase 10.0 U/L (7-52); Albumin Globulin Ratio 1.2 (0.9-2); Alkaline Phosphatase 54.0 U/L (34-104); Anion Gap 16.0 (3-11); Bilirubin,Total 0.4 mg/dl (0.2-1.0); Blood Urea Nitrogen 53.0 mg/dl (6-23); Calcium 8.6 mg/dl (8.6-10.3); Carbon Dioxide 22.0 mmol/L (21-32); Chloride 97.0 mmol/L (98-107); Creatinine Clr Calc Pharmacy 12.9 ml/min; Globulin 3.0 gm/dl (2.5-4.0); Glucose 120.0 mg/dl (70-99(Fasting)); Potassium 4.3 mmol/L (3.5-5.1); Sodium 135.0 mmol/L (136-145); Total Protein 6.7 gm/dl (6.0-8.3)
[2024-11-16] MEDS ORDERED: SODIUM CHLORIDE 0.9% 100 ML IV PRN (04:56)
--- NOTE | 2024-11-16 05:02 | Emergency Department Note ---
Impression & Plan Anemia of chronic disease, Anemia requiring transfusions, ESRD on dialysis ED Provider Note HISTORY OF PRESENT ILLNESS: Patient is a 34-year-old male requesting a blood transfusion and his dialysis. Patient reports he normally receives dialysis on Wednesday/Wednesday/Wednesday. He states that he had blood work done that showed that he was still anemic and was referred to the ER by his doctor for a blood transfusion. He is a renal transplant patient and is on tacrolimus. He denies any chest pain or shortness of breath. ROS: as above PHYSICAL EXAM: Constitutional: Patient appears in no acute distress. HENT: Head: Normocephalic and atraumatic. Eyes: EOMI, PERRL Mouth/Throat: Mucous membranes moist. Neck: Trachea midline. Neck supple. Cardiovascular: RRR, No murmurs, rubs or gallops. Intact distal pulses. Pulmonary/Chest: No respiratory distress. Breath sounds clear and equal bilaterally. No wheezes or rales. Abdominal: Abdomen soft, no tenderness, rebound or guarding. Musculoskeletal: No edema, tenderness or deformity noted. Skin: Warm and dry. No rash, erythema, pallor or cyanosis Psychiatric: Appropriate mood and affect for situation. Neurological: Alert and keenly responsive. CN II-XII grossly intact, moving all extremities equally and fully. MDM: - Vitals signs showed hypertension and tachycardia. - History obtained via patient. History as above. - Chronic conditions affecting care: anemia of chronic disease; ESRD (on HD); renal transplant recipient - Differential diagnoses include, but are not limited to: GI bleed; anemia of chronic disease; electrolyte abnormality; dehydration - Order placed for continuous cardiac monitoring. At this time, monitor showed rate of 97 bpm with normal sinus rhythm, per my interpretation. - External medical records reviewed. Documentation from yesterday's ER visit and attempted admission were reviewed. Patient had left AGAINST MEDICAL ADVICE after his ESRD fistula had infiltrated during dialysis. He received 1 unit of PRBCs. - Laboratory workup interpreted by myself showed leukopenia (WBC 3.91); anemia (Hgb 6.3); stable electrolytes; ESRD (Cr 8.23) - On chart review, the patient did receive a unit of packed red blood cells yesterday. However, this had minimal improvement in his hemoglobin. His hemoglobin went from 6.1 yesterday to only 6.3 today. I did discuss with the patient that he will require multiple transfusions. Also with that amount of volume, he will require dialysis. Discussed this with the patient and he is agreeable to getting treatment at this time. - 2 units of PRBCs ordered. Patient was consented for blood transfusion - Discussion was had with caser about patient's case and need for admission - Hospitalist, Dr. Lamas, consulted for admission - Patient admitted to [facility] service for further evaluation and management. I have personally spent 36 minutes of critical care time in the direct management of this patient. This includes bedside care, interpretation of diagnostic studies, and testing, discussion with consultants, patient, and family members, and other required patient management activities. This 36 minutes is in excess of all separately billable procedures. ASSESSMENT AND PLAN: Diagnosis: Anemia of chronic disease; anemia requiring transfusions; ESRD on dialysis Plan: Admit Past Med/Surg History Problem List (Updated 11/16/24 @ 05:02 by Vicki Cueva MD) ESRD on dialysis (Acute) Anemia requiring transfusions (Acute) Anemia of chronic disease (Acute) Encounter for hemodialysis for ESRD (Acute) Anemia in ESRD (end-stage renal disease) (Acute) Nausea & vomiting RY (acute kidney injury) (Acute) Hypomagnesemia ST segment changes on electrocardiogram Nephropathic cystinosis Renal transplant, status post (Acute) Pyelonephritis Renal tubular acidosis (Chronic) Anemia (Chronic) 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 Trejo. Home hemodialysis. Fanconi syndrome (Chronic) Medical History Anemia of chronic disease Depression Surgical History History of tooth extraction WISDOM TEETH Family History Mother Crohn's disease Social History Smoking Status: Current every day smoker Tobacco Type: E-cigarettes / Vaping Cigarettes Per Day: 5; Second Hand Exposure: No; Do You Dip or Chew Tobacco: No; Hx Alcohol Use: No Hx Substance Use: Yes (medical marijuana) Last Used Substance Other:: last pm pt uses vaporizer Substance Use Type Other:: MEDICAL MARIJUANA FOR PAIN-DAILY BID PRN-WILL BRING CARD Preferred Language: Danish Communication Ability: Effective Radar Air Traffic Controller Required: No Beliefs That Will Affect Care: None Current Living Situation: Spouse Feels Safe at Home: Yes Assistive Devices: None Allergies Allergies Allergy/AdvReac Type Severity Reaction Status Date / Time No Known Allergies Allergy Verified 11/13/24 09:45 Home Meds Home Medications Medication Instructions Recorded Confirmed cysteamine bitartrate 25 mg 25 mg PO UD 11/27/19 11/15/24 capsule,delayed release sprinkle (Procysbi) cysteamine bitartrate 75 mg 75 mg PO UD 11/27/19 11/15/24 capsule,delayed release sprinkle (Procysbi) tacrolimus 1 mg capsule, 3 mg PO QAM 11/27/19 11/15/24 immediate-release aspirin 81 mg tablet,delayed 81 mg PO DAILY 04/24/20 11/15/24 release mycophenolate mofetil 250 mg 500 mg PO BID 04/24/20 11/15/24 capsule tacrolimus 1 mg capsule, 2 mg PO HS 04/24/20 11/15/24 immediate-release clindamycin phosphate 1 % topical 1 applic topical QA 11/13/24 11/15/24 gel dapsone 100 mg tablet 100 mg PO DAILY 11/13/24 11/15/24 fluconazole 200 mg tablet 200 mg PO DAILY 11/13/24 11/15/24 metoprolol tartrate 25 mg tablet 25 mg PO DAILY 11/13/24 11/15/24 Results & Data (ED) Vital Signs Vital Signs - 24 hr 11/16/24 03:37 11/16/24 03:46 11/16/24 03:56 Temperature 36.7 C Temperature Source Temporal Artery Scan Pulse Rate 110 H 101 H Pulse Rate [Apical] Respiratory Rate 18 Respiratory Effort / Characteristics Non-Labored Spontaneous Respiratory Depth Normal Respiratory Pattern Regular Blood Pressure 153/87 H Blood Pressure [Right Arm] Blood Pressure Mean 109 Blood Pressure Mean [Right Arm] Blood Pressure Position [Right Arm] Pulse Oximetry 97 97 Oxygen Delivery Method Room Air Room Air Sepsis Recent Fever Within 48 Hours No Sepsis New/Unexplained Change in Mental Status N/A Sepsis Action Taken by Nursing No Action Required 11/16/24 04:03 Temperature Temperature Source Pulse Rate Pulse Rate [Apical] 101 H Respiratory Rate 19 Respiratory Effort / Characteristics Non-Labored Spontaneous Respiratory Depth Normal Respiratory Pattern Regular Blood Pressure Blood Pressure [Right Arm] 155/95 H Blood Pressure Mean Blood Pressure Mean [Right Arm] 115 Blood Pressure Position [Right Arm] Semi-fowlers Pulse Oximetry 97 Oxygen Delivery Method Room Air Sepsis Recent Fever Within 48 Hours Sepsis New/Unexplained Change in Mental Status Sepsis Action Taken by Nursing Laboratory Data 11/16/24 03:50 11/16/24 03:50 Lab Results 11/16/24 11/16/24 Range/Units 03:50 03:59 WBC 3.91 L (4.8-10.8) K/ul RBC 2.24 L (4.70-6.10) M/uL Hgb 6.3 L* (14.0-18.0) g/dl Hct 19.2 L* (42.0-52.0) % MCV 85.7 (80.0-100.0) fL MCH 28.1 (25.0-34.0) pg MCHC 32.8 (32.0-36.0) g/dL RDW Std Deviation 50.9 H (36.4-46.3) fL RDW Coeff of Chalo 16.6 H (11.5-14.5) % Plt Count 208 (130-400) K/uL MPV 9.7 (9.4-12.4) fL Immature Gran % (Auto) 0.8 % Neut % (Auto) 74.2 % Lymph % (Auto) 10.7 % [place] % (Auto) 12.5 % Eos % (Auto) 1.3 % Baso % (Auto) 0.5 % Neut # (Auto) 2.90 (1.40-6.50) K/uL Lymph # (Auto) 0.42 L (1.20-3.40) K/uL [place] # (Auto) 0.49 (0.11-0.59) K/uL Eos # (Auto) 0.05 (0.00-0.50) K/uL Baso # (Auto) 0.02 (0.00-0.20) K/uL Immature Gran # (Auto) 0.03 (0.01-0.20) K/uL RBC Morphology Unremarkable Sodium 135 L (136-145) mmol/L Potassium 4.3 (3.5-5.1) mmol/L Chloride 97 L (98-107) mmol/L Carbon Dioxide 22 (21-32) mmol/L Anion Gap 16 H (3-11) BUN 53 H (6-23) mg/dl Creatinine 8.23 H* D (0.6-1.4) mg/dl Est Cr Clr Drug Dosing 12.9 ml/min eGFR 8.17 BUN/Creatinine Ratio 6.4 L (10-20) Glucose 120 H (70-99(Fasting)) mg/dl Calcium 8.6 (8.6-10.3) mg/dl Total Bilirubin 0.4 (0.2-1.0) mg/dl AST 12 L (13-39) U/L ALT 10 (7-52) U/L Alkaline Phosphatase 54 (34-104) U/L Total Protein 6.7 (6.0-8.3) gm/dl Albumin 3.7 (3.4-5.0) gm/dl Globulin 3.0 (2.5-4.0) gm/dl Albumin/Globulin Ratio 1.2 (0.9-2) Crossmatch See Detail Discharge Plan Visit Data Chief Complaint: Illness Stated Complaint: NEEDS BLOOD TRANSFUSION,DIALYSIS ED Provider: Vicki Ceuva Discharge Problem: Anemia of chronic disease, Anemia requiring transfusions, ESRD on dialysis Condition: Fair Forms Stand Alone Forms: My [facility] Prescriptions Prescriptions: No Action mycophenolate mofetil 250 mg capsule 500 mg PO BID aspirin 81 mg tablet,delayed release (DR/EC) 81 mg PO DAILY tacrolimus 1 mg capsule 2 mg PO HS tacrolimus 1 mg capsule 3 mg PO QAM Procysbi 25 mg capsule, delayed rel sprinkle 25 mg PO UD Patient Comments: Original Directions: 25mg by mouth once daily. Take w/ 12 of the 75mg capsules to equal 900mg. Currently on hold per patient. Rx Instructions: WITH X12(900MG) OF THE 75MG CAPS Procysbi 75 mg capsule, delayed rel sprinkle 75 mg PO UD Patient Comments: Original Directions: 900mg by mouth once daily. Take w/ 1 of the 25mg capsules to equal 900mg. Currently on hold per patient. Rx Instructions: WITH X1 OF THE 25MG CAPS fluconazole 200 mg tablet 200 mg PO DAILY clindamycin phosphate 1 % gel 1 applic TOPICAL QAM dapsone 100 mg tablet 100 mg PO DAILY metoprolol tartrate 25 mg tablet 25 mg PO DAILY Referrals Referrals: Shanita Maharaj MD [Primary Care Provider] -
--- NOTE | 2024-11-16 05:21 | History & Physical Report ---
Date of Service November 16, 2024 Assessment & Plan (1) Anemia: Plan: Assessment and plan below following discussion of case with ED provider and reviewing patient history/pertinent normal/abnormal diagnostic test results. 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 provider to contact [facility] predatory animal trapper via Leon text for further recommendations once labs resulted (patient known to Dr. Jones) Patient [facility] transplant patrol man (Dr. William Olivas) may need to be contacted for recommendations for dapsone alternative for PJP prophylaxis if dapsone to be held indefinitely due to suspected hematologic side effects of medication. Nephrology consult re: dialysis management Check hemoglobin A1c DVT prophylaxis. SCDs Full code Text document was generated using [employer] voice recognition software. It may contain grammatical or spelling errors. Kindly contact undersigned for clarification of any documentation item in question. History of Present Illness Chief Complaint: Dialysis, blood transfusion Primary Care Provider: Shanita Maharaj MD History obtained from patient and records. 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 Recent [facility] [place] October 25 to 2024 for acute renal transplant rejection. Patient stay complicated by hallucinations. Dapsone added to patient's regimen on discharge for PJP prophylaxis. Hemoglobin 7.4 at time of discharge. Progressive hemoglobin drop since [facility] [place] last month. 2 [facility] ER visits this month for issue. Patient denies chest pain, SOB, abdominal pain, or overt bleeding. Chronic cough symptoms. Patient seen at ER yesterday for progressive anemia and desire for hemodialysis. Blood transfusion and dialysis not completed due to fistula infiltration. Patient refused admission and signed out medical advice. Patient returned to ER seeking to complete contemplated dialysis and blood transfusion. Medical History as above Surgical History : Renal biopsy, kidney transplant, vascular procedures Family History : Crohn's disease Personal/Social history : Ongoing vape use, occasional EtOH intake, currently unemployed, prior employment at [employer] Allergies Allergy/AdvReac Type Severity Reaction Status Date / Time No Known Allergies Allergy Verified 11/13/24 09:45 Home Medications Medication Instructions Recorded Confirmed Type tacrolimus 1 mg capsule, 1 mg PO BID 04/24/20 11/16/24 History immediate-release clindamycin phosphate 1 % topical 1 applic topical QAM 11/13/24 11/16/24 History gel dapsone 100 mg tablet 100 mg PO DAILY 11/13/24 11/16/24 History fluconazole 200 mg tablet 200 mg PO DAILY 11/13/24 11/16/24 History metoprolol tartrate 25 mg tablet 12.5 mg PO BID 11/13/24 11/16/24 History prednisone 5 mg PO DAILY 11/16/24 11/16/24 History valganciclovir 450 mg PO UD 11/16/24 11/16/24 History Past Med/Surg History Problem List (Updated 11/16/24 @ 05:02 by Vicki Cueva MD) ESRD on dialysis (Acute) Anemia requiring transfusions (Acute) Anemia of chronic disease (Acute) Encounter for hemodialysis for ESRD (Acute) Anemia in ESRD (end-stage renal disease) (Acute) Nausea & vomiting RY (acute kidney injury) (Acute) Hypomagnesemia ST segment changes on electrocardiogram Nephropathic cystinosis Renal transplant, status post (Acute) Pyelonephritis Renal tubular acidosis (Chronic) Anemia (Chronic) 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 Trejo. Home hemodialysis. Fanconi syndrome (Chronic) Medical History Anemia of chronic disease Depression Surgical History History of tooth extraction WISDOM TEETH Family History Mother Crohn's disease Social History Smoking Status: Current every day smoker Tobacco Type: E-cigarettes / Vaping Cigarettes Per Day: 5; Second Hand Exposure: No; Do You Dip or Chew Tobacco: No; Hx Alcohol Use: No Hx Substance Use: Yes (medical marijuana) Last Used Substance Other:: last pm pt uses vaporizer Substance Use Type Other:: MEDICAL MARIJUANA FOR PAIN-DAILY BID PRN-WILL BRING CARD Preferred Language: Tongan Communication Ability: Effective Ob Gyn Physician Assistant Required: No Beliefs That Will Affect Care: None Current Living Situation: Spouse Feels Safe at Home: Yes Assistive Devices: None Review of Systems Review of Systems: As per HPI, all other systems reviewed and negative Physical Exam Physical Exam: GENERAL: Comfortable, chronically ill, looks older than stated age, no respiratory distress SKIN: Pallor,, warm HEENT: Pale palpebral conjunctivae, no ptosis, dry buccal mucosa NECK : Supple, no tenderness CHEST : CTA, no tenderness HEART : Tachycardic, no obvious murmurs ABDOMEN: Some distention, nontender RECTAL : Intact sphincter, brown stool (FOBT negative) EXTREMITIES : No LE swelling/tenderness, palpable pulses, no other conspicuous deformities noted NEUROLOGIC : Coherent, no facial asymmetry, no other gross focality Results & Data Results & Data Vital Signs (Past 12 Hours) Vital Signs Temp Pulse Pulse Resp BP BP Pulse Ox 11/16/24 04:03 101 H 19 155/95 H 97 11/16/24 03:56 97 11/16/24 03:46 101 H 11/16/24 03:37 36.7 C 110 H 18 153/87 H 97 O2 Del Method 11/16/24 04:03 Room Air 11/16/24 03:56 Room Air 11/16/24 03:46 11/16/24 03:37 Room Air Laboratory Results Laboratory Results WBC 3.91 K/ul (4.8-10.8) L 11/16/24 03:50 RBC 2.24 M/uL (4.70-6.10) L 11/16/24 03:50 Hgb 6.3 g/dl (14.0-18.0) L* 11/16/24 03:50 Hct 19.2 % (42.0-52.0) L* 11/16/24 03:50 MCV 85.7 fL (80.0-100.0) 11/16/24 03:50 MCH 28.1 pg (25.0-34.0) 11/16/24 03:50 MCHC 32.8 g/dL (32.0-36.0) 11/16/24 03:50 RDW Std Deviation 50.9 fL (36.4-46.3) H 11/16/24 03:50 RDW Coeff of [place]alo 16.6 % (11.5-14.5) H 11/16/24 03:50 Plt Count 208 K/uL (130-400) 11/16/24 03:50 MPV 9.7 fL (9.4-12.4) 11/16/24 03:50 Immature Gran % (Auto) 0.8 % 11/16/24 03:50 Neut % (Auto) 74.2 % 11/16/24 03:50 Lymph % (Auto) 10.7 % 11/16/24 03:50 [place] % (Auto) 12.5 % 11/16/24 03:50 Eos % (Auto) 1.3 % 11/16/24 03:50 Baso % (Auto) 0.5 % 11/16/24 03:50 Neut # (Auto) 2.90 K/uL (1.40-6.50) 11/16/24 03:50 Lymph # (Auto) 0.42 K/uL (1.20-3.40) L 11/16/24 03:50 [place] # (Auto) 0.49 K/uL (0.11-0.59) 11/16/24 03:50 Eos # (Auto) 0.05 K/uL (0.00-0.50) 11/16/24 03:50 Baso # (Auto) 0.02 K/uL (0.00-0.20) 11/16/24 03:50 Immature Gran # (Auto) 0.03 K/uL (0.01-0.20) 11/16/24 03:50 RBC Morphology Unremarkable 11/16/24 03:50 Sodium 135 mmol/L (136-145) L 11/16/24 03:50 Potassium 4.3 mmol/L (3.5-5.1) 11/16/24 03:50 Chloride 97 mmol/L (98-107) L 11/16/24 03:50 Carbon Dioxide 22 mmol/L (21-32) 11/16/24 03:50 Anion Gap 16 (3-11) H 11/16/24 03:50 BUN 53 mg/dl (6-23) H 11/16/24 03:50 Creatinine 8.23 mg/dl (0.6-1.4) H* D 11/16/24 03:50 Est Cr Clr Drug Dosing 12.9 ml/min 11/16/24 03:50 eGFR 8.17 11/16/24 03:50 BUN/Creatinine Ratio 6.4 (10-20) L 11/16/24 03:50 Glucose 120 mg/dl (70-99(Fasting)) H 11/16/24 03:50 Calcium 8.6 mg/dl (8.6-10.3) 11/16/24 03:50 Total Bilirubin 0.4 mg/dl (0.2-1.0) 11/16/24 03:50 AST 12 U/L (13-39) L 11/16/24 03:50 ALT 10 U/L (7-52) 11/16/24 03:50 Alkaline Phosphatase 54 U/L (34-104) 11/16/24 03:50 Total Protein 6.7 gm/dl (6.0-8.3) 11/16/24 03:50 Albumin 3.7 gm/dl (3.4-5.0) 11/16/24 03:50 Globulin 3.0 gm/dl (2.5-4.0) 11/16/24 03:50 Albumin/Globulin Ratio 1.2 (0.9-2) 11/16/24 03:50 Crossmatch See Detail 11/16/24 03:59
[2024-11-16] MEDS ORDERED: PROMETHAZINE 6.25 MG/50.25 ML BAG IV PRN (05:46)
[2024-11-16] MEDS ORDERED: ACETAMINOPHEN 325 MG TAB PO PRN ×2 (05:46→09:06)
[2024-11-16 07:25] LABS: Hemoglobin A1C 5.8 % (4.5-5.6)
[2024-11-16 07:34] LABS: Reticulocytes # 0.070 10^6/uL (0.020-0.100)
[2024-11-16 07:54] LABS: Folate (Folic Acid),Ser orPlas 5.76 ng/ml (>5.38); Iron 124.0 mcg/dl (35-175); Transferrin 199.0 mg/dl (200-360)
[2024-11-16 07:55] LABS: Vitamin B12 577.0 pg/ml (180-914)
[2024-11-16 07:59] LABS: Ferritin 1442.5 ng/ml (8-388)
[2024-11-16] MEDS: FLUCONAZOLE 100 MG TAB PO SCH (08:47)
[2024-11-16] MEDS: TACROLIMUS 1 MG CAP PO SCH (08:47)
[2024-11-16] MEDS: METOPROLOL TARTRATE 25 MG TAB PO SCH (08:48)
--- NOTE | 2024-11-16 10:58 | Nephrology Consultation ---
Date of Consultation November 16, 2024 History of Present Illness Attending Physician: Jaswinder Palafox DO History of Present Illness Assessment & Plan (1) End stage renal disease: recently restarted dialysis after failed transplant. 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 Transplant apparently happened because of nonadherence to medications secondary to social stressors. 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 unfortunately his issues with nonadherence is persistent including missing multiple dialysis since his discharge on November 01. currently has severe anemia. most likely anemia is combination of recent transplant medications as well as severe renal failure with nonadherence. does not appear he is having active bleeding he has refused blood transfusion on Wednesday but now after his scoled him he has agreed so came to ED. Will do 2 units PRBC with Dialysis while in hospital. we will do dialysis for 4 hours today and try to take 3 kilos off will also give him Procrit [id number] units to help anemia recovery yesterday. Could ot do dialysis yesterday because of Infiltration. hgb today was 6.3 He can be discharged after Dialysis today--wont stay anyway. next HD outpt in [place] unit tomorrow. (2) Nephropathic cystinosis: (3) Renal transplant, status post: I spoke with Dr. Olivas at [facility] transplant Department by phone on Wednesday updated the current clinical situation including nonadherence to dialysis. he suggested to continue tacrolimus--- we will do 1 mg twice daily. we will stop Mycophenolate significantly lower the prednisone to 5 mg with the plan of tapering prednisone by 1 mg every week. so it will be 4 mg for 1 week 3 mg for 1 week 2 mg for 1 week and 1 mg for 1 week then stop. So for this admission and discharge should be on prograf 1 bid and pred 5 daily. 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 This was because of rejection after he stopped taking his medications-- lack of insurance cost personal choice. in fact he was transferred from [facility] to [facility] October 2024 because of that. he was discharged from [facility] on October 31 to continue dial ysis at [facility] in [place]. However he has been very noncompliant with dialysis. I reviewed his discharge transplant medication. he had T cell mediated rejection due to non adherence due to social stressors. Received ATG (3 mg/Kg) and steroids. Initiated on dialysis via AV[facility] on 10/25/24. and for outpatient he was supposed to take 1.5 mg of tacrolimus in the morning and 1 mg in the evening as well as mycophenolate 1000 mg twice daily plus prednisone 20 mg with a taper over next few months. I do not know whether the patient is taking these medications or not. it is very difficult to communicate with him. review of systems-------- patient feels completely asymptomatic and says he feels fine physical examination: young white male who is thinly built and not in any respiratory distress. mucous membrane is moist neck is supple he does appear pale. face appears puffy chest bilateral clear to auscultation CVS S1 and S2 regular abdomen is soft nontender extremities without edema and he has a good AV fistula Allergies Allergy/AdvReac Type Severity Reaction Status Date / Time No Known Allergies Allergy Verified 11/13/24 09:45 Home Medications Medication Instructions Recorded Confirmed Type cysteamine bitartrate 25 mg 0 mg PO Q12H 11/27/19 11/13/24 History capsule,delayed release sprinkle (Procysbi) cysteamine bitartrate 75 mg 0 mg PO Q12H 11/27/19 11/13/24 History capsule,delayed release sprinkle (Procysbi) tacrolimus 1 mg capsule, 3 mg PO QAM 11/27/19 11/13/24 History immediate-release aspirin 81 mg tablet,delayed 81 mg PO DAILY 04/24/20 11/13/24 History release mycophenolate mofetil 250 mg 500 mg PO BID 04/24/20 11/13/24 History capsule tacrolimus 1 mg capsule, 2 mg PO HS 04/24/20 11/13/24 History immediate-release clindamycin phosphate 1 % topical 1 applic topical QAM 11/13/24 11/13/24 History gel dapsone 100 mg tablet 100 mg PO DAILY 11/13/24 11/13/24 History fluconazole 200 mg tablet 200 mg PO DAILY 11/13/24 11/13/24 History metoprolol tartrate 25 mg tablet 25 mg PO DAILY 11/13/24 11/13/24 History Patient History Medical History Anemia of chronic disease Depression Surgical History History of tooth extraction WISDOM TEETH Family History Mother Crohn's disease Social History Smoking Status: Current every day smoker Tobacco Type: E-cigarettes / Vaping Cigarettes Per Day: 5; Second Hand Exposure: No; Do You Dip or Chew Tobacco: No; Hx Alcohol Use: No Hx Substance Use: Yes (medical marijuana) Last Used Substance Other:: last pm pt uses vaporizer Substance Use Type Other:: MEDICAL MARIJUANA FOR PAIN-DAILY BID PRN-WILL BRING CARD Preferred Language: Korean Communication Ability: Effective Vamp Cut Out Worker Required: No Beliefs That Will Affect Care: None Current Living Situation: Spouse Feels Safe at Home: Yes Assistive Devices: None Allergies Allergy/AdvReac Type Severity Reaction Status Date / Time No Known Allergies Allergy Verified 11/13/24 09:45 Home Medications Medication Instructions Recorded Confirmed Type tacrolimus 1 mg capsule, 1 mg PO BID 04/24/20 11/16/24 History immediate-release clindamycin phosphate 1 % topical 1 applic topical QAM 11/13/24 11/16/24 History gel dapsone 100 mg tablet 100 mg PO DAILY 11/13/24 11/16/24 History fluconazole 200 mg tablet 200 mg PO DAILY 11/13/24 11/16/24 History metoprolol tartrate 25 mg tablet 12.5 mg PO BID 11/13/24 11/16/24 History prednisone 5 mg PO DAILY 11/16/24 11/16/24 History valganciclovir 450 mg PO UD 11/16/24 11/16/24 History Patient History Medical History Anemia of chronic disease Depression Surgical History History of tooth extraction WISDOM TEETH Family History Mother Crohn's disease Social History Smoking Status: Current every day smoker Tobacco Type: E-cigarettes / Vaping Cigarettes Per Day: 5; Second Hand Exposure: No; Do You Dip or Chew Tobacco: No; Hx Alcohol Use: No Hx Substance Use: Yes (medical marijuana) Last Used Substance Other:: last pm pt uses vaporizer Substance Use Type Other:: MEDICAL MARIJUANA FOR PAIN-DAILY BID PRN-WILL BRING CARD Preferred Language: Korean Communication Ability: Effective Vamp Cut Out Worker Required: No Beliefs That Will Affect Care: None Current Living Situation: Spouse Feels Safe at Home: Yes Assistive Devices: None Results & Data Vital Signs (Past 12 Hours) Vital Signs Temp Pulse Pulse Pulse Resp BP BP 11/16/24 10:30 95 H 143/105 H 11/16/24 10:09 95 H 149/97 H 11/16/24 10:05 36.5 C 95 H 11/16/24 09:41 36.5 C 96 H 23 151/101 H 11/16/24 08:45 36.6 C 108 H 16 155/104 H 11/16/24 07:45 36.9 C 102 H 16 148/96 H 11/16/24 07:15 36.9 C 94 H 15 147/91 H 11/16/24 07:00 36.9 C 98 H 18 144/80 H 11/16/24 06:44 37 C 91 H 16 119/85 11/16/24 06:00 94 H 22 147/83 H 11/16/24 05:45 99 H 18 157/110 H 11/16/24 04:03 101 H 19 155/95 H 11/16/24 03:56 11/16/24 03:46 101 H 11/16/24 03:37 36.7 C 110 H 18 153/87 H Pulse Ox O2 Del Method 11/16/24 10:30 11/16/24 10:09 11/16/24 10:05 11/16/24 09:41 96 11/16/24 08:45 99 11/16/24 07:45 98 11/16/24 07:15 97 11/16/24 07:00 98 11/16/24 06:44 97 11/16/24 06:00 98 Room Air 11/16/24 05:45 94 11/16/24 04:03 97 Room Air 11/16/24 03:56 97 Room Air 11/16/24 03:46 11/16/24 03:37 97 Room Air
[2024-11-16 11:52] VITALS: RESP 18
--- NOTE | 2024-11-16 12:28 | Discharge Summary ---
Discharge Summary Date of Service November 16, 2024 Principal Dx & Hospital Course #1 = Principal Diagnosis (1) Anemia requiring transfusions: (2) Anemia of chronic disease: (3) ESRD on dialysis: (4) Renal transplant, status post: (5) Antibody mediated rejection of renal transplant: (6) Prediabetes: Plan Patient 34-year-old gentleman who is difficulty maintaining compliance with his medications and hemodialysis sessions presented to the emergency room due to the fact that he was severely anemic on outpatient labs had a missed dialysis. Patient had a recent hospitalization at [facility] in [place] being treated for rejection of his renal transplant and had some medications that adjusted which are known to suppress bone marrow and cause anemia. Since then he has had more issues with anemia and has now become symptomatic. He has required transfusions. His outpatient labs revealed significant anemia and was recommended to come to the emergency room. Patient was cared for in the hospital. He was transfused 2 units of packed red blood cells. He received a hemodialysis session. He was evaluated by nephrology. Nephrology had reached out to his transplant team at [facility] Dr. Olivas. Through coordination with him they recommended continuing tacrolimus at 1 mg 2 times daily. His Prograf was discontinued. And he will continue on a prednisone taper starting at 5 mg and decreasing by 1 mg weekly. At the time of discharge the patient is doing well. Significantly improved after receiving blood and will continue to follow-up with his outpatient providers. Notes For Next Care Provider Patient should continue to follow-up with his transplant team and nephrology team. Patient needs to be compliant with hemodialysis sessions Continue to monitor glucose/hemoglobin A1c, evidence of prediabetes. May need treatment started with in the near future Medication Changes From Visit Prograf discontinued Dapsone discontinued Tacrolimus 1 mg 2 times daily Prednisone taper Admission HPI Per Admitting Provider History obtained from patient and records. 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 Recent [facility] confinement October 25 to 2024 for acute renal transplant rejection. Patient stay complicated by hallucinations. Dapsone added to patient's regimen on discharge for PJP prophylaxis. Hemoglobin 7.4 at time of discharge. Progressive hemoglobin drop since [facility] discharge last month. 2 [facility] ER visits this month for issue. Patient denies chest pain, SOB, abdominal pain, or overt bleeding. Chronic cough symptoms. Patient seen at ER yesterday for progressive anemia and desire for hemodialysis. Blood transfusion and dialysis not completed due to fistula infiltration. Patient refused admission and signed out medical advice. Patient returned to ER seeking to complete contemplated dialysis and blood transfusion. Medical History as above Surgical History : Renal biopsy, kidney transplant, vascular procedures Family History : Crohn's disease Personal/Social history : Ongoing vape use, occasional EtOH intake, currently unemployed, prior employment at [employer] Admission Exam Per Admitting Provider See H&P Discharge Exam Constitutional: Alert, nontoxic, underweight HEENT: Mucous membranes moist. Lungs: Decreased breath sounds CV: S1-S2, regular Abdomen: Soft, nontender, nondistended Extremities: No significant edema Neuro: No focal deficits Psych: Cooperative, normal mood Updated Medication List Medication Instructions Recorded Confirmed Type tacrolimus 1 mg capsule, 1 mg PO BID 04/24/20 11/16/24 History immediate-release clindamycin phosphate 1 % topical 1 applic topical QAM 11/13/24 11/16/24 History gel dapsone 100 mg tablet 100 mg PO DAILY 11/13/24 11/16/24 History fluconazole 200 mg tablet 200 mg PO DAILY 11/13/24 11/16/24 History metoprolol tartrate 25 mg tablet 12.5 mg PO BID 11/13/24 11/16/24 History prednisone 5 mg PO DAILY 11/16/24 11/16/24 History prednisone 1 mg tablet See Rx Instructions .Route 11/16/24 Rx .COMPLEX #105 tabs valganciclovir 450 mg PO UD 11/16/24 11/16/24 History Hospital Stay Data Consultations 11/16/24 04:43 ED Decision to Admit Stat 11/16/24 05:45 Consult Nephrology Routine 11/16/24 08:33 Consult Nephrology Routine Diagnostic Imagining Performed Reviewed imaging, laboratory and diagnostic studies. Pertinent findings as below. Presenting hemoglobin 6.3 WBCs 3.9, improved from outpatient studies Platelets 208 Basic metabolic profile consistent with end-stage renal disease Hemoglobin A1c 5.8% Pending Results Patient Have Any Pending Studies at Discharge: Yes Discharge Instructions Given to Patient (Per Discharging Provider) Your significant anemia is most likely due to your recent transplant medications as well as missing hemodialysis and Procrit injections. It is critically important to get to each dialysis session. Dr. Gomez the tactical air control party manager here did speak with Dr. Olivas and together they coordinated the new medication regimen and dosing for your tacrolimus, discontinue mycophenolate and a slow prednisone taper. Total Time Total Time Spent Total Time Spent (In Minutes): 36
[2024-11-16 12:38] VITALS: TEMP 97.9
[2024-11-16 14:25] VITALS: O2SAT 97
[2024-11-16 14:45] VITALS: BP 148/105; PULSE 73
== END 2024-11-16 14:31 | disposition home or self-care (01) | DRG 682 ==
LOC: ED 03:32 → EDINP 05:22 → SUATTDRO 05:22 → EDINP 08:35

== ENCOUNTER 2025-02-03 07:18 | Inpatient (IN) ==
--- NOTE | 2025-02-03 07:56 | Emergency Department Note ---
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 He reports that he has had a mild cough and congestion for a few days, and acutely this morning felt very short of breath. No fever or chills. He denies any chest pain. He states he was watching TV when this occurred this morning. He admits he is feeling better now than he did earlier that day. Patient reports that he has been compliant with his medications, and with dialysis, he had his Wednesday/Wednesday/Wednesday sessions this week, last was yesterday. He denies any headache, lightheadedness or dizziness. No abdominal pain, nausea or vomiting. No urinary symptoms. He denies any sick contacts. Medications were reviewed with him, he is currently on dapsone and prednisone, and tacrolimus although his mycophenolate was discontinued a few months ago. He did not take any medications today. Home Medications Medication Instructions Recorded Confirmed Type clindamycin phosphate 1 % topical 1 applic topical QAM PRN Unknown 11/13/24 02/03/25 History gel fluconazole 200 mg tablet 200 mg PO DAILY 11/13/24 02/03/25 History metoprolol tartrate 25 mg tablet 12.5 mg PO BID 11/13/24 02/03/25 History valganciclovir 450 mg PO UD 11/16/24 11/16/24 History CellCept 250 mg PO UD 02/03/25 02/03/25 History Flomax 0.4 mg PO DAILY 02/03/25 02/03/25 History PhosLo 667 mg PO UD 02/03/25 02/03/25 History amitriptyline 25 mg tablet 25 mg PO HS 02/03/25 02/03/25 History aspirin 81 mg PO DAILY 02/03/25 02/03/25 History cholecalciferol (vitamin D3) 25 1,000 unit PO DAILY 02/03/25 02/03/25 History mcg (1,000 unit) capsule dapsone 100 mg tablet 100 mg PO QAM 02/03/25 02/03/25 History famotidine 10 mg tablet (Heartburn 10 mg PO QAM 02/03/25 02/03/25 History Relief (famotidine)) prednisone 5 mg PO DAILY 02/03/25 02/03/25 History sodium zirconium cyclosilicate 10 10 g PO DAILY 02/03/25 02/03/25 History gram oral powder packet (Lokelma) tacrolimus 0.5 mg capsule, 0.5 mg PO UD 02/03/25 02/03/25 History immediate-release torsemide 100 mg tablet 100 mg PO DAILY 02/03/25 02/03/25 History Allergies Allergy/AdvReac Type Severity Reaction Status Date / Time No Known Allergies Allergy Verified 11/13/24 09:45 Past Med/Surg History Problem List (Updated 02/03/25 @ 15:58 by Magalis Peres) Elevated troponin (Acute) Hypoxia (Acute) Pulmonary edema (Acute) Shortness of breath (Acute) Hypertension Prediabetes Antibody mediated rejection of renal transplant ESRD on dialysis (Acute) Anemia requiring transfusions (Acute) Anemia of chronic disease (Acute) Encounter for hemodialysis for ESRD (Acute) Anemia in ESRD (end-stage renal disease) (Acute) Nausea & vomiting RY (acute kidney injury) (Acute) Hypomagnesemia ST segment changes on electrocardiogram Nephropathic cystinosis Renal transplant, status post (Acute) Pyelonephritis Renal tubular acidosis (Chronic) Anemia (Chronic) 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 Trejo. Home hemodialysis. Fanconi syndrome (Chronic) Medical History Anemia of chronic disease Depression Surgical History History of tooth extraction WISDOM TEETH Family History Mother Crohn's disease Social History Smoking Status: Current every day smoker Tobacco Type: E-cigarettes / Vaping Cigarettes Per Day: 5; Second Hand Exposure: No; Do You Dip or Chew Tobacco: No; Hx Alcohol Use: No Hx Substance Use: Yes Last Used Substance: Days (ago) Last Used Substance Other:: wednesday Substance Use Type Other:: medical marijuana Preferred Language: Hebrew Communication Ability: Effective Emergency Worker Required: No Beliefs That Will Affect Care: None Current Living Situation: Spouse Feels Safe at Home: Yes Safety Concerns: Feels Safe At This Time Assistive Devices: None Review of Systems A total of 10 systems reviewed and were otherwise negative Physical Exam Vital Signs Vital Signs - 24 hr 02/03/25 07:19 02/03/25 07:22 02/03/25 07:35 Temperature 36.6 C Temperature Source Temporal Artery Scan Pulse Rate 111 H Pulse Rate [Apical] 98 H Respiratory Rate 18 20 Respiratory Effort / Characteristics Non-Labored Spontaneous Non-Labored Spontaneous Respiratory Depth Normal Normal Respiratory Pattern Regular Regular Blood Pressure [Right Arm] 165/126 H Blood Pressure Mean [Right Arm] 139 Pulse Oximetry 90 93 88 L Oxygen Delivery Method Room Air Room Air Room Air Oxygen Flow Rate Sepsis Recent Fever Within 48 Hours No Sepsis New/Unexplained Change in Mental Status N/A Sepsis Action Taken by Nursing No Action Required Oxygen Flow Rate - Titration 2 Pulse Oximetry Post Tiitration 92 02/03/25 08:14 02/03/25 08:14 Temperature Temperature Source Pulse Rate 100 H Pulse Rate [Apical] Respiratory Rate Respiratory Effort / Characteristics Respiratory Depth Respiratory Pattern Blood Pressure [Right Arm] Blood Pressure Mean [Right Arm] Pulse Oximetry 94 Oxygen Delivery Method Nasal Cannula Oxygen Flow Rate 2 Sepsis Recent Fever Within 48 Hours Sepsis New/Unexplained Change in Mental Status Sepsis Action Taken by Nursing Oxygen Flow Rate - Titration Pulse Oximetry Post Tiitration CONSTITUTIONAL: Chronically ill-appearing 35-year-old male who is awake and alert and laying on the gurney. He appears older than his stated age. Hypertensive, blood pressure 165/126, he is tachycardic in the 110s. Oxygen saturation on room air between 87-97% and he was placed on 2 L by nasal cannula. EYES: Pupils equal, round, reactive to light and accommodation. EOMs intact without nystagmus. Sclera are anicteric. ENT: Tympanic membranes intact, with normal landmarks. External canals are clear. Oral and nasopharynx are clear. Mucous membranes are moist, no lesions, tongue and gums appear normal. CARDIOVASCULAR: Tachycardic but regular. No JVD. Peripheral pulses easy to palpable. RESPIRATORY: Breath sounds equal and clear to auscultation without wheezes, rales, or rhonchi heard. Full and equal chest expansion without accessory muscle use or retractions. GI: Bowel sounds are present. Abdomen is soft, nontender, nondistended.No guarding or rebound. MUSCULOSKELETAL: Full range of motion of extremities x 4 with good strength. Fistula in the left upper extremity. No cyanosis, edema, joint tenderness or swelling. No deformity. INTEGUMENTARY: No lesions or rash, normal skin turgor. Course Course The patient was seen and assessed as above. External medical records are reviewed. He presents to the emergency department for evaluation of acute shortness of breath. He is hypoxic, oxygen saturations 80-87% on room air and was placed on 2 L by nasal cannula. Laboratory studies, EKG and chest x-ray were obtained. Case reviewed with attending physician, Dr. Avery. Diagnostics, as interpreted by me: Laboratory studies: White count 4800, H&H 11.4 and 34.4, platelet count 119,000. Sodium 136, potassium 4.1, chloride 91, carbon oxide 32, BUN 21, creatinine 7.75, which is chronic and appears to be baseline for the patient. No transaminitis. BNP greater than 4700. Troponin elevated at 306. Urine microscopy without overt signs of infection. Nasal swab negative for viral pathogens. ECG: Sinus tachycardia 101 bpm, no acute ischemic changes. No significant change on review of prior EKGs Cardiac monitoring: An order was placed for continuous cardiac monitoring. The monitor shows a sinus tachycardia 100 bpm per my interpretation. Imaging studies: Interstitial prominence concerning for pulmonary edema. Cardiomegaly. No infiltrate. Patient was reassessed, all laboratory and diagnostic imaging studies reviewed with him and family who are at the bedside. He has new hypoxia, with pulmonary edema noted on chest x-ray, and elevated troponin. I did recommend further inpatient care and he was agreeable. Patient reviewed with the ED watch case polisher, and [facility] Chronic conditions affecting care: Renal transplant status with rejection, end- stage renal disease on hemodialysis, hypertension, prediabetes Differential diagnosis: acute myocardial infarction, acute coronary syndrome, myocarditis, pericarditis, pericardial effusions/tamponade, pulmonary embolism, pneumonia, pneumothorax, cardiomyopathy, congestive heart failure, anemia, COPD/asthma exacerbation, among others. Administered Medications Calcium Acetate (Calcium Acetate 667 Mg Cap/Tab) 667 mg PO TIDM MELITA Stop: 03/05/25 11:59 Last Admin: 02/03/25 12:02 Dose: 667 mg Documented By: [facility] Discontinued Medications Aspirin (Aspirin 81 Mg Ectab) 81 mg PO ONE ONE Stop: 02/03/25 09:57 Last Admin: 02/03/25 10:22 Dose: 81 mg Documented By: CASSIE Furosemide (Furosemide 40 Mg/4 Ml Vial) 40 mg IV ONE ONE Stop: 02/03/25 09:49 Last Admin: 02/03/25 10:01 Dose: 40 mg Documented By: CASSIE Heparin Sodium (Porcine) (Heparin Sod (Porcine) 1000 Unit/Ml) 2,000 units IV ONE ONE Stop: 02/03/25 11:34 Last Admin: 02/03/25 13:37 Dose: Not Given Documented By: TUSHAR Heparin Sodium (Porcine) (Heparin Sod (Porcine) 1000 Unit/Ml) 400 units IV Q1H MELITA Stop: 02/03/25 13:46 Last Admin: 02/03/25 13:37 Dose: Not Given Documented By: Admin: 02/03/25 13:37 Dose: Not Given Documented By: TUSHAR Labetalol HCl (Labetalol Hcl Iv 5 Mg/Ml 20ml) 10 mg IV ONE ONE Stop: 02/03/25 09:48 Last Admin: 02/03/25 10:00 Dose: 10 mg Documented By: CASSIE Metoprolol Tartrate (Metoprolol Tartrate 25 Mg Tab) 12.5 mg PO BID MELITA Stop: 03/05/25 10:29 Last Admin: 02/03/25 13:30 Dose: 12.5 mg Documented By: TUSHAR Medical Decision Making Differential Diagnosis See ED course. Medical Records Attestation: I reviewed the patient's medical records. Home Medications Current Medication List: was personally reviewed by me Laboratory Data Attestation: I reviewed the patient's lab results. 02/03/25 07:35 02/03/25 07:35 Lab Results 02/03/25 02/03/25 Range/Units 07:35 09:45 WBC 4.87 (4.8-10.8) K/ul RBC 3.66 L (4.70-6.10) M/uL Hgb 11.4 L (14.0-18.0) g/dL Hct 34.4 L (42.0-52.0) % MCV 94.0 (80.0-100.0) fL MCH 31.1 (25.0-34.0) pg MCHC 33.1 (32.0-36.0) g/dL RDW Std Deviation 47.6 H (36.4-46.3) fL RDW Coeff of [place] 13.9 (11.5-14.5) % Plt Count 119 L (130-400) K/uL MPV 9.7 (9.4-12.4) fL Immature Gran % (Auto) 0.2 % Neut % (Auto) 83.4 % Lymph % (Auto) 8.8 % [place] % (Auto) 3.3 % Eos % (Auto) 3.1 % Baso % (Auto) 1.2 % Neut # (Auto) 4.06 (1.40-6.50) K/uL Lymph # (Auto) 0.43 L (1.20-3.40) K/uL [place] # (Auto) 0.16 (0.11-0.59) K/uL Eos # (Auto) 0.15 (0.00-0.50) K/uL Baso # (Auto) 0.06 (0.00-0.20) K/uL Immature Gran # (Auto) 0.01 (0.01-0.20) K/uL Sodium 136 (136-145) mmol/L Potassium 4.1 (3.5-5.1) mmol/L Chloride 91 L (98-107) mmol/L Carbon Dioxide 32 (21-32) mmol/L Anion Gap 13 H (3-11) BUN 21 (6-23) mg/dl Creatinine 7.75 H* (0.6-1.4) mg/dl Est Cr Clr Drug Dosing 14.0 ml/min eGFR 8.73 BUN/Creatinine Ratio 2.7 L (10-20) Glucose 112 H (70-99(Fasting)) mg/dl Calcium 9.2 (8.6-10.3) mg/dl Magnesium 2.2 (1.7-2.4) mg/dl Total Bilirubin 1.0 (0.2-1.0) mg/dl AST 17 (13-39) U/L ALT 6 L (7-52) U/L Alkaline Phosphatase 53 (34-104) U/L Troponin I High Sens 306.8 H* 336.0 H* (0-20) pg/ml B-Natriuretic Peptide > 4700 H (0-100) pg/ml Total Protein 7.7 (6.0-8.3) gm/dl Albumin 4.2 (3.4-5.0) gm/dl Globulin 3.5 (2.5-4.0) gm/dl Albumin/Globulin Ratio 1.2 (0.9-2) Imaging Data Attestation: I personally reviewed and interpreted this imaging study as follows: Radiologist's Impression: Chest X-Ray 02/03/25 07:47 Clinical History: Dyspnea Technique: A frontal view of the chest was obtained Comparison is made to the prior examination dated 10/16/2024 Findings: There is new diffuse interstitial prominence, concerning for pulmonary edema. The heart is mildly enlarged. No pleural effusion or pneumothorax is seen . There is suspected left lung base atelectasis No fracture is noted. No foreign body is seen Impression: 1. Cardiomegaly and suspected pulmonary edema 2. Left lung base atelectasis Electronically signed by Pola Bansal 02-03-2025 08:39 AM MDM Narrative See ED course. Impression & Plan Shortness of breath, Pulmonary edema, Hypoxia, Elevated troponin Discharge Plan Visit Data Chief Complaint: Shortness of Breath/Dyspnea Stated Complaint: BREATHING ISSUE ED Provider: Milan Avery ED Midlevel Provider: Magalis Peres Discharge Problem: Shortness of breath, Pulmonary edema, Hypoxia, Elevated troponin Patient Disposition: Admitted As Inpatient Condition: Fair Discharge Instructions Interventions: ED Discharge Assessment Last Done: 02/03/25 10:39
[2025-02-03 08:01] LABS: Hematocrit (blood only) 34.4 % (42.0-52.0); Hemoglobin 11.4 g/dL (14.0-18.0); Immature Granulocytes # (auto) 0.01 K/uL (0.01-0.20); Immature Granulocytes % (auto) 0.2 %; Mean Corpuscular Hemoglobin 31.1 pg (25.0-34.0); Mean Corpuscular Volume 94.0 fL (80.0-100.0); Platelet Count 119 K/uL (130-400); RDW Standard Deviation 47.6 fL (36.4-46.3); Red Blood Count 3.66 M/uL (4.70-6.10); White Blood Count 4.87 K/ul (4.8-10.8)
[2025-02-03 08:23] LABS: Alanine Aminotransferase 6.0 U/L (7-52); Albumin Globulin Ratio 1.2 (0.9-2); Albumin Level 4.2 gm/dl (3.4-5.0); Alkaline Phosphatase 53.0 U/L (34-104); Anion Gap 13.0 (3-11); Bilirubin,Total 1.0 mg/dl (0.2-1.0); Blood Urea Nitrogen 21.0 mg/dl (6-23); Calcium 9.2 mg/dl (8.6-10.3); Carbon Dioxide 32.0 mmol/L (21-32); Chloride 91.0 mmol/L (98-107); Creatinine Clr Calc Pharmacy 14.0 ml/min; Globulin 3.5 gm/dl (2.5-4.0); Glucose 112.0 mg/dl (70-99(Fasting)); Magnesium 2.2 mg/dl (1.7-2.4); Potassium 4.1 mmol/L (3.5-5.1); Sodium 136.0 mmol/L (136-145); Total Protein 7.7 gm/dl (6.0-8.3)
--- NOTE | 2025-02-03 08:39 | XRay Report ---
Clinical History: Dyspnea Technique: A frontal view of the chest was obtained Comparison is made to the prior examination dated 10/16/2024 Findings: There is new diffuse interstitial prominence, concerning for pulmonary edema. The heart is mildly enlarged. No pleural effusion or pneumothorax is seen . There is suspected left lung base atelectasis No fracture is noted. No foreign body is seen Impression: 1. Cardiomegaly and suspected pulmonary edema 2. Left lung base atelectasis Electronically signed by Pola Bansal 02-03-2025 08:39 AM
[2025-02-03 08:55] LABS: Appearance Urine Clear (Clear); Bacteria Urine Automated None Seen (None Seen); Cast Urine Automated 0-2 /lpf (0-2); Epithelial Cell Urine Auto 0-2 /hpf (0-2); Glucose Urine UA Trace (Negative)
[2025-02-03 09:14] LABS: Chlamydia pneumoniae PCR Not Detected (NotDetected); Coronavirus 229E PCR Not Detected (NotDetected); Coronavirus CoV-2 (COVID19)PCR Not Detected (NotDetected); Coronavirus HKU1 PCR Not Detected (NotDetected); Coronavirus NL63 PCR Not Detected (NotDetected); Coronavirus OC43PCR Not Detected (NotDetected); Human Metapneumovirus PCR Not Detected (NotDetected); Parainfluenza Virus 1 PCR Not Detected (NotDetected); Parainfluenza Virus 2 PCR Not Detected (NotDetected); Parainfluenza Virus 3 PCR Not Detected (NotDetected); Parainfluenza Virus 4 PCR Not Detected (NotDetected); Respiratory Syncytial VirusPCR Not Detected (NotDetected); Rhinovirus/Enterovirus PCR Not Detected (NotDetected)
--- NOTE | 2025-02-03 09:19 | History & Physical Report ---
Date of Service February 03, 2025 Assessment & Plan (1) ESRD on dialysis: (2) Chest pain: Plan: Chest Pain: R/O ACS DD: Type 2 OH due to hypertensive Urgency Initial troponin:306 in setting of CKD, hypertensive urgency, sinus tachycardia EKG shows: Sinus tachycardia, T wave inversion in anterior leads, QTc 464 CXR: Cardiomegaly and suspected pulmonary edema, Left lung base atelectasis Obtain resting ECHO Trend serial cardiac enzymes, repeat EKG, fasting lipid panel in AM Continue Aspirin Oxygen PRN Cardiology consulted Will consider IV heparin if needed Hypertensive urgency Continue metoprolol Also on torsemide, Flomax IV labetalol as needed Monitor and adjust antihypertensives as needed Pulmonary edema/volume overload Hypoxia due to above Presented with shortness of breath BNP >4700 Gave IV Lasix in ED Restart torsemide 100 mg daily Volume status to be managed through dialysis Supplemental oxygen as needed Nephrology consulted to help with dialysis Chronic thrombocytopenia Denies any acute bleeding issues Monitor platelet count H/O PVCs Continue metoprolol End-stage renal disease secondary to hereditary cystinosis S/P kidney transplant in 2019 at [facility] H/O transplant rejection Fanconi syndrome Continue immunosuppressive treatment Check tacrolimus levels Nephrology consulted to help with dialysis Other chronic conditions: Chronic anemia Migraine Mood disorder Ongoing vaping, marijuana use H/O Medical noncompliance Obtain urine drug screen Continue home medications as able DVT Px: Heparin SQ CODE STATUS Full code Disposition Admit to telemetry I personally interviewed and examined the patient at bedside. Reviewed imaging studies, blood work, old records and EKG. Discussed with ED staff. I spent a total [id number] coordinating, documenting, and providing care for this patient. 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 Patient states that he woke up this morning with shortness of breath while watching television. He also states having cough with minimal expectoration. Reports retrosternal chest pain initially 4/10 on onset currently 2/10, dull aching type, nonradiating, no aggravating relieving factors. He believes chest pain is secondary to cough. He denies any dyspnea on exertion. Reports being compliant with dialysis. Last dialysis was yesterday. Denies any history of palpitations,orthopnea, PND, dizziness, pedal edema, hemoptysis, fever, chills, headache, focal weakness, change in vision, nausea, vomiting, abdominal pain, diarrhea, dysuria, hematuria. Patient states he did not take any medications today. Allergies Allergy/AdvReac Type Severity Reaction Status Date / Time No Known Allergies Allergy Verified 11/13/24 09:45 Home Medications Medication Instructions Recorded Confirmed Type clindamycin phosphate 1 % topical 1 applic topical QAM PRN Unknown 11/13/24 02/03/25 History gel fluconazole 200 mg tablet 200 mg PO DAILY 11/13/24 02/03/25 History metoprolol tartrate 25 mg tablet 12.5 mg PO BID 11/13/24 02/03/25 History valganciclovir 450 mg PO UD 11/16/24 11/16/24 History CellCept 250 mg PO UD 02/03/25 02/03/25 History Flomax 0.4 mg PO DAILY 02/03/25 02/03/25 History PhosLo 667 mg PO UD 02/03/25 02/03/25 History amitriptyline 25 mg tablet 25 mg PO HS 02/03/25 02/03/25 History aspirin 81 mg PO DAILY 02/03/25 02/03/25 History cholecalciferol (vitamin D3) 25 1,000 unit PO DAILY 02/03/25 02/03/25 History mcg (1,000 unit) capsule dapsone 100 mg tablet 100 mg PO QAM 02/03/25 02/03/25 History famotidine 10 mg tablet (Heartburn 10 mg PO QAM 02/03/25 02/03/25 History Relief (famotidine)) prednisone 5 mg PO DAILY 02/03/25 02/03/25 History sodium zirconium cyclosilicate 10 10 g PO DAILY 02/03/25 02/03/25 History gram oral powder packet (Lokelma) tacrolimus 0.5 mg capsule, 0.5 mg PO UD 02/03/25 02/03/25 History immediate-release torsemide 100 mg tablet 100 mg PO DAILY 02/03/25 02/03/25 History Past Med/Surg History Problem List Prediabetes Antibody mediated rejection of renal transplant ESRD on dialysis (Acute) Anemia requiring transfusions (Acute) Anemia of chronic disease (Acute) Encounter for hemodialysis for ESRD (Acute) Anemia in ESRD (end-stage renal disease) (Acute) Nausea & vomiting RY (acute kidney injury) (Acute) Hypomagnesemia ST segment changes on electrocardiogram Nephropathic cystinosis Renal transplant, status post (Acute) Pyelonephritis Renal tubular acidosis (Chronic) Anemia (Chronic) 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 Trejo. Home hemodialysis. Fanconi syndrome (Chronic) Medical History Anemia of chronic disease Depression Surgical History History of tooth extraction WISDOM TEETH Family History Mother Crohn's disease Social History Smoking Status: Current every day smoker Tobacco Type: E-cigarettes / Vaping Cigarettes Per Day: 5; Second Hand Exposure: No; Do You Dip or Chew Tobacco: No; Hx Alcohol Use: No Hx Substance Use: Yes (medical marijuana) Last Used Substance Other:: last pm pt uses vaporizer Substance Use Type Other:: MEDICAL MARIJUANA FOR PAIN-DAILY BID PRN-WILL BRING CARD Preferred Language: Syriac Communication Ability: Effective Residential Solar Sales Consultant Required: No Beliefs That Will Affect Care: None Current Living Situation: Spouse Feels Safe at Home: Yes Assistive Devices: None Review of Systems Review of Systems: All systems reviewed & are unremarkable except as noted in Subjective Physical Exam Physical Exam: Physical Exam: Vitals signs as noted above General Appearance:Moderately built and nourished, no apparent distress Head: normocephalic, Atraumatic Eyes: normal inspection, EOMI Neck: supple, Trachea midline Respiratory/Chest: Normal breath sounds, B/L crackles, No accessory muscle use Cardiovascular: S1, S2, No murmur, Tachycardia Abdomen/GI:Soft, Non tender, Bowel sounds present Extremities/Musculoskeletal:normal inspection, no edema Neurologic/Psych:AAOX3, grossly no focal neurological deficits Skin: normal color, warm Results & Data Results & Data Vital Signs (Past 12 Hours) Vital Signs Temp Pulse Pulse Resp BP Pulse Ox O2 Del Method 02/03/25 08:14 94 Nasal Cannula 02/03/25 08:14 100 H 02/03/25 07:35 88 L Room Air 02/03/25 07:22 36.6 C 111 H 20 93 Room Air 02/03/25 07:19 98 H 18 165/126 H 90 Room Air O2 Flow Rate 02/03/25 08:14 2 02/03/25 08:14 02/03/25 07:35 02/03/25 07:22 02/03/25 07:19 Laboratory Results Short CBC 02/03/25 Range/Units 07:35 WBC 4.87 (4.8-10.8) K/ul Hgb 11.4 L (14.0-18.0) g/dL Hct 34.4 L (42.0-52.0) % Plt Count 119 L (130-400) K/uL BMP 02/03/25 07:35 Sodium 136 Potassium 4.1 Chloride 91 L Carbon Dioxide 32 BUN 21 Creatinine 7.75 H* Glucose 112 H Calcium 9.2 Liver Function 02/03/25 Range/Units 07:35 Total Bilirubin 1.0 (0.2-1.0) mg/dl AST 17 (13-39) U/L ALT 6 L (7-52) U/L Alkaline Phosphatase 53 (34-104) U/L Albumin 4.2 (3.4-5.0) gm/dl Urine 02/03/25 Range/Units Unknown Urine Color Yellow Urine Appearance Clear (Clear) Urine pH >= 9.0 H (4.5-7.5) Ur Specific [place] 1.012 (1.000-1.030) Urine Protein 4+ H (Negative) Urine Glucose (UA) Trace H (Negative) Diagnostic Findings --CXR:Cardiomegaly and suspected pulmonary edema. Left lung base atelectasis Medications Administered Home Medications Medication Instructions Recorded Confirmed clindamycin phosphate 1 % topical 1 applic topical QAM PRN Unknown 11/13/24 02/03/25 gel fluconazole 200 mg tablet 200 mg PO DAILY 11/13/24 02/03/25 metoprolol tartrate 25 mg tablet 12.5 mg PO BID 11/13/24 02/03/25 valganciclovir 450 mg PO UD 11/16/24 11/16/24 CellCept 250 mg PO UD 02/03/25 02/03/25 Flomax 0.4 mg PO DAILY 02/03/25 02/03/25 PhosLo 667 mg PO UD 02/03/25 02/03/25 amitriptyline 25 mg tablet 25 mg PO HS 02/03/25 02/03/25 aspirin 81 mg PO DAILY 02/03/25 02/03/25 cholecalciferol (vitamin D3) 25 1,000 unit PO DAILY 02/03/25 02/03/25 mcg (1,000 unit) capsule dapsone 100 mg tablet 100 mg PO QAM 02/03/25 02/03/25 famotidine 10 mg tablet (Heartburn 10 mg PO QAM 02/03/25 02/03/25 Relief (famotidine)) prednisone 5 mg PO DAILY 02/03/25 02/03/25 sodium zirconium cyclosilicate 10 10 g PO DAILY 02/03/25 02/03/25 gram oral powder packet (Lokelma) tacrolimus 0.5 mg capsule, 0.5 mg PO UD 02/03/25 02/03/25 immediate-release torsemide 100 mg tablet 100 mg PO DAILY 02/03/25 02/03/25 ECG Additional Comments: --EKG: Sinus tachycardia, T wave inversion in anterior leads, QTc 464. (2) Chest pain Chest pain type: unspecified Qualified Code(s): R07.9 - Chest pain, unspecified
[2025-02-03] MEDS: LABETALOL HCL IV 5 MG/ML 20ML IV ONE (10:00)
[2025-02-03] MEDS: FUROSEMIDE 40 MG/4 ML VIAL IV ONE (10:01)
[2025-02-03] MEDS: ASPIRIN 81 MG ECTAB PO ONE (10:22)
[2025-02-03] MEDS ORDERED: NITROGLYCERIN SL 0.4 MG/TAB TAB SL PRN (11:13)
[2025-02-03] MEDS ORDERED: ACETAMINOPHEN 325 MG TAB PO PRN (11:13)
[2025-02-03] MEDS ORDERED: POLYETHYLENE (MIRALAX) 17 GM PACK PO PRN (11:13)
[2025-02-03] MEDS ORDERED: ONDANSETRON INJ 2 MG/ML 2 ML VIAL IV PRN (11:13)
[2025-02-03] MEDS ORDERED: SODIUM CHLORIDE 0.9% 1,000 ML IV PRN (11:33)
[2025-02-03] MEDS: CALCIUM ACETATE 667 MG CAP/TAB PO SCH (12:02)
--- NOTE | 2025-02-03 13:11 | XCELERA ---
[id number]
[2025-02-03] MEDS: METOPROLOL TARTRATE 25 MG TAB PO SCH ×2 (13:30→15:59)
[2025-02-03] MEDS: HEPARIN SOD (PORCINE) 1000 UNIT/ML IV SCH (13:37)
[2025-02-03] MEDS: HEPARIN SOD (PORCINE) 1000 UNIT/ML IV ONE (13:37)
--- NOTE | 2025-02-03 14:14 | Electrocardiogram Report ---
Test Reason : Blood Pressure : */* mmHG Vent. Rate : 101 BPM Atrial Rate : 101 BPM P-R Int : 138 ms QRS Dur : 80 ms QT Int : 358 ms P-R-T Axes : 56 52 97 degrees QTcB Int : 464 ms Sinus tachycardia Nonspecific T wave abnormality Abnormal ECG When compared with ECG of 13-Nov-2024 06:45, ST no longer elevated in Lateral leads T wave inversion now evident in Anterior leads Confirmed by Zeus Cobian ([id number]) on 02/03/2025 2:14:13 PM Referred By: REFERRED SELF Confirmed By: Zeus Cobian
--- NOTE | 2025-02-03 14:36 | Nephrology Consultation ---
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 He is dialysed at [facility] and last outpt HD was Wednesday. He was admitted with shortness of breath and chest x-ray showing pulmonary edema. Will dialyze him urgently for 4 hours target UF 4 L. (2) Renal transplant, status post: patient with failed renal transplant. He will continue low-dose Prograf (3) Hypertension: blood pressure is above target. Please start his outpatient antihypertensives. Will add amlodipine 10 mg daily. 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, chronic anemia, migraine, mood disorder, ongoing vaping use, who was admitted with shortness of breath associated with chest pain. patient reported having outpatient dialysis on 02/02/2025. On admission systolic blood pressure was high in the 200s. Chest x-ray showed pulmonary edema and cardiomegaly. Patient urgently taken to dialysis. Breathing is better. He denies chest pain now. Allergies Allergy/AdvReac Type Severity Reaction Status Date / Time No Known Allergies Allergy Verified 11/13/24 09:45 Home Medications Medication Instructions Recorded Confirmed Type clindamycin phosphate 1 % topical 1 applic topical QAM PRN Unknown 11/13/24 02/03/25 History gel fluconazole 200 mg tablet 200 mg PO DAILY 11/13/24 02/03/25 History metoprolol tartrate 25 mg tablet 12.5 mg PO BID 11/13/24 02/03/25 History valganciclovir 450 mg PO UD 11/16/24 11/16/24 History CellCept 250 mg PO UD 02/03/25 02/03/25 History Flomax 0.4 mg PO DAILY 02/03/25 02/03/25 History PhosLo 667 mg PO UD 02/03/25 02/03/25 History amitriptyline 25 mg tablet 25 mg PO HS 02/03/25 02/03/25 History aspirin 81 mg PO DAILY 02/03/25 02/03/25 History cholecalciferol (vitamin D3) 25 1,000 unit PO DAILY 02/03/25 02/03/25 History mcg (1,000 unit) capsule dapsone 100 mg tablet 100 mg PO QAM 02/03/25 02/03/25 History famotidine 10 mg tablet (Heartburn 10 mg PO QAM 02/03/25 02/03/25 History Relief (famotidine)) prednisone 5 mg PO DAILY 02/03/25 02/03/25 History sodium zirconium cyclosilicate 10 10 g PO DAILY 02/03/25 02/03/25 History gram oral powder packet (Lokelma) tacrolimus 0.5 mg capsule, 0.5 mg PO UD 02/03/25 02/03/25 History immediate-release torsemide 100 mg tablet 100 mg PO DAILY 02/03/25 02/03/25 History Patient History Medical History Anemia of chronic disease Depression Surgical History History of tooth extraction WISDOM TEETH Family History Mother Crohn's disease Social History Smoking Status: Current every day smoker Tobacco Type: E-cigarettes / Vaping Cigarettes Per Day: 5; Second Hand Exposure: No; Do You Dip or Chew Tobacco: No; Hx Alcohol Use: No Hx Substance Use: Yes Last Used Substance: Days (ago) Last Used Substance Other:: wednesday Substance Use Type Other:: medical marijuana Preferred Language: Citizen Of [place] Communication Ability: Effective Charge Attendant Required: No Beliefs That Will Affect Care: None Current Living Situation: Spouse Feels Safe at Home: Yes Safety Concerns: Feels Safe At This Time Assistive Devices: None Review of Systems 2 Review of Systems: All other systems were reviewed and negative except as noted in HPI Physical Exam 2 Physical Exam: General exam: Appears comfortable, no acute distress HEENT: Pupils are equal and reactive to light Neck: No JVD, neck is supple trachea is midline Respiratory system: Clear breath sounds bilaterally. Gastrointestinal: Abdomen is soft, non distended, non tender, bowel sounds are present CVS: Regular rate and rhythm. No murmurs, rubs or gallops Musculoskeletal: No joint or muscle tenderness Extremities: Non tender, no edema, peripheral pulses are present Neuro: Oriented, no tremors, no focal neurological deficits Skin: No rashes Results & Data Vital Signs (Past 12 Hours) Vital Signs Temp Pulse Pulse Pulse Resp BP BP 02/03/25 13:30 96 H 178/125 H 02/03/25 13:00 89 179/120 H 02/03/25 12:30 96 H 170/134 H 02/03/25 12:21 36.8 C 101 H 02/03/25 11:17 02/03/25 11:15 36.9 C 98 H 20 191/130 H 02/03/25 10:34 90 165/128 H 02/03/25 10:22 94 H 18 171/133 H 02/03/25 10:00 101 H 182/130 H 02/03/25 09:53 94 H 19 183/133 H 02/03/25 08:14 02/03/25 08:14 100 H 02/03/25 07:35 02/03/25 07:22 36.6 C 111 H 20 02/03/25 07:19 98 H 18 165/126 H Pulse Ox O2 Del Method O2 Flow Rate 02/03/25 13:30 02/03/25 13:00 02/03/25 12:30 02/03/25 12:21 02/03/25 11:17 Room Air 02/03/25 11:15 93 Room Air 02/03/25 10:34 02/03/25 10:22 94 Nasal Cannula 2 02/03/25 10:00 02/03/25 09:53 93 Room Air 02/03/25 08:14 94 Nasal Cannula 2 02/03/25 08:14 02/03/25 07:35 88 L Room Air 02/03/25 07:22 93 Room Air 02/03/25 07:19 90 Room Air Laboratory Results 02/03/25 07:35 02/03/25 07:35 WBC 4.87 RBC 3.66 L MCV 94.0 MCH 31.1 MCHC 33.1 RDW Std Deviation 47.6 H RDW Coeff of Chalo 13.9 Plt Count 119 L MPV 9.7 Albumin 4.2
[2025-02-03] MEDS: DAPSONE 25 MG TAB PO SCH (16:49)
[2025-02-03] MEDS: TACROLIMUS 0.5 MG CAP PO SCH ×2 (16:50→20:42)
[2025-02-03] MEDS: FLUCONAZOLE 100 MG TAB PO SCH (16:50)
[2025-02-03] MEDS: MYCOPHENOLATE MOFETIL 250 MG CAP PO SCH (16:50)
[2025-02-03] MEDS: TORSEMIDE 100 MG TAB PO SCH (16:51)
[2025-02-03] MEDS: FAMOTIDINE 10 MG TABLET PO SCH (16:51)
[2025-02-03] MEDS: TAMSULOSIN HCL 0.4 MG CAP PO SCH (16:52)
[2025-02-03] MEDS: SODIUM ZIRCONIUM CYCLOSILICATE 10 GM PACKET PO SCH (16:57)
[2025-02-03] MEDS: LABETALOL HCL IV 5 MG/ML 20ML IV PRN (17:34)
[2025-02-03] MEDS: HEPARIN SOD 5,000 UNIT/0.5 ML VIAL SQ SCH (20:39)
[2025-02-03] MEDS: AMITRIPTYLINE HCL 25 MG TAB PO SCH (20:42)
[2025-02-04 06:43] LABS: Hematocrit (blood only) 33.8 % (42.0-52.0); Hemoglobin 11.3 g/dL (14.0-18.0); Mean Corpuscular Hemoglobin 31.8 pg (25.0-34.0); Mean Corpuscular Volume 95.2 fL (80.0-100.0); Platelet Count 121 K/uL (130-400); RDW Standard Deviation 47.8 fL (36.4-46.3); Red Blood Count 3.55 M/uL (4.70-6.10); White Blood Count 4.56 K/ul (4.8-10.8)
[2025-02-04 07:25] LABS: Anion Gap 12.0 (3-11); Blood Urea Nitrogen 18.0 mg/dl (6-23); Calcium 9.5 mg/dl (8.6-10.3); Carbon Dioxide 30.0 mmol/L (21-32); Chloride 93.0 mmol/L (98-107); Cholesterol 163.0 mg/dl (0-200); Creatinine Clr Calc Pharmacy 19.4 ml/min; Glucose 101.0 mg/dl (70-99(Fasting)); HDL Cholesterol 31.0 mg/dl; Magnesium 2.3 mg/dl (1.7-2.4); Potassium 4.3 mmol/L (3.5-5.1); Sodium 135.0 mmol/L (136-145); Triglycerides 297.0 mg/dl (0-150)
[2025-02-04 07:38] LABS: Hemoglobin A1C 4.7 % (4.5-5.6)
--- NOTE | 2025-02-04 07:56 | Cardiology Consultation ---
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 Symptoms felt to be secondary to demand ischemia in setting of hypertensive urgency and volume overload. Initial EKG (02/03) demonstrated sinus tachycardia with TWI in anterior leads (V2-V3). Repeat EKG (02/04) demonstrated sinus rhythm with sinus arrhythmia with poor R wave progression and worsening TWI in anterior leads (V2-V3). ECHO demonstrated reduced left ventricular systolic function (LVEF 40-45%) with mild diffuse hypokinesis, moderate MR, mild AR, and small anterior loculated pericardial effusion. Plan/Recommendations: * Remains stable and asymptomatic with no recurrent anginal symptoms * Blood pressure remains elevated and borderline tachycardic * Elevated high-sensitivity troponins x4 ([phone]) but down trending likely secondary to ESRD and demand ischemia in setting of hypertensive urgency * ECHO revealed reduced left ventricular systolic function (LVEF 40-45%) with mild diffuse hypokinesis but no regional WMAs suggestive of non-ischemic cardiomyopathy * Repeat EKG today with ST-T wave abnormality in anterior leads improved * Held off on IV heparin gtt due to severe hypertension * Switched from metoprolol tartrate to metoprolol succinate ER 50 mg BID * May consider further ischemic evaluation with possible nuclear stress test once blood pressure is better controlled. Patient will need outpatient cardiology follow-up for cardiomyopathy work-up with possible cardiac MRI and medication optimization * Followed by nephrology for ongoing volume and hypertension management with ESRD. Could consider adding Imdur to current regimen if blood pressure remains elevated despite dialysis and recent medication adjustment. Case discussed and coordinated with Dr. Hagen. Please see Dr. Hagen notes for further recommendations. I spent a total of 45 minutes coordinating, documenting, and providing care for this patient excluding time spent in the performance of separately billed services or time spent by another provider/QHP. WALDO Lorenzo Department of Cardiology Supervising Physician Co-Signing Physician Notes I spent a total of 60 minutes on the date of service in preparation, delivery, and documentation of the care provided to this patient, excluding any time spent in the performance of separately billed services. I have personally performed a history and physical examination on the patient. I have reviewed the advance practitioner's documentation, and I agree with, and take responsibility for the plan of care. 35-year-old male with past medical history of Fanconi syndrome, end-stage renal disease status posttransplant in 2019 with transplant rejection, currently on dialysis, uncontrolled hypertension, medication noncompliance presented yesterda y to emergency room with shortness of breath and chest pain. Patient states that he was at home DTB when he felt a dull ache in his chest along with significant shortness of breath. He states that he has not taken some of his blood pressure medications for about a week. He has a history of medication noncompliance. On arrival his systolic blood pressure was significantly elevated with systolics in the 200s and diastolics in the 130s. He was found to have pulmonary edema on his chest x-ray and was taken urgently for dialysis his ECG showed sinus rhythm with T wave inversions in the anterior leads and prolonged QT interval along with elevated troponins after dialysis he was shortness of breath had significantly improved along with his chest pain. His ECG showed sinus tachycardia with T wave inversions in the anterior leads along with elevated troponins of 336 with downtrended to 157. He remains chest pain- free. Subsequent ECG showed improvement in the T wave inversions in his ant erior leads. Echocardiogram done yesterday showed LVEF of 40 to 45% with moderate mitral regurgitation and moderate LVH. Hyper trabeculations were noted in the LV cavity. Patient currently resting comfortably in bed. He denies any chest pain, dyspnea, orthopnea, PND, symptomatic palpitations, or syncope. He states he has chronic chest discomforts once or twice a month similar to what it was yesterday they occur randomly and nonexertional. He has not had any recent follow-up with any sole blacker. I do long discussion with patient about his clinical presentation, his ECG and elevated troponins and echocardiogram. Likely his depressed EF and moderate LVH related to hypertensive heart disease from old hypertension. However at some point we will consider doing an ischemic evaluation possibly with a Lexiscan nuclear stress test. His blood pressure remains uncontrolled today. Would recommend switching his metoprolol to tartrate to either succinate or carvedilol for better blood pressure control along with assistance with his LV function. Given his renal disease likely not a candidate for ROSEANNE ARB or Entresto. Can consider adding Imdur to his hydralazine as BiDil can help with afterload reduction. Will monitor for now. Avoid QT prolonging medications. He recently had a hospitalization 2 months ago with acute blood loss anemia but his hemoglobin has been stable. This does not appear to be an acute coronary syndrome more likely demand ischemia from uncontrolled hypertension. He remains chest pain-free. 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 He was watching television yesterday morning when he developed sudden shortness of breath at rest. Had associated non-radiating, dull aching midsternal chest discomfort with associated diaphoresis. Denies associated nausea. Pain rated at a 4-5/10 at that time. Denies tachy palpitations, lightheadedness, dizziness, orthopnea, PND, loss of appetite, or worsening edema. Denies fever, chills, muscle aches, cough, congestion, or recent illness/infection. Denies history of cardiovascular disease. Has never followed with a sole blacker. History of ESRD secondary to hereditary cystinosis status post kidney transplant in June 2019. History of renal transplant rejection with transplant kidney biopsy (10/17/24) and currently on immunosuppressive treatment with prednisone, tacrolimus and cellcept. Follows with nephrology and remains on HD on MWF for ESRD. Has not missed any dialysis session. He states that he missed a few doses of his "two blood pressure medications" and picked up prescriptions last Wednesday. Denies difficulty affording medications or adverse side effects. He tries to avoids salty snacks, fast food, pre-packaged, canned and ultra-processed foods. Does not add salt to foods. Current every day vape use. Denies alcohol or illicit drug use. Denies significant family history of cardiovascular disease. Allergies Allergy/AdvReac Type Severity Reaction Status Date / Time No Known Allergies Allergy Verified 11/13/24 09:45 Home Medications Medication Instructions Recorded Confirmed Type clindamycin phosphate 1 % topical 1 applic topical QAM PRN Unknown 11/13/24 02/03/25 History gel fluconazole 200 mg tablet 200 mg PO DAILY 11/13/24 02/03/25 History metoprolol tartrate 25 mg tablet 12.5 mg PO BID 11/13/24 02/03/25 History valganciclovir 450 mg PO UD 11/16/24 11/16/24 History CellCept 250 mg PO UD 02/03/25 02/03/25 History Flomax 0.4 mg PO DAILY 02/03/25 02/03/25 History PhosLo 667 mg PO UD 02/03/25 02/03/25 History amitriptyline 25 mg tablet 25 mg PO HS 02/03/25 02/03/25 History aspirin 81 mg PO DAILY 02/03/25 02/03/25 History cholecalciferol (vitamin D3) 25 1,000 unit PO DAILY 02/03/25 02/03/25 History mcg (1,000 unit) capsule dapsone 100 mg tablet 100 mg PO QAM 02/03/25 02/03/25 History famotidine 10 mg tablet (Heartburn 10 mg PO QAM 02/03/25 02/03/25 History Relief (famotidine)) prednisone 5 mg PO DAILY 02/03/25 02/03/25 History sodium zirconium cyclosilicate 10 10 g PO DAILY 02/03/25 02/03/25 History gram oral powder packet (Lokelma) tacrolimus 0.5 mg capsule, 0.5 mg PO UD 02/03/25 02/03/25 History immediate-release torsemide 100 mg tablet 100 mg PO DAILY 02/03/25 02/03/25 History Patient History Medical History (Updated 02/04/25 @ 07:50 by WALDO Lorenzo) Chest pain Anemia of chronic disease Depression Surgical History History of tooth extraction WISDOM TEETH Family History Mother Crohn's disease Social History Smoking Status: Current every day smoker Tobacco Type: E-cigarettes / Vaping Cigarettes Per Day: 5; Second Hand Exposure: No; Do You Dip or Chew Tobacco: No; Hx Alcohol Use: No Hx Substance Use: Yes Last Used Substance: Days (ago) Last Used Substance Other:: wednesday Substance Use Type Other:: medical marijuana Preferred Language: Malagasy Communication Ability: Effective Melter Helper Required: No Beliefs That Will Affect Care: None Current Living Situation: Spouse Feels Safe at Home: Yes Safety Concerns: Feels Safe At This Time Assistive Devices: None Review of Systems Review of Systems: See HPI for pertinent positives. All others negative other than those noted in the HPI. CONSTITUTIONAL: No change in weight, No weakness, No fatigue, No fevers, No sweats or chills. HEENT: No visual changes, No epistaxis, No bleeding gums, No dysphagia, PULMONARY: +shortness of breath. No cough, sputum, or hemoptysis, No wheezing, and No recent change in breathing. CARDIOVASCULAR: +chest pain. No dyspnea on exertion, No edema, No palpitations, No syncope, No claudication, No calf pain. GASTROINTESTINAL: No change in appetite, No abdominal pain, No change in bowel habits, No significant heartburn, No nausea, No vomiting, No diarrhea, No constipation, No blood in stools or black tarry stools, No dysphagia. HEMATOLOGIC: No abnormal bleeding and No bruising. NEUROLOGICAL: No falls, No dizziness, No lightheadedness, Normal balance, No headaches, and No weakness. PSYCH: No sleep disturbances, No mood changes. Physical Exam Physical Exam: Vital signs within normal limits as above. General: Well developed and nourished. No acute distress. A+Ox3. HEENT: Normocephalic. Atraumatic. EOMI. Conjunctiva and sclera clear. NECK: Trachea midline. No thyromegaly. No carotid bruits. No JVD. Carotid upstrokes are brisk. Heart: Tachycardic. Regular rhythm. S1 and S2 noted. No murmur. No rubs or gallops. PMI non displaced. Lungs: No acute respiratory distress. Clear to auscultation. No wheezes.No rhonchi. No rales. Abdomen: Normal bowel sounds. Soft. Nontender. No abdominal bruits. Extremities: Normal capillary refill. No edema. No clubbing or cyanosis. Skin: Warm and dry. NEURO: No focal deficits. PSYCH: Appropriate affect and insight. Results & Data Vital Signs (Past 12 Hours) Vital Signs Temp Pulse Pulse Resp BP Pulse Ox O2 Del Method 02/04/25 04:46 36.6 C 91 H 16 147/116 H 94 Room Air 02/03/25 22:43 36.8 C 18 142/110 H 93 Room Air 02/03/25 22:00 100 H Laboratory Results Cardiac Enzymes 02/03/25 02/03/25 02/03/25 Range/Units 07:35 09:45 16:59 AST 17 (13-39) U/L Troponin I High Sens 306.8 H* 336.0 H* 328.5 H* (0-20) pg/ml B-Natriuretic Peptide > 4700 H (0-100) pg/ml 02/03/25 Range/Units 22:49 AST (13-39) U/L Troponin I High Sens 267.1 H* (0-20) pg/ml B-Natriuretic Peptide (0-100) pg/ml Coagulation 02/03/25 Range/Units 07:35 B-Natriuretic Peptide > 4700 H (0-100) pg/ml Lipids 02/04/25 Range/Units 04:44 Triglycerides 297 H (0-150) mg/dl Cholesterol 163 (0-200) mg/dl HDL Cholesterol 31 mg/dl Cholesterol/HDL Ratio 5.3 H (0-5) CBC 02/03/25 02/04/25 Range/Units 07:35 04:44 WBC 4.87 4.56 L (4.8-10.8) K/ul RBC 3.66 L 3.55 L (4.70-6.10) M/uL Hgb 11.4 L 11.3 L (14.0-18.0) g/dL Hct 34.4 L 33.8 L (42.0-52.0) % Plt Count 119 L 121 L (130-400) K/uL Neut # (Auto) 4.06 (1.40-6.50) K/uL Lymph # (Auto) 0.43 L (1.20-3.40) K/uL Archer # (Auto) 0.16 (0.11-0.59) K/uL Eos # (Auto) 0.15 (0.00-0.50) K/uL Baso # (Auto) 0.06 (0.00-0.20) K/uL Comprehensive Metabolic Panel 02/03/25 02/04/25 Range/Units 07:35 04:44 Sodium 136 135 L (136-145) mmol/L Potassium 4.1 4.3 (3.5-5.1) mmol/L Chloride 91 L 93 L (98-107) mmol/L Carbon Dioxide 32 30 (21-32) mmol/L BUN 21 18 (6-23) mg/dl Creatinine 7.75 H* 5.57 H* D (0.6-1.4) mg/dl Glucose 112 H 101 H (70-99(Fasting)) mg/dl Calcium 9.2 9.5 (8.6-10.3) mg/dl AST 17 (13-39) U/L ALT 6 L (7-52) U/L Alkaline Phosphatase 53 (34-104) U/L Total Protein 7.7 (6.0-8.3) gm/dl Albumin 4.2 (3.4-5.0) gm/dl Intake and Output 02/03/25 02/04/25 02/04/25 22:59 06:59 14:59 Intake Total 1020 / 1242 222 / 1242 Balance 1020 / 1242 222 / 1242 Intake: Oral 1020 / 1242 222 / 1242 Other: Hemodialysis Ultrafiltration 4,000 Amount Weight 72.6 kg Weight Measurement Method Standing Scale Diagnostic Findings Sinus rhythm/tachycardia with heart rates in 80-100s upon 24-hour telemetry review. EKG 01/25/25 04:43:13 NSR with sinus arrhythmia T wave abnormality with TWI in anterior leads 82 bpm QTc 521 ms EKG 02/03/25 07:36:32 Sinus tachycardia Non-specific T wave abnormality with TWI in anterior leads 101 bpm QTc 464 ms ECHO 02/03/25 LVEF = 40-45% Mild global hypokinesis of the left ventricle Mildly dilated right ventricle Normal right ventricular systolic function Moderate mitral regurgitation Mild aortic regurgitation Small anterior loculated pericardial effusion Chest X-Ray 02/03/25 07:47 Clinical History: Dyspnea Technique: A frontal view of the chest was obtained Comparison is made to the prior examination dated 10/16/2024 Findings: There is new diffuse interstitial prominence, concerning for pulmonary edema. The heart is mildly enlarged. No pleural effusion or pneumothorax is seen . There is suspected left lung base atelectasis No fracture is noted. No foreign body is seen Impression: 1. Cardiomegaly and suspected pulmonary edema 2. Left lung base atelectasis Electronically signed by Pola Bansal 02-03-2025 08:39 AM PG Care Time/CCT Total # of Minutes Spent Total Time Spent with Patient: Total time spent is greater than 50% in coordination of care (as documented) at patient's floor/unit and/or counseling patient: [place] [address] IN/OBS CONSULT LVL 5,80M Patient Type New Medical Decision Making High Complexity Diagnoses Shortness of breath R06.02 Hypertensive urgency I16.0 End stage renal disease N18.6 Time Spent (min) 45
[2025-02-04] MEDS: ASPIRIN 81 MG ECTAB PO SCH (08:05)
[2025-02-04] MEDS: CHOLECALCIFEROL 25 MCG (1000 UNITS) TAB PO SCH (08:05)
[2025-02-04] MEDS ORDERED: SODIUM CHLORIDE 0.9% 1,000 ML IV PRN (09:34)
--- NOTE | 2025-02-04 10:26 | Nephrology Progress Note ---
Date of Service February 04, 2025 Assessment & Plan (1) ESRD on dialysis: Plan: Patient with ESRD on dialysis after failed renal transplant. He is dialysed at [facility] and last outpt HD was Wednesday. He was admitted with shortness of breath and chest x-ray showing pulmonary edema. He was urgenctly dialyzed on 02/03 for 4 hours target UF 4 L. Electrolytes are stable. No hypoxia. Will plan HD tomorrow for 4hrs target UF 4litres (2) Renal transplant, status post: Plan: patient with failed renal transplant. He will continue low-dose Prograf (3) Hypertension: Plan: blood pressure is above target. He has tachycardia. Will increase metoprolol to 50mg BID. Please give addition 50mg this morning to the 25mg he got earlier. continue amlodipine 10 mg daily and hydralazine 25mg tid. Plan total of 50minutes spent on chart review and patient evaluation Admission and Anticipated Discharge Date Admission Date: February 03, 2025 Subjective Seen for ESRD and hypertensive urgency. He feels better after HD yesterday. No SOB. BP is still high. No chest pain. Review of Systems 2 Review of Systems: All other systems were reviewed and negative except as noted in HPI Physical Exam 2 Physical Exam: General exam: Appears comfortable, no acute distress HEENT: Pupils are equal and reactive to light Neck: No JVD, neck is supple trachea is midline Respiratory system: Clear breath sounds bilaterally. Gastrointestinal: Abdomen is soft, non distended, non tender, bowel sounds are present CVS: sinus tachy,. No murmurs, rubs or gallops Musculoskeletal: No joint or muscle tenderness Extremities: Non tender, no edema, peripheral pulses are present Neuro: Oriented, no tremors, no focal neurological deficits Skin: No rashes Results & Data Vital Signs (Past 12 Hours) Vital Signs Temp Pulse Resp BP Pulse Ox O2 Del Method 02/04/25 07:54 36.9 C 108 H 19 168/132 H 94 Room Air 02/04/25 04:46 36.6 C 91 H 16 147/116 H 94 Room Air 02/03/25 22:43 36.8 C 18 142/110 H 93 Room Air Laboratory Results 02/04/25 04:44 02/04/25 04:44 WBC 4.56 L RBC 3.55 L MCV 95.2 MCH 31.8 MCHC 33.4 RDW Std Deviation 47.8 H RDW Coeff of Chalo 13.7 Plt Count 121 L MPV 9.8 Phosphorus 5.8 H
[2025-02-04] MEDS: METOPROLOL TARTRATE 50 MG TAB PO SCH (11:14)
[2025-02-04] MEDS: HEPARIN SOD (PORCINE) 1000 UNIT/ML IV ONE (11:14)
--- NOTE | 2025-02-04 12:13 | Electrocardiogram Report ---
Test Reason : Blood Pressure : */* mmHG Vent. Rate : 82 BPM Atrial Rate : 82 BPM P-R Int : 132 ms QRS Dur : 82 ms QT Int : 446 ms P-R-T Axes : 70 45 83 degrees QTcB Int : 521 ms Normal sinus rhythm with sinus arrhythmia T wave abnormality, consider anterior ischemia Prolonged QT Abnormal ECG When compared with ECG of 03-Feb-2025 07:36, T wave inversion more evident in Anterior leads QT has lengthened Confirmed by Zeus Cobian ([id number]) on 02/04/2025 12:13:00 PM Referred By: REFERRED SELF Confirmed By: Zeus Cobian
--- NOTE | 2025-02-04 12:14 | Hospitalist Progress Note ---
Date of Service February 04, 2025 Assessment & Plan (1) Hypertensive urgency: (2) Myocardial infarction due to demand ischemia: (3) Acute on chronic heart failure with mildly reduced ejection fraction (HFmrEF, 41-49%): (4) Nonischemic cardiomyopathy: (5) ESRD on dialysis: (6) Antibody mediated rejection of renal transplant: (7) Anemia of chronic disease: (8) Right ventricular dysfunction: Plan Patient 35-year-old gentleman who presents with myocardial infarction due to demand ischemia from hypertensive urgency. Echocardiogram shows mildly reduced ejection fraction. Hydralazine started this morning for better blood pressure control Transitioning to metoprolol succinate with increased dose for better blood pressure control, heart rate control and decreased ejection fraction Continue other antihypertensives Continue hemodialysis as directed by nephrology Reviewed cardiology notation, will follow-up outpatient for further ischemic eval and working towards goal-directed medical therapy for his decreased ejection fraction Admission and Anticipated Discharge Date Admission Date: February 03, 2025 Subjective Patient reports no further chest pain. Asking when he may be able to go home Physical Exam Physical Exam: Constitutional: Alert, nontoxic HEENT: Mucous membranes moist. Lungs: Clear to auscultation, decreased, no wheezes rales or rhonchi CV: S1-S2, regular Abdomen: Soft, nontender, nondistended Extremities: No significant edema Neuro: No focal deficits Psych: Cooperative, normal mood Results & Data Results & Data Vital Signs (Past 12 Hours) Vital Signs Temp Pulse Pulse Pulse Resp BP Pulse Ox 02/04/25 11:48 36.5 C 100 H 19 161/98 H 96 02/04/25 10:00 101 H 145/72 H 02/04/25 08:00 88 02/04/25 07:54 36.9 C 108 H 19 168/132 H 94 02/04/25 04:46 36.6 C 91 H 16 147/116 H 94 O2 Del Method 02/04/25 11:48 Room Air 02/04/25 10:00 02/04/25 08:00 02/04/25 07:54 Room Air 02/04/25 04:46 Room Air Diagnostic Findings Reviewed imaging, laboratory and diagnostic studies. Pertinent findings as below. Echocardiogram: Ejection fraction 40-45%, right ventricular dysfunction CBC stable Renal panel as expected for hemodialysis patient Troponins reviewed trending down
--- NOTE | 2025-02-04 12:16 | Electrocardiogram Report ---
Test Reason : Blood Pressure : */* mmHG Vent. Rate : 97 BPM Atrial Rate : 97 BPM P-R Int : 136 ms QRS Dur : 78 ms QT Int : 380 ms P-R-T Axes : 65 43 79 degrees QTcB Int : 483 ms Sinus rhythm with occasional Premature ventricular complexes Prolonged QT Abnormal ECG When compared with ECG of 04-Feb-2025 04:43, (unconfirmed) Premature ventricular complexes are now Present Confirmed by Zeus Cobian ([id number]) on 02/04/2025 12:16:05 PM Referred By: REFERRED SELF Confirmed By: Zeus Cobian
[2025-02-04] MEDS: METOPROLOL SUCC 50MG EXT REL TAB PO SCH (13:55)
[2025-02-04] MEDS ORDERED: METOPROLOL SUCC 50MG EXT REL TAB PO SCH (21:00)
[2025-02-05 08:21] VITALS: RESP 18; O2SAT 95
[2025-02-05] MEDS ORDERED: SODIUM CHLORIDE 0.9% 1,000 ML IV PRN (08:33)
[2025-02-05 09:38] LABS: Hematocrit (blood only) 30.8 % (42.0-52.0); Hemoglobin 10.4 g/dL (14.0-18.0); Mean Corpuscular Hemoglobin 31.1 pg (25.0-34.0); Mean Corpuscular Volume 92.2 fL (80.0-100.0); Platelet Count 121 K/uL (130-400); RDW Standard Deviation 46.2 fL (36.4-46.3); Red Blood Count 3.34 M/uL (4.70-6.10); White Blood Count 5.16 K/ul (4.8-10.8)
--- NOTE | 2025-02-05 10:16 | Discharge Summary ---
Discharge Summary Date of Service February 05, 2025 Principal Dx & Hospital Course #1 = Principal Diagnosis (1) Hypertensive urgency: (2) Myocardial infarction due to demand ischemia: (3) Acute on chronic heart failure with mildly reduced ejection fraction (HFmrEF, 41-49%): (4) Nonischemic cardiomyopathy: (5) ESRD on dialysis: (6) Antibody mediated rejection of renal transplant: (7) Anemia of chronic disease: (8) Right ventricular dysfunction: Plan Patient 35-year-old gentleman presented the emergency department with chest discomfort and laboratory evidence of a demand ischemia/type II myocardial infarction due to hypertensive urgency. Echocardiogram showed mildly reduced ejection fraction. Patient was admitted to the hospital. Troponins were trended. Nephrology consultation was obtained for ongoing hemodialysis needs. He was started on Norvasc for better blood pressure control. His metoprolol dose was increased as well. He underwent additional session of ultrafiltration. Patient's blood pressure started to respond to initial interventions. His metoprolol dosing was increased again for blood pressure and heart rate control. Hydralazine was added for blood pressure control. He tolerated these int erventions. On the day of discharge his blood pressure was significantly improved. He had no chest pain. No shortness of breath. Plan for him to be dialyzed today and be discharged home with outpatient follow-up. 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 Patient states that he woke up this morning with shortness of breath while watching television. He also states having cough with minimal expectoration. Reports retrosternal chest pain initially 4/10 on onset currently 2/10, dull aching type, nonradiating, no aggravating relieving factors. He believes chest pain is secondary to cough. He denies any dyspnea on exertion. Reports being compliant with dialysis. Last dialysis was yesterday. Denies any history of palpitations,orthopnea, PND, dizziness, pedal edema, hemoptysis, fever, chills, headache, focal weakness, change in vision, nausea, vomiting, abdominal pain, diarrhea, dysuria, hematuria. Patient states he did not take any medications today. Admission Exam Per Admitting Provider See H&P Discharge Exam Constitutional: Alert HEENT: Mucous membranes moist. Lungs: Clear to auscultation, decreased, no wheezes rales or rhonchi CV: S1-S2, regular Abdomen: Soft, nontender, nondistended Extremities: No significant edema, AV fistula left wrist Neuro: No focal deficits Psych: Cooperative, normal mood Updated Medication List Medication Instructions Recorded Confirmed Type clindamycin phosphate 1 % topical 1 applic topical QAM PRN Unknown 11/13/24 02/03/25 History gel fluconazole 200 mg tablet 200 mg PO DAILY 11/13/24 02/03/25 History metoprolol tartrate 25 mg tablet 12.5 mg PO BID 11/13/24 02/03/25 History valganciclovir 450 mg PO UD 11/16/24 11/16/24 History CellCept 250 mg PO UD 02/03/25 02/03/25 History Flomax 0.4 mg PO DAILY 02/03/25 02/03/25 History PhosLo 667 mg PO UD 02/03/25 02/03/25 History amitriptyline 25 mg tablet 25 mg PO HS 02/03/25 02/03/25 History aspirin 81 mg PO DAILY 02/03/25 02/03/25 History cholecalciferol (vitamin D3) 25 1,000 unit PO DAILY 02/03/25 02/03/25 History mcg (1,000 unit) capsule dapsone 100 mg tablet 100 mg PO QAM 02/03/25 02/03/25 History famotidine 10 mg tablet (Heartburn 10 mg PO QAM 02/03/25 02/03/25 History Relief (famotidine)) prednisone 5 mg PO DAILY 02/03/25 02/03/25 History sodium zirconium cyclosilicate 10 10 g PO DAILY 02/03/25 02/03/25 History gram oral powder packet (Lokelks) tacrolimus 0.5 mg capsule, 0.5 mg PO UD 02/03/25 02/03/25 History immediate-release torsemide 100 mg tablet 100 mg PO DAILY 02/03/25 02/03/25 History amlodipine 10 mg tablet (Norvasc) 10 mg PO DAILY #30 tabs 02/05/25 Rx hydralazine 50 mg tablet 50 mg PO TID #90 tabs 02/05/25 Rx metoprolol succinate 50 mg 75 mg (1.5 x 50 mg) PO BID #90 tabs 02/05/25 Rx tablet,extended release 24 hr (Toprol XL) Hospital Stay Data Consultations 02/03/25 09:23 ED Decision to Admit Stat 02/03/25 09:52 Consult Nephrology Routine 02/03/25 11:13 Consult Cardiology Routine Diagnostic Imagining Performed Reviewed imaging, laboratory and diagnostic studies. Pertinent findings as below. Echocardiogram: Ejection fraction 40 to 45%, mildly dilated right ventricle with normal right ventricular systolic function, small anterior pericardial effusion WBCs 5.1 Hemoglobin 10.4 Platelets of 121 Electrolytes stable Creatinine 5.5 Troponin initially 306, peaked at 336, decreased to 157 Pending Results Patient Have Any Pending Studies at Discharge: No Discharge Instructions Given to Patient (Per Discharging Provider) Continue with your usual hemodialysis schedule Follow-up with your providers for additional titration of your blood pressure medication Total Time Total Time Spent Total Time Spent (In Minutes): 36
[2025-02-05 10:19] VITALS: TEMP 97.7
[2025-02-05] MEDS: HEPARIN SOD (PORCINE) 1000 UNIT/ML IV SCH ×2 (11:34)
--- NOTE | 2025-02-05 12:49 | Cardiology Progress Note ---
Date of Service February 05, 2025 Assessment & Plan (1) Shortness of breath: (2) Hypertensive urgency: (3) End stage renal disease: Plan 35 year old male with PMHx significant for ESRD secondary to hereditary cystinosis s/p kidney transplant in 2019 at [facility], history of transplant rejection on immunosuppressive treatment, Fanconi syndrome, nephrogenic diabetes insipidus, chronic anemia, HTN, HLD, PVCs, migraine, anxiety/depression, ongoing vaping use, and history of medical noncompliance who presented to [facility] on 02/03/25 for evaluation of sudden onset of shortness of breath and non- radiating, non-exertional midsternal chest pain. Symptoms felt to be secondary to demand ischemia in setting of hypertensive urgency and volume overload. Initial EKG (02/03) demonstrated sinus tachycardia with TWI in anterior leads (V2-V3). Repeat EKG (02/04) demonstrated sinus rhythm with sinus arrhythmia with poor R wave progression and worsening TWI in anterior leads (V2-V3). ECHO demonstrated reduced left ventricular systolic function (LVEF 40-45%) with mild diffuse hypokinesis, moderate MR, mild AR, and small anterior loculated pericardial effusion. Plan/Recommendations: * Elevated high-sensitivity troponins x4 ([phone]) likely secondary to ESRD and demand ischemia in setting of hypertensive urgency * Patient remains chest pain free * Metoprolol tartrate transitioned to metoprolol succinate 50 mg BID. Improved HR and BP trending lower today * Add isosorbide 30 mg daily * Volume status improved with fluid removal with dialysis * ECHO revealed reduced left ventricular systolic function (LVEF 40-45%) with mild diffuse hypokinesis but no regional WMAs suggestive of non-ischemic cardiomyopathy * May consider further ischemic evaluation with possible nuclear stress test once blood pressure is better controlled. Patient will need outpatient cardiology follow-up for cardiomyopathy work-up with possible cardiac MRI and medication optimization * Followed by nephrology for ongoing volume and hypertension management with ESRD. Case discussed with Dr. Luis Eduardo Quinteros spent a total of 35 minutes on the date of service in preparation, delivery, and documentation of the care provided to this patient, excluding any time spent in the performance of separately billed services. Sadaf Zapien PA-C Department of Cardiology, [facility] This chart was completed in part utilizing Speech Voice Recognition Software. Grammatical errors, random word insertions, pronoun errors, and incomplete sentences are an occasional consequence of this system due to software limitations, ambient noise, and hardware issues. Any formal questions or concerns about the content, text, or information contained within the body of this dictation should be directly addressed to the provider for clarification. Admission and Anticipated Discharge Date Admission Date: February 03, 2025 Supervising Physician Co-Signing Physician Notes I have personally performed a history and physical examination on the patient. I have reviewed the advance practitioner's documentation, and I agree with, and take responsibility for the plan of care. 35-year-old male history of end-stage renal disease status post kidney transplant 2019 [facility], transplant rejection, Fanconi syndrome, nephrogenic diabetes insipidus. Presented to [facility] 02/03/25 with hypertensive urgency, volume overload, and elevated troponin secondary demand ischemia. Echocardiogram demonstrating mild LV systolic dysfunction. Patient remains chest pain-free. Discontinue metoprolol tartrate in favor of Toprol-XL 50 mg twice daily. Add isosorbide monohydrate 30 mg daily. Continue hydralazine and amlodipine. Importance of compliance reviewed. Outpatient evaluation of cardiomyopathy with cardiac MRI and nuclear stress testing when blood pressure controlled. Norman Hoff DO, [facility] Subjective Patient seen/examined today during dialysis. He was sleeping and awakened easily. Denies acute complaints. No chest pain, SOB, headache, palpitations. BP trending lower. Volume status also improving. Review of Systems Review of Systems: All systems reviewed & are unremarkable except as noted in HPI & below Physical Exam Physical Exam: General: Well developed and nourished. No acute distress. A+Ox3. HEENT: Normocephalic. Atraumatic. EOMI. Conjunctiva and sclera clear. NECK: Trachea midline. No thyromegaly. No carotid bruits. No JVD. Carotid upstrokes are brisk. Heart: Regular rhythm. S1 and S2 noted. No murmur. No rubs or gallops. PMI non displaced. Lungs: No acute respiratory distress. Clear to auscultation. No wheezes.No rhonchi. No rales. Abdomen: Normal bowel sounds. Soft. Nontender. No abdominal bruits. Extremities: Normal capillary refill. No edema. No clubbing or cyanosis. Skin: Warm and dry. NEURO: No focal deficits. PSYCH: Appropriate affect and insight. Results & Data Vital Signs (Past 12 Hours) Vital Signs Temp Pulse Pulse Resp BP BP Pulse Ox 02/05/25 12:00 86 149/97 H 02/05/25 11:30 86 156/103 H 02/05/25 11:00 78 142/100 H 02/05/25 10:30 78 142/100 H 02/05/25 10:00 79 141/91 H 02/05/25 09:30 80 142/100 H 02/05/25 09:16 82 139/107 H 02/05/25 09:06 36.5 C 87 02/05/25 08:50 02/05/25 07:00 37.0 C 91 H 18 133/86 95 O2 Del Method 02/05/25 12:00 02/05/25 11:30 02/05/25 11:00 02/05/25 10:30 02/05/25 10:00 02/05/25 09:30 02/05/25 09:16 02/05/25 09:06 02/05/25 08:50 Room Air 02/05/25 07:00 Room Air Laboratory Results CBC 02/05/25 Range/Units 09:16 WBC 5.16 (4.8-10.8) K/ul RBC 3.34 L (4.70-6.10) M/uL Hgb 10.4 L (14.0-18.0) g/dL Hct 30.8 L (42.0-52.0) % Plt Count 121 L (130-400) K/uL Intake and Output 02/04/25 02/05/25 02/05/25 22:59 06:59 14:59 Intake Total 240 / 240 Balance 240 / 240 Intake: Oral 240 / 240 Other: Weight 72.6 kg Weight Measurement Method Standing Scale Patient Weight 02/06/25 06:59 Weight 72.6 kg Diagnostic Findings Patient not on telemetry Medications Administered Current Inpatient Medications Acetaminophen (Acetaminophen 325 Mg Tab) 650 mg PO Q4H PRN PRN Reason: Pain or Fever Stop: 03/05/25 11:12 Amitriptyline HCl (Amitriptyline Hcl 25 Mg Tab) 25 mg PO HS [facility] Stop: 03/05/25 20:59 Last Admin: 02/04/25 20:25 Dose: 25 mg Amlodipine Besylate (Amlodipine Besylate 5 Mg Tab) 10 mg PO QAM [facility] Stop: 03/05/25 14:44 Last Admin: 02/04/25 08:07 Dose: 10 mg Aspirin (Aspirin 81 Mg Ectab) 81 mg PO DAILY [facility] Stop: 03/06/25 08:59 Last Admin: 02/05/25 08:43 Dose: 81 mg Calcium Acetate (Calcium Acetate 667 Mg Cap/Tab) 667 mg PO TIDM [facility] Stop: 03/05/25 11:59 Last Admin: 02/05/25 08:43 Dose: 667 mg Dapsone (Dapsone 25 Mg Tab) 100 mg PO QAM [facility] Stop: 03/05/25 08:59 Last Admin: 02/05/25 08:43 Dose: 100 mg Famotidine (Famotidine 10 Mg Tablet) 10 mg PO DAILY@1600 [facility] Stop: 03/05/25 11:59 Last Admin: 02/04/25 17:29 Dose: Not Given Fluconazole (Fluconazole 100 Mg Tab) 200 mg PO DAILY@1600 [facility] Stop: 03/05/25 11:59 Last Admin: 02/04/25 17:29 Dose: Not Given Heparin Sodium (Porcine) (Heparin Sod 5,000 Unit/0.5 Ml Vial) 5,000 units SQ Q12 [facility] Stop: 03/05/25 20:59 Last Admin: 02/05/25 08:47 Dose: Not Given Heparin Sodium (Porcine) (Heparin Sod (Porcine) 1000 Unit/Ml) 1,600 units IV TODAY@0833 [facility] Stop: 02/05/25 16:00 Last Admin: 02/05/25 11:34 Dose: Not Given Hydralazine HCl (Hydralazine Hcl 25 Mg Tab) 25 mg PO Q6H PRN PRN Reason: hypertension Stop: 03/06/25 12:14 Hydralazine HCl (Hydralazine Tab 50 Mg Tab) 50 mg PO TID [facility] Stop: 03/07/25 08:59 Sodium Chloride (Nss) 1,000 mls @ 0 mls/hr IV .Q0M PRN PRN Reason: For Hemodialysis Use ONLY Stop: 02/05/25 14:32 Isosorbide Mononitrate (Isosorbide [place] Extended Rel 30 Mg Tabcr) [facility] Stop: 03/07/25 12:44 Metoprolol Succinate (Metoprolol Succ 25mg Ext Rel Tab) 75 mg PO BID [facility] Stop: 03/07/25 08:59 Mycophenolate Mofetil (Mycophenolate Mofetil 250 Mg Cap) 1,000 mg PO BID [facility] Stop: 03/05/25 12:14 Last Admin: 02/05/25 08:43 Dose: 1,000 mg Nitroglycerin (Nitroglycerin Sl 0.4 Mg/Tab Tab) 0.4 mg SL Q5M PRN PRN Reason: Chest Pain Stop: 03/05/25 11:12 Ondansetron HCl (Ondansetron Inj 2 Mg/Ml 2 Ml Vial) 4 mg IV Q6H PRN PRN Reason: Nausea Stop: 03/05/25 11:12 Polyethylene Glycol (Polyethylene (Miralax) 17 Gm Pack) 17 gm PO DAILY PRN PRN Reason: Constipation Stop: 03/05/25 11:12 Prednisone (Prednisone 5 Mg Tab) 5 mg PO DAILY [facility] Stop: 03/05/25 11:44 Last Admin: 02/05/25 08:44 Dose: 5 mg Tacrolimus (Tacrolimus 0.5 Mg Cap) 1 mg PO HS [facility] Stop: 03/05/25 20:59 Last Admin: 02/04/25 20:26 Dose: 1 mg Tacrolimus (Tacrolimus 0.5 Mg Cap) 1.5 mg PO QAM [facility] Stop: 03/05/25 12:14 Last Admin: 02/05/25 08:44 Dose: 1.5 mg Tamsulosin HCl (Tamsulosin Hcl 0.4 Mg Cap) 0.4 mg PO DAILY [facility] Stop: 03/05/25 12:14 Last Admin: 02/05/25 08:44 Dose: 0.4 mg Torsemide (Torsemide 100 Mg Tab) 100 mg PO DAILY [facility] Stop: 03/05/25 11:29 Last Admin: 02/05/25 08:44 Dose: 100 mg Valganciclovir (Valganciclovir Hcl 450 Mg Tablet) 450 mg PO MoTh@1600 [facility] Stop: 03/07/25 15:59 Vitamin D (Cholecalciferol 25 Mcg (1000 Units) Tab) 25 mcg PO DAILY [facility] Stop: 03/06/25 08:59 Last Admin: 02/05/25 08:43 Dose: 25 mcg PG Care Time/CCT Total # of Minutes Spent Total Time Spent with Patient: Total time spent is greater than 50% in coordination of care (as documented) at patient's floor/unit and/or counseling patient: 35 minutes Coding Level of Care Code 21332 SUB INP/OBS CARE 3/50MIN Diagnoses Shortness of breath R06.02 Hypertensive urgency I16.0 End stage renal disease N18.6
[2025-02-05] MEDS: ISOSORBIDE MONO EXTENDED REL 30 MG TABCR PO SCH (13:58)
[2025-02-05] MEDS: METOPROLOL SUCC 25MG EXT REL TAB PO SCH (13:58)
[2025-02-05 14:59] VITALS: BP 146/105; PULSE 96
[2025-02-05] MEDS ORDERED: VALGANCICLOVIR HCL 450 MG TABLET PO SCH (16:00)
== END 2025-02-05 14:35 | disposition home or self-care (01) | DRG 280 ==
LOC: ED 07:18 → 2E 09:52 → SUATTDRO 09:52 → 2E 10:40 → 3N 02-04 14:44
DX: Z94.0 Kidney transplant status; I13.2 Hypertensive heart and chronic kidney disease with heart failure and with stage 5 chronic kidney disease, or end stage renal disease; F17.290 Nicotine dependence, other tobacco product, uncomplicated; E72.09 Other disorders of amino-acid transport; Z79.899 Other long term (current) drug therapy; I21.A1 Myocardial infarction type 2; G43.909 Migraine, unspecified, not intractable, without status migrainosus; T86.12 Kidney transplant failure; I42.8 Other cardiomyopathies; I12.0 Hypertensive chronic kidney disease with stage 5 chronic kidney disease or end stage renal disease; Z79.82 Long term (current) use of aspirin; N25.1 Nephrogenic diabetes insipidus; F32.A Depression, unspecified; I50.23 Acute on chronic systolic (congestive) heart failure; E78.5 Hyperlipidemia, unspecified; I31.39 Other pericardial effusion (noninflammatory); N18.6 End stage renal disease; T86.11 Kidney transplant rejection; F12.90 Cannabis use, unspecified, uncomplicated; D69.6 Thrombocytopenia, unspecified; D63.1 Anemia in chronic kidney disease; I16.0 Hypertensive urgency

== ENCOUNTER 2025-02-11 06:05 | Inpatient (IN) ==
--- NOTE | 2025-02-11 06:23 | Emergency Department Note ---
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 Patient reports being admitted to this facility last week for similar symptoms and he understands this was related to his blood pressure. Patient reports he goes to dialysis Wednesday and has not missed any sessions since his discharge. Patient reports he did eat potato chips last night which she does not usually do. He reports increased cough and congestion with yellow sputum production. He denies fevers. On evaluation the patient is no acute distress, afebrile with heart in the 100s and blood pressure 170/110s with mild dyspnea but normal respiratory effort. O2 saturation is 91% and greater on room air. Lungs are diminished at the bases bilaterally. EKG without overt acute ischemia. CXR demonstrates bilateral mid to lower lung field interstitial opacity suspicious for pulmonary edema versus pneumonia per my personal preliminary review/interpretation. WBC 4.3 K with a left shift. H/H similar to prior range values. Platelet 1 18K, similar to prior. Chemistry without metabolic acidosis. Creatinine 8.9 consistent with the patient's history of end-stage renal disease on hemodialysis. Initial high-sensitivity troponin 134, nonspecific in the setting of the patient's end-stage renal disease with repeat 138, stable. Lipase is normal. Procalcitonin 1.4 in setting of the patient's end-stage renal disease, nonspecific. Respiratory BioFire was negative. Suspect symptoms predominantly related to hypertensive emergency. Treatment initiated with IV labetalol with trending improvement in blood pressure. Patient agrees with plan for admission for further management. [facility] for [facility]. Further management per admitting team. Triage Nursing notes reviewed and agree them. Prior/external medical records reviewed Vital Signs: reviewed Differential diagnosis: Reactive airway disease, pneumonia, pneumothorax, COPD, CHF, infections, cardiac ischemia, pulmonary embolism, musculoskeletal, gastrointestinal, as well as other pathologies. ER treatment provided: See below. Diagnostics interpreted by me: ECG: Sinus tachycardia, 109 bpm, no ectopy, LVH, nonspecific T wave abnormality, no overt ST elevation or depression, QTc 490, QRS 78. Cardiac Monitoring: An order for continuous cardiac monitoring was placed and demonstrated Sinus tachycardia, 109 bpm, no ectopy. Laboratory studies: See below Imaging studies: See below Consultation([facility] HPI: Per MDM. ROS: See above HPI for pertinent positives & negatives. A total of 10 systems reviewed and were otherwise negative. VITALS:See Below PHYSICAL EXAMINATION: GENERAL: Awake, alert, in no distress HENT: Normocephalic, atraumatic. Oropharynx unremarkable. EYES: Normal conjunctiva. Sclera non-icteric. NECK: Supple. No nuchal rigidity. FROM. No JVD. RESPIRATORY: Diminished at the bases with mild dyspnea but no significant increased work of breathing. CARDIAC: Tachycardia rate, normal rhythm. Extremities warm and well perfused. Pulses equal. Left upper extremity AV fistula with palpable thrill. ABDOMEN: Soft, non-distended. No tenderness to palpation. No rebound or guarding. No masses. MUSCULOSKELETAL: Chest examination reveals no tenderness. The back is symmetrical on inspection without obvious abnormality. There is no CVA tenderness to palpation. No joint edema. LOWER EXTREMITIES: Calves are equal size bilaterally and non-tender. No edema. No discoloration. NEURO: Normal sensorium. No sensory or motor deficits noted. SKIN: No rash or jaundice noted. ED COURSE: Critical Care: I have personally spent greater than 35 minutes of critical care time in the direct management of this patient. This includes bedside care, interpretation of diagnostic studies, and testing, discussion with consultants, patient, and family members, and other required patient management activities. This 35 minutes is in excess of all separately billable procedures. Justin Flores MD Past Med/Surg History Problem List (Updated 02/12/25 @ 00:58 by Justin Flores MD) End-stage renal disease on hemodialysis (Acute) Elevated troponin (Acute) Hypoxia (Acute) Hypertensive emergency (Acute) Right ventricular dysfunction Nonischemic cardiomyopathy Acute on chronic heart failure with mildly reduced ejection fraction (HFmrEF, 41-49%) Myocardial infarction due to demand ischemia Hypertensive urgency Elevated troponin (Acute) Hypoxia (Acute) Pulmonary edema (Acute) Shortness of breath (Acute) Hypertension Prediabetes Antibody mediated rejection of renal transplant ESRD on dialysis (Acute) Anemia requiring transfusions (Acute) Anemia of chronic disease (Acute) Encounter for hemodialysis for ESRD (Acute) Anemia in ESRD (end-stage renal disease) (Acute) Nausea & vomiting RY (acute kidney injury) (Acute) Hypomagnesemia ST segment changes on electrocardiogram Nephropathic cystinosis Renal transplant, status post (Acute) Pyelonephritis Renal tubular acidosis (Chronic) Anemia (Chronic) 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 Trejo. Home hemodialysis. Fanconi syndrome (Chronic) Medical History (Updated 02/12/25 @ 00:58 by Justin Flores MD) Chest pain Anemia of chronic disease Depression Surgical History History of tooth extraction WISDOM TEETH Family History Mother Crohn's disease Social History Smoking Status: Current every day smoker Tobacco Type: E-cigarettes / Vaping Cigarettes Per Day: 5; Second Hand Exposure: No; Do You Dip or Chew Tobacco: No; Hx Alcohol Use: No Hx Substance Use: Yes Last Used Substance: Days (ago) Last Used Substance Other:: 12/ prior to bed time Substance Use Type Other:: medical marijuana Preferred Language: Beninese Communication Ability: Effective Figure Refinisher And Repairer Required: No Beliefs That Will Affect Care: None Current Living Situation: Spouse Feels Safe at Home: Yes Safety Concerns: Feels Safe At This Time Assistive Devices: None Allergies Allergies Allergy/AdvReac Type Severity Reaction Status Date / Time No Known Allergies Allergy Verified 02/11/25 08:17 Home Meds Home Medications Medication Instructions Recorded Confirmed valganciclovir 450 mg tablet 450 mg PO UD ##0 11/16/24 02/11/25 amitriptyline 25 mg tablet 25 mg PO HS 02/03/25 02/11/25 aspirin 81 mg tablet,delayed 81 mg PO DAILY ##0 02/03/25 02/11/25 release calcium acetate(phosphat bind) 667 667 mg PO UD ##0 02/03/25 02/11/25 mg tablet cholecalciferol (vitamin D3) 25 1,000 unit PO DAILY 02/03/25 02/11/25 mcg (1,000 unit) capsule dapsone 100 mg tablet 100 mg PO QAM 02/03/25 02/11/25 famotidine 10 mg tablet (Heartburn 10 mg PO QAM 02/03/25 02/11/25 Relief (famotidine)) mycophenolate mofetil 250 mg 250 mg PO UD ##0 02/03/25 02/11/25 capsule (CellCept) prednisone 5 mg tablet 5 mg PO DAILY ##0 02/03/25 02/11/25 sodium zirconium cyclosilicate 10 10 g PO DAILY 02/03/25 02/11/25 gram oral powder packet (Lokelma) tacrolimus 0.5 mg capsule, 0.5 mg PO UD 02/03/25 02/11/25 immediate-release tamsulosin 0.4 mg capsule 0.4 mg PO DAILY ##0 02/03/25 02/11/25 torsemide 100 mg tablet 100 mg PO DAILY 02/03/25 02/11/25 Previous Rx's Medication Instructions Recorded amlodipine 10 mg tablet (Norvasc) 10 mg PO DAILY #30 tabs 02/05/25 hydralazine 50 mg tablet 50 mg PO TID #90 tabs 02/05/25 metoprolol succinate 50 mg 75 mg (1.5 x 50 mg) PO BID #90 tabs 02/05/25 tablet,extended release 24 hr (Toprol XL) Results & Data (ED) Vital Signs Vital Signs - 24 hr 02/11/25 06:10 02/11/25 06:17 02/11/25 06:46 Temperature 37.1 C Temperature Source Temporal Artery Scan Pulse Rate 115 H 112 H Pulse Rate [Apical] Pulse Rate from SpO2 Sensor Respiratory Rate 20 Respiratory Effort / Characteristics Spontaneous Respiratory Depth Respiratory Pattern Regular Blood Pressure 176/118 H Blood Pressure [Right Arm] Blood Pressure Mean 137 Blood Pressure Mean [Right Arm] Pulse Oximetry 94 Oxygen Delivery Method Room Air Room Air Oxygen Flow Rate Sepsis Recent Fever Within 48 Hours No Sepsis New/Unexplained Change in Mental Status No Sepsis Action Taken by Nursing No Action Required Oxygen Flow Rate - Titration Pulse Oximetry Post Tiitration 02/11/25 06:52 02/11/25 07:09 02/11/25 07:09 Temperature Temperature Source Pulse Rate 106 H 111 H Pulse Rate [Apical] 111 H Pulse Rate from SpO2 Sensor Respiratory Rate 18 23 Respiratory Effort / Characteristics Non-Labored Respiratory Depth Normal Respiratory Pattern Blood Pressure 165/112 H Blood Pressure [Right Arm] 165/112 H Blood Pressure Mean Blood Pressure Mean [Right Arm] 129 Pulse Oximetry 91 93 Oxygen Delivery Method Room Air Room Air Oxygen Flow Rate Sepsis Recent Fever Within 48 Hours Sepsis New/Unexplained Change in Mental Status Sepsis Action Taken by Nursing Oxygen Flow Rate - Titration Pulse Oximetry Post Tiitration 02/11/25 07:37 02/11/25 07:37 02/11/25 07:37 Temperature Temperature Source Pulse Rate 99 H Pulse Rate [Apical] Pulse Rate from SpO2 Sensor Respiratory Rate 23 Respiratory Effort / Characteristics Respiratory Depth Respiratory Pattern Blood Pressure 139/110 H 139/110 H 139/110 H Blood Pressure [Right Arm] Blood Pressure Mean 119 119 119 Blood Pressure Mean [Right Arm] Pulse Oximetry 94 Oxygen Delivery Method Nasal Cannula Oxygen Flow Rate 2 Sepsis Recent Fever Within 48 Hours Sepsis New/Unexplained Change in Mental Status Sepsis Action Taken by Nursing Oxygen Flow Rate - Titration Pulse Oximetry Post Tiitration 02/11/25 07:37 02/11/25 07:37 02/11/25 07:38 Temperature Temperature Source Pulse Rate Pulse Rate [Apical] Pulse Rate from SpO2 Sensor Respiratory Rate Respiratory Effort / Characteristics Respiratory Depth Respiratory Pattern Blood Pressure 139/110 H 139/110 H Blood Pressure [Right Arm] Blood Pressure Mean 119 119 Blood Pressure Mean [Right Arm] Pulse Oximetry 86 L Oxygen Delivery Method Room Air Oxygen Flow Rate Sepsis Recent Fever Within 48 Hours Sepsis New/Unexplained Change in Mental Status Sepsis Action Taken by Nursing Oxygen Flow Rate - Titration 2 Pulse Oximetry Post Tiitration 95 02/11/25 07:39 02/11/25 07:40 02/11/25 07:42 Temperature Temperature Source Pulse Rate 98 H 98 H 103 H Pulse Rate [Apical] Pulse Rate from SpO2 Sensor 100 H 104 H Respiratory Rate 23 35 H Respiratory Effort / Characteristics Respiratory Depth Respiratory Pattern Blood Pressure 139/110 H Blood Pressure [Right Arm] Blood Pressure Mean Blood Pressure Mean [Right Arm] Pulse Oximetry 94 93 Oxygen Delivery Method Oxygen Flow Rate Sepsis Recent Fever Within 48 Hours Sepsis New/Unexplained Change in Mental Status Sepsis Action Taken by Nursing Oxygen Flow Rate - Titration Pulse Oximetry Post Tiitration 02/11/25 07:51 02/11/25 08:00 02/11/25 08:00 Temperature Temperature Source Pulse Rate 100 H Pulse Rate [Apical] Pulse Rate from SpO2 Sensor 94 H Respiratory Rate 17 Respiratory Effort / Characteristics Respiratory Depth Respiratory Pattern Blood Pressure 157/98 H 157/98 H Blood Pressure [Right Arm] Blood Pressure Mean 121 121 Blood Pressure Mean [Right Arm] Pulse Oximetry 93 Oxygen Delivery Method Oxygen Flow Rate Sepsis Recent Fever Within 48 Hours Sepsis New/Unexplained Change in Mental Status Sepsis Action Taken by Nursing Oxygen Flow Rate - Titration Pulse Oximetry Post Tiitration 02/11/25 08:00 02/11/25 08:00 02/11/25 08:00 Temperature Temperature Source Pulse Rate Pulse Rate [Apical] Pulse Rate from SpO2 Sensor Respiratory Rate Respiratory Effort / Characteristics Respiratory Depth Respiratory Pattern Blood Pressure 157/98 H 157/98 H 157/98 H Blood Pressure [Right Arm] Blood Pressure Mean 121 121 121 Blood Pressure Mean [Right Arm] Pulse Oximetry Oxygen Delivery Method Oxygen Flow Rate Sepsis Recent Fever Within 48 Hours Sepsis New/Unexplained Change in Mental Status Sepsis Action Taken by Nursing Oxygen Flow Rate - Titration Pulse Oximetry Post Tiitration 02/11/25 08:00 02/11/25 08:12 02/11/25 08:21 Temperature Temperature Source Pulse Rate 103 H 106 H 107 H Pulse Rate [Apical] Pulse Rate from SpO2 Sensor 104 H 109 H 105 H Respiratory Rate 26 H 17 25 H Respiratory Effort / Characteristics Respiratory Depth Respiratory Pattern Blood Pressure Blood Pressure [Right Arm] Blood Pressure Mean Blood Pressure Mean [Right Arm] Pulse Oximetry 93 91 90 Oxygen Delivery Method Oxygen Flow Rate Sepsis Recent Fever Within 48 Hours Sepsis New/Unexplained Change in Mental Status Sepsis Action Taken by Nursing Oxygen Flow Rate - Titration Pulse Oximetry Post Tiitration Laboratory Data Attestation: I reviewed the patient's lab results. 02/11/25 06:21 02/11/25 06:21 Lab Results 02/11/25 02/11/25 02/11/25 Range/Units 06:21 06:41 06:50 WBC 4.32 L (4.8-10.8) K/ul RBC 2.99 L (4.70-6.10) M/uL Hgb 9.1 L (14.0-18.0) g/dL POC Hgb 8.2 L (14.0-18.0) g/dl Hct 27.8 L (42.0-52.0) % POC Hct 24 L (42-52) % MCV 93.0 (80.0-100.0) fL MCH 30.4 (25.0-34.0) pg MCHC 32.7 (32.0-36.0) g/dL RDW Std Deviation 48.9 H (36.4-46.3) fL RDW Coeff of Chalo 14.3 (11.5-14.5) % Plt Count 118 L (130-400) K/uL MPV 10.7 (9.4-12.4) fL Immature Gran % (Auto) 0.2 % Neut % (Auto) 83.2 % Lymph % (Auto) 9.0 % Rolette % (Auto) 5.8 % Eos % (Auto) 0.9 % Baso % (Auto) 0.9 % Neut # (Auto) 3.59 (1.40-6.50) K/uL Lymph # (Auto) 0.39 L (1.20-3.40) K/uL Rolette # (Auto) 0.25 (0.11-0.59) K/uL Eos # (Auto) 0.04 (0.00-0.50) K/uL Baso # (Auto) 0.04 (0.00-0.20) K/uL Immature Gran # (Auto) 0.01 (0.01-0.20) K/uL POC Sodium 131 L (135-144) mmol/L Sodium 133 L (136-145) mmol/L POC Potassium 4.3 (3.3-5.0) mmol/L Potassium 4.5 (3.5-5.1) mmol/L POC Chloride 90 L (101-112) mmol/L Chloride 89 L (98-107) mmol/L Carbon Dioxide 28 (21-32) mmol/L POC Total CO2 28 (24-31) mmol/L Anion Gap 16 H (3-11) POC Anion Gap 19.0 (16-25) mmol/L POC BUN 29 H (7-18) mg/dl BUN 30 H (6-23) mg/dl Creatinine 8.92 H* (0.6-1.4) mg/dl POC Creatinine 10.0 H* (0.6-1.3) mg/dl Est Cr Clr Drug Dosing 11.8 ml/min eGFR 7.38 BUN/Creatinine Ratio 3.4 L (10-20) Glucose 100 H (70-99(Fasting)) mg/dl POC Glucose (other) 103 H (70-99) mg/dl Calcium 9.2 (8.6-10.3) mg/dl POC Ioniz Calcium Richie 1.01 L (1.12-1.32) mmol/l Phosphorus 7.5 H (2.5-4.9) mg/dl Magnesium 2.1 (1.7-2.4) mg/dl Total Bilirubin 0.9 (0.2-1.0) mg/dl AST 17 (13-39) U/L ALT 8 (7-52) U/L Alkaline Phosphatase 52 (34-104) U/L Troponin I High Sens 134.8 H* (0-20) pg/ml Total Protein 7.5 (6.0-8.3) gm/dl Albumin 4.1 (3.4-5.0) gm/dl Globulin 3.4 (2.5-4.0) gm/dl Albumin/Globulin Ratio 1.2 (0.9-2) Lipase 22 (11-82) U/L Procalcitonin 1.44 H (0-0.5) ng/ml TSH 1.184 (0.300-4.500) uIu/ml Adenovirus (PCR) Not Detected (NotDetected) B. pertussis DNA (PCR) Not Detected (NotDetected) B.parapertussis DNA PCR Not Detected (NotDetected) C. pneumoniae DNA (PCR) Not Detected (NotDetected) Coronavirus OC43 (PCR) Not Detected (NotDetected) Coronavirus HKU1 (PCR) Not Detected (NotDetected) Coronavirus 229E (PCR) Not Detected (NotDetected) SARS-CoV-2 (PCR) Not Detected (NotDetected) Coronavirus NL63 (PCR) Not Detected (NotDetected) Human Metapneumovir PCR Not Detected (NotDetected) Influenza Type A (PCR) Not Detected (NotDetected) Influenza Type B (PCR) Not Detected (NotDetected) M. pneumoniae (PCR) Not Detected (NotDetected) Parainfluenza 1 (PCR) Not Detected (NotDetected) Parainfluenza 2 (PCR) Not Detected (NotDetected) Parainfluenza 3 (PCR) Not Detected (NotDetected) Parainfluenza 4 (PCR) Not Detected (NotDetected) RSV (PCR) Not Detected (NotDetected) Entero/Rhino (PCR) Not Detected (NotDetected) 02/11/25 Range/Units 08:07 WBC (4.8-10.8) K/ul RBC (4.70-6.10) M/uL Hgb (14.0-18.0) g/dL POC Hgb (14.0-18.0) g/dl Hct (42.0-52.0) % POC Hct (42-52) % MCV (80.0-100.0) fL MCH (25.0-34.0) pg MCHC (32.0-36.0) g/dL RDW Std Deviation (36.4-46.3) fL RDW Coeff of Chalo (11.5-14.5) % Plt Count (130-400) K/uL MPV (9.4-12.4) fL Immature Gran % (Auto) % Neut % (Auto) % Lymph % (Auto) % Rolette % (Auto) % Eos % (Auto) % Baso % (Auto) % Neut # (Auto) (1.40-6.50) K/uL Lymph # (Auto) (1.20-3.40) K/uL Rolette # (Auto) (0.11-0.59) K/uL Eos # (Auto) (0.00-0.50) K/uL Baso # (Auto) (0.00-0.20) K/uL Immature Gran # (Auto) (0.01-0.20) K/uL POC Sodium (135-144) mmol/L Sodium (136-145) mmol/L POC Potassium (3.3-5.0) mmol/L Potassium (3.5-5.1) mmol/L POC Chloride (101-112) mmol/L Chloride (98-107) mmol/L Carbon Dioxide (21-32) mmol/L POC Total CO2 (24-31) mmol/L Anion Gap (3-11) POC Anion Gap (16-25) mmol/L POC BUN (7-18) mg/dl BUN (6-23) mg/dl Creatinine (0.6-1.4) mg/dl POC Creatinine (0.6-1.3) mg/dl Est Cr Clr Drug Dosing ml/min eGFR BUN/Creatinine Ratio (10-20) Glucose (70-99(Fasting)) mg/dl POC Glucose (other) (70-99) mg/dl Calcium (8.6-10.3) mg/dl POC Ioniz Calcium Richie (1.12-1.32) mmol/l Phosphorus (2.5-4.9) mg/dl Magnesium (1.7-2.4) mg/dl Total Bilirubin (0.2-1.0) mg/dl AST (13-39) U/L ALT (7-52) U/L Alkaline Phosphatase (34-104) U/L Troponin I High Sens 138.9 H* (0-20) pg/ml Total Protein (6.0-8.3) gm/dl Albumin (3.4-5.0) gm/dl Globulin (2.5-4.0) gm/dl Albumin/Globulin Ratio (0.9-2) Lipase (11-82) U/L Procalcitonin (0-0.5) ng/ml TSH (0.300-4.500) uIu/ml Adenovirus (PCR) (NotDetected) B. pertussis DNA (PCR) (NotDetected) B.parapertussis DNA PCR (NotDetected) C. pneumoniae DNA (PCR) (NotDetected) Coronavirus OC43 (PCR) (NotDetected) Coronavirus HKU1 (PCR) (NotDetected) Coronavirus 229E (PCR) (NotDetected) SARS-CoV-2 (PCR) (NotDetected) Coronavirus NL63 (PCR) (NotDetected) Human Metapneumovir PCR (NotDetected) Influenza Type A (PCR) (NotDetected) Influenza Type B (PCR) (NotDetected) M. pneumoniae (PCR) (NotDetected) Parainfluenza 1 (PCR) (NotDetected) Parainfluenza 2 (PCR) (NotDetected) Parainfluenza 3 (PCR) (NotDetected) Parainfluenza 4 (PCR) (NotDetected) RSV (PCR) (NotDetected) Entero/Rhino (PCR) (NotDetected) Administered Medications Acetaminophen (Acetaminophen 325 Mg Tab) 650 mg PO Q4H PRN PRN Reason: Pain or Fever Stop: 03/13/25 08:29 Last Admin: 02/11/25 21:23 Dose: 650 mg Documented By: NOLAN Amitriptyline HCl (Amitriptyline Hcl 25 Mg Tab) 25 mg PO HS [facility] Stop: 03/13/25 20:59 Last Admin: 02/11/25 21:28 Dose: 25 mg Documented By: NOLAN Amlodipine Besylate (Amlodipine Besylate 5 Mg Tab) 10 mg PO DAILY [facility] Stop: 03/13/25 08:59 Last Admin: 02/11/25 16:12 Dose: 10 mg Documented By: kendra Aspirin (Aspirin 81 Mg Ectab) 81 mg PO DAILY [facility] Stop: 03/13/25 08:59 Last Admin: 02/11/25 10:00 Dose: Not Given Documented By: LAY Calcium Acetate (Calcium Acetate 667 Mg Cap/Tab) 2,001 mg PO TIDM [facility] Stop: 03/13/25 08:59 Last Admin: 02/11/25 16:53 Dose: 2,001 mg Documented By: Admin: 02/11/25 16:07 Dose: Not Given Documented By: kendra Admin: 02/11/25 10:01 Dose: Not Given Documented By: LAY Dapsone (Dapsone 25 Mg Tab) 100 mg PO QAM [facility] Stop: 03/13/25 08:59 Last Admin: 02/11/25 10:01 Dose: Not Given Documented By: LAY Doxycycline Hyclate (Doxycycline Hyclate 100 Mg Cap) 100 mg PO BID [facility] Stop: 02/13/25 20:59 Last Admin: 02/11/25 21:23 Dose: 100 mg Documented By: NOLAN Famotidine (Famotidine 10 Mg Tablet) 10 mg PO QAM [facility] Stop: 03/13/25 08:59 Last Admin: 02/11/25 10:01 Dose: Not Given Documented By: LAY Heparin Sodium (Porcine) (Heparin Sod 5,000 Unit/0.5 Ml Vial) 5,000 units SQ Q12 [facility] Stop: 03/13/25 08:59 Last Admin: 02/11/25 21:16 Dose: Not Given Documented By: Admin: 02/11/25 10:01 Dose: Not Given Documented By: LAY Hydralazine HCl (Hydralazine Tab 50 Mg Tab) 50 mg PO TID [facility] Stop: 03/13/25 08:59 Last Admin: 02/11/25 21:24 Dose: 50 mg Documented By: Admin: 02/11/25 16:12 Dose: 50 mg Documented By: kendra Admin: 02/11/25 10:02 Dose: Not Given Documented By: LAY Cefepime HCl (Maxipime 2000mg) 1,000 mg in 10 mls @ 5 mls/min IV Q24H [facility]; Protocol Stop: 02/13/25 20:59 Last Admin: 02/11/25 21:26 Dose: 5 mls/min Documented By: NOLAN Metoprolol Succinate (Metoprolol Succ 25mg Ext Rel Tab) 75 mg PO BID [facility] Stop: 03/13/25 08:59 Last Admin: 02/11/25 14:10 Dose: 75 mg Documented By: Admin: 02/11/25 10:02 Dose: Not Given Documented By: LAY Mycophenolate Mofetil (Mycophenolate Mofetil 250 Mg Cap) 1,000 mg PO BID [facility] Stop: 03/13/25 21:44 Last Admin: 02/11/25 22:28 Dose: 1,000 mg Documented By: NOLAN Ondansetron HCl (Ondansetron Inj 2 Mg/Ml 2 Ml Vial) 4 mg IV Q6H PRN PRN Reason: Nausea And Vomiting Stop: 03/13/25 09:59 Last Admin: 02/11/25 10:07 Dose: 4 mg Documented By: LAY Prednisone (Prednisone 5 Mg Tab) 5 mg PO DAILY [facility] Stop: 03/13/25 08:59 Last Admin: 02/11/25 10:02 Dose: Not Given Documented By: LAY Tacrolimus (Tacrolimus 0.5 Mg Cap) 1 mg PO HS [facility] Stop: 03/13/25 20:59 Last Admin: 02/11/25 21:24 Dose: 1 mg Documented By: NOLAN Tacrolimus (Tacrolimus 0.5 Mg Cap) 1.5 mg PO DAILY [facility] Stop: 03/13/25 08:59 Last Admin: 02/11/25 10:02 Dose: Not Given Documented By: ML Tamsulosin HCl (Tamsulosin Hcl 0.4 Mg Cap) 0.4 mg PO DAILY [facility] Stop: 03/13/25 08:59 Last Admin: 02/11/25 10:02 Dose: Not Given Documented By: LAY Torsemide (Torsemide 100 Mg Tab) 100 mg PO DAILY [facility] Stop: 03/13/25 08:59 Last Admin: 02/11/25 10:02 Dose: Not Given Documented By: ML Vitamin D (Cholecalciferol 25 Mcg (1000 Units) Tab) 25 mcg PO DAILY [facility] Stop: 03/13/25 08:59 Last Admin: 02/11/25 10:01 Dose: Not Given Documented By: LAY Discontinued Medications Doxycycline Hyclate (Doxycycline Hyclate 100 Mg Cap) 100 mg PO NOW STA Stop: 02/11/25 08:36 Last Admin: 02/11/25 10:00 Dose: Not Given Documented By: LAY Heparin Sodium (Porcine) (Heparin Sod (Porcine) 1000 Unit/Ml) 2,000 units IV ONE ONE Stop: 02/11/25 11:45 Last Admin: 02/11/25 14:13 Dose: Not Given Documented By: SHANON Heparin Sodium (Porcine) (Heparin Sod (Porcine) 1000 Unit/Ml) 400 units IV Q1H [facility] Stop: 02/11/25 13:46 Last Admin: 02/11/25 19:46 Dose: Not Given Documented By: Admin: 02/11/25 19:46 Dose: Not Given Documented By: Admin: 02/11/25 19:46 Dose: Not Given Documented By: NOLAN Cefepime HCl (Maxipime 2000mg) 1,000 mg in 10 mls @ 5 mls/min IV NOW STA; Protocol Stop: 02/11/25 08:56 Last Admin: 02/11/25 09:54 Dose: 5 mls/min Documented By: LAY Labetalol HCl (Labetalol Hcl Iv 5 Mg/Ml 20ml) 10 mg IV NOW STA Stop: 02/11/25 07:03 Last Admin: 02/11/25 07:09 Dose: 10 mg Documented By: CHRISTI Mycophenolate Mofetil (Mycophenolate Mofetil 250 Mg Cap) 100 mg PO BID [facility] Stop: 03/13/25 08:59 Last Admin: 02/11/25 21:46 Dose: Not Given Documented By: Admin: 02/11/25 10:02 Dose: Not Given Documented By: LAY Ondansetron HCl (Ondansetron Inj 2 Mg/Ml 2 Ml Vial) Confirm Administered Dose 4 mg .ROUTE .STK-MED ONE Stop: 02/11/25 10:05 Last Admin: 02/11/25 10:07 Dose: Not Given Documented By: LAY Imaging Data Radiologist's Impression: Chest X-Ray 02/11/25 06:22 EXAM: XR chest 1V portable CLINICAL HISTORY: Chest pain, nonspecific TECHNIQUE: An X-ray image of the chest was obtained in AP portable projection. COMPARISON: 02/03/2025 FINDINGS: Pulmonary Parenchyma: Again seen is left basilar thick atelectasis. Otherwise, the lungs are clear bilaterally. No evidence of consolidation, collapse, or focal opacities. No pulmonary nodules are identified. No evidence of pleural effusion or pleural thickening. Heart and Mediastinum: There are prominent bilateral hilar shadows, likely vascular. Heart size and shape are normal. No mediastinal widening or masses. No hilar or mediastinal lymphadenopathy. Bony Thorax: The bony thorax appears intact without fractures or deformities. Soft Tissues: The soft tissues overlying the chest wall are unremarkable. External ECG leads are present. IMPRESSION: 1. No acute cardiopulmonary abnormalities are identified. 2. Left basilar atelectasis. Stable. 3. Vascular congestion. No significant changes. Electronically signed by Jose Francisco Goins 02-11-2025 07:34 AM Discharge Plan Visit Data Chief Complaint: Respiratory Problems Stated Complaint: HARD TIME BREATHING,CHEST PAIN AND TIGHTNESS ED Provider: Justin Flores Discharge Problem: Hypertensive emergency, Hypoxia, Elevated troponin, End-stage renal disease on hemodialysis Patient Disposition: Admitted As Inpatient Condition: Fair Discharge Instructions Interventions: ED Discharge Assessment Last Done: 02/11/25 16:31
[2025-02-11 06:39] LABS: Hematocrit (blood only) 27.8 % (42.0-52.0); Hemoglobin 9.1 g/dL (14.0-18.0); Immature Granulocytes # (auto) 0.01 K/uL (0.01-0.20); Immature Granulocytes % (auto) 0.2 %; Mean Corpuscular Hemoglobin 30.4 pg (25.0-34.0); Mean Corpuscular Volume 93.0 fL (80.0-100.0); Platelet Count 118 K/uL (130-400); RDW Standard Deviation 48.9 fL (36.4-46.3); Red Blood Count 2.99 M/uL (4.70-6.10); White Blood Count 4.32 K/ul (4.8-10.8)
[2025-02-11] MEDS: LABETALOL HCL IV 5 MG/ML 20ML IV STA (07:09)
[2025-02-11 07:31] LABS: Alanine Aminotransferase 8.0 U/L (7-52); Albumin Globulin Ratio 1.2 (0.9-2); Albumin Level 4.1 gm/dl (3.4-5.0); Alkaline Phosphatase 52.0 U/L (34-104); Anion Gap 16.0 (3-11); Bilirubin,Total 0.9 mg/dl (0.2-1.0); Blood Urea Nitrogen 30.0 mg/dl (6-23); Calcium 9.2 mg/dl (8.6-10.3); Carbon Dioxide 28.0 mmol/L (21-32); Chloride 89.0 mmol/L (98-107); Creatinine Clr Calc Pharmacy 11.8 ml/min; Globulin 3.4 gm/dl (2.5-4.0); Glucose 100.0 mg/dl (70-99(Fasting)); Lipase 22.0 U/L (11-82); Magnesium 2.1 mg/dl (1.7-2.4); Potassium 4.5 mmol/L (3.5-5.1); Sodium 133.0 mmol/L (136-145); Total Protein 7.5 gm/dl (6.0-8.3)
--- NOTE | 2025-02-11 07:35 | XRay Report ---
EXAM: XR chest 1V portable CLINICAL HISTORY: Chest pain, nonspecific TECHNIQUE: An X-ray image of the chest was obtained in AP portable projection. COMPARISON: 02/03/2025 FINDINGS: Pulmonary Parenchyma: Again seen is left basilar thick atelectasis. Otherwise, the lungs are clear bilaterally. No evidence of consolidation, collapse, or focal opacities. No pulmonary nodules are identified. No evidence of pleural effusion or pleural thickening. Heart and Mediastinum: There are prominent bilateral hilar shadows, likely vascular. Heart size and shape are normal. No mediastinal widening or masses. No hilar or mediastinal lymphadenopathy. Bony Thorax: The bony thorax appears intact without fractures or deformities. Soft Tissues: The soft tissues overlying the chest wall are unremarkable. External ECG leads are present. IMPRESSION: 1. No acute cardiopulmonary abnormalities are identified. 2. Left basilar atelectasis. Stable. 3. Vascular congestion. No significant changes. Electronically signed by Jose Francisco Goins 02-11-2025 07:34 AM
[2025-02-11 07:53] LABS: Chlamydia pneumoniae PCR Not Detected (NotDetected); Coronavirus 229E PCR Not Detected (NotDetected); Coronavirus CoV-2 (COVID19)PCR Not Detected (NotDetected); Coronavirus HKU1 PCR Not Detected (NotDetected); Coronavirus NL63 PCR Not Detected (NotDetected); Coronavirus OC43PCR Not Detected (NotDetected); Human Metapneumovirus PCR Not Detected (NotDetected); Parainfluenza Virus 1 PCR Not Detected (NotDetected); Parainfluenza Virus 2 PCR Not Detected (NotDetected); Parainfluenza Virus 3 PCR Not Detected (NotDetected); Parainfluenza Virus 4 PCR Not Detected (NotDetected); Respiratory Syncytial VirusPCR Not Detected (NotDetected); Rhinovirus/Enterovirus PCR Not Detected (NotDetected)
[2025-02-11 07:56] LABS: Thyroid Stimulating Hormone 1.184 uIu/ml (0.300-4.500)
[2025-02-11] MEDS ORDERED: POLYETHYLENE (MIRALAX) 17 GM PACK PO PRN (08:30)
--- NOTE | 2025-02-11 08:49 | History & Physical Report ---
Date of Service February 11, 2025 Assessment & Plan (1) Pulmonary edema: Plan Assessment/plan Acute hypoxic respiratory failure Pulmonary edema Possible pneumonia ESRD on HD Patient presented to the hospital with acute onset of shortness of breath for 1 day Chest x-ray on admission shows pulmonary edema Serum sodium of 133, creatinine of 8.92.. Phosphorus7.5 Will consult nephrology for possible hemodialysis Continue amlodipine 10 mg, hydralazine and metoprolol for high blood pressure. Will cover him with antibiotics for possible pneumonia with cefepime and doxycycline. Obtain sputum culture Demand ischemia High-sensitivity troponin elevated to 134 on admission; repeat pending EKG shows normal sinus rhythm; no ST or T wave changes. Echocardiogram done last admission shows EF of 40 to 45%. Evaluated by cardiology last admission; recommended outpatient cardiology follow-up with possible cardiac MRI and a stress test. 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 It may contain grammatical, syntax or spelling errors. Any formal questions or c oncerns about the content, text or information contained within the body of this dictation should be directly addressed to the provider for clarification History of Present Illness Chief Complaint: Shortness of breath for 1 day Primary Care Provider: Shanita Maharaj MD History obtained from chart review, interview with the patient and discussion with the ED provider Past medical history of hypertension, hyperlipidemia, PVCs, end-stage renal disease secondary to hereditary cystinosis S/P kidney transplant in 2019 at [facility], H/O transplant rejection on immunosuppressive treatment, Fanconi syndrome, nephrogenic diabetes insipidus, chronic anemia, migraine, mood disorder, Last admission was from February 03 to February 05, 2025 for shortness of breath. Patient was found to have high blood pressure. He was started on amlodipine, increasing dose of metoprolol and addition of hydralazine Patient presents to the hospital with acute onset of shortness of breath that he started early in the morning today. Patient reports that he had undergone dialysis on Wednesday with removal of 4 L of fluid. He denies any fever, chills, chest pain. He reports some cough with mucoid sputum. He denies any abdominal discomfort or urinary symptoms. He reports that he had eaten half a packet of potato chips last night. He reports that the symptoms are very much similar to his admission last time. Patient is referred for admission for management of hypertensive urgency, pulmonary edema Allergies Allergy/AdvReac Type Severity Reaction Status Date / Time No Known Allergies Allergy Verified 02/11/25 08:17 Home Medications Medication Instructions Recorded Confirmed Type valganciclovir 450 mg tablet 450 mg PO UD ##0 11/16/24 02/11/25 History amitriptyline 25 mg tablet 25 mg PO HS 02/03/25 02/11/25 History aspirin 81 mg tablet,delayed 81 mg PO DAILY ##0 02/03/25 02/11/25 History release calcium acetate(phosphat bind) 667 667 mg PO UD ##0 02/03/25 02/11/25 History mg tablet cholecalciferol (vitamin D3) 25 1,000 unit PO DAILY 02/03/25 02/11/25 History mcg (1,000 unit) capsule dapsone 100 mg tablet 100 mg PO QAM 02/03/25 02/11/25 History famotidine 10 mg tablet (Heartburn 10 mg PO QAM 02/03/25 02/11/25 History Relief (famotidine)) mycophenolate mofetil 250 mg 250 mg PO UD ##0 02/03/25 02/11/25 History capsule (CellCept) prednisone 5 mg tablet 5 mg PO DAILY ##0 02/03/25 02/11/25 History sodium zirconium cyclosilicate 10 10 g PO DAILY 02/03/25 02/11/25 History gram oral powder packet (Lokelma) tacrolimus 0.5 mg capsule, 0.5 mg PO UD 02/03/25 02/11/25 History immediate-release tamsulosin 0.4 mg capsule 0.4 mg PO DAILY ##0 02/03/25 02/11/25 History torsemide 100 mg tablet 100 mg PO DAILY 02/03/25 02/11/25 History amlodipine 10 mg tablet (Norvasc) 10 mg PO DAILY #30 tabs 02/05/25 02/11/25 Rx hydralazine 50 mg tablet 50 mg PO TID #90 tabs 02/05/25 02/11/25 Rx metoprolol succinate 50 mg 75 mg (1.5 x 50 mg) PO BID #90 tabs 02/05/25 02/11/25 Rx tablet,extended release 24 hr (Toprol XL) Past Med/Surg History Problem List (Updated 02/04/25 @ 12:12 by Jaswinder Palafox DO) Right ventricular dysfunction Nonischemic cardiomyopathy Acute on chronic heart failure with mildly reduced ejection fraction (HFmrEF, 41-49%) Myocardial infarction due to demand ischemia Hypertensive urgency Elevated troponin (Acute) Hypoxia (Acute) Pulmonary edema (Acute) Shortness of breath (Acute) Hypertension Prediabetes Antibody mediated rejection of renal transplant ESRD on dialysis (Acute) Anemia requiring transfusions (Acute) Anemia of chronic disease (Acute) Encounter for hemodialysis for ESRD (Acute) Anemia in ESRD (end-stage renal disease) (Acute) Nausea & vomiting RY (acute kidney injury) (Acute) Hypomagnesemia ST segment changes on electrocardiogram Nephropathic cystinosis Renal transplant, status post (Acute) Pyelonephritis Renal tubular acidosis (Chronic) Anemia (Chronic) 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 Trejo. Home hemodialysis. Fanconi syndrome (Chronic) Medical History (Updated 02/04/25 @ 12:12 by Jaswinder Palafox DO) Chest pain Anemia of chronic disease Depression Surgical History History of tooth extraction WISDOM TEETH Family History Mother Crohn's disease Social History Smoking Status: Current every day smoker Tobacco Type: E-cigarettes / Vaping Cigarettes Per Day: 5; Second Hand Exposure: No; Do You Dip or Chew Tobacco: No; Hx Alcohol Use: No Hx Substance Use: Yes Last Used Substance: Days (ago) Last Used Substance Other:: wednesday Substance Use Type Other:: medical marijuana Preferred Language: Tajik Communication Ability: Effective Aviation Safety Technician Required: No Beliefs That Will Affect Care: None Current Living Situation: Spouse Feels Safe at Home: Yes Assistive Devices: None Review of Systems Review of Systems: All systems reviewed & are unremarkable except as noted in Subjective Physical Exam Physical Exam: On physical examination; Constitutional: WD/WN, vitals as above, NAD, sitting up in bed, pleasant, conversing easily Respiratory: Bilateral basal crackles present. Cardiovascular: RRR, no murmur, no edema Vessels: no JVD or carotid bruit Chest: normal inspection of chest Abdomen: normal bowel sounds, soft, nontender, no hepatosplenomegaly Musculoskeletal: Fistula on left arm with bruit Neurologic: PERRL, EOMI, accommodation nl, no face palsy, no dysarthria CN's II- XI intact bilaterally and moves all extremities Psychiatric: A+Ox3, euthymic affect Results & Data Results & Data Vital Signs (Past 12 Hours) Vital Signs Temp Pulse Pulse Resp BP BP Pulse Ox 02/11/25 07:40 98 H 139/110 H 02/11/25 07:38 86 L 02/11/25 07:37 99 H 23 139/110 H 94 02/11/25 07:09 111 H 165/112 H 02/11/25 07:09 111 H 23 165/112 H 93 02/11/25 06:52 106 H 18 91 02/11/25 06:46 02/11/25 06:17 112 H 02/11/25 06:10 37.1 C 115 H 20 176/118 H 94 O2 Del Method O2 Flow Rate 02/11/25 07:40 02/11/25 07:38 Room Air 02/11/25 07:37 Nasal Cannula 2 02/11/25 07:09 02/11/25 07:09 Room Air 02/11/25 06:52 Room Air 02/11/25 06:46 Room Air 02/11/25 06:17 02/11/25 06:10 Room Air Code Status & VTE Plan VTE Prophylaxis Plan VTE Prophylaxis will be ordered: Yes
[2025-02-11] MEDS: CEFEPIME 1000MG 1,000 MG/10 ML SYR IV STA (09:54)
[2025-02-11] MEDS: ASPIRIN 81 MG ECTAB PO SCH (10:00)
[2025-02-11] MEDS: DOXYCYCLINE HYCLATE 100 MG CAP PO STA (10:00)
[2025-02-11] MEDS: DAPSONE 25 MG TAB PO SCH (10:01)
[2025-02-11] MEDS: FAMOTIDINE 10 MG TABLET PO SCH (10:01)
[2025-02-11] MEDS: CALCIUM ACETATE 667 MG CAP/TAB PO SCH (10:01)
[2025-02-11] MEDS: HEPARIN SOD 5,000 UNIT/0.5 ML VIAL SQ SCH (10:01)
[2025-02-11] MEDS: CHOLECALCIFEROL 25 MCG (1000 UNITS) TAB PO SCH (10:01)
[2025-02-11] MEDS: MYCOPHENOLATE MOFETIL 250 MG CAP PO SCH ×2 (10:02→22:28)
[2025-02-11] MEDS: TAMSULOSIN HCL 0.4 MG CAP PO SCH (10:02)
[2025-02-11] MEDS: METOPROLOL SUCC 25MG EXT REL TAB PO SCH (10:02)
[2025-02-11] MEDS: TACROLIMUS 0.5 MG CAP PO SCH ×2 (10:02→21:24)
[2025-02-11] MEDS: TORSEMIDE 100 MG TAB PO SCH (10:02)
[2025-02-11] MEDS: ONDANSETRON INJ 2 MG/ML 2 ML VIAL ONE (10:07)
[2025-02-11] MEDS: ONDANSETRON INJ 2 MG/ML 2 ML VIAL IV PRN (10:07)
[2025-02-11] MEDS ORDERED: SODIUM CHLORIDE 0.9% 1,000 ML IV PRN (11:44)
[2025-02-11] MEDS: HEPARIN SOD (PORCINE) 1000 UNIT/ML IV ONE (14:13)
--- NOTE | 2025-02-11 14:21 | Nephrology Consultation ---
Date of Consultation February 11, 2025 Assessment & Plan (1) End stage renal disease: Patient with ESRD on HD MWF. Last outpt HD 02/09/25. patient now admitted with SOB. CXR showed pulm vascular congestion. Will do urgent HD for 4hrs target UF 4litres. patient says he cant do HD 4 times a week. 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 he will likely need HD again tomorrow to keep him on the MWF schedule. (2) Acute on chronic heart failure with mildly reduced ejection fraction (HFmrEF, 41-49%): Patient with acute on chronic CHD. He does have increased intake and med non compliance. Continue renal diet and fluid limit 1 litre daily (3) Hypertensive urgency: BP is above target likely due to med non compliance. Will give metoprolol xl 75 mg on HD. he will get amlodipine and hydralazine as scheduled. History of Present Illness Reason for Consultation: ESRD, SOB Requesting Physician: Kirit Blackman MD Attending Physician: Kirit Blackman MD History of Present Illness Patient is a 35-year-old male with history of hypertension, hyperlipidemia, PVCs, end-stage renal disease secondary to hereditary cystinosis S/P kidney transplant in 2019 at [facility] now with failed graft and back on dialysis at [facility], chronic anemia, migraine, mood disorder, ongoing vaping use, who was admitted with shortness of breath associated with hypertensive urgency. BP in the 170's/120's. patient reported having outpatient dialysis on 02/09/2025 with 4l UF Patient reported eating a bag of potato chips last night. SOB started this morning. Chest x-ray showed pulmonary congestion. Patient urgently taken to dialysis. Breathing is better, still on BIPAP. He has left upper arm AVF. no leg swelling.. Allergies Allergy/AdvReac Type Severity Reaction Status Date / Time No Known Allergies Allergy Verified 02/11/25 08:17 Home Medications Medication Instructions Recorded Confirmed Type valganciclovir 450 mg tablet 450 mg PO UD ##0 11/16/24 02/11/25 History amitriptyline 25 mg tablet 25 mg PO HS 02/03/25 02/11/25 History aspirin 81 mg tablet,delayed 81 mg PO DAILY ##0 02/03/25 02/11/25 History release calcium acetate(phosphat bind) 667 667 mg PO UD ##0 02/03/25 02/11/25 History mg tablet cholecalciferol (vitamin D3) 25 1,000 unit PO DAILY 02/03/25 02/11/25 History mcg (1,000 unit) capsule dapsone 100 mg tablet 100 mg PO QAM 02/03/25 02/11/25 History famotidine 10 mg tablet (Heartburn 10 mg PO QAM 02/03/25 02/11/25 History Relief (famotidine)) mycophenolate mofetil 250 mg 250 mg PO UD ##0 02/03/25 02/11/25 History capsule (CellCept) prednisone 5 mg tablet 5 mg PO DAILY ##0 02/03/25 02/11/25 History sodium zirconium cyclosilicate 10 10 g PO DAILY 02/03/25 02/11/25 History gram oral powder packet (Lokelma) tacrolimus 0.5 mg capsule, 0.5 mg PO UD 02/03/25 02/11/25 History immediate-release tamsulosin 0.4 mg capsule 0.4 mg PO DAILY ##0 02/03/25 02/11/25 History torsemide 100 mg tablet 100 mg PO DAILY 02/03/25 02/11/25 History amlodipine 10 mg tablet (Norvasc) 10 mg PO DAILY #30 tabs 02/05/25 02/11/25 Rx hydralazine 50 mg tablet 50 mg PO TID #90 tabs 02/05/25 02/11/25 Rx metoprolol succinate 50 mg 75 mg (1.5 x 50 mg) PO BID #90 tabs 02/05/25 02/11/25 Rx tablet,extended release 24 hr (Toprol XL) Patient History Medical History (Updated 02/04/25 @ 12:12 by Jaswinder Palafox DO) Chest pain Anemia of chronic disease Depression Surgical History History of tooth extraction WISDOM TEETH Family History Mother Crohn's disease Social History Smoking Status: Current every day smoker Tobacco Type: E-cigarettes / Vaping Cigarettes Per Day: 5; Second Hand Exposure: No; Do You Dip or Chew Tobacco: No; Hx Alcohol Use: No Hx Substance Use: Yes Last Used Substance: Days (ago) Last Used Substance Other:: wednesday Substance Use Type Other:: medical marijuana Preferred Language: Albanian Communication Ability: Effective Trust Advisor Required: No Beliefs That Will Affect Care: None Current Living Situation: Spouse Feels Safe at Home: Yes Assistive Devices: None Review of Systems 2 Review of Systems: All other systems were reviewed and negative except as noted in HPI Physical Exam 2 Physical Exam: General exam: Appears comfortable on BIPAP HEENT: Pupils are equal and reactive to light Neck: No JVD, neck is supple trachea is midline Respiratory system: Crackles bilaterally. Gastrointestinal: Abdomen is soft, non distended, non tender, bowel sounds are present CVS: Regular rate and rhythm. No murmurs, rubs or gallops Musculoskeletal: No joint or muscle tenderness Extremities: Non tender, no edema, peripheral pulses are present Neuro: Oriented, no tremors, no focal neurological deficits Skin: No rashes Results & Data Vital Signs (Past 12 Hours) Vital Signs Temp Pulse Pulse Pulse Resp BP BP 02/11/25 14:00 101 H 166/120 H 02/11/25 13:30 106 H 167/119 H 02/11/25 13:22 36.8 C 99 H 02/11/25 11:16 104 H 18 143/107 H 02/11/25 10:24 100 H 02/11/25 10:00 113 H 19 02/11/25 09:56 111 H 22 02/11/25 09:51 112 H 22 02/11/25 09:42 112 H 28 H 02/11/25 09:30 114 H 23 02/11/25 09:26 164/109 H 02/11/25 09:26 164/109 H 02/11/25 09:26 164/109 H 02/11/25 09:26 164/109 H 02/11/25 09:26 164/109 H 02/11/25 09:24 112 H 19 02/11/25 09:21 115 H 19 02/11/25 09:12 104 H 21 02/11/25 09:09 106 H 24 02/11/25 09:06 108 H 23 149/109 H 02/11/25 09:00 12/07/25 08:42 101 H 23 02/11/25 08:30 159/108 H 02/11/25 08:30 159/108 H 02/11/25 08:30 159/108 H 02/11/25 08:30 159/108 H 02/11/25 08:30 159/108 H 02/11/25 08:30 112 H 25 H 02/11/25 08:21 107 H 25 H 02/11/25 08:12 106 H 17 02/11/25 08:00 103 H 26 H 02/11/25 08:00 157/98 H 02/11/25 08:00 157/98 H 02/11/25 08:00 157/98 H 02/11/25 08:00 157/98 H 02/11/25 08:00 157/98 H 02/11/25 07:51 100 H 17 02/11/25 07:42 103 H 35 H 02/11/25 07:40 98 H 139/110 H 02/11/25 07:39 98 H 23 02/11/25 07:38 02/11/25 07:37 139/110 H 02/11/25 07:37 139/110 H 02/11/25 07:37 139/110 H 02/11/25 07:37 139/110 H 02/11/25 07:37 99 H 23 139/110 H 02/11/25 07:09 111 H 165/112 H 02/11/25 07:09 111 H 23 165/112 H 02/11/25 06:52 106 H 18 02/11/25 06:46 02/11/25 06:17 112 H 02/11/25 06:10 37.1 C 115 H 20 176/118 H Pulse Ox O2 Del Method O2 Flow Rate FiO2 02/11/25 14:00 02/11/25 13:30 02/11/25 13:22 02/11/25 11:16 93 BiPAP 02/11/25 10:24 02/11/25 10:00 94 02/11/25 09:56 97 30 02/11/25 09:51 97 BiPAP 02/11/25 09:42 93 02/11/25 09:30 88 L 02/11/25 09:26 02/11/25 09:26 02/11/25 09:26 02/11/25 09:26 02/11/25 09:26 02/11/25 09:24 91 02/11/25 09:21 93 02/11/25 09:12 92 02/11/25 09:09 89 L 02/11/25 09:06 92 Nasal Cannula 4 02/11/25 09:00 92 Nasal Cannula 4 02/11/25 08:42 89 L 02/11/25 08:30 02/11/25 08:30 02/11/25 08:30 02/11/25 08:30 02/11/25 08:30 02/11/25 08:30 93 02/11/25 08:21 90 02/11/25 08:12 91 02/11/25 08:00 93 02/11/25 08:00 02/11/25 08:00 02/11/25 08:00 02/11/25 08:00 02/11/25 08:00 02/11/25 07:51 93 02/11/25 07:42 93 02/11/25 07:40 02/11/25 07:39 94 02/11/25 07:38 86 L Room Air 02/11/25 07:37 02/11/25 07:37 02/11/25 07:37 02/11/25 07:37 02/11/25 07:37 94 Nasal Cannula 2 02/11/25 07:09 02/11/25 07:09 93 Room Air 02/11/25 06:52 91 Room Air 02/11/25 06:46 Room Air 02/11/25 06:17 02/11/25 06:10 94 Room Air Laboratory Results 02/11/25 06:21 02/11/25 06:21 WBC 4.32 L RBC 2.99 L MCV 93.0 MCH 30.4 MCHC 32.7 RDW Std Deviation 48.9 H RDW Coeff of [place] 14.3 Plt Count 118 L MPV 10.7 Phosphorus 7.5 H Albumin 4.1
--- NOTE | 2025-02-11 15:26 | Communication Note ---
Date of Service: February 11, 2025 Patient seen in the hemodialysis unit. He had undergone removal of 1.5 L; reports that he does not want more dialysis today. I discussed with him that he has increased risks of pulmonary edema, respiratory failure requiring mechanical ventilator, . He understood risks of stopping dialysis but would like to stop dialysis for today. He is agreeable for dialysis tomorrow. He was taken off BiPAP; saturating well at 2 L of nasal cannula at 94 to 98%.
[2025-02-11 18:34] LABS: Hep B Surface Ag with confirm Negative (Negative)
[2025-02-11] MEDS: HEPARIN SOD (PORCINE) 1000 UNIT/ML IV SCH (19:46)
[2025-02-11] MEDS: ACETAMINOPHEN 325 MG TAB PO PRN (21:23)
[2025-02-11] MEDS: DOXYCYCLINE HYCLATE 100 MG CAP PO SCH (21:23)
[2025-02-11] MEDS: CEFEPIME 1000MG 1,000 MG/10 ML SYR IV SCH (21:26)
[2025-02-11] MEDS: AMITRIPTYLINE HCL 25 MG TAB PO SCH (21:28)
[2025-02-12 06:27] LABS: Hematocrit (blood only) 32.4 % (42.0-52.0); Hemoglobin 10.4 g/dL (14.0-18.0); Immature Granulocytes # (auto) 0.02 K/uL (0.01-0.20); Immature Granulocytes % (auto) 0.4 %; Mean Corpuscular Hemoglobin 30.4 pg (25.0-34.0); Mean Corpuscular Volume 94.7 fL (80.0-100.0); Platelet Count 140 K/uL (130-400); RDW Standard Deviation 49.7 fL (36.4-46.3); Red Blood Count 3.42 M/uL (4.70-6.10); White Blood Count 5.30 K/ul (4.8-10.8)
[2025-02-12 07:07] LABS: Anion Gap 13.0 (3-11); Blood Urea Nitrogen 32.0 mg/dl (6-23); Calcium 9.7 mg/dl (8.6-10.3); Carbon Dioxide 30.0 mmol/L (21-32); Chloride 94.0 mmol/L (98-107); Creatinine Clr Calc Pharmacy 11.8 ml/min; Glucose 89.0 mg/dl (70-99(Fasting)); Potassium 5.3 mmol/L (3.5-5.1); Sodium 137.0 mmol/L (136-145)
[2025-02-12] MEDS ORDERED: SODIUM CHLORIDE 0.9% 1,000 ML IV PRN (07:48)
--- NOTE | 2025-02-12 08:20 | XRay Report ---
XR chest 1V portable CLINICAL HISTORY: Increasing shortness of breath. COMPARISON STUDY: Chest radiograph February 11, 2025. FINDINGS: There is no pneumothorax. Small right pleural effusion has increased in size since prior ch est radiograph. Interstitial thickening persists. There is asymmetric right mid and lower lung airspa ce opacity. Cardiomegaly is again noted. Mediastinal contours are stable. IMPRESSION: 1. Increase in size of a small right pleural effusion. 2. Cardiomegaly with persistent pulmonary edema. 3. Increase in asymmetric right mid and lower lung airspace opacity. This may represent superimposed pneumonia or asymmetric pulmonary edema. ACT 112: Negative or not required by law. Electronically signed by: Sascha Garcia M.D. 02/12/2025 8:18 AM
--- NOTE | 2025-02-12 08:41 | Electrocardiogram Report ---
Test Reason : Blood Pressure : */* mmHG Vent. Rate : 114 BPM Atrial Rate : 114 BPM P-R Int : 132 ms QRS Dur : 76 ms QT Int : 340 ms P-R-T Axes : 71 66 67 degrees QTcB Int : 468 ms Sinus tachycardia Otherwise normal ECG When compared with ECG of 11-Feb-2025 06:26, (unconfirmed) No significant change was found Confirmed by Gertrudis Ward (Rob) on 02/12/2025 8:41:16 AM Referred By: REFERRED SELF Confirmed By: Gertrudis Ward
--- NOTE | 2025-02-12 08:46 | Electrocardiogram Report ---
Test Reason : Blood Pressure : */* mmHG Vent. Rate : 109 BPM Atrial Rate : 109 BPM P-R Int : 138 ms QRS Dur : 78 ms QT Int : 364 ms P-R-T Axes : 66 54 67 degrees QTcB Int : 490 ms Sinus tachycardia Nonspecific T wave abnormality QTcB >= 480 msec Abnormal ECG When compared with ECG of 04-Feb-2025 09:25, Premature ventricular complexes are no longer Present Confirmed by Gertrudis Ward (Rob) on 02/12/2025 8:46:32 AM Referred By: REFERRED SELF Confirmed By: Gertrudis Wrad
[2025-02-12] MEDS: HEPARIN SOD (PORCINE) 1000 UNIT/ML IV ONE (09:54)
[2025-02-12] MEDS: HEPARIN SOD (PORCINE) 1000 UNIT/ML IV SCH (09:54)
--- NOTE | 2025-02-12 10:23 | Pulmonary Consultation ---
Date of Consultation February 12, 2025 Assessment & Plan (1) Acute respiratory failure with hypoxia: MRSA screen pending. Continue cefepime and doxycycline. Pro-Asa elevated 02/12/2020 5-1.44. Recommend repeat procalcitonin tomorrow. Repeat chest x-ray 5 to 7 days and if no improvement then consider repeat in the next 1 to 2 days. Wean oxygen as able. Hypoxia likely multifactorial secondary to volume overload and pneumonia and mostly driven by pneumonia. (2) Acute on chronic heart failure with mildly reduced ejection fraction (HFmrEF, 41-49%): Volume removal via dialysis per nephrology. (3) Acute pneumonia: Sputum culture as able. Check LDH to screen for the possibility of PJP in light of the patient's immunosuppression. Check serum Fungitell. Consider ID consultation in the next 48 hours if no improvement. Plan I personally spent 63 minutes on the date of service in activities related to this patient's encounter, including 33 minutes of counseling with patient regarding treatment plan and 30 minutes of clinical review of lab results and documentation. I did insurance counselor the patient regarding their diagnosis and treatment plan and they expressed understanding. This note was dictated using voice recognition software and may include grammatical errors, extra words, word substitutions and other inaccuracies due to errors in the voice recognition software and differences in speech patterns. History of Present Illness Reason for Consultation: "Hypoxic respiratory failure, ?superimposed pneumonia" Attending Physician: Kirit Blackman MD History of Present Illness 35-year-old male with a history of tobacco abuse, vaping nicotine and marijuana, end-stage renal disease on hemodialysis who presented to the hospital due to increasing shortness of breath and occasional cough. He denies any fevers, chills or night sweats. Denies any mops this. Sputum is mostly clear when it does occur. He is currently on cefepime, doxycycline, prednisone 5 mg daily, dapsone, valganciclovir, mycophenolate and tacrolimus. Chest x-ray today reveals increase in size of right small pleural effusion and cardiomegaly. Increase in asymmetric right mid and lower lung airspace opacities. Respiratory viral panel was - 02/15/2025. He was on BiPAP overnight, but now doing well on low-flow oxygen. Allergies Allergy/AdvReac Type Severity Reaction Status Date / Time No Known Allergies Allergy Verified 02/11/25 08:17 Home Medications Medication Instructions Recorded Confirmed Type valganciclovir 450 mg tablet 450 mg PO UD ##0 11/16/24 02/11/25 History amitriptyline 25 mg tablet 25 mg PO HS 02/03/25 02/11/25 History aspirin 81 mg tablet,delayed 81 mg PO DAILY ##0 02/03/25 02/11/25 History release calcium acetate(phosphat bind) 667 667 mg PO UD ##0 02/03/25 02/11/25 History mg tablet cholecalciferol (vitamin D3) 25 1,000 unit PO DAILY 02/03/25 02/11/25 History mcg (1,000 unit) capsule dapsone 100 mg tablet 100 mg PO QAM 02/03/25 02/11/25 History famotidine 10 mg tablet (Heartburn 10 mg PO QAM 02/03/25 02/11/25 History Relief (famotidine)) mycophenolate mofetil 250 mg 250 mg PO UD ##0 02/03/25 02/11/25 History capsule (CellCept) prednisone 5 mg tablet 5 mg PO DAILY ##0 02/03/25 02/11/25 History sodium zirconium cyclosilicate 10 10 g PO DAILY 02/03/25 02/11/25 History gram oral powder packet (Lokelma) tacrolimus 0.5 mg capsule, 0.5 mg PO UD 02/03/25 02/11/25 History immediate-release tamsulosin 0.4 mg capsule 0.4 mg PO DAILY ##0 02/03/25 02/11/25 History torsemide 100 mg tablet 100 mg PO DAILY 02/03/25 02/11/25 History amlodipine 10 mg tablet (Norvasc) 10 mg PO DAILY #30 tabs 02/05/25 02/11/25 Rx hydralazine 50 mg tablet 50 mg PO TID #90 tabs 02/05/25 02/11/25 Rx metoprolol succinate 50 mg 75 mg (1.5 x 50 mg) PO BID #90 tabs 02/05/25 02/11/25 Rx tablet,extended release 24 hr (Toprol XL) Patient History Medical History (Updated 02/12/25 @ 10:21 by Larry Lara MD) Chest pain Anemia of chronic disease Depression Surgical History History of tooth extraction WISDOM TEETH Family History Mother Crohn's disease Social History Smoking Status: Current every day smoker Tobacco Type: E-cigarettes / Vaping Cigarettes Per Day: 5; Second Hand Exposure: No; Do You Dip or Chew Tobacco: No; Hx Alcohol Use: No Hx Substance Use: Yes Last Used Substance: Days (ago) Last Used Substance Other:: 02/10 prior to bed time Substance Use Type Other:: medical marijuana Preferred Language: Andorran Communication Ability: Effective Cop Winder Required: No Beliefs That Will Affect Care: None Current Living Situation: Spouse Feels Safe at Home: Yes Safety Concerns: Feels Safe At This Time Assistive Devices: None Review of Systems Review of Systems: All systems reviewed & are unremarkable except as noted in HPI & below Physical Exam Physical Exam: Constitutional: Patient appears to be of their stated age. Patient is in no apparent distress. Patient is well-developed. Eyes: Pupils are equal round and reactive to light. Conjunctivae are normal. Anicteric sclera. Ears nose, mouth and throat: Mallampati class 2. Normal posterior oropharynx. Uvula is midline. Neck: Trachea is midline. Visual inspection is normal. Respiratory: Bilateral lower lobe crackles. Cardiovascular: Regular rate and rhythm. No murmurs. No edema. Gastrointestinal: Normal bowel sounds, soft, nontender and nondistended. No hepatosplenomegaly noted. Musculoskeletal: No cyanosis. Patient is able to move all extremities. Skin: No rashes, warm dry and intact. Neurologic: No obvious focal neurological deficits seen. Psychiatric: Alert and oriented x3 with a euthymic affect. Results & Data Results & Data Vital Signs (Past 12 Hours) Vital Signs Temp Pulse Pulse Pulse Resp BP BP 02/12/25 10:00 90 161/111 H 02/12/25 09:30 88 158/100 H 02/12/25 09:14 95 H 152/105 H 02/12/25 09:07 36.5 C 100 H 02/12/25 08:05 36.5 C 107 H 20 156/110 H 02/12/25 07:35 91 H 15 02/12/25 07:00 90 12/08/25 07:00 02/12/25 06:00 89 22 166/113 H 02/12/25 02:56 02/12/25 02:44 113 H 24 02/12/25 02:30 110 H 22 167/125 H 02/11/25 22:59 37.1 C 115 H 24 146/96 H Pulse Ox O2 Del Method O2 Flow Rate FiO2 02/12/25 10:00 02/12/25 09:30 02/12/25 09:14 02/12/25 09:07 02/12/25 08:05 100 BiPAP 02/12/25 07:35 95 70 02/12/25 07:00 02/12/25 07:00 BiPAP 70 02/12/25 06:00 99 BiPAP 02/12/25 02:56 70 02/12/25 02:44 92 30 02/12/25 02:30 91 BiPAP 02/11/25 22:59 92 Nasal Cannula 4 PG Care Time/CCT Total # of Minutes Spent Total Time Spent with Patient: Total time spent is greater than 50% in coordination of care (as documented) at patient's floor/unit and/or counseling patient: Coding Level of Care Code 38456 INT INP/OBS CARE 2/55MIN Diagnoses Acute respiratory failure with hypoxia J96.01 Acute on chronic heart failure with mildly reduced ejection fraction (HFmrEF, 41-49%) I50.23 Acute pneumonia J18.9
--- NOTE | 2025-02-12 11:18 | Nephrology Progress Note ---
Date of Service February 12, 2025 Assessment & Plan (1) End stage renal disease: Plan: Patient with ESRD on HD MWF. Last outpt HD 02/09/25. patient now admitted with SOB. CXR showed pulm vascular congestion. attempted urgent HD for 4hrs target UF 4litres but issues w/ tx and unable to complete so had only 1.4L off. patient says he cant do HD 4 times a week (in part b/c local center is open only 3 days). he says his SOB is not due to volume overload and he normally stays on HD for full 4 hr tx (verified in OP charts); he has had HTN issues in recent past at HD; though on 02/09 his sbp were controlled. tolerating HH today w/ goal 5L UF > may need extra treatment tomorrow depending on clinical status will f/u pulmonary recs as well > likely to be d/c on home (2) Acute on chronic heart failure with mildly reduced ejection fraction (HFmrEF, 41-49%): Plan: Patient with acute on chronic CHD. He does have increased intake and med non compliance. Continue renal diet and fluid limit 1 litre daily (3) Hypertensive urgency: Plan: BP is above target likely due to volume overload and med non compliance. he was noted recently as OP not to be filling rx's as prescribed including for BP meds. >Will give metoprolol xl 75 mg on HD. he will get amlodipine and hydralazine as scheduled. Admission and Anticipated Discharge Date Admission Date: February 11, 2025 Subjective seen and evaluated on dialysis. second weekend in a row he's woken up sob and been admitted; was on bipap 70% overnight after shortened treatment yesterday (needle dislodged and pt declined to recannulate); no current sob or CP. no n/v; no cramping Review of Systems 2 Review of Systems: All systems reviewed & are unremarkable except as noted in Subjective Physical Exam 2 Constitutional: well developed, + frail appearing and cooperative; no acute distress Eyes: EOM intact bilaterally ENMT: Mouth: + dry oral mucous membranes Respiratory: normal respiratory effort Auscultation: + diminished lung sounds Cardiovascular: Rate/Rhythm: regular rate and regular rhythm Extremities: + AV fistula; no edema Gastrointestinal (Abdomen): Inspection/Auscultation: normal bowel sounds P ercussion/Palpation: abdomen soft; abdomen nontender Musculoskeletal: Extremities: strength 5/5 throughout Skin: no rashes, warm and dry Neurologic: gaitan, fluent speech, no tremor Results & Data Vital Signs (Past 12 Hours) Vital Signs Temp Pulse Pulse Resp BP BP Pulse Ox 02/12/25 10:30 90 160/108 H 02/12/25 10:00 90 161/111 H 02/12/25 09:30 88 158/100 H 02/12/25 09:14 95 H 152/105 H 02/12/25 09:07 36.5 C 100 H 02/12/25 08:05 36.5 C 107 H 20 156/110 H 100 02/12/25 07:35 91 H 15 95 02/12/25 07:00 90 02/12/25 07:00 02/12/25 06:00 89 22 166/113 H 99 02/12/25 02:56 02/12/25 02:44 113 H 24 92 02/12/25 02:30 110 H 22 167/125 H 91 O2 Del Method FiO2 02/12/25 10:30 02/12/25 10:00 02/12/25 09:30 02/12/25 09:14 02/12/25 09:07 02/12/25 08:05 BiPAP 02/12/25 07:35 70 02/12/25 07:00 02/12/25 07:00 BiPAP 70 02/12/25 06:00 BiPAP 02/12/25 02:56 70 02/12/25 02:44 30 02/12/25 02:30 BiPAP Laboratory Results 02/12/25 05:38 02/12/25 05:38
[2025-02-12] MEDS: VALGANCICLOVIR HCL 450 MG TABLET PO SCH (11:53)
--- NOTE | 2025-02-12 13:04 | Hospitalist Progress Note ---
Date of Service February 12, 2025 Assessment & Plan (1) Pulmonary edema: Plan Assessment/plan Acute hypoxic respiratory failure Pulmonary edema Possible pneumonia ESRD on HD Patient presented to the hospital with acute onset of shortness of breath for 1 day Chest x-ray on admission shows pulmonary edema, possible pnuemonia Serum sodium of 133, creatinine of 8.92. on admission Phosphorus7.5 Hemodialysis as per nephrology; goal ultrafiltrate of 5 L today. May need extra treatment tomorrow depending on clinical status. Pulmonology consulted for comanagement for possible superimposed pneumonia. Plan to continue cefepime and doxycycline, repeat procalcitonin tomorrow. Plan to obtain LDH, Fungitell to rule out PJP. Also recommended to consider ID consultation if no improvement in next 48 hours. Demand ischemia High-sensitivity troponin elevated to 134 on admission; repeat pending EKG shows normal sinus rhythm; no ST or T wave changes. Echocardiogram done last admission shows EF of 40 to 45%. Evaluated by card iology last admission; recommended outpatient cardiology follow-up with possible cardiac MRI and a stress test. 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 H/O transplant rejection Fanconi syndrome Continue immunosuppressive treatment Nephrology consulted to help with dialysis Full code DVT prophylaxis heparin I have updated patient's over the phone on patient's request on February 12, 2025; answer queries/question. She is in agreement with treatment plan Time spent evaluating patient, direct bedside care, chart review, placing orders, interpretation of diagnostic studies, discussion with consultants, patient, and family members, as well as other required patient management activities is 50 minutes Please note the above document was generated using voice recognition software. It may contain grammatical, syntax or spelling errors. Any formal questions or concerns about the content, text or information contained within the body of this dictation should be directly addressed to the provider for clarification Admission and Anticipated Discharge Date Admission Date: February 11, 2025 Subjective Patient seen in the dialysis unit. He is off BiPAP; undergoing hemodialysis without any discomfort/pain. Review of Systems Review of Systems: All systems reviewed & are unremarkable except as noted in Subjective Physical Exam Physical Exam: On physical examination; Constitutional: WD/WN, vitals as above, NAD, sitting up in bed, pleasant, conversing easily Respiratory: Bilateral basal crackles present. Cardiovascular: RRR, no murmur, no edema Vessels: no JVD or carotid bruit Chest: normal inspection of chest Abdomen: normal bowel sounds, soft, nontender, no hepatosplenomegaly Musculoskeletal: Fistula on left arm with bruit Neurologic: PERRL, EOMI, accommodation nl, no face palsy, no dysarthria CN's II- XI intact bilaterally and moves all extremities Psychiatric: A+Ox3, euthymic affect Results & Data Results & Data Vital Signs (Past 12 Hours) Vital Signs Temp Pulse Pulse Resp BP BP Pulse Ox 02/12/25 12:00 93 H 158/111 H 02/12/25 11:30 70 161/102 H 02/12/25 11:00 69 171/105 H 02/12/25 10:30 90 160/108 H 02/12/25 10:00 90 161/111 H 02/12/25 09:30 88 158/100 H 02/12/25 09:14 95 H 152/105 H 02/12/25 09:07 36.5 C 100 H 02/12/25 08:05 36.5 C 107 H 20 156/110 H 100 02/12/25 07:35 91 H 15 95 02/12/25 07:00 90 02/12/25 07:00 02/12/25 06:00 89 22 166/113 H 99 02/12/25 02:56 02/12/25 02:44 113 H 24 92 02/12/25 02:30 110 H 22 167/125 H 91 O2 Del Method FiO2 02/12/25 12:00 02/12/25 11:30 02/12/25 11:00 02/12/25 10:30 02/12/25 10:00 02/12/25 09:30 02/12/25 09:14 02/12/25 09:07 02/12/25 08:05 BiPAP 02/12/25 07:35 70 02/12/25 07:00 02/12/25 07:00 BiPAP 70 02/12/25 06:00 BiPAP 02/12/25 02:56 70 02/12/25 02:44 30 02/12/25 02:30 BiPAP
[2025-02-13 06:29] LABS: Hematocrit (blood only) 32.2 % (42.0-52.0); Hemoglobin 10.6 g/dL (14.0-18.0); Immature Granulocytes # (auto) 0.02 K/uL (0.01-0.20); Immature Granulocytes % (auto) 0.5 %; Mean Corpuscular Hemoglobin 30.6 pg (25.0-34.0); Mean Corpuscular Volume 93.1 fL (80.0-100.0); Platelet Count 147 K/uL (130-400); RDW Standard Deviation 49.9 fL (36.4-46.3); Red Blood Count 3.46 M/uL (4.70-6.10); White Blood Count 4.20 K/ul (4.8-10.8)
[2025-02-13 07:26] LABS: Alanine Aminotransferase 6.0 U/L (7-52); Albumin Globulin Ratio 1.1 (0.9-2); Albumin Level 4.1 gm/dl (3.4-5.0); Alkaline Phosphatase 46.0 U/L (34-104); Anion Gap 11.0 (3-11); Bilirubin,Total 0.8 mg/dl (0.2-1.0); Blood Urea Nitrogen 30.0 mg/dl (6-23); Calcium 10.0 mg/dl (8.6-10.3); Carbon Dioxide 31.0 mmol/L (21-32); Chloride 93.0 mmol/L (98-107); Creatinine Clr Calc Pharmacy 16.3 ml/min; Globulin 3.7 gm/dl (2.5-4.0); Glucose 90.0 mg/dl (70-99(Fasting)); Potassium 5.1 mmol/L (3.5-5.1); Sodium 135.0 mmol/L (136-145); Total Protein 7.8 gm/dl (6.0-8.3)
--- NOTE | 2025-02-13 10:56 | XRay Report ---
SINGLE VIEW CHEST CLINICAL HISTORY: Follow-up pneumonia. FINDINGS: An AP, portable, upright chest radiograph is compared to study dated 02/12/2025. Correlation is made to abdominal CT dated 10/16/2024. The examination is degraded by portable technique and patie nt rotation. The heart is enlarged. Pulmonary vascular congestion persists. Bibasilar airspace opaci ties have partially cleared as compared to yesterday. No large pleural effusion or pneumothorax is se en. The bony thorax is grossly intact. IMPRESSION: 1. Cardiomegaly with evidence of congestive failure. 2. Bibasilar airspace opacities have partially cleared as compared to yesterday. Continued follow-up to resolution is recommended. 3. The right pleural effusion seen yesterday is no longer appreciated. ACT 112: Negative or not required by law. Electronically signed by: Jos Jimenez M.D. 02/13/2025 10:54 AM
--- NOTE | 2025-02-13 11:13 | Hospitalist Progress Note ---
Date of Service February 13, 2025 Assessment & Plan (1) Pulmonary edema: Plan Assessment/plan Acute hypoxic respiratory failure Pulmonary edema Possible pneumonia ESRD on HD Patient presented to the hospital with acute onset of shortness of breath for 1 day Chest x-ray on admission shows pulmonary edema, possible pnuemonia Serum sodium of 133, creatinine of 8.92. on admission Phosphorus7.5 Status post hemodialysis on February 12, 2025 and February 11, 2025 ( stopped after 1.5 hours, patient didn't want to resume later) Off BiPAP and is on room air currently. Monitor oxygenation Pulmonology consulted for comanagement for possible superimposed pneumonia. Plan to continue cefepime and doxycycline. MRSA nares neg. Patient continues patient seems to be improving at the present time. Pulmonology recommends chest repeating chest x-ray in 5 to 7 days; Pulmonology recommended to consider ID consultation if no improvement in next 48hours; patient seems to improving at this point; will monitor for next 24 hours. Demand ischemia High-sensitivity troponin elevated to 134 on admission; repeat pending EKG shows normal sinus rhythm; no ST or T wave changes. Echocardiogram done last admission shows EF of 40 to 45%. Evaluated by cardiology last admission; recommended outpatient cardiology follow-up with possible cardiac MRI and a stress test. 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 She is in agreement with treatment plan Time spent evaluating patient, direct bedside care, chart review, placing orders, interpretation of diagnostic studies, discussion with consultants, patient, and family members, as well as other required patient management activities is 50 minutes Please note the above document was generated using voice recognition software. It may contain grammatical, syntax or spelling errors. Any formal questions or concerns about the content, text or information contained within the body of this dictation should be directly addressed to the provider for clarification Admission and Anticipated Discharge Date Admission Date: February 11, 2025 Subjective patient seen and examined at bedside. He reports that he is feeling much better. Shortness of breath has improved. He is off oxygen Review of Systems Review of Systems: All systems reviewed & are unremarkable except as noted in Subjective Physical Exam Physical Exam: On physical examination; Constitutional: WD/WN, vitals as above, NAD, sitting up in bed, pleasant, conversing easily Respiratory: b/l clear breath sounds Cardiovascular: RRR, no murmur, no edema Vessels: no JVD or carotid bruit Chest: normal inspection of chest Abdomen: normal bowel sounds, soft, nontender, no hepatosplenomegaly Musculoskeletal: Fistula on left arm with bruit Neurologic: PERRL, EOMI, accommodation nl, no face palsy, no dysarthria CN's II- XI intact bilaterally and moves all extremities Psychiatric: A+Ox3, euthymic affect Results & Data Results & Data Vital Signs (Past 12 Hours) Vital Signs Temp Pulse Pulse Resp BP Pulse Ox O2 Del Method 02/13/25 10:58 Room Air 02/13/25 07:23 36.5 C 86 21 132/89 95 Nasal Cannula 02/13/25 03:10 36.8 C 86 16 146/111 H 100 Nasal Cannula 02/12/25 23:18 37.1 C 92 H 16 137/97 98 Nasal Cannula O2 Flow Rate 02/13/25 10:58 02/13/25 07:23 5 02/13/25 03:10 2 02/12/25 23:18 2
--- NOTE | 2025-02-13 11:28 | Pulmonology Progress Note ---
Date of Service February 13, 2025 Assessment & Plan (1) Acute respiratory failure with hypoxia: Plan: MRSA screen negative. Continue cefepime and doxycycline. Procalcitonin trending down nicely. Repeat chest x-ray with near resolution of right-sided infiltrate and no evidence of pleural effusion. Hypoxemia resolved. Can de- escalate antibiotics to cefdinir and doxycycline depending on urine culture. (2) Acute on chronic heart failure with mildly reduced ejection fraction (HFmrEF, 41-49%): Plan: Volume removal via dialysis per nephrology. Significant improvement with volume removal. (3) Acute pneumonia: Plan: LDH minimally elevated. Fungitell pending. Doubtful of PJP. Suspect the patient had more volume overload than pneumonia. Would still empirically treat for total 5 days especially in light of a downtrending procalcitonin while on antibiotics. Plan Pulmonary to sign off. Please call with questions. Thank you for the consult. I personally spent 35 minutes on the date of service in activities related to this patient's encounter, including 20 minutes of counseling with patient regarding treatment plan and 15 minutes of clinical review of lab results and documentation. I did branch credit counselor the patient regarding their diagnosis and treatment plan and they expressed understanding. This note was dictated using voice recognition software and may include grammatical errors, extra words, word substitutions and other inaccuracies due to errors in the voice recognition software and differences in speech patterns. Admission and Anticipated Discharge Date Admission Date: February 11, 2025 Subjective Patient feels significantly better today and is saturating well on room air. Chest x-ray reviewed personally and reveals resolution of right pleural effusion and opacities. Patient denies any cough, chest pain or shortness of breath. Review of Systems Review of Systems: All systems reviewed & are unremarkable except as noted in HPI & below Physical Exam Physical Exam: Constitutional: Patient appears to be of their stated age. Patient is in no apparent distress. Patient is well-developed. Eyes: Pupils are equal round and reactive to light. Conjunctivae are normal. Anicteric sclera. Ears nose, mouth and throat: Mallampati class 2. Normal posterior oropharynx. Uvula is midline. Neck: Trachea is midline. Visual inspection is normal. Respiratory: Clear to auscultation bilaterally. Cardiovascular: Regular rate and rhythm. No murmurs. No edema. Gastrointestinal: Normal bowel sounds, soft, nontender and nondistended. No hepatosplenomegaly noted. Musculoskeletal: No cyanosis. Patient is able to move all extremities. Skin: No rashes, warm dry and intact. Neurologic: No obvious focal neurological deficits seen. Psychiatric: Alert and oriented x3 with a euthymic affect. Results & Data Results & Data Vital Signs (Past 12 Hours) Vital Signs Temp Pulse Resp BP Pulse Ox O2 Del Method O2 Flow Rate 02/13/25 10:58 Room Air 02/13/25 07:23 36.5 C 86 21 132/89 95 Nasal Cannula 5 02/13/25 03:10 36.8 C 86 16 146/111 H 100 Nasal Cannula 2 PG Care Time/CCT Total # of Minutes Spent Total Time Spent with Patient: Total time spent is greater than 50% in coordination of care (as documented) at patient's floor/unit and/or counseling patient: Coding Level of Care Code 06910 SUB INP/OBS CARE 2/35MIN Diagnoses Acute respiratory failure with hypoxia J96.01 Acute on chronic heart failure with mildly reduced ejection fraction (HFmrEF, 41-49%) I50.23 Acute pneumonia J18.9
[2025-02-13] MEDS ORDERED: SODIUM CHLORIDE 0.9% 1,000 ML IV PRN (11:34)
--- NOTE | 2025-02-13 12:25 | Nephrology Progress Note ---
Date of Service February 13, 2025 Assessment & Plan (1) End stage renal disease: Plan: Patient with ESRD on HD MWF. Last outpt HD 02/09/25. patient now admitted with SOB. CXR showed pulm vascular congestion, R > L pl effusions at admission. attempted urgent HD for 4hrs target UF 4litres but issues w/ tx and unable to complete so had only 1.4L off. patient says he can't do HD 4 times a week (in part b/c local center is open only 3 days). he says his SOB is not due to volume overload and he normally stays on HD for full 4 hr tx (true; verified in OP charts); he has had HTN issues in recent past at HD; though on 02/09 his sbp were controlled. agrees after discussion of current status and XRay review to 2 hr tx today >continue 1 L FR -plan full tx tomorrow as well >>continue phosLo current dose >> phos 7.5 on admission >note he is on OP lokelma > may need to resume this inpatient but for now near- daily HD will f/u pulmonary recs as well > pulmonary signed off > they favor HF / vol OL more than PNA but do recommend completing empiric tx 5 days and deescalate to doxy/cefdinir Care reviewed w/ Dr Blackman regarding extra HD, txplt meds, AVF plan on TText; we are in agreement. (2) Acute on chronic heart failure with mildly reduced ejection fraction (HFmrEF, 41-49%): Plan: Patient with acute on chronic CHD. He does have increased intake and med non compliance. >>Continue renal diet and fluid limit 1 litre daily (3) Hypertensive urgency: Plan: BP is above target likely due to volume overload and med non compliance. he was noted recently as OP not to be filling rx's as prescribed including for BP meds. 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; no prospect of retxplt soon >>pt has had issues w/ taking his meds, in part d/t nonadherence and to cost > FK 1.5/1 currently, MMF 1 gm bid, prednisone 5 mg daily -on prophylaxis dapsone 100 mg daily, valcyte 450 mg MonThurs >>>note that fluconazole has dropped off of med list unclear what optimal regimen is at this time; am reviewing w/ [facility] txplt nephro for recs (6) Nephropathic cystinosis: Plan: not currently on his procysbi d/t cost issues; have been trying to get him in w/ optho for eval; very challenging clinically/logistically/and unfortunately cost prohibitive for him Admission and Anticipated Discharge Date Admission Date: February 11, 2025 Subjective tolerated 4.5 L UF yesterday; no sob currently; was on 4-5L NC this am, able to wean down to RA mid/late AM. no cough currently, not sob; no uncontrolled pain though has some mild L shoulder pain which he states is crhonic/recurrent and mild; no relation to activity or to exacerbating/mitigating factors Review of Systems 2 Review of Systems: All systems reviewed & are unremarkable except as noted in Subjective Physical Exam 2 Constitutional: well developed, + frail appearing and cooperative; no acute distress Eyes: EOM intact bilaterally ENMT: Mouth: + dry oral mucous membranes Respiratory: normal respiratory effort (lying flat on RA) Auscultation: + diminished lung sounds (vivian R base) Cardiovascular: Rate/Rhythm: regular rate and regular rhythm Extremities: + AV fistula; no edema Gastrointestinal (Abdomen): Inspection/Auscultation: normal bowel sounds P ercussion/Palpation: abdomen soft; abdomen nontender Musculoskeletal: Extremities: strength 5/5 throughout Skin: no rashes, warm and dry Neurologic: gaitan fluent speech no tremor Results & Data Vital Signs (Past 12 Hours) Vital Signs Temp Pulse Resp BP Pulse Ox O2 Del Method O2 Flow Rate 02/13/25 11:47 36.8 C 100 H 22 148/96 H 94 Room Air 02/13/25 10:58 Room Air 02/13/25 07:23 36.5 C 86 21 132/89 95 Nasal Cannula 5 02/13/25 03:10 36.8 C 86 16 146/111 H 100 Nasal Cannula 2 Laboratory Results 02/13/25 05:59 02/13/25 05:59 Diagnostic Findings CXR (images personally reviewed/interpreted) > still w/ HF/vol OL though less than admission; R pl effusion improved
[2025-02-13] MEDS: HEPARIN SOD (PORCINE) 1000 UNIT/ML IV ONE (12:58)
[2025-02-13] MEDS: HEPARIN SOD (PORCINE) 1000 UNIT/ML IV SCH (12:58)
[2025-02-14 06:23] LABS: Hematocrit (blood only) 32.5 % (42.0-52.0); Hemoglobin 10.9 g/dL (14.0-18.0); Immature Granulocytes # (auto) 0.01 K/uL (0.01-0.20); Immature Granulocytes % (auto) 0.3 %; Mean Corpuscular Hemoglobin 31.1 pg (25.0-34.0); Mean Corpuscular Volume 92.9 fL (80.0-100.0); Platelet Count 164 K/uL (130-400); RDW Standard Deviation 49.8 fL (36.4-46.3); Red Blood Count 3.50 M/uL (4.70-6.10); White Blood Count 3.95 K/ul (4.8-10.8)
[2025-02-14 06:53] LABS: Anion Gap 12.0 (3-11); Blood Urea Nitrogen 31.0 mg/dl (6-23); Calcium 10.6 mg/dl (8.6-10.3); Carbon Dioxide 29.0 mmol/L (21-32); Chloride 94.0 mmol/L (98-107); Creatinine Clr Calc Pharmacy 15.9 ml/min; Glucose 100.0 mg/dl (70-99(Fasting)); Potassium 5.0 mmol/L (3.5-5.1); Sodium 135.0 mmol/L (136-145)
[2025-02-14] MEDS ORDERED: SODIUM CHLORIDE 0.9% 1,000 ML IV PRN (07:00)
[2025-02-14] MEDS: HEPARIN SOD (PORCINE) 1000 UNIT/ML IV ONE (09:51)
[2025-02-14] MEDS ORDERED: NITROGLYCERIN SL 0.4 MG/TAB TAB SL PRN (10:50)
[2025-02-14 11:16] LABS: Hematocrit (blood only) 31.8 % (42.0-52.0); Hemoglobin 11.1 g/dL (14.0-18.0); Mean Corpuscular Hemoglobin 31.2 pg (25.0-34.0); Mean Corpuscular Volume 89.3 fL (80.0-100.0); Platelet Count 187 K/uL (130-400); RDW Standard Deviation 47.2 fL (36.4-46.3); Red Blood Count 3.56 M/uL (4.70-6.10); White Blood Count 5.02 K/ul (4.8-10.8)
[2025-02-14] MEDS: HEPARIN SOD (PORCINE) 1000 UNIT/ML IV SCH (11:25)
[2025-02-14] MEDS: ASPIRIN CHEW 324 MG ONE (11:25)
[2025-02-14] MEDS: NITROGLYCERIN SL 0.4 MG/TAB TAB ONE (11:26)
[2025-02-14] MEDS: NITROGLYCERIN SL 0.4 MG/TAB TAB SL STA (11:26)
[2025-02-14] MEDS: ASPIRIN 81 MG CHEW PO ONE ×2 (11:26→11:37)
--- NOTE | 2025-02-14 11:29 | Cardiology Consultation ---
Date of Consultation February 14, 2025 Assessment & Plan (1) Chest pain: (2) Hypertensive emergency: (3) Acute heart failure with mildly reduced ejection fraction (HFmrEF, 41-49%): (4) End-stage renal disease on hemodialysis: Plan Assessment: 35 year old medically complex male presented to the ER with acute onset shortness of breath. markedly elevated blood pressures, recent hospitalization for acute on chronic Heart failure. Patient has been receiving consecutive hemodialysis treatments for past 4 days. Developed acute onset chest pain during dialysis, EKG with no acute ischemic changes. discomfort resolved after 1 SL NTG. Cardiology consulted for further evaluation/recommendations. Plan: 1. chest pain: 2. Hypertensive emergency 3. Acute on chronic HFmrEF 4. ESRD on HD -Acute onset CP described as a tightness during his hemodialysis treatment. Resolved within 30 minutes and with administration of one SL NTG. -Initial troponin 43.8. continue to trend to peak. -Patient remains Chest pain free at this time. -REview of telemetry shows ST rate 103 with occasional PVC's -Blood pressures currently controlled -Recent echocardiogram 02/03/2025 shows mildly reduced LVEF (40-45%) with mild diffuse hypokinesis, but no regional wall motion abnormalities. Will discuss with Dr. Parish. -Given patient's complex history, and reduction in LVEF during last hospitalization, goal of treatment was to optimize medication therapies and plan for Outpatient cardiomyopathy workup with a nuclear stress test when blood pressures were controlled as well as consideration for cardiac MRI. -patient does not appear hypervolemic on today's exam -Continue Amlodipine 10mg PO daily, Aspirin 81mg PO Daily, Hydralazine 50mg PO BID, Torsemide 100mg PO Daily and Metoprolol succinate 75mg PO BID. -LDL 73 (02/04/2025). Please start Atorvastatin 10mg PO QPM. -Continued close management of patient's renal disease, hemodialysis treatment plan per nephrology. Appreciate all recommendations. Case has been discussed with Dr. Parish. Further recommendations regarding plan of care as per his assessment. WALDO Wilkinson [facility] Cardiology [facility] Supervising Physician Co-Signing Physician Notes Attending attestation: Case reviewed with the advanced practitioner. I have personally performed a history and physical examination on the patient. I have reviewed the advanced practitioner's documentation on the date of service referenced in note, and I agree with, and take responsibility for the plan of care. Subjective: Patient with acute onset of 10/10 chest pain and left shoulder pain during dialysis today. Rapid response team responded via Code Purple protocol. Patient reportedly received a dose of SL nitroglycerin as ordered by attending physician Dr Berger, however [facility] documentation suggests it was never administered. Patient asymptomatic during my assessment with HD having been ceased. Exam: CV: regular , no murmurs, no edema Data: EKG performed 02/11/25: Sinus tachycardia at 114 bpm without acute ischemic changes. Troponin 43.8--> 44.5 pg/ml. (Actually trending down compared to measurements on admission at 134.8 and 138.9 PG per mL. Documented on 02/11/2025) Echocardiogram performed at that time 02/03/2025 revealed Findings of moderate concentric left ventricular hypertrophy with mild diffuse left ventricular hypokinesis, mild left ventricular systolic dysfunction, LVEF in the range of 40-45% severe left atrial enlargement observed. Mild right ventricular chamber dilatation observed. Impression/ Plan: Transient chest discomfort Mild troponin elevation , EKG findings without acute changes Patient with recent admission last month (2 weeks ago) with volume overload, uncontrolled hypertension transient chest discomfort. - Recommend continuing to trend troponin values. -High blood pressure trending toward improvement although overall still not optimal. -Echocardiogram images from 02/03/25 reviewed independently with findings of cardiomyopathy , new compared to prior echo in 2018, LVEF 60-65%. Potential etiologies include non ischemic causes such as prior uncontrolled hypertension. Cardiac involvement of hereditary cystinosis is rarer than renal involvement , but can manifest as a cardiomyopathy. Underlying ischemic heart disease not yet exluded. -Continue medical therapy including ASA 81 mg daily, Metoprolol succinate 75 mg BID, Amlodipine 10 mg daily, Hydralazine 50 mg TID, Flomax 0.4 mg daily. LDL as drawn on 02/05/24 was 73 mg /dl. Would recommend LDL goal less than 70 mg/dl . Will add atorvastatin 10 mg daily. 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 patient had a recent HD treatment on Wednesday outpatient with removal of 4 L of fluid. Endorses a cough, had consumed some potato chips the night before admission. he was admitted for hypertensive urgency and pulmonary edema. Of note, patient was recently admitted to [facility] 02/03-02/05/2025 for hypertensive concerns, medication adjustments were made and he was discharged home with continued plan of OP dialysis (Started on amlodipine at that time, Metoprolol and hydralazine were increased). Patient was receiving hemodialysis this morning when he developed chest pain, a code purple was initiated, EKG obtained demonstrating no acute ischemic changes. stat labs drawn. Initial troponin 43.8. This was his 4th consecutive HD treatment since admission which is closely monitored by nephrology. Cardiology has been consulted for further evaluation and recommendations. Upon seeing patient in consultation he is back in his hospital room resting comfortably sitting up in bed. Offers no acute concerns. He reports that his chest pain, described as a tightness over the left anterior chest wall radiating into his left shoulder. EKG obtained, patient received 1 SL NTG with cessation of his chest discomfort. He is eating lunch and denies any discomfort. Vital si gns stable. Review of telemetry shows ST rates 103bpm. Occasional PVC's. Allergies Allergy/AdvReac Type Severity Reaction Status Date / Time No Known Allergies Allergy Verified 02/11/25 08:17 Home Medications Medication Instructions Recorded Confirmed Type valganciclovir 450 mg tablet 450 mg PO UD ##0 11/16/24 02/11/25 History amitriptyline 25 mg tablet 25 mg PO HS 02/03/25 02/11/25 History aspirin 81 mg tablet,delayed 81 mg PO DAILY ##0 02/03/25 02/11/25 History release calcium acetate(phosphat bind) 667 667 mg PO UD ##0 02/03/25 02/11/25 History mg tablet cholecalciferol (vitamin D3) 25 1,000 unit PO DAILY 02/03/25 02/11/25 History mcg (1,000 unit) capsule dapsone 100 mg tablet 100 mg PO QAM 02/03/25 02/11/25 History famotidine 10 mg tablet (Heartburn 10 mg PO QAM 02/03/25 02/11/25 History Relief (famotidine)) mycophenolate mofetil 250 mg 250 mg PO UD ##0 02/03/25 02/11/25 History capsule (CellCept) prednisone 5 mg tablet 5 mg PO DAILY ##0 02/03/25 02/11/25 History sodium zirconium cyclosilicate 10 10 g PO DAILY 02/03/25 02/11/25 History gram oral powder packet (Lokelma) tacrolimus 0.5 mg capsule, 0.5 mg PO UD 02/03/25 02/11/25 History immediate-release tamsulosin 0.4 mg capsule 0.4 mg PO DAILY ##0 02/03/25 02/11/25 History torsemide 100 mg tablet 100 mg PO DAILY 02/03/25 02/11/25 History amlodipine 10 mg tablet (Norvasc) 10 mg PO DAILY #30 tabs 02/05/25 02/11/25 Rx hydralazine 50 mg tablet 50 mg PO TID #90 tabs 02/05/25 02/11/25 Rx metoprolol succinate 50 mg 75 mg (1.5 x 50 mg) PO BID #90 tabs 02/05/25 02/11/25 Rx tablet,extended release 24 hr (Toprol XL) Patient History Medical History (Updated 02/14/25 @ 12:56 by WALDO Wilkinson) Chest pain Anemia of chronic disease Depression Surgical History History of tooth extraction WISDOM TEETH Family History Mother Crohn's disease Social History Smoking Status: Current every day smoker Tobacco Type: E-cigarettes / Vaping Cigarettes Per Day: 5; Second Hand Exposure: No; Do You Dip or Chew Tobacco: No; Hx Alcohol Use: No Hx Substance Use: Yes Last Used Substance: Days (ago) Last Used Substance Other:: 02/10 prior to bed time Substance Use Type Other:: medical marijuana Preferred Language: Mongolian Communication Ability: Effective Straw Baler Required: No Beliefs That Will Affect Care: None Current Living Situation: Spouse Feels Safe at Home: Yes Safety Concerns: Feels Safe At This Time Assistive Devices: None Review of Systems Review of Systems: All systems reviewed & are unremarkable except as noted in HPI & below Physical Exam Constitutional: + thin; no acute distress and not ill ap pearing Neck: normal visual inspection and trachea midline Respiratory: normal respiratory effort, lungs clear to auscultation no cough Auscultation: no crackles, no rales, no rhonchi and no wheezes Cardiovascular: Rate/Rhythm: regular rhythm and + tachycardic Heart Sounds: normal S1 and normal S2; no murmur Vessels: no JVD Extremities: + AV fistula; no edema Skin: no rashes, warm and dry Psychiatric: A+Ox3, euthymic affect Results & Data Vital Signs (Past 12 Hours) Vital Signs Temp Pulse Pulse Pulse Resp BP BP 02/14/25 11:09 36.8 C 94 H 22 132/84 02/14/25 10:30 105 H 124/79 02/14/25 10:00 98 H 139/102 H 02/14/25 09:42 103 H 141/101 H 02/14/25 09:35 36.5 C 103 H 02/14/25 07:34 36.5 C 96 H 20 145/93 H 02/14/25 03:19 107 H 29 H 02/14/25 02:20 36.5 C 107 H 18 145/91 H 02/13/25 23:20 97 H 21 Pulse Ox O2 Del Method FiO2 02/14/25 11:09 93 Room Air 02/14/25 10:30 02/14/25 10:00 02/14/25 09:42 02/14/25 09:35 02/14/25 07:34 95 Room Air 02/14/25 03:19 98 21 02/14/25 02:20 100 CPAP 02/13/25 23:20 99 21 Laboratory Results Cardiac Enzymes 02/14/25 Range/Units 10:50 AST 14 (13-39) U/L Troponin I High Sens 43.8 H (0-20) pg/ml CBC 02/14/25 02/14/25 Range/Units 05:55 10:50 WBC 3.95 L 5.02 (4.8-10.8) K/ul RBC 3.50 L 3.56 L (4.70-6.10) M/uL Hgb 10.9 L 11.1 L (14.0-18.0) g/dL Hct 32.5 L 31.8 L (42.0-52.0) % Plt Count 164 187 (130-400) K/uL Neut # (Auto) 2.85 (1.40-6.50) K/uL Lymph # (Auto) 0.64 L (1.20-3.40) K/uL [place] # (Auto) 0.31 (0.11-0.59) K/uL Eos # (Auto) 0.08 (0.00-0.50) K/uL Baso # (Auto) 0.06 (0.00-0.20) K/uL Comprehensive Metabolic Panel 02/14/25 02/14/25 Range/Units 05:55 10:50 Sodium 135 L 135 L (136-145) mmol/L Potassium 5.0 4.2 (3.5-5.1) mmol/L Chloride 94 L 97 L (98-107) mmol/L Carbon Dioxide 29 24 (21-32) mmol/L BUN 31 H 24 H (6-23) mg/dl Creatinine 6.59 H* 5.22 H* D (0.6-1.4) mg/dl Glucose 100 H 96 (70-99(Fasting)) mg/dl Calcium 10.6 H 10.3 (8.6-10.3) mg/dl AST 14 (13-39) U/L ALT 6 L (7-52) U/L Alkaline Phosphatase 44 (34-104) U/L Total Protein 8.1 (6.0-8.3) gm/dl Albumin 4.2 (3.4-5.0) gm/dl PG Care Time/CCT Total # of Minutes Spent Total Time Spent with Patient: : Coding Level of Care Code 65417 IN/OBS CONSULT LVL 5,80M Diagnoses Chest pain R07.9 Chest pain type: unspecified Hypertensive emergency I16.1 Acute heart failure with mildly reduced ejection fraction (HFmrEF, 41-49%) I50.21 End-stage renal disease on hemodialysis N18.6; Z99.2 Time Spent (min) 50 (1) Chest pain Chest pain type: unspecified Qualified Code(s): R07.9 - Chest pain, unspecified
[2025-02-14 11:31] LABS: Alanine Aminotransferase 6.0 U/L (7-52); Albumin Globulin Ratio 1.1 (0.9-2); Albumin Level 4.2 gm/dl (3.4-5.0); Alkaline Phosphatase 44.0 U/L (34-104); Anion Gap 14.0 (3-11); Bilirubin,Total 0.8 mg/dl (0.2-1.0); Blood Urea Nitrogen 24.0 mg/dl (6-23); Calcium 10.3 mg/dl (8.6-10.3); Carbon Dioxide 24.0 mmol/L (21-32); Chloride 97.0 mmol/L (98-107); Creatinine Clr Calc Pharmacy 20.1 ml/min; Globulin 3.9 gm/dl (2.5-4.0); Glucose 96.0 mg/dl (70-99(Fasting)); Magnesium 2.1 mg/dl (1.7-2.4); Potassium 4.2 mmol/L (3.5-5.1); Sodium 135.0 mmol/L (136-145); Total Protein 8.1 gm/dl (6.0-8.3)
[2025-02-14] MEDS: DOXYCYCLINE HYCLATE 100 MG CAP PO SCH (11:35)
[2025-02-14] MEDS: CEFDINIR 300 MG CAP PO ONE (11:35)
--- NOTE | 2025-02-14 14:00 | Hospitalist Progress Note ---
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 Pt denied fever, chills, chest pain. He reports some cough w/ mucoid sputum. He is being managed for the following: Acute hypoxic respiratory failure Pulmonary edema Possible pneumonia ESRD on HD Patient presented to the hospital with acute onset of shortness of breath for 1 day Chest x-ray on admission shows pulmonary edema, possible pneumonia At presentation: Serum sodium of 133, creatinine of 8.92. Phosphorus7.5 Status post hemodialysis on February 12, 2025 and February 11, 2025 (stopped after 1.5 hours, patient didn't want to resume later) Off BiPAP and is on room air currently. Monitor oxygenation Repeat chest x-ray with near resolution of right-sided infiltrate and no evidence of pleural effusion. MRSA scrn neg, Pulm evaled for pna, recs are cedinir and doxy to complete 5 d atb course. Pt encouraged to maintain compliance w/ hemodialysis. Chest pain, ro ACS Pt was code purple 12/10 AM for chest pain radiating to left shoulder a/w N/SOB, improved w/ NC O2, SL nitro, PO aspirin loading dose. ECHO 02/03: EF 40-45%, mild global hypokinesis of LV noted. Electrolytes repeated today, WNL. Troponin mildly elevated at 43.8, will trend further troponins. EKG with no acute ST or T changes. Continue with telemonitoring. Cardiology on board, appreciate recommendation. 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 Nephro recommendations: Stop CellCept, prednisone (stop at discharge), low-dose FK. Continue dapsone and Valcyte for 6 months after Thymoglobulin [through April 2025] then stop. Continue immunosuppressive treatment per nephro recs. Nephrology consulted to help with dialysis Full code DVT prophylaxis: heparin Please note the above document was generated using voice recognition software. It may contain grammatical, syntax or spelling errors. Any formal questions or concerns about the content, text or information contained within the body of this dictation should be directly addressed to the provider for clarification Admission and Anticipated Discharge Date Admission Date: February 11, 2025 Subjective Patient was seen and examined at bedside. Patient was lying in bed, on 4 L oxygen via nasal cannula, was a code purple. -Patient reported having achy/dull chest pain with some radiation to his left shoulder, associated with nausea and some shortness of breath. Of note, pt does have chronic/recurrent mild L shoulder pain. -His vitals at the bedside exams were 122/ 84 mmHg, 97% on room air, HR 100; patient was put on 4 L oxygen with some improvement in his chest pain. Patient was given SL nitro and aspirin loading dose with further improvement in his chest pain and associated symptoms of nausea and shortness of breath. Echo done about 10 days ago was reviewed. EKG with no new acute changes noted. Patient's fingerstick glucose was 93. Cardiology was consulted and updated. At the end of the exam, patient reported improving chest pain, nausea, shortness of breath. Stat labs were sent and reviewed. Troponin mildly elevated, will plan to trend further troponins. Physical Exam Physical Exam: GENERAL: Alert and oriented x3. NAD, on 4L NC O2. Appears lean, chronically ill/weak. HEENT: No pallor, no icterus. Pupils equal, round and reactive to light. Oral mucosa moist. NECK: No JVD, no neck masses. HEART: S1 and S2 heard. Regular rate and rhythm. tachy w/ HR in 100s. No murmur, no gallop. RESPIRATORY SYSTEM: Normal AP diameter. No accessory muscle use. No wheezing, no crackles. ABDOMEN: Soft, bowel sounds present, nontender, no distention. CENTRAL NERVOUS SYSTEM: No facial droop. Speech is clear. Obeys simple commands. Moves extremities. EXTREMITIES: No edema, no erythema seen. Results & Data Results & Data Vital Signs (Past 12 Hours) Vital Signs Temp Pulse Pulse Pulse Resp BP BP 02/14/25 11:09 36.8 C 94 H 22 132/84 02/14/25 10:45 36.5 C 98 H 122/84 02/14/25 10:30 105 H 124/79 02/14/25 10:00 98 H 139/102 H 02/14/25 09:42 103 H 141/101 H 02/14/25 09:35 36.5 C 103 H 02/14/25 07:34 36.5 C 96 H 20 145/93 H 02/14/25 03:19 107 H 29 H 02/14/25 02:20 36.5 C 107 H 18 145/91 H Pulse Ox O2 Del Method FiO2 02/14/25 11:09 93 Room Air 02/14/25 10:45 02/14/25 10:30 02/14/25 10:00 02/14/25 09:42 02/14/25 09:35 02/14/25 07:34 95 Room Air 02/14/25 03:19 98 21 02/14/25 02:20 100 CPAP
--- NOTE | 2025-02-14 15:14 | Nephrology Progress Note ---
Date of Service February 14, 2025 Assessment & Plan (1) Chest pain: Plan: appreciate Cardiology evaluation; do note that recent echocardiogram showed newly reduced ejection fraction Cardiology following and will trend troponins, optimize medications, follow-up as outpatient for MRI cardiac and nuclear stress test; blood pressure control has been significantly improved this admission >>>???relation of chest pain to vaping (noted after treatment per RN to have vaping paraphernalia in hospital bed w/ him) >> recommend no vaping (2) End stage renal disease: Plan: Patient with ESRD on HD MWF. Last outpt HD 02/09/25. patient now admitted with SOB. CXR showed pulm vascular congestion, R > L pl effusions at admission. attempted urgent HD for 4hrs target UF 4litres but issues w/ tx and unable to complete so had only 1.4L off. patient says he can't do HD 4 times a week (in part b/c local center is open only 3 days). he says his SOB is not due to volume overload and he normally stays on HD for full 4 hr tx (true; verified in OP charts); he has had HTN issues in recent past at HD; though on 02/09 his sbp were controlled. we have been doing frequent dialysis because of volume overload concerns with him; chest x-ray yesterday with pulmonary edema and blood pressures were relatively elevated this morning Dialysis cut short today due to rapid response for chest pain which resolved within 30 minutes with sublingual nitro Re-evaluate in the morning for possible dialysis; may be acceptable to wait until Wednesday but depends on labs and blood pressures >>continue phosLo current dose >> phos 7.5 on admission >note he is on OP lokelma > may need to resume this inpatient but for now near- daily HD pulmonary recommends completing antibiotics: favor HF / vol OL more than PNA but do recommend completing empiric tx 5 days and deescalate to doxy/cefdinir Care reviewed w/ Dr WILDER in person regarding ECG /rapid response plan, cardiology consult; we are in agreement. (3) Acute on chronic heart failure with mildly reduced ejection fraction (HFmrEF, 41-49%): Plan: Patient with acute on chronic CHD; this is a new diagnosis for him in the past month; echo prior to February 03 was 2018 with normal EF and moderate left atrial enlargement. He does have increased intake and med non compliance. >>Continue renal diet and fluid limit 1 litre daily (4) Hypertensive urgency: Plan: BP is above target likely due to volume overload and med non compliance. he was noted recently as OP not to be filling rx's as prescribed including for BP meds. -extra HD as above -continue torsemide, amlodipine, hydralaxine, metoprolol, flomax current dose (5) Pain from arteriovenous fistula: Plan: AVF is L arm and some pain on tx 02/12 though pressures were OK; it has been an ongoing issue per pt though was worse yesterday; arm has not been evaluated since remote AVF creation and will arrange that as OP if persistent/recurrent (6) End-stage renal failure with renal transplant: Plan: remains on aggressive immunosuppression in house though doubt was taking prior to this admission or ones recently >> s/p [place] [facility] [place] w/ 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; no prospect of retxplt soon >>pt has had issues w/ taking his meds, in part d/t nonadherence and to cost Reviewed care w/ txplt neph [facility] [place] > they recommend -stop cellcept -stop prednisone -low dose FK unless adherence issues (which there are) so then stop FK given that repeat txplt by next Spring unlikely and that cumulative immunosuppression carries its own risks which for him probably outweigh preventing sensitization -continue fluconazole and Valcyte for six-months after Thymoglobulin (through April 2025) then stop - cut prednisone to 2 mg daily and plan to stop at discharge (7) Nephropathic cystinosis: Plan: not currently on his procysbi d/t cost issues; have been trying to get him in w/ optho for eval; very challenging clinically/logistically/and unfortunately cost prohibitive for him Admission and Anticipated Discharge Date Admission Date: February 11, 2025 Subjective delayed note entered for approx 10-11 AM rapid response on HD after pt developed left-sided chest pain, some left shoulder pain and shortness of breath on dialysis. I was present for the rapid response and symptoms improved with conservative management Physical Exam 2 Constitutional: well developed, + frail appearing and cooperative; no acute distress Eyes: EOM intact bilaterally ENMT: Mouth: + dry oral mucous membranes Respiratory: + labored breathing, able to speak in co mplete sentences ( but short) and + tachypneic; no cough, expiratory phase not prolonged and no audible wheezes Auscultation: + diminished lung sounds (vivian R base) Cardiovascular: Rate/Rhythm: regular rhythm and + tachycardic Extremities: + AV fistula; no edema Gastrointestinal (Abdomen): Inspection/Auscultation: normal bowel sounds P ercussion/Palpation: abdomen soft; abdomen nontender Musculoskeletal: Extremities: strength 5/5 throughout Skin: no rashes, warm and dry Results & Data Vital Signs (Past 12 Hours) Vital Signs Temp Pulse Pulse Resp BP BP Pulse Ox 02/14/25 13:44 02/14/25 11:09 36.8 C 94 H 22 132/84 93 02/14/25 10:45 36.5 C 98 H 122/84 02/14/25 10:30 105 H 124/79 02/14/25 10:00 98 H 139/102 H 02/14/25 09:42 103 H 141/101 H 02/14/25 09:35 36.5 C 103 H 02/14/25 07:34 36.5 C 96 H 20 145/93 H 95 02/14/25 03:19 107 H 29 H 98 O2 Del Method O2 Flow Rate FiO2 02/14/25 13:44 Nasal Cannula 2 02/14/25 11:09 Room Air 02/14/25 10:45 02/14/25 10:30 02/14/25 10:00 02/14/25 09:42 02/14/25 09:35 02/14/25 07:34 Room Air 02/14/25 03:19 21 Laboratory Results 02/14/25 10:50 02/14/25 10:50 (1) Chest pain Chest pain type: unspecified Qualified Code(s): R07.9 - Chest pain, unspecified
[2025-02-14] MEDS: CEFDINIR 300 MG CAP PO SCH (16:24)
[2025-02-14] MEDS: FLUCONAZOLE 100 MG TAB PO SCH (17:19)
[2025-02-14] MEDS: ATORVASTATIN 10 MG TAB PO SCH (20:26)
[2025-02-15 06:31] LABS: Hematocrit (blood only) 29.6 % (42.0-52.0); Hemoglobin 9.8 g/dL (14.0-18.0); Mean Corpuscular Hemoglobin 30.9 pg (25.0-34.0); Mean Corpuscular Volume 93.4 fL (80.0-100.0); Platelet Count 140 K/uL (130-400); RDW Standard Deviation 50.8 fL (36.4-46.3); Red Blood Count 3.17 M/uL (4.70-6.10); White Blood Count 3.55 K/ul (4.8-10.8)
[2025-02-15] MEDS ORDERED: SODIUM CHLORIDE 0.9% 1,000 ML IV PRN (07:00)
[2025-02-15] MEDS ORDERED: HEPARIN SOD (PORCINE) 1000 UNIT/ML IV SCH (07:00)
[2025-02-15] MEDS ORDERED: HEPARIN SOD (PORCINE) 1000 UNIT/ML IV ONE (07:00)
[2025-02-15 07:20] LABS: Anion Gap 10.0 (3-11); Blood Urea Nitrogen 40.0 mg/dl (6-23); Calcium 10.1 mg/dl (8.6-10.3); Carbon Dioxide 30.0 mmol/L (21-32); Chloride 94.0 mmol/L (98-107); Creatinine Clr Calc Pharmacy 13.2 ml/min; Glucose 94.0 mg/dl (70-99(Fasting)); Magnesium 2.2 mg/dl (1.7-2.4); Potassium 4.5 mmol/L (3.5-5.1); Sodium 134.0 mmol/L (136-145)
--- NOTE | 2025-02-15 10:50 | Electrocardiogram Report ---
Test Reason : Blood Pressure : */* mmHG Vent. Rate : 97 BPM Atrial Rate : 97 BPM P-R Int : 136 ms QRS Dur : 80 ms QT Int : 358 ms P-R-T Axes : 63 54 71 degrees QTcB Int : 454 ms Normal sinus rhythm Septal infarct , age undetermined T wave abnormality, consider anterior ischemia Abnormal ECG When compared with ECG of 11-Feb-2025 09:37, T wave inversion now evident in Anterior leads Confirmed by Tal Hutchinson ([id number]) on 02/15/2025 10:50:35 AM Referred By: REFERRED SELF Confirmed By: Tal Hutchinson
--- NOTE | 2025-02-15 11:31 | Discharge Summary ---
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 Patient was found to have high blood pressure. He was started on amlodipine, increasing dose of metoprolol and addition of hydralazine Patient presents to the hospital with acute onset of shortness of breath that he started early in the morning today. Patient reports that he had undergone dialysis on Wednesday with removal of 4 L of fluid. He denies any fever, chills, chest pain. He reports some cough with mucoid sputum. He denies any abdominal discomfort or urinary symptoms. He reports that he had eaten half a packet of potato chips last night. He reports that the symptoms are very much similar to his admission last time. Patient is referred for admission for management of hypertensive urgency, pul monary edema Admission Exam Per Admitting Provider On physical examination; Constitutional: WD/WN, vitals as above, NAD, sitting up in bed, pleasant, conversing easily Respiratory: Bilateral basal crackles present. 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 NAD, on RA. Appears lean, unkempt/ill appearance HEENT: No pallor, no icterus. Pupils equal, round and reactive to light. Oral mucosa moist. NECK: No JVD, no neck masses. HEART: S1 and S2 heard. Regular rate and rhythm. tachy w/ HR in 90s. No murmur, no gallop. RESPIRATORY SYSTEM: Normal AP diameter. No accessory muscle use. No wheezing, no crackles. ABDOMEN: Soft, bowel sounds present, nontender, no distention. CENTRAL NERVOUS SYSTEM: No facial droop. Speech is clear. Obeys simple commands. Moves extremities. EXTREMITIES: No edema, no erythema seen. 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 Pt denied fever, chills, chest pain. He reports some cough w/ mucoid sputum. He was managed for the following: Acute hypoxic respiratory failure Pulmonary edema Possible pneumonia ESRD on HD Patient presented to the hospital with acute onset of shortness of breath for 1 day Chest x-ray on admission shows pulmonary edema, possible pneumonia At presentation: Serum sodium of 133, creatinine of 8.92. Phosphorus7.5 Status post hemodialysis on February 12, 2025 and February 11, 2025 (stopped after 1.5 hours, patient didn't want to resume later) Off BiPAP and is on room air currently. Monitor oxygenation Repeat chest x-ray with near resolution of right-sided infiltrate and no evidence of pleural effusion. MRSA scrn neg, Pulm evaled for pna, recs are cedinir and doxy to complete 5 d atb course. Pt encouraged to maintain compliance w/ hemodialysis. Pt will be dc'd on atb to complete the course. Chest pain, ro ACS Pt was code purple 12/10 AM for chest pain radiating to left shoulder a/w N/SOB, improved w/ NC O2, SL nitro, PO aspirin loading dose. ECHO 02/03: EF 40-45%, mild global hypokinesis of LV noted. Electrolytes repeated today, WNL. Troponin mildly elevated at 43.8, then flat trended EKG with no acute ST or T changes. Continue with telemonitoring. Cardiology on board, appreciate recommendation. Discussed with cardiology, plan to discharge on statin, plan for outpatient cardiac cath. Patient denies further chest pain. 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 Nephro recommendations: Stop CellCept, prednisone (stop at discharge), low-dose FK. Continue dapsone and Valcyte for 6 months after Thymoglobulin [through April 2025] then stop. Continue immunosuppressive treatment per nephro recs. Nephrology consulted to help with dialysis Full code DVT prophylaxis: heparin Discussed with nephrology and cardiology, they are okay with discharge from their point of view. Patient would like to go home today and did refuse dialysis today. Patient is hemodynamically stable. He is being discharged with following instructions at the point of discharge: Follow-up with your primary care physician within a week time and likely you will need labs CBC/CMP/magnesium/phosphorus. You will be discharged on a single dose of cefdinir to complete the course for pneumonia, please take the antibiotic after your dialysis tomorrow. Maintain compliance with your dialysis schedule. Follow-up with your cardiology within a week time upon discharge, you will likely need outpatient cardiac cath for further evaluation. Follow-up with nephrology within a week time upon discharge. Your CellCept/prednisone/tacrolimus has been discontinued. Continue with your prior to arrival dapsone and valcyte AND MAINTAIN CLOSE FOLLOW-UP WITH YOUR TRANSPLANT PHYSICIAN AND NEPHROLOGY FOR ONGOING RECOMMENDATION. Take your medications as prescribed. Please make sure that you are able to get your medications today by calling your pharmacy before you leave the hospital so that your treatment continuity is not broken. Please note the above document was generated using voice recognition software. It may contain grammatical, syntax or spelling errors. Any formal questions or concerns about the content, text or information contained within the body of this dictation should be directly addressed to the provider for clarification Home Health Attestation I certify that this patient is under my care and that I, or a physicians assistant administrator working with me, had a face to-face encounter that meets the home health [id number] encounter requirements with this patient. The encounter with the patient was in whole, or in part, for the following medical condition, which is the primary reason for home health care (list medical condition): I certify that, based on my findings, the following services are medically necessary home health services: My clinical findings support the need for the above services because: Further, I certify that my clinical findings support that this patient is homebound (i.e. absences from home require considerable and taxing effort and are for medical reasons or tenriism services or infrequently or of short duration when for other reasons) because: Certification for Home Health Services: Based on the above findings, I certify that this patient is confined to the home and needs intermittent chcf care, physical therapy and/or speech therapy or continues to need occupational therapy. The patient is under my care, and I have initiated the establishment of the plan of care. This patient will be followed by a physician who will periodically review the plan of care. 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 S/P kidney transplant in 2019 at [facility] H/O transplant rejection Fanconi syndrome Condition on Discharge: Fair Activity: Resume your previous activity Non-emergency contact: Primary Care Provider Call non-emergency contact if: you have any medication questions and your symptoms worsen Follow-up/Referrals: Shanita Maharaj MD [Primary Care Provider] - (Date & Time 02/20/2025 10:40 AM Provider: Donavon Mancera CRNP [facility] ) Diet: Dialysis Renal Addtl Attending Provider Instructions: Follow-up with your primary care physician within a week time and likely you will need labs CBC/CMP/magnesium/phosphorus. You will be discharged on a single dose of cefdinir to complete the course for pneumonia, please take the antibiotic after your dialysis tomorrow. Maintain compliance with your dialysis schedule. Follow-up with your cardiology within a week time upon discharge, you will marion delaney need outpatient cardiac cath for further evaluation. Follow-up with nephrology within a week time upon discharge. Your CellCept/prednisone/tacrolimus has been discontinued. Continue with your prior to arrival dapsone and valcyte AND MAINTAIN CLOSE FOLLOW-UP WITH YOUR TRANSPLANT PHYSICIAN AND NEPHROLOGY FOR ONGOING RECOMMENDATION. Take your medications as prescribed. Please make sure that you are able to get your medications today by calling your pharmacy before you leave the hospital so that your treatment continuity is not broken. Pending Studies at Discharge: No Stand-Alone Forms: My [facility] Super [employer], Smoking Cessation Medications and DC Order Prescriptions: New cefdinir 300 mg Capsule 300 mg PO MoWeFr@1600 2 Days Qty: 1 0RF Rx Instructions: take 1 capsule after hemodialysis on 02/16/2025 fluconazole 100 mg Tablet 200 mg PO QAM Qty: 30 0RF doxycycline hyclate 100 mg Capsule 100 mg PO BID 2 Days Qty: 4 0RF atorvastatin 10 mg Tablet 10 mg PO QPM Qty: 30 0RF Continued valganciclovir 450 mg Tablet 450 mg PO UD Qty: 0 Rx Instructions: once daily 2x week (wed and ) (chronic suppression rx) famotidine [Heartburn Relief (famotidine)] 10 mg tablet 10 mg PO QAM amitriptyline 25 mg tablet 25 mg PO HS torsemide 100 mg tablet 100 mg PO DAILY dapsone 100 mg tablet 100 mg PO QAM Lokelma 10 gram powder in packet 10 g PO DAILY calcium acetate(phosphat bind) [PhosLo] 667 mg Tablet 667 mg PO UD Qty: 0 Rx Instructions: Take 3 capsules by mouth in morning, 3 capsules at noon and 3 capsules every evening aspirin [Aspir-81] 81 mg Tablet,Delayed Release (Dr/Ec) 81 mg PO DAILY Qty: 0 tamsulosin 0.4 mg Capsule 0.4 mg PO DAILY Qty: 0 cholecalciferol (vitamin D3) 25 mcg (1,000 unit) Capsule 1,000 unit PO DAILY amlodipine [Norvasc] 10 mg tablet 10 mg PO DAILY Qty: 30 0RF hydralazine 50 mg tablet 50 mg PO TID Qty: 90 0RF metoprolol succinate [Toprol XL] 50 mg tablet extended release 24 hr 75 mg PO BID Qty: 90 0RF Discontinued tacrolimus 0.5 mg Capsule 0.5 mg PO UD Rx Instructions: Take 3 capsules by mouth every morning and 2 capsules every evening prednisone 5 mg Tablet 5 mg PO DAILY Qty: 0 mycophenolate mofetil [CellCept] 250 mg Capsule 250 mg PO UD Qty: 0 Rx Instructions: Take 4 capsules by mouth in morning and 4 capsules at bedtime Discharge Orders: Discharge Order (Routine); Ordered 02/15/25 Ordered By: Carolina Berger Admission Data Admit Date/Time: 02/11/25 08:30 Attending Provider: Carolina Berger Admit Provider: Kirit Blackman Primary Care Provider: Shanita Maharaj Other Providers: Kirit Blackman; Oscar Brumfield; Larry Lara; Ambrosio Parish
[2025-02-15 11:59] VITALS: BP 132/93; PULSE 101; RESP 18; TEMP 98.2; O2SAT 100
--- NOTE | 2025-02-15 12:20 | Nephrology Progress Note ---
Date of Service February 15, 2025 Assessment & Plan (1) Chest pain: Plan: appreciate Cardiology evaluation; do note that recent echocardiogram showed newly reduced ejection fraction Cardiology recommending cardiac catheterization to further evaluate chest pain. Cardiac catheterization of be arranged outpatient. Discussed with Dr. Parish who agrees to arrange cardiac catheterization outpatient (2) End stage renal disease: Plan: Patient with ESRD on HD MWF. Last outpt HD 02/09/25. patient now admitted with SOB. CXR showed pulm vascular congestion, R > L pl effusions at admission. attempted urgent HD for 4hrs target UF 4litres but issues w/ tx and unable to complete so had only 1.4L off. patient did not want to do further dialysis in the hospital. He feels better and wants to go home. He promised to go to outpatient dialysis tomorrow. I recommend a 4th treatment on Saturdays for 2 hours UF only for 3 L. this can be arranged with the [facility] which is open on Saturdays. Dialysis nurse to reach out to [facility] [place] [facility]. Care reviewed w/ Dr WILDER in person regarding discharge plan; we are in agreement. (3) Acute on chronic heart failure with mildly reduced ejection fraction (HFmrEF, 41-49%): Plan: Patient with acute on chronic CHD; this is a new diagnosis for him in the past month; echo prior to February 03 was 2018 with normal EF and moderate left atrial enlargement. He does have increased intake and med non compliance. >>Continue renal diet and fluid limit 1 litre daily (4) Hypertensive urgency: Plan: BP is above target likely due to volume overload and med non compliance. he was noted recently as OP not to be filling rx's as prescribed including for BP meds. 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; no prospect of retxplt soon >>pt has had issues w/ taking his meds, in part d/t nonadherence and to cost Reviewed care w/ txplt neph [facility] [place] they recommend -stop cellcept -stop prednisone -low dose FK unless adherence issues (which there are) so then stop FK given that repeat txplt by next Spring unlikely and that cumulative immunosuppression carries its own risks which for him probably outweigh preventing sensitization -continue fluconazole and Valcyte for six-months after Thymoglobulin (through April 2025) then stop - cut prednisone to 2 mg daily and plan to stop at discharge Admission and Anticipated Discharge Date Admission Date: February 11, 2025 Subjective Seen for ESRD. Patient feels better. He only gets short of breath with the exertion or lying flat. Father is at the bedside. Patient would like to go home and plan to go to dialysis outpatient tomorrow morning. Patient did not want to do more dialysis in the hospital today Review of Systems 2 Review of Systems: All other systems were reviewed and negative except as noted in HPI Physical Exam 2 Physical Exam: General exam: Appears comfortable, no acute distress HEENT: Pupils are equal and reactive to light Neck: No JVD, neck is supple trachea is midline Respiratory system: Clear breath sounds bilaterally. Gastrointestinal: Abdomen is soft, non distended, non tender, bowel sounds are present CVS: Regular rate and rhythm. No murmurs, rubs or gallops Musculoskeletal: No joint or muscle tenderness Extremities: Non tender, no edema, peripheral pulses are present Neuro: Oriented, no tremors, no focal neurological deficits Skin: No rashes Results & Data Vital Signs (Past 12 Hours) Vital Signs Temp Pulse Pulse Resp BP Pulse Ox O2 Del Method 02/15/25 11:58 36.8 C 101 H 18 132/93 100 Room Air 02/15/25 10:29 88 02/15/25 10:29 Room Air 02/15/25 08:06 36.9 C 100 H 15 138/90 99 Room Air 02/15/25 02:44 36.4 C L 91 H 20 135/91 97 Room Air Laboratory Results 02/15/25 05:56 02/15/25 05:56 WBC 3.55 L RBC 3.17 L MCV 93.4 MCH 30.9 MCHC 33.1 RDW Std Deviation 50.8 H RDW Coeff of Chalo 14.7 H Plt Count 140 MPV 10.1 Phosphorus 5.3 H D (1) Chest pain Chest pain type: unspecified Qualified Code(s): R07.9 - Chest pain, unspecified
--- NOTE | 2025-02-15 12:28 | Cardiology Progress Note ---
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 Echocardiogram images from 02/03/25 reviewed independently with findings of cardiomyopathy , new compared to prior echo in 2018 with LVEF 60-65% at that time compared to 40-45% on 02/03/25, with noted new severe enlargement of the left atrium. Patient discharged after several sessions of dialysis but was readmitted on 02/11/2025 with similar symptoms of shortness of breath and uncontrolled hypertension. During dialysis on 02/14/2025 patient had episode of transient chest discomfort relieved with sublingual nitroglycerin. EKG without acute changes at that time. Mild troponin elevation, flat trend in the 40s overnight last night. No recurrent chest discomfort. EKG today with subtle new T wave changes in the leads V2 and V3. Potential etiologies of the cardiomyopathy include non ischemic causes such as prior uncontrolled hypertension, cardiac involvement of hereditary cystinosis is rarer than renal involvement , but can manifest as a cardiomyopathy. Underlying ischemic heart disease not yet excluded. Discussed with patient and father that next up would be invasive coronary angiography to definitively exclude underlying coronary heart disease. Patient states he is very eager for discharge and declines staying in the hospital today. His preference is to go home today and resume his previous outpatient dialysis regimen of Mondays, Wednesdays and Fridays and [facility]. Tomorrow is a Wednesday and he would have dialysis there as an outpatient. Will continue current medication therapy including aspirin 81 mg daily, metoprolol succinate 75 mg twice daily, amlodipine 10 mg daily, hydralazine 50 mg 3 times daily, Flomax 0.4 mg daily, atorvastatin 10 mg daily (most recent LDL cholesterol was 73 mg/dL prior to starting statin therapy). Will plan on proceeding with outpatient invasive coronary angiography at [facility] on a Wednesday or . Patient agreeable. Patient aware to return to the hospital should he have any recurrent chest discomfort symptoms that he is concerned about in the interim for expedited workup. Outpatient cardiology follow up to be arranged. Case discussed with Dr Berger of the hospitalist service and Dr Brumfield of nephrology for the purpose of coordinating care. I spent a total of 50 minutes on the date of service in preparation, delivery, and documentation of the care provided to this patient, excluding any time spent in the performance of separately billed services. Eileen Parish DO Admission and Anticipated Discharge Date Admission Date: February 11, 2025 Subjective Mr Kapoor was seen in cardiology follow up today. His father accompanied him at the bedside. Patient lying supine with no shortness of breath orthopnea. Denies any recurrent chest discomfort. He was off of telemetry (per his request) during my assessment but review from earlier today revealed a sinus rhythm in the 90s. There was an 8 beat run of wide-complex tachycardia observed at 3:04 AM without associated symptoms. Physical Exam Physical Exam: Temp Pulse Resp BP Pulse Ox O2 Del Method O2 Flow Rate 36.8 C 101 H 18 132/93 100 Room Air 2 02/15/25 12:02/15/25 12:09 02/15/25 12:09 02/15/25 12:09 02/15/25 12:09 02/15/25 11:58 02/14/25 13:44 FiO2 21 02/14/25 23:30 Constitutional: + thin; no acute distress and not ill ap pearing Neck: normal visual inspection and trachea midline Respiratory: normal respiratory effort, lungs clear to auscultation no cough Auscultation: no crackles, no rales, no rhonchi and no wheezes Cardiovascular: Rate/Rhythm: regular rhythm and + tachycardic Heart Sounds: normal S1 and normal S2; no murmur Vessels: no JVD Extremities: + AV fistula; no edema Skin: no rashes, warm and dry Psychiatric: A+Ox3, euthymic affect Results & Data Laboratory Results Cardiac Enzymes 02/14/25 02/14/25 02/15/25 Range/Units 12:55 18:33 00:34 Troponin I High Sens 44.5 H 43.6 H 45.7 H (0-20) pg/ml CBC 02/15/25 Range/Units 05:56 WBC 3.55 L (4.8-10.8) K/ul RBC 3.17 L (4.70-6.10) M/uL Hgb 9.8 L (14.0-18.0) g/dL Hct 29.6 L (42.0-52.0) % Plt Count 140 (130-400) K/uL Comprehensive Metabolic Panel 02/15/25 Range/Units 05:56 Sodium 134 L (136-145) mmol/L Potassium 4.5 (3.5-5.1) mmol/L Chloride 94 L (98-107) mmol/L Carbon Dioxide 30 (21-32) mmol/L BUN 40 H (6-23) mg/dl Creatinine 7.94 H* D (0.6-1.4) mg/dl Glucose 94 (70-99(Fasting)) mg/dl Calcium 10.1 (8.6-10.3) mg/dl Intake and Output 02/14/25 02/15/25 02/15/25 22:59 06:59 14:59 Intake Total 100 / 540 Balance 100 / 540 Intake: Oral 100 / 540 Other: # Unmeasured Voids 1 1 Weight 70.8 kg 70.8 kg Weight Measurement Method Standing Scale Patient Weight 02/16/25 06:59 Weight 70.8 kg Diagnostic Findings Repeat EKG performed today 02/15/2025 at 9:08 AM and reviewed/interpreted independently revealed sinus rhythm at 97 bpm, age-indeterminate septal infarct pattern, nonspecific T wave abnormality in the anterior leads V2 and V3, ischemia not excluded compared to the previous, T wave changes now noted in leads V2 and V3. PG Care Time/CCT Total # of Minutes Spent Total Time Spent with Patient: Total time spent is greater than 50% in coordination of care (as documented) at patient's floor/unit and/or counseling patient: Coding Level of Care Code 70468 SUB INP/OBS CARE 3/50MIN Diagnoses Acute heart failure with mildly reduced ejection fraction (HFmrEF, 41-49%) I50.21 Chest pain R07.9 Chest pain type: unspecified Hypertensive emergency I16.1 Nephropathic cystinosis E72.04 End-stage renal disease on hemodialysis N18.6; Z99.2 (2) Chest pain Chest pain type: unspecified Qualified Code(s): R07.9 - Chest pain, unspecified
[2025-02-15 14:22] LABS: Fungitell (1-3)-B-D-Glucan <31 pg/mL (<60); Fungitell Interpretation Negative
--- NOTE | 2025-02-16 13:36 | Coding Query ---
CONGESTIVE HEART FAILURE To Promote full compliance with coding requirements relating to patient care, physician participation is requested in all cases of senior media director uncertainty. Please assist us with the following questions. A diagnosis of Congestive Heart Failure is documented in the patient's medical record. To accurately code this diagnosis and to compare patient severity, we ask that you specify the type of heart failure by placing an X within the parenthesis (x). Cardiology & Pulmonary progress notes mentioned acute on chronic systolic heart failure. Please check below, if applicable - the diagnosis treated during this hospital stay. Thank you. Andres Okeefe,[employer] SYSTOLIC HEART FAILURE ( ) Acute ( ) Chronic (x ) Acute on Chronic ( ) Rheumatic ( ) Unknown DIASTOLIC HEART FAILURE ( ) Acute ( ) Chronic ( ) Acute on Chronic ( ) Rheumatic ( ) Unknown COMBINED SYSTOLIC AND DIASTOLIC HEART FAILURE ( ) Acute ( ) Chronic ( ) Acute on Chronic ( ) Rheumatic ( ) Unknown Was the CHF Present On Admission? Please check the appropriate box: ( x) Present on Admission ( ) Not Present On Admission ( ) Clinically undetermined MTDD
== END 2025-02-15 13:15 | disposition home or self-care (01) | DRG 193 ==
LOC: ED 06:05 → SUATTDRO 08:30 → EDINP 08:30 → 2S 16:31

== ENCOUNTER 2025-02-21 01:05 | Observation (INO) ==
--- NOTE | 2025-02-21 01:24 | Emergency Department Note ---
History of Present Illness General Chief complaint: Shortness of Breath/Dyspnea Stated complaint: SHORTNESS OF BREATH Time Seen by Provider: 02/21/25 01:12 History of Present Illness This is a 35-year-old male with the PMHx of ESRD on hemodialysis MWF s/p hereditary cystinosis and s/p kidney transplant 2020 no longer on immunosuppressant therapy, Fanconi syndrome, HTN, and HFmrEF who goes to dialysis Wednesday has not missed any dialysis presents ER for worsening shortness of breath that cannot lay flat since 11 PM last night. Dialysis at 5 events morning and is now currently 1 AM. Patient states he needs BiPAP. Patient denies fever, chills, flulike illness. No changes in his diet. Home Medications Medication Instructions Recorded Confirmed Type valganciclovir 450 mg tablet 450 mg PO UD ##0 11/16/24 02/21/25 History amitriptyline 25 mg tablet 25 mg PO HS 02/03/25 02/21/25 History aspirin 81 mg tablet,delayed 81 mg PO DAILY ##0 02/03/25 02/21/25 History release calcium acetate(phosphat bind) 667 667 mg PO UD ##0 02/03/25 02/21/25 History mg tablet cholecalciferol (vitamin D3) 25 1,000 unit PO DAILY 02/03/25 02/21/25 History mcg (1,000 unit) capsule dapsone 100 mg tablet 100 mg PO QAM 02/03/25 02/21/25 History famotidine 10 mg tablet (Heartburn 10 mg PO QAM 02/03/25 02/21/25 History Relief (famotidine)) sodium zirconium cyclosilicate 10 10 g PO DAILY 02/03/25 02/21/25 History gram oral powder packet (Lokelma) tamsulosin 0.4 mg capsule 0.4 mg PO DAILY ##0 02/03/25 02/21/25 History torsemide 100 mg tablet 100 mg PO QAM 02/03/25 02/21/25 History amlodipine 10 mg tablet (Norvasc) 10 mg PO DAILY #30 tabs 02/05/25 02/21/25 Rx hydralazine 50 mg tablet 50 mg PO TID #90 tabs 02/05/25 02/21/25 Rx metoprolol succinate 50 mg 75 mg (1.5 x 50 mg) PO BID #90 tabs 02/05/25 02/21/25 Rx tablet,extended release 24 hr (Toprol XL) atorvastatin 10 mg tablet 10 mg PO QPM #30 tabs 02/15/25 02/21/25 Rx fluconazole 100 mg tablet 200 mg (2 x 100 mg) PO QAM #30 tabs 02/15/25 02/21/25 Rx Allergies Allergy/AdvReac Type Severity Reaction Status Date / Time No Known Allergies Allergy Verified 02/11/25 08:17 Past Med/Surg History Problem List (Updated 02/21/25 @ 02:36 by Lorraine Bardales PA-C) Pulmonary edema (Acute) Acute hyperkalemia (Acute) Acute heart failure with mildly reduced ejection fraction (HFmrEF, 41-49%) End-stage renal failure with renal transplant (Acute) Pain from arteriovenous fistula Acute pneumonia Acute respiratory failure with hypoxia End-stage renal disease on hemodialysis (Acute) Elevated troponin (Acute) Hypoxia (Acute) Hypertensive emergency (Acute) Right ventricular dysfunction Nonischemic cardiomyopathy Acute on chronic heart failure with mildly reduced ejection fraction (HFmrEF, 41-49%) Myocardial infarction due to demand ischemia Hypertensive urgency Elevated troponin (Acute) Hypoxia (Acute) Pulmonary edema (Acute) Shortness of breath (Acute) Hypertension Prediabetes Antibody mediated rejection of renal transplant ESRD on dialysis (Acute) Anemia requiring transfusions (Acute) Anemia of chronic disease (Acute) Encounter for hemodialysis for ESRD (Acute) Anemia in ESRD (end-stage renal disease) (Acute) Nausea & vomiting RY (acute kidney injury) (Acute) Hypomagnesemia ST segment changes on electrocardiogram Nephropathic cystinosis Renal transplant, status post (Acute) Pyelonephritis Renal tubular acidosis (Chronic) Anemia (Chronic) 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 Trejo. Home hemodialysis. Fanconi syndrome (Chronic) Medical History (Updated 02/21/25 @ 02:36 by Lorraine Bardales PA-C) Chest pain Anemia of chronic disease Depression Surgical History History of tooth extraction WISDOM TEETH Family History Mother Crohn's disease Social History Smoking Status: Never smoker Tobacco Type: E-cigarettes / Vaping Cigarettes Per Day: 5; Second Hand Exposure: No; Do You Dip or Chew Tobacco: No; Hx Alcohol Use: No Hx Substance Use: Yes Last Used Substance: Days (ago) Last Used Substance Other:: 02/10 prior to bed time Substance Use Type Other:: medical marijuana Preferred Language: Sinhala Communication Ability: Effective Hand Stoner Required: No Beliefs That Will Affect Care: None Current Living Situation: Spouse Feels Safe at Home: Yes Assistive Devices: None Physical Exam Vital Signs Vital Signs - 24 hr 02/21/25 01:08 02/21/25 01:23 02/21/25 01:24 Temperature 36.8 C Temperature Source Temporal Artery Scan Pulse Rate 106 H 102 H 102 H Pulse Rate [Finger] Pulse Rate from SpO2 Sensor 102 H Pulse Rhythm Regular Pulse Rhythm [Finger] Pulse Strength Normal Pulse Strength [Finger] Respiratory Rate 22 31 H Respiratory Effort / Characteristics Non-Labored Spontaneous Respiratory Depth Normal Respiratory Pattern Regular Blood Pressure 141/92 H 136/95 Blood Pressure [Right Arm] Blood Pressure Mean 108 108 Blood Pressure Mean [Right Arm] Blood Pressure Position Sitting Blood Pressure Position [Right Arm] Pulse Oximetry 92 92 Oxygen Delivery Method Room Air Fraction of Inspired Oxygen Sepsis Recent Fever Within 48 Hours No Sepsis New/Unexplained Change in Mental Status N/A Sepsis Action Taken by Nursing No Action Required 02/21/25 01:25 02/21/25 01:25 02/21/25 01:25 Temperature Temperature Source Pulse Rate Pulse Rate [Finger] 97 H Pulse Rate from SpO2 Sensor Pulse Rhythm Regular Pulse Rhythm [Finger] Regular Pulse Strength Pulse Strength [Finger] Normal Respiratory Rate 25 H Respiratory Effort / Characteristics Spontaneous Short of Breath Non-Labored Spontaneous Respiratory Depth Normal Normal Respiratory Pattern Regular Regular Blood Pressure Blood Pressure [Right Arm] 138/95 Blood Pressure Mean Blood Pressure Mean [Right Arm] 109 Blood Pressure Position Blood Pressure Position [Right Arm] Lying Pulse Oximetry 83 L Oxygen Delivery Method Room Air Room Air Fraction of Inspired Oxygen Sepsis Recent Fever Within 48 Hours Sepsis New/Unexplained Change in Mental Status Sepsis Action Taken by Nursing 02/21/25 01:30 02/21/25 01:30 02/21/25 01:30 Temperature Temperature Source Pulse Rate 100 H 98 H Pulse Rate [Finger] Pulse Rate from SpO2 Sensor 99 H Pulse Rhythm Pulse Rhythm [Finger] Pulse Strength Pulse Strength [Finger] Respiratory Rate 20 16 Respiratory Effort / Characteristics Short of Breath Respiratory Depth Normal Respiratory Pattern Blood Pressure 138/95 Blood Pressure [Right Arm] Blood Pressure Mean 109 Blood Pressure Mean [Right Arm] Blood Pressure Position Blood Pressure Position [Right Arm] Pulse Oximetry 97 98 97 Oxygen Delivery Method BiPAP BiPAP Fraction of Inspired Oxygen 50 Sepsis Recent Fever Within 48 Hours Sepsis New/Unexplained Change in Mental Status Sepsis Action Taken by Nursing 02/21/25 02:00 02/21/25 02:30 02/21/25 02:32 Temperature Temperature Source Pulse Rate 98 H 95 H Pulse Rate [Finger] 97 H Pulse Rate from SpO2 Sensor 96 H 95 H Pulse Rhythm Pulse Rhythm [Finger] Pulse Strength Pulse Strength [Finger] Respiratory Rate 18 24 17 Respiratory Effort / Characteristics Spontaneous Respiratory Depth Respiratory Pattern Blood Pressure 131/88 132/86 Blood Pressure [Right Arm] Blood Pressure Mean 102 101 Blood Pressure Mean [Right Arm] Blood Pressure Position Blood Pressure Position [Right Arm] Pulse Oximetry 99 99 100 Oxygen Delivery Method BiPAP BiPAP BiPAP Fraction of Inspired Oxygen 40 Sepsis Recent Fever Within 48 Hours Sepsis New/Unexplained Change in Mental Status Sepsis Action Taken by Nursing 02/21/25 02:39 02/21/25 02:50 02/21/25 03:00 Temperature Temperature Source Pulse Rate 93 H 100 H Pulse Rate [Finger] Pulse Rate from SpO2 Sensor 100 H Pulse Rhythm Pulse Rhythm [Finger] Pulse Strength Pulse Strength [Finger] Respiratory Rate 23 Respiratory Effort / Characteristics Respiratory Depth Respiratory Pattern Blood Pressure 133/95 Blood Pressure [Right Arm] Blood Pressure Mean 107 Blood Pressure Mean [Right Arm] Blood Pressure Position Blood Pressure Position [Right Arm] Pulse Oximetry 99 98 Oxygen Delivery Method BiPAP Fraction of Inspired Oxygen 40 Sepsis Recent Fever Within 48 Hours Sepsis New/Unexplained Change in Mental Status Sepsis Action Taken by Nursing VITALS: Vitals are noted on the nurse's note and reviewed by myself. Vital signs hypoxic on room air GENERAL: Pleasant male working to breathe, in moderate distress SKIN: Capillary reflex less than 2 seconds. HEENT: Normocephalic. PERRLA. EOMI. Nares patent. Mucous membranes moist. Neck is supple without nuchal rigidity. HEART: Regular rate and rhythm LUNGS: Bibasilar rales. ABDOMEN: Positive bowel sounds x 4. Normal tympanic percussion. Soft, nontender, without masses or organomegaly. Soto sign negative. No guarding or rebound tenderness. no CVA tenderness MUSCULOSKELETAL: No gross musculoskeletal defects. NEURO: Patient was alert and oriented to person place and time. No focal neurological deficits. Course Administered Medications Discontinued Medications Furosemide (Furosemide 40 Mg/4 Ml Vial) 100 mg IV ONE ONE Stop: 02/21/25 01:45 Last Admin: 02/21/25 02:24 Dose: 100 mg Documented By: FATOUMATA Ipratropium [place] (Ipratropium [place] Neb Soln 0.02% 0.5mg/2.5ml Vial) 0.5 mg INH NOW STA Stop: 02/21/25 01:46 Last Admin: 02/21/25 02:32 Dose: 0.5 mg Documented By: roxy Levalbuterol HCl (Levalbuterol 1.25 Mg/3 Ml Neb) 1.25 mg NEB NOW STA Stop: 02/21/25 01:46 Last Admin: 02/21/25 02:32 Dose: 1.25 mg Documented By: roxy Critical Care Time Critical Care Time: Yes Total Critical Care Time: 35 I have personally spent 35 minutes of critical care time in the direct management of this patient. This includes bedside care, interpretation of diagnostic studies, and testing, discussion with consultants, patient, and family members, and other required patient management activities. This 35 minutes is in excess of all separately billable procedures. Medical Decision Making Medical Records Attestation: I reviewed the patient's medical records. Home Medications Current Medication List: was personally reviewed by me Laboratory Data Attestation: I reviewed the patient's lab results. 02/21/25 01:23 02/21/25 01:12 Lab Results 02/21/25 02/21/25 02/21/25 Range/Units 01:12 01:23 01:26 WBC 3.55 L (4.8-10.8) K/ul RBC 2.46 L (4.70-6.10) M/uL Hgb 7.5 L (14.0-18.0) g/dL POC Hgb 7.5 L (14.0-18.0) g/dl Hct 23.0 L (42.0-52.0) % POC Hct 22 L (42-52) % MCV 93.5 (80.0-100.0) fL MCH 30.5 (25.0-34.0) pg MCHC 32.6 (32.0-36.0) g/dL RDW Std Deviation 52.1 H (36.4-46.3) fL RDW Coeff of Chalo 15.1 H (11.5-14.5) % Plt Count 119 L (130-400) K/uL MPV 10.5 (9.4-12.4) fL Immature Gran % (Auto) 0.6 % Neut % (Auto) 79.1 % Lymph % (Auto) 11.3 % Foard % (Auto) 5.9 % Eos % (Auto) 2.0 % Baso % (Auto) 1.1 % Neut # (Auto) 2.81 (1.40-6.50) K/uL Lymph # (Auto) 0.40 L (1.20-3.40) K/uL Foard # (Auto) 0.21 (0.11-0.59) K/uL Eos # (Auto) 0.07 (0.00-0.50) K/uL Baso # (Auto) 0.04 (0.00-0.20) K/uL Immature Gran # (Auto) 0.02 (0.01-0.20) K/uL Hypersegmented Neuts 1+ Tear Drop Cells 1+ PT 11.4 (9.0-12.0) Seconds INR 1.1 (0.9-1.1) POC Sodium 135 (135-144) mmol/L Sodium 137 (136-145) mmol/L POC Potassium 4.7 (3.3-5.0) mmol/L Potassium 4.8 (3.5-5.1) mmol/L POC Chloride 94 L (101-112) mmol/L Chloride 96 L (98-107) mmol/L Carbon Dioxide 29 (21-32) mmol/L POC Total CO2 28 (24-31) mmol/L Anion Gap 12 H (3-11) POC Anion Gap 19.0 (16-25) mmol/L POC BUN 26 H (7-18) mg/dl BUN 29 H (6-23) mg/dl Creatinine 8.38 H* D (0.6-1.4) mg/dl POC Creatinine 9.3 H* (0.6-1.3) mg/dl Est Cr Clr Drug Dosing 12.5 ml/min eGFR 7.95 BUN/Creatinine Ratio 3.5 L (10-20) Glucose 106 H (70-99(Fasting)) mg/dl POC Glucose (other) 103 H (70-99) mg/dl Calcium 9.5 (8.6-10.3) mg/dl POC Ioniz Calcium Richie 1.07 L (1.12-1.32) mmol/l Magnesium 2.1 (1.7-2.4) mg/dl Total Bilirubin 0.6 (0.2-1.0) mg/dl AST 16 (13-39) U/L ALT 7 (7-52) U/L Alkaline Phosphatase 56 (34-104) U/L Troponin I High Sens 50.8 H* (0-20) pg/ml B-Natriuretic Peptide 3098 H (0-100) pg/ml Total Protein 7.1 (6.0-8.3) gm/dl Albumin 3.5 (3.4-5.0) gm/dl Globulin 3.6 (2.5-4.0) gm/dl Albumin/Globulin Ratio 1.0 (0.9-2) Lipase 17 (11-82) U/L Imaging Data Attestation: I personally reviewed and interpreted this imaging study as follows: Radiologist's Impression: Chest X-Ray 02/21/25 01:15 EXAM: XR chest 1V portable CLINICAL HISTORY: dyspnea TECHNIQUE: An X-ray image of the chest is obtained in AP projection. COMPARISON: 02/19/2025 CR FINDINGS: Pulmonary Parenchyma: No evidence of consolidation or collapse. Bilateral exaggerated pulmonary markings with interval mild progression in the lower zones. Bilateral lower zone atelectasis. No evidence of pleural effusion or pleural thickening. Heart and Mediastinum: Heart size appears magnified due to AP projection. No mediastinal widening or masses. No hilar or mediastinal lymphadenopathy. Bony Thorax: Bony thorax appears intact. Soft Tissues: Soft tissues overlying the chest wall are unremarkable. IMPRESSION: 1. Bilateral exaggerated pulmonary markings with interval mild progression in the lower zones, suggesting vascular congestion /interstitial pulmonary edema. Clinical correlation and follow-up are recommended. 2. Bilateral lower zone atelectasis. Stable Electronically signed by Jose Francisco Goins 02-21-2025 02:23 AM MDM Narrative Prior records/ancillary studies reviewed. Triage Nursing notes reviewed. Additional history obtained from the family. The patient's history was concerning for respiratory difficulties. Differential diagnosis: Etiologies such as infections, reactive airway disease, pneumonia, pneumothorax, COPD, CHF, cardiac ischemia, pulmonary embolism, musculoskeletal, gastrointestinal, as well as others were entertained. Physical examination: As above. ER treatment provided: An order was placed for continuous cardiac monitoring. The monitor shows a rate of 60-100 with a sinus rhythm per my interpretation. BiPAP was immediately initiated On reassessment the patient felt better. Diagnostic interpretation by me: The electrocardiogram was ordered for SOB. ECG: Normal sinus, normal intervals, no acute ST-T wave changes, rate of 103. Impression sinus tachycardia independently interpreted by myself The labs Independently Interpreted by myself revealed potassium 4.7. Stable H&H per chart review Stable creatinine per chart review Stable creatinine per chart review. Slightly elevated troponin per chart review most likely related to pulmonary edema. Most likely type II HI. Imaging studies: Chest x-ray pulmonary congestion per my independent interpretation HEART SCORE: Hx: high/mod/low suspicion: 0 ECG: ST depression/nonspecific changes/normal: 0 Age: Greater than 65/45-64/less than 45: 0 Risk factors: (Hypertension, hyperlipidemia, diabetes, coronary disease, tobacco use, cocaine use): 1 Troponin: Greater than 2 times normal limits/1-2 times normal limits/normal: 1 Total: 2 Consultation: A consultation was placed with the hospitalist. The case was discussed and diagnostics were reviewed. The patient was evaluated in the ER for further treatment. This appears to be consistent with end-stage regional disease with pulmonary edema which is recurrent for the patient. He feels much better on the BiPAP. Medicine was consulted and the case was discussed. He will be admitted to the medical service for further evaluation and treatment. By the evaluation outlined above emergent etiologies such as pulmonary embolism, reactive airway disease, pneumonia, pneumothorax, musculoskeletal, serious bacterial infections, as well as others were deemed relatively unlikely. The pt informed about the findings as listed above. All questions were answered and pleased with the treatment. The chart was completed utilizing [employer] voice recognition software. Grammatical errors, random word insertions, pronoun errors, and incomplete sentences are an occassional consequence of this system due to software limitations, ambient noise, and hardware issues. Any formal questions or concerns about the content, text, or information contained within the body of this dictation should be directly addressed to the physician per diem physical therapist assistant for clarification. Impression & Plan ESRD on dialysis, Anemia of chronic disease, Pulmonary edema, End-stage renal failure with renal transplant Discharge Plan Visit Data Chief Complaint: Shortness of Breath/Dyspnea Stated Complaint: SHORTNESS OF BREATH ED Provider: Messi Snyder ED Midlevel Provider: Lorraine Bardales Discharge Problem: ESRD on dialysis, Anemia of chronic disease, Pulmonary edema, End-stage renal failure with renal transplant Patient Disposition: Admitted As Inpatient Condition: Fair Discharge Instructions Interventions: ED Discharge Assessment Last Done: 02/21/25 02:50 Forms Stand Alone Forms: My Primary Data Prescriptions Prescriptions: No Action valganciclovir 450 mg Tablet 450 mg PO UD Qty: 0 Rx Instructions: once daily 2x week (wed and ) (chronic suppression rx) fluconazole 100 mg Tablet 200 mg PO QAM Qty: 30 0RF atorvastatin 10 mg Tablet 10 mg PO QPM Qty: 30 0RF famotidine [Heartburn Relief (famotidine)] 10 mg tablet 10 mg PO QAM amitriptyline 25 mg tablet 25 mg PO HS torsemide 100 mg tablet 100 mg PO QAM dapsone 100 mg tablet 100 mg PO QAM Lokelma 10 gram powder in packet 10 g PO DAILY calcium acetate(phosphat bind) 667 mg Tablet 667 mg PO UD Qty: 0 Rx Instructions: Take 3 capsules by mouth in morning, 3 capsules at noon and 3 capsules every evening aspirin 81 mg Tablet,Delayed Release (Dr/Ec) 81 mg PO DAILY Qty: 0 tamsulosin 0.4 mg Capsule 0.4 mg PO DAILY Qty: 0 cholecalciferol (vitamin D3) 25 mcg (1,000 unit) Capsule 1,000 unit PO DAILY amlodipine [Norvasc] 10 mg tablet 10 mg PO DAILY Qty: 30 0RF hydralazine 50 mg tablet 50 mg PO TID Qty: 90 0RF metoprolol succinate [Toprol XL] 50 mg tablet extended release 24 hr 75 mg PO BID Qty: 90 0RF Referrals Referrals: Shanita Maharaj MD [Primary Care Provider] -
[2025-02-21 01:32] LABS: Hematocrit (blood only) 23.0 % (42.0-52.0); Hemoglobin 7.5 g/dL (14.0-18.0); Immature Granulocytes # (auto) 0.02 K/uL (0.01-0.20); Immature Granulocytes % (auto) 0.6 %; Mean Corpuscular Hemoglobin 30.5 pg (25.0-34.0); Mean Corpuscular Volume 93.5 fL (80.0-100.0); Platelet Count 119 K/uL (130-400); RDW Standard Deviation 52.1 fL (36.4-46.3); Red Blood Count 2.46 M/uL (4.70-6.10); White Blood Count 3.55 K/ul (4.8-10.8)
[2025-02-21 01:50] LABS: Hypersegmented Neutrophils 1+; Tear Drop Cells 1+
--- NOTE | 2025-02-21 01:57 | History & Physical Report ---
Date of Service February 21, 2025 Assessment & Plan (1) Acute respiratory failure with hypoxia: Plan: Assessment and plan below following discussion of case with ED provider and reviewing patient history/pertinent normal/abnormal diagnostic test results. 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 Troponin elevation secondary to above valvular heart disease (moderate MR/mild AR) hypertension, stable Pancytopenia (progressive anemia without overt source of bleed) possible dapsone rx toxicity history of transplant rejection ongoing anti-infective prophylaxis Fanconi syndrome as per records/nephrogenic diabetes insipidus Diarrhea rule out infectious process ongoing vape use medical noncompliance as per records Admit to PCU Supplemental O2 Lasix dosed for renal function Nephrology consult re: dialysis management Follow troponin Anemia workup, transfuse PRBC to maintain hemoglobin of at least 7 Check peripheral blood smear for pancytopenia, hold dapsone for now given concern for hematologic toxicity, consider conferring with patient's [facility] mold carpenter (Dr. Jones) Stool CS, stool C. difficile DVT prophylaxis. SCDs Re: Thrombocytopenia Full code Total critical care time was 40 minutes. Text document was generated using [employer] voice recognition software. It may contain grammatical or spelling errors. Kindly contact undersigned for clarification of any documentation item in question. History of Present Illness Chief Complaint: Shortness of breath Primary Care Provider: Shanita Maharaj MD History obtained from patient and records. 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 Monthly admissions since last month. Recent confinement February 11 to 2024 for respiratory failure. Patient found to have new onset CHF, EF 40 to 45% on TTE. Cardiology recommended outpatient cardiac catheterization. CellCept and prednisone for transplant rejection immunosuppression stopped at discharge. Patient instructed to continue dapsone and Valcyte for 6 months after Thymoglobulin. Patient seen at the ER2 days ago for shortness of breath. Patient noted to be hyperkalemic. Medications administered at the ER. Patient offered admission but patient opted to just go to outpatient dialysis center in [place]. Worsening shortness of breath last night associated with orthopnea. Transient left-sided chest pain, no cough symptoms. Watery diarrhea without abdominal pain. Denies black or bloody stools. Patient not sure about sick contacts or recent antibiotic Rx. Patient compliant with outpatient dialysis sessions. Compliant with daily 1 L fluid restriction. Lowest O2 sats of 80s documented at the ER. Medical History as above Surgical History : Renal biopsy, kidney transplant, vascular procedures Family History : Crohn's disease Personal/Social history : Ongoing vape use, occasional EtOH intake, currently unemployed, prior employment at [employer] Allergies Allergy/AdvReac Type Severity Reaction Status Date / Time No Known Allergies Allergy Verified 02/11/25 08:17 Home Medications Medication Instructions Recorded Confirmed Type valganciclovir 450 mg tablet 450 mg PO UD ##0 11/16/24 02/21/25 History amitriptyline 25 mg tablet 25 mg PO HS 02/03/25 02/21/25 History aspirin 81 mg tablet,delayed 81 mg PO DAILY ##0 02/03/25 02/21/25 History release calcium acetate(phosphat bind) 667 667 mg PO UD ##0 02/03/25 02/21/25 History mg tablet cholecalciferol (vitamin D3) 25 1,000 unit PO DAILY 02/03/25 02/21/25 History mcg (1,000 unit) capsule dapsone 100 mg tablet 100 mg PO QAM 02/03/25 02/21/25 History famotidine 10 mg tablet (Heartburn 10 mg PO QAM 02/03/25 02/21/25 History Relief (famotidine)) sodium zirconium cyclosilicate 10 10 g PO DAILY 02/03/25 02/21/25 History gram oral powder packet (Lokelma) tamsulosin 0.4 mg capsule 0.4 mg PO DAILY ##0 02/03/25 02/21/25 History torsemide 100 mg tablet 100 mg PO QAM 02/03/25 02/21/25 History amlodipine 10 mg tablet (Norvasc) 10 mg PO DAILY #30 tabs 02/05/25 02/21/25 Rx hydralazine 50 mg tablet 50 mg PO TID #90 tabs 02/05/25 02/21/25 Rx metoprolol succinate 50 mg 75 mg (1.5 x 50 mg) PO BID #90 tabs 02/05/25 02/21/25 Rx tablet,extended release 24 hr (Toprol XL) atorvastatin 10 mg tablet 10 mg PO QPM #30 tabs 02/15/25 02/21/25 Rx fluconazole 100 mg tablet 200 mg (2 x 100 mg) PO QAM #30 tabs 02/15/25 02/21/25 Rx Past Med/Surg History Problem List (Updated 02/21/25 @ 02:36 by Lorraine Bardales PA-C) Pulmonary edema (Acute) Acute hyperkalemia (Acute) Acute heart failure with mildly reduced ejection fraction (HFmrEF, 41-49%) End-stage renal failure with renal transplant (Acute) Pain from arteriovenous fistula Acute pneumonia Acute respiratory failure with hypoxia End-stage renal disease on hemodialysis (Acute) Elevated troponin (Acute) Hypoxia (Acute) Hypertensive emergency (Acute) Right ventricular dysfunction Nonischemic cardiomyopathy Acute on chronic heart failure with mildly reduced ejection fraction (HFmrEF, 41-49%) Myocardial infarction due to demand ischemia Hypertensive urgency Elevated troponin (Acute) Hypoxia (Acute) Pulmonary edema (Acute) Shortness of breath (Acute) Hypertension Prediabetes Antibody mediated rejection of renal transplant ESRD on dialysis (Acute) Anemia requiring transfusions (Acute) Anemia of chronic disease (Acute) Encounter for hemodialysis for ESRD (Acute) Anemia in ESRD (end-stage renal disease) (Acute) Nausea & vomiting RY (acute kidney injury) (Acute) Hypomagnesemia ST segment changes on electrocardiogram Nephropathic cystinosis Renal transplant, status post (Acute) Pyelonephritis Renal tubular acidosis (Chronic) Anemia (Chronic) 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 Trejo. Home hemodialysis. Fanconi syndrome (Chronic) Medical History (Updated 02/21/25 @ 02:36 by Lorraine Bardales PA-C) Chest pain Anemia of chronic disease Depression Surgical History History of tooth extraction WISDOM TEETH Family History Mother Crohn's disease Social History Smoking Status: Current every day smoker Tobacco Type: E-cigarettes / Vaping Cigarettes Per Day: 5; Second Hand Exposure: No; Do You Dip or Chew Tobacco: No; Hx Alcohol Use: No Hx Substance Use: Yes Last Used Substance: Days (ago) Last Used Substance Other:: 02/10 prior to bed time Substance Use Type Other:: medical marijuana Preferred Language: Norwegian Communication Ability: Effective Mattress Inspector Required: No Beliefs That Will Affect Care: None Current Living Situation: Spouse Feels Safe at Home: Yes Safety Concerns: Feels Safe At This Time Assistive Devices: None Review of Systems Review of Systems: As per HPI, all other systems reviewed and negative Physical Exam Physical Exam: GENERAL: Uncomfortable, looks older than stated age, episodic tachypnea SKIN: Pallor,, warm HEENT: Pale palpebral conjunctivae, no ptosis, dry buccal mucosa, BiPAP in place NECK : Supple, no tenderness CHEST : Decreased breath sounds, no tenderness HEART : Tachycardic, systolic murmur ABDOMEN: Some distention, nontender EXTREMITIES : No LE swelling/tenderness, palpable pulses, no other conspicuous deformities noted NEUROLOGIC : Coherent, no facial asymmetry, no other gross focality Results & Data Results & Data Vital Signs (Past 12 Hours) Vital Signs Temp Pulse Pulse Resp BP BP Pulse Ox 02/21/25 01:30 100 H 20 98 02/21/25 01:30 97 02/21/25 01:25 97 H 25 H 138/95 83 L 02/21/25 01:25 02/21/25 01:23 102 H 02/21/25 01:08 36.8 C 106 H 22 141/92 H 92 O2 Del Method FiO2 02/21/25 01:30 50 02/21/25 01:30 BiPAP 02/21/25 01:25 Room Air 02/21/25 01:25 Room Air 02/21/25 01:23 02/21/25 01:08 Room Air Laboratory Results Laboratory Results WBC 3.55 K/ul (4.8-10.8) L 02/21/25 01:23 RBC 2.46 M/uL (4.70-6.10) L 02/21/25 01:23 Hgb 7.5 g/dL (14.0-18.0) L 02/21/25 01:23 POC Hgb 7.5 g/dl (14.0-18.0) L 02/21/25 01:26 Hct 23.0 % (42.0-52.0) L 02/21/25 01:23 POC Hct 22 % (42-52) L 02/21/25 01:26 MCV 93.5 fL (80.0-100.0) 02/21/25 01:23 MCH 30.5 pg (25.0-34.0) 02/21/25 01: MCHC 32.6 g/dL (32.0-36.0) 02/21/25 01:23 RDW Std Deviation 52.1 fL (36.4-46.3) H 02/21/25 01:23 RDW Coeff of Ch[place] 15.1 % (11.5-14.5) H 02/21/25 01:23 Plt Count 119 K/uL (130-400) L 02/21/25 01:23 MPV 10.5 fL (9.4-12.4) 02/21/25 01:23 Immature Gran % (Auto) 0.6 % 02/21/25 01:23 Neut % (Auto) 79.1 % 02/21/25 01:23 Lymph % (Auto) 11.3 % 02/21/25 01:23 [place] % (Auto) 5.9 % 02/21/25 01:23 Eos % (Auto) 2.0 % 02/21/25 01:23 Baso % (Auto) 1.1 % 02/21/25 01:23 Neut # (Auto) 2.81 K/uL (1.40-6.50) 02/21/25 01:23 Lymph # (Auto) 0.40 K/uL (1.20-3.40) L 02/21/25 01:23 [place] # (Auto) 0.21 K/uL (0.11-0.59) 02/21/25 01:23 Eos # (Auto) 0.07 K/uL (0.00-0.50) 02/21/25 01:23 Baso # (Auto) 0.04 K/uL (0.00-0.20) 02/21/25 01:23 Immature Gran # (Auto) 0.02 K/uL (0.01-0.20) 02/21/25 01:23 Hypersegmented Neuts 1+ 02/21/25 01:23 Tear Drop Cells 1+ 02/21/25 01:23 POC Sodium 135 mmol/L (135-144) 02/21/25 01:26 POC Potassium 4.7 mmol/L (3.3-5.0) 02/21/25 01:26 POC Chloride 94 mmol/L (101-112) L 02/21/25 01:26 POC Total CO2 28 mmol/L (24-31) 02/21/25 01:26 POC Anion Gap 19.0 mmol/L (16-25) 02/21/25 01:26 POC BUN 26 mg/dl (7-18) H 02/21/25 01:26 POC Creatinine 9.3 mg/dl (0.6-1.3) H* 02/21/25 01:26 POC Glucose (other) 103 mg/dl (70-99) H 02/21/25 01:26 POC Ioniz Calcium Richie 1.07 mmol/l (1.12-1.32) L 02/21/25 01:26 Diagnostic Findings Chest x-ray as per my interpretation: atelectasis, congestion EKG as per my interpretation : Rate 105, sinus tachycardia, normal axis, T wave abnormalities lateral leads
[2025-02-21 02:12] LABS: Alanine Aminotransferase 7.0 U/L (7-52); Albumin Globulin Ratio 1.0 (0.9-2); Albumin Level 3.5 gm/dl (3.4-5.0); Alkaline Phosphatase 56.0 U/L (34-104); Anion Gap 12.0 (3-11); Bilirubin,Total 0.6 mg/dl (0.2-1.0); Blood Urea Nitrogen 29.0 mg/dl (6-23); Calcium 9.5 mg/dl (8.6-10.3); Carbon Dioxide 29.0 mmol/L (21-32); Chloride 96.0 mmol/L (98-107); Creatinine Clr Calc Pharmacy 12.5 ml/min; Globulin 3.6 gm/dl (2.5-4.0); Glucose 106.0 mg/dl (70-99(Fasting)); Lipase 17.0 U/L (11-82); Magnesium 2.1 mg/dl (1.7-2.4); Potassium 4.8 mmol/L (3.5-5.1); Sodium 137.0 mmol/L (136-145); Total Protein 7.1 gm/dl (6.0-8.3)
[2025-02-21 02:17] LABS: INR 1.1 (0.9-1.1); Prothrombin Time 11.4 Seconds (9.0-12.0)
--- NOTE | 2025-02-21 02:23 | XRay Report ---
EXAM: XR chest 1V portable CLINICAL HISTORY: dyspnea TECHNIQUE: An X-ray image of the chest is obtained in AP projection. COMPARISON: 02/19/2025 CR FINDINGS: Pulmonary Parenchyma: No evidence of consolidation or collapse. Bilateral exaggerated pulmonary markings with interval mild progression in the lower zones. Bilateral lower zone atelectasis. No evidence of pleural effusion or pleural thickening. Heart and Mediastinum: Heart size appears magnified due to AP projection. No mediastinal widening or masses. No hilar or mediastinal lymphadenopathy. Bony Thorax: Bony thorax appears intact. Soft Tissues: Soft tissues overlying the chest wall are unremarkable. IMPRESSION: 1. Bilateral exaggerated pulmonary markings with interval mild progression in the lower zones, suggesting vascular congestion /interstitial pulmonary edema. Clinical correlation and follow-up are recommended. 2. Bilateral lower zone atelectasis. Stable Electronically signed by Jose Francisco Goins 02-21-2025 02:23 AM
[2025-02-21] MEDS: FUROSEMIDE 40 MG/4 ML VIAL IV ONE (02:24)
[2025-02-21] MEDS ORDERED: PROMETHAZINE 6.25 MG/50.25 ML BAG IV PRN (02:25)
[2025-02-21] MEDS: IPRATROPIUM BROMIDE NEB SOLN 0.02% 0.5MG/2.5ML VIAL INH STA (02:32)
[2025-02-21] MEDS: LEVALBUTEROL 1.25 MG/3 ML NEB NEB STA (02:32)
[2025-02-21 03:36] LABS: Base Excess VBG 7.4 mEq/L; HCO3 VBG 31 mmol/L; Oxygen Saturation VBG 67.8 %; PCO2 VBG 40 mmHg (38-50); PO2 VBG 37 mmHg; pH VBG 7.50 (7.36-7.41)
[2025-02-21 03:41] LABS: Reticulocytes # 0.070 10^6/uL (0.020-0.100)
[2025-02-21 03:44] LABS: Hematocrit (blood only) 22.5 % (42.0-52.0); Hemoglobin 7.5 g/dL (14.0-18.0); Immature Granulocytes # (auto) 0.01 K/uL (0.01-0.20); Immature Granulocytes % (auto) 0.3 %; Mean Corpuscular Hemoglobin 31.1 pg (25.0-34.0); Mean Corpuscular Volume 93.4 fL (80.0-100.0); Platelet Count 126 K/uL (130-400); RDW Standard Deviation 52.0 fL (36.4-46.3); Red Blood Count 2.41 M/uL (4.70-6.10); White Blood Count 3.52 K/ul (4.8-10.8)
[2025-02-21 03:58] LABS: Iron 63.0 mcg/dl (35-175); Transferrin 153.0 mg/dl (200-360)
[2025-02-21 04:19] LABS: Ferritin 916.2 ng/ml (8-388)
[2025-02-21 04:30] LABS: RBC Morphology Unremarkable
[2025-02-21] MEDS: ISOSORBIDE MONO EXTENDED REL 30 MG TABCR PO ONE (05:07)
[2025-02-21] MEDS: TORSEMIDE 100 MG TAB PO SCH (05:17)
[2025-02-21 05:52] LABS: Folate (Folic Acid),Ser orPlas 4.39 ng/ml (>5.38)
[2025-02-21 05:53] LABS: Vitamin B12 346.0 pg/ml (180-914)
[2025-02-21] MEDS: NITROGLYCERIN 2% OINTMENT 30GM TUBE EXT ONE (06:11)
[2025-02-21] MEDS ORDERED: SODIUM CHLORIDE 0.9% 1,000 ML IV PRN (08:09)
[2025-02-21] MEDS ORDERED: TORSEMIDE 100 MG TAB PO SCH (09:00)
[2025-02-21] MEDS: ACETAMINOPHEN 325 MG TAB PO PRN (10:07)
--- NOTE | 2025-02-21 11:59 | Hospitalist Progress Note ---
Date of Service February 21, 2025 Assessment & Plan (1) Acute respiratory failure with hypoxia: Plan: Acute hypoxemic respiratory failure ESRD on hemodialysis, history of transplant rejection Acute on chronic heart failure Patient presents with shortness of breath and orthopnea Chest x-ray on admission consistent with pulmonary edema Recent history of multiple admission for similar concerns. Discussed with nephrology; plan for hemodialysis today Wean off oxygen as tolerated Pancytopeniapatient appears to have baseline pancytopenia compared with his labs. WBC today of 3.52, hemoglobin of 7.5. Will obtain reticulocyte count in a.m., follow-up on peripheral blood smear. Appreciate nephrology recommendation regarding anti-infective prophylaxis resumption. Hypertensioncontinue on amlodipine, metoprolol and torsemide along with hydralazine Demand ischemiahigh sensitive troponin elevated to 50.8 on admission; down trended. Denies chest pain. Evaluated by cardiology during last admission; recommended outpatient follow-up. Continue on Lipitor 10 mg once a day history of transplant rejection ongoing anti-infective prophylaxis Fanconi syndrome as per records/nephrogenic diabetes insipidus Diarrhea rule out infectious process ongoing vape use DVT prophylaxis. SCDs Re: Thrombocytopenia Full code Time spent evaluating patient, direct bedside care, chart review, placing orders, interpretation of diagnostic studies, discussion with consultants, patient, and family members, as well as other required patient management ac tivities is 50 minutes Please note the above document was generated using voice recognition software. It may contain grammatical, syntax or spelling errors. Any formal questions or concerns about the content, text or information contained within the body of this dictation should be directly addressed to the provider for clarification Admission and Anticipated Discharge Date Admission Date: February 21, 2025 Subjective Patient seen in bedside. He was on BiPAP; reports that he is breathing slightly better compared to when admission while on BiPAP. Plan for dialysis today Review of Systems Review of Systems: All systems reviewed & are unremarkable except as noted in Subjective Physical Exam Physical Exam: Constitutional: On BiPAP Respiratory:decreased air entry bilaterally Cardiovascular: RRR, no murmur, no edema Vessels: no JVD or carotid bruit Chest: normal inspection of chest Abdomen: normal bowel sounds, soft, nontender, no hepatosplenomegaly Musculoskeletal: Fistula on left arm with bruit Neurologic: PERRL, EOMI, accommodation nl, no face palsy, no dysarthria CN's II- XI intact bilaterally and moves all extremities Psychiatric: A+Ox3, euthymic affect Results & Data Results & Data Vital Signs (Past 12 Hours) Vital Signs Temp Pulse Pulse Resp BP BP Pulse Ox 02/21/25 10:30 111 H 133/78 02/21/25 10:00 105 H 132/83 02/21/25 09:30 107 H 129/85 02/21/25 09:25 20 94 02/21/25 09:21 96 H 128/80 02/21/25 08:23 36.7 C 123 H 18 151/94 H 99 02/21/25 07:44 101 H 02/21/25 06:10 103 H 143/82 H 02/21/25 04:21 26 H 92 02/21/25 03:49 02/21/25 03:49 36.4 C L 87 20 130/84 98 02/21/25 03:23 94 H 02/21/25 03:15 94 H 27 H 99 02/21/25 03:00 100 H 23 133/95 98 02/21/25 02:50 02/21/25 02:39 93 H 99 02/21/25 02:32 97 H 17 100 02/21/25 02:30 95 H 24 132/86 99 02/21/25 02:00 98 H 18 131/88 99 02/21/25 01:30 98 H 16 138/95 97 02/21/25 01:30 100 H 20 98 02/21/25 01:30 97 02/21/25 01:25 97 H 25 H 138/95 83 L 02/21/25 01:25 02/21/25 01:24 102 H 31 H 136/95 92 02/21/25 01:23 102 H 02/21/25 01:08 36.8 C 106 H 22 141/92 H 92 O2 Del Method FiO2 02/21/25 10:30 02/21/25 10:00 02/21/25 09:30 02/21/25 09:25 40 02/21/25 09:21 02/21/25 08:23 Room Air 02/21/25 07:44 02/21/25 06:10 02/21/25 04:21 Room Air 02/21/25 03:49 BiPAP 02/21/25 03:49 BiPAP 02/21/25 03:23 02/21/25 03:15 40 02/21/25 03:00 02/21/25 02:50 BiPAP 02/21/25 02:39 40 02/21/25 02:32 BiPAP 40 02/21/25 02:30 BiPAP 02/21/25 02:00 BiPAP 02/21/25 01:30 BiPAP 02/21/25 01:30 50 02/21/25 01:30 BiPAP 02/21/25 01:25 Room Air 02/21/25 01:25 Room Air 02/21/25 01:24 02/21/25 01:23 02/21/25 01:08 Room Air
[2025-02-21] MEDS: CALCIUM ACETATE 667 MG CAP/TAB PO SCH (12:22)
[2025-02-21] MEDS: HYDROmorphone INJ 0.5 MG/0.5 ML SYR IV STA (12:45)
[2025-02-21] MEDS ORDERED: ONDANSETRON INJ 2 MG/ML 2 ML VIAL IV PRN (12:56)
[2025-02-21] MEDS: ONDANSETRON INJ 2 MG/ML 2 ML VIAL ONE (13:11)
[2025-02-21] MEDS: CHOLECALCIFEROL 25 MCG (1000 UNITS) TAB PO SCH (15:29)
[2025-02-21] MEDS: SODIUM ZIRCONIUM CYCLOSILICATE 10 GM PACKET PO SCH (15:30)
[2025-02-21] MEDS: METOPROLOL SUCC 25MG EXT REL TAB PO SCH (15:30)
--- NOTE | 2025-02-21 15:39 | Nephrology Consultation ---
Date of Consultation February 21, 2025 Assessment & Plan (1) End-stage renal disease on hemodialysis: h/o NOn adherence at times. Came in with fluid overload/CHF and now much better post dialysis. next HD will be wednesday as inpt if Still here otherwsie will be done as outpt. he appear now back to baseline pretty much. NO issues with electrolytes and acid/base. No issues with Access and BP today got 4.4 kilo off today (2) Acute respiratory failure with hypoxia: Sec to fluid overload. Now much better. Plan time spent 47 mins History of Present Illness Reason for Consultation: ESRD Admitted with SOB Attending Physician: Kirit Blackman MD History of Present Illness 35/M with ESRD on HD--MWF admitted with SOB. found to have CHF on Xray and was needing Bipap. 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 had dialysis today already and 4.4 kilo removed without issues. BP was somewhat high but now normal. Also now Much better breathing on RA. Sleeping and did not really want to talk ROS--12 Systems reviewed and negative Physical Exam Constitutional: On RA and no Distress now Respiratory: decreased air entry bilaterally Cardiovascular: RRR, no murmur, no edema no JVD Chest: b/l Clear now Abdomen: soft, nontender Musculoskeletal: Fistula on left arm with bruit Allergies Allergy/AdvReac Type Severity Reaction Status Date / Time No Known Allergies Allergy Verified 02/11/25 08:17 Home Medications Medication Instructions Recorded Confirmed Type valganciclovir 450 mg tablet 450 mg PO UD ##0 11/16/24 02/21/25 History amitriptyline 25 mg tablet 25 mg PO HS 02/03/25 02/21/25 History aspirin 81 mg tablet,delayed 81 mg PO DAILY ##0 02/03/25 02/21/25 History release calcium acetate(phosphat bind) 667 667 mg PO UD ##0 02/03/25 02/21/25 History mg tablet cholecalciferol (vitamin D3) 25 1,000 unit PO DAILY 02/03/25 02/21/25 History mcg (1,000 unit) capsule dapsone 100 mg tablet 100 mg PO QAM 02/03/25 02/21/25 History famotidine 10 mg tablet (Heartburn 10 mg PO QAM 02/03/25 02/21/25 History Relief (famotidine)) sodium zirconium cyclosilicate 10 10 g PO DAILY 02/03/25 02/21/25 History gram oral powder packet (Lokelma) tamsulosin 0.4 mg capsule 0.4 mg PO DAILY ##0 02/03/25 02/21/25 History torsemide 100 mg tablet 100 mg PO QAM 02/03/25 02/21/25 History amlodipine 10 mg tablet (Norvasc) 10 mg PO DAILY #30 tabs 02/05/25 02/21/25 Rx hydralazine 50 mg tablet 50 mg PO TID #90 tabs 02/05/25 02/21/25 Rx metoprolol succinate 50 mg 75 mg (1.5 x 50 mg) PO BID #90 tabs 02/05/25 02/21/25 Rx tablet,extended release 24 hr (Toprol XL) atorvastatin 10 mg tablet 10 mg PO QPM #30 tabs 02/15/25 02/21/25 Rx fluconazole 100 mg tablet 200 mg (2 x 100 mg) PO QAM #30 tabs 02/15/25 02/21/25 Rx Patient History Medical History Chest pain Anemia of chronic disease Depression Surgical History History of tooth extraction WISDOM TEETH Family History Mother Crohn's disease Social History Smoking Status: Current every day smoker Tobacco Type: E-cigarettes / Vaping Cigarettes Per Day: 5; Second Hand Exposure: No; Do You Dip or Chew Tobacco: No; Hx Alcohol Use: No Hx Substance Use: Yes Last Used Substance: Days (ago) Last Used Substance Other:: 12/6 prior to bed time Substance Use Type Other:: medical marijuana Preferred Language: [place] [employer] Communication Ability: Effective 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 Tender Helper Required: No Beliefs That Will Affect Care: None Current Living Situation: Spouse Feels Safe at Home: Yes Safety Concerns: Feels Safe At This Time Assistive Devices: None Results & Data Vital Signs (Past 12 Hours) Vital Signs Temp Pulse Pulse Pulse Resp BP BP 02/21/25 14:00 02/21/25 13:58 36.2 C L 89 18 137/82 02/21/25 13:40 36.7 C 67 131/88 02/21/25 13:25 106 H 132/105 H 02/21/25 13:00 71 135/102 H 02/21/25 12:30 105 H 114/88 02/21/25 12:00 96 H 148/97 H 02/21/25 11:30 98 H 141/89 H 02/21/25 11:00 107 H 136/101 H 02/21/25 10:30 111 H 133/78 02/21/25 10:00 105 H 132/83 02/21/25 09:30 107 H 129/85 02/21/25 09:25 20 02/21/25 09:21 96 H 128/80 02/21/25 09:06 36.6 C 99 H 02/21/25 08:23 36.7 C 123 H 18 151/94 H 02/21/25 07:44 101 H 02/21/25 06:10 103 H 143/82 H 02/21/25 04:21 26 H 02/21/25 03:49 02/21/25 03:49 36.4 C L 87 20 130/84 Pulse Ox O2 Del Method FiO2 02/21/25 14:00 Room Air 02/21/25 13:58 91 Room Air 02/21/25 13:40 02/21/25 13:25 02/21/25 13:00 02/21/25 12:30 02/21/25 12:00 02/21/25 11:30 02/21/25 11:00 02/21/25 10:30 02/21/25 10:00 02/21/25 09:30 02/21/25 09:25 94 40 02/21/25 09:21 02/21/25 09:06 02/21/25 08:23 99 Room Air 02/21/25 07:44 02/21/25 06:10 02/21/25 04:21 92 Room Air 02/21/25 03:49 BiPAP 02/21/25 03:49 98 BiPAP Laboratory Results CBC and renal panel Diagnostic Findings CXR--CHF
[2025-02-21] MEDS: FLUCONAZOLE 100 MG TAB PO SCH (15:53)
[2025-02-21] MEDS: TAMSULOSIN HCL 0.4 MG CAP PO SCH (15:53)
[2025-02-21] MEDS: FAMOTIDINE 10 MG TABLET PO SCH (15:53)
--- NOTE | 2025-02-21 21:27 | Electrocardiogram Report ---
Test Reason : Blood Pressure : */* mmHG Vent. Rate : 103 BPM Atrial Rate : 103 BPM P-R Int : 140 ms QRS Dur : 82 ms QT Int : 348 ms P-R-T Axes : 64 42 75 degrees QTcB Int : 455 ms Sinus tachycardia Nonspecific T wave abnormality Abnormal ECG When compared with ECG of 19-Feb-2025 05:20, No significant change was found Confirmed by Jose Camara ([id number]) on 02/21/2025 9:27:29 PM Referred By: REFERRED SELF Confirmed By: Jose Camara
[2025-02-21] MEDS: AMITRIPTYLINE HCL 25 MG TAB PO SCH (21:36)
[2025-02-21] MEDS: ATORVASTATIN 10 MG TAB PO SCH (21:36)
[2025-02-22 06:14] LABS: Hematocrit (blood only) 24.9 % (42.0-52.0); Hemoglobin 8.1 g/dL (14.0-18.0); Immature Granulocytes # (auto) 0.02 K/uL (0.01-0.20); Immature Granulocytes % (auto) 0.5 %; Mean Corpuscular Hemoglobin 30.9 pg (25.0-34.0); Mean Corpuscular Volume 95.0 fL (80.0-100.0); Platelet Count 141 K/uL (130-400); RDW Standard Deviation 53.0 fL (36.4-46.3); Red Blood Count 2.62 M/uL (4.70-6.10); White Blood Count 4.22 K/ul (4.8-10.8)
[2025-02-22 06:49] LABS: Anion Gap 9.0 (3-11); Blood Urea Nitrogen 21.0 mg/dl (6-23); Calcium 9.2 mg/dl (8.6-10.3); Carbon Dioxide 33.0 mmol/L (21-32); Chloride 94.0 mmol/L (98-107); Creatinine Clr Calc Pharmacy 18.6 ml/min; Glucose 98.0 mg/dl (70-99(Fasting)); Potassium 5.5 mmol/L (3.5-5.1); Sodium 136.0 mmol/L (136-145)
[2025-02-22] MEDS: VALGANCICLOVIR HCL 450 MG TABLET PO SCH (09:06)
--- NOTE | 2025-02-22 10:46 | Nephrology Progress Note ---
Date of Service February 22, 2025 Assessment & Plan Admission and Anticipated Discharge Date Admission Date: February 21, 2025 Subjective Assessment & Plan (1) End-stage renal disease on hemodialysis: h/o NOn adherence at times. Came in with fluid overload/CHF and now much better post dialysis. he appear now back to baseline pretty much. NO issues with electrolytes and acid/base. No issues with Access and BP got 4.4 kilo off yesterday. Again discussed the need to limit fluid intake. Also told this to father. Unless he does this he will be admitted again and again. Also consider 4 days a week. Wants to go home today and do dialysis outpt tomorrow (2) Acute respiratory failure with hypoxia: Sec to fluid overload. Now much better. S--[place] lot better after dialysis yesterday. was on Bipap earlier but now on o2 NC. Wants to go home today and do dialysis outpt tomorrow ROS--12 Systems reviewed and negative Physical Exam Constitutional: On RA and no Distress now Respiratory: decreased air entry bilaterally Cardiovascular: RRR, no murmur, no edema no JVD Chest: b/l Clear now Abdomen: soft, nontender Musculoskeletal: Fistula on left arm with bruit Results & Data Vital Signs (Past 12 Hours) Vital Signs Temp Pulse Pulse Pulse Resp BP Pulse Ox 02/22/25 09:30 91 H 02/22/25 09:30 02/22/25 07:41 36.2 C L 110 H 20 117/76 97 02/22/25 05:33 91 02/22/25 05:26 89 L 02/22/25 05:20 76 L 02/22/25 02:45 37.2 C 88 18 121/76 91 02/21/25 22:59 37.3 C 109 H 18 126/73 93 O2 Del Method O2 Flow Rate FiO2 02/22/25 09:30 02/22/25 09:30 BiPAP 40 02/22/25 07:41 Room Air 02/22/25 05:33 BiPAP 02/22/25 05:26 BiPAP 02/22/25 05:20 Room Air 02/22/25 02:45 Oxymask 2 02/21/25 22:59 Oxymask 2
[2025-02-22 11:05] VITALS: BP 117/81; PULSE 89; RESP 19; TEMP 98.2; O2SAT 92
--- NOTE | 2025-02-22 12:24 | Discharge Summary ---
Date of Service February 22, 2025 Admission HPI Per Admitting Provider History obtained from patient and records. 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 Monthly admissions since last month. Recent confinement February 11 to 2024 for respiratory failure. Patient found to have new onset CHF, EF 40 to 45% on TTE. Cardiology recommended outpatient cardiac catheterization. CellCept and prednisone for transplant rejection immunosuppression stopped at discharge. Patient instructed to continue dapsone and Valcyte for 6 months after Thymoglobulin. Patient seen at the ER2 days ago for shortness of breath. Patient noted to be hyperkalemic. Medications administered at the ER. Patient offered admission but patient opted to just go to outpatient dialysis center in [place]. Worsening shortness of breath last night associated with orthopnea. Transient left-sided chest pain, no cough symptoms. Watery diarrhea without abdominal pain. Denies black or bloody stools. Patient not sure about sick contacts or recent antibiotic Rx. Patient compliant with outpatient dialysis sessions. Compliant with daily 1 L fluid restriction. Lowest O2 sats of 80s documented at the ER. Medical History as above Surgical History : Renal biopsy, kidney transplant, vascular procedures Family History : Crohn's disease Personal/Social history : Ongoing vape use, occasional EtOH intake, currently unemployed, prior employment at [employer] Admission Exam Per Admitting Provider GENERAL: Uncomfortable, looks older than stated age, episodic tachypnea SKIN: Pallor,, warm HEENT: Pale palpebral conjunctivae, no ptosis, dry buccal mucosa, BiPAP in place NECK : Supple, no tenderness CHEST : Decreased breath sounds, no tenderness HEART : Tachycardic, systolic murmur ABDOMEN: Some distention, nontender EXTREMITIES : No LE swelling/tenderness, palpable pulses, no other conspicuous deformities noted NEUROLOGIC : Coherent, no facial asymmetry, no other gross focality Principal Diagnosis Acute hypoxemic respiratory failure ESRD on hemodialysis, history of transplant rejection Acute on chronic systolic heart failure Discharge Exam GENERAL: Alert and oriented x3. NAD, on RA. HEENT: No pallor, no icterus. Pupils equal, round and reactive to light. Oral mucosa moist. NECK: No JVD, no neck masses. HEART: S1 and S2 heard. Regular rate and rhythm. No murmur, no gallop. RESPIRATORY SYSTEM: Normal AP diameter. No accessory muscle use. No wheezing, no crackles. ABDOMEN: Soft, bowel sounds present, nontender, no distention. CENTRAL NERVOUS SYSTEM: No facial droop. Speech is clear. Obeys simple commands. Moves extremities. EXTREMITIES: No edema, no erythema seen. Discharge Data Allergies Allergy/AdvReac Type Severity Reaction Status Date / Time No Known Allergies Allergy Verified 02/11/25 08:17 Consultations 02/21/25 01:44 ED Decision to Admit Stat 02/21/25 03:36 Consult Nephrology Routine Hospital Course (1) Acute respiratory failure with hypoxia: Acute hypoxemic respiratory failure ESRD on hemodialysis, history of transplant rejection Acute on chronic heart failure Patient presents with shortness of breath and orthopnea Chest x-ray on admission consistent with pulmonary edema Recent history of multiple admission for similar concerns. patient was admitted to medical floor; underwent hemodialysis with improvement in shortness of breath. He was observed overnight. He was saturating well in room air at the time of the discharge. Patient discharged home with instructions to follow-up for dialysis tomorrow. Pancytopeniapatient appears to have baseline pancytopenia compared with his labs on admission. Patient's blood count improved with hemodialysis; apparent pancytopenia on admission likely secondary to hemodilution. Dapsone resumed at discharge Hypertensioncontinue on amlodipine, metoprolol and torsemide along with hydralazine Demand ischemiahigh sensitive troponin elevated to 50.8 on admission; down trended. Denies chest pain. Evaluated by cardiology during last admission; recommended outpatient follow-up. Continue on Lipitor 10 mg once a day Please note the above document was generated using voice recognition software. It may contain grammatical, syntax or spelling errors. Any formal questions or concerns about the content, text or information contained within the body of this dictation should be directly addressed to the provider for clarification Total Time Total Time Spent Total Time Spent (In Minutes): 45 Total Time Includes: Examination of the Patient, Discharge Planning, Medication Reconciliation, Communication With Other Providers and Other Discharge Plan Discharge Items Patient Disposition: Home - Self-Care Reason For Visit: RESP FAILURE Discharge Diagnosis: Acute hypoxemic respiratory failure ESRD on hemodialysis, history of transplant rejection Acute on chronic heart failure Condition on Discharge: Fair Activity: Resume your previous activity Non-emergency contact: Primary Care Provider Call non-emergency contact if: you have any medication questions and your symptoms worsen Follow-up/Referrals: Shanita Maharaj MD [Primary Care Provider] - (Date & Time 02/27/2025 2:00 PM Provider: Donavon Mancera CRNP [facility] ) Diet: Regular Fluids: 1000ml (4 cups) Addtl Attending Provider Instructions: Continue to take your medication as prescribed. Go to your dialysis tomorrow Limit your fluid intake( this includes water, soda, coffee, ice) of total of 1000 mL. Pending Studies at Discharge: No Stand-Alone Forms: My [facility] [employer], Smoking Cessation Medications and DC Order Prescriptions: Continued valganciclovir 450 mg Tablet 450 mg PO UD Qty: 0 Rx Instructions: once daily 2x week (wed and ) (chronic suppression rx) fluconazole 100 mg Tablet 200 mg PO QAM Qty: 30 0RF atorvastatin 10 mg Tablet 10 mg PO QPM Qty: 30 0RF famotidine [Heartburn Relief (famotidine)] 10 mg tablet 10 mg PO QAM amitriptyline 25 mg tablet 25 mg PO HS torsemide 100 mg tablet 100 mg PO QAM dapsone 100 mg tablet 100 mg PO QAM Lokelma 10 gram powder in packet 10 g PO DAILY calcium acetate(phosphat bind) 667 mg Tablet 667 mg PO UD Qty: 0 Rx Instructions: Take 3 capsules by mouth in morning, 3 capsules at noon and 3 capsules every evening aspirin 81 mg Tablet,Delayed Release (Dr/Ec) 81 mg PO DAILY Qty: 0 tamsulosin 0.4 mg Capsule 0.4 mg PO DAILY Qty: 0 cholecalciferol (vitamin D3) 25 mcg (1,000 unit) Capsule 1,000 unit PO DAILY amlodipine [Norvasc] 10 mg tablet 10 mg PO DAILY Qty: 30 0RF hydralazine 50 mg tablet 50 mg PO TID Qty: 90 0RF metoprolol succinate [Toprol XL] 50 mg tablet extended release 24 hr 75 mg PO BID Qty: 90 0RF Discharge Orders: Discharge Order (Routine); Ordered 02/22/25 Ordered By: Kirit Blackman Admission Data Admit Date/Time: 02/21/25 01:58 Attending Provider: Kirit Blackman Admit Provider: Chente Lamas Primary Care Provider: Shainta Maharaj Other Providers: Kate Trejo; Micky Velasquez; Oscar Brumfield; Armen Miner; Alexa Deshpande; Chente Lamas Other Interventions: Discharge Summary Assessment (RN) Last Done: 02/22/25 12:34
--- NOTE | 2025-02-22 12:59 | Communication Note ---
Date of Service: February 22, 2025 Code 44 attestation. The chart reviewed thoroughly noted that appropriate decision was taken by the attending and discharging the patient home. By CMS guidelines, a determination that the admission or continued stay is not medically necessary has been made by a member of the UR committee and a physician for this hospital stay, therefore a Code 44 will be completed and the Inpatient admission will be changed to outpatient. Dr Dee Monte Member UR community
--- NOTE | 2025-02-27 12:02 | Communication Note ---
Date of Service: February 27, 2025 Code 44 Attestation: By CMS guidelines, a determination that the admission or continued stay is not medically necessary has been made by a member of the UR committee and a physician for this hospital stay, therefore a Code 44 will be completed and the Inpatient admission will be changed to outpatient. DR Dee Monte Member UR Committee
== END 2025-02-22 14:40 | disposition home or self-care (01) ==
LOC: ED 01:05 → 2S 01:58 → INTOOBSV 01:58 → 2S 02:50

== ENCOUNTER 2025-02-23 04:32 | Inpatient (IN) ==
[2025-02-23 05:23] LABS: Hematocrit (blood only) 24.9 % (42.0-52.0); Hemoglobin 8.2 g/dL (14.0-18.0); Immature Granulocytes # (auto) 0.02 K/uL (0.01-0.20); Immature Granulocytes % (auto) 0.4 %; Mean Corpuscular Hemoglobin 30.6 pg (25.0-34.0); Mean Corpuscular Volume 92.9 fL (80.0-100.0); Platelet Count 146 K/uL (130-400); RDW Standard Deviation 52.0 fL (36.4-46.3); Red Blood Count 2.68 M/uL (4.70-6.10); White Blood Count 5.22 K/ul (4.8-10.8)
[2025-02-23 05:47] LABS: Alanine Aminotransferase 6.0 U/L (7-52); Albumin Globulin Ratio 1.1 (0.9-2); Albumin Level 3.6 gm/dl (3.4-5.0); Alkaline Phosphatase 57.0 U/L (34-104); Anion Gap 9.0 (3-11); Bilirubin,Total 0.7 mg/dl (0.2-1.0); Blood Urea Nitrogen 38.0 mg/dl (6-23); Calcium 9.5 mg/dl (8.6-10.3); Carbon Dioxide 32.0 mmol/L (21-32); Chloride 92.0 mmol/L (98-107); Creatinine Clr Calc Pharmacy 13.6 ml/min; Globulin 3.4 gm/dl (2.5-4.0); Glucose 105.0 mg/dl (70-99(Fasting)); Potassium 5.1 mmol/L (3.5-5.1); Sodium 133.0 mmol/L (136-145); Total Protein 7.0 gm/dl (6.0-8.3)
--- NOTE | 2025-02-23 06:18 | XRay Report ---
EXAM: XR chest 1V portable CLINICAL HISTORY: Dyspnea TECHNIQUE: An X-ray image of the chest is obtained in AP portable projection. COMPARISON: Comparison is made with prior x-ray chest portable dated 02/21/2025 00:19:16 ARCHITECTURAL ADMINISTRATIVE ASSISTANT FINDINGS: Pulmonary Parenchyma: A stable appearing diffuse interstitial prominence and ill-defined haziness seen, predominantly involving bilateral parahilar regions and both lower zones, suggesting interstitial pulmonary edematous changes. Questionable subtle obscuration of the right costophrenic angle, may represent interval developed minimal pleural effusion. No evidence of pleural effusion or pleural thickening on left side(unchanged). Heart and Mediastinum: Apparent enlargement of heart size, possibly due to AP projection. Bilateral hilar prominence with accentuated peribronchovascular markings, suggestive of hilar vascular congestive changes. Bony Thorax: Visualized bony thorax appears intact without definite evidence of fracture. Soft Tissues: Soft tissues overlying the chest wall are unremarkable. IMPRESSION: 1. Stable appearing diffuse interstitial prominence and ill-defined haziness seen, predominantly involving bilateral parahilar regions and both lower zones, suggesting interstitial pulmonary edematous changes versus infectious process. Clinical correlation and further workup advised 2. Questionable interval developed minimal right-sided pleural effusion(new finding). 3. No other significant interval changes are detected. Electronically signed by Jose Francisco Goins 02-23-2025 06:18 AM
--- NOTE | 2025-02-23 06:31 | Emergency Department Note ---
Impression & Plan Shortness of breath, Hypoxia, End-stage renal disease on hemodialysis ED Provider Note Provider: Juliano Nguyễn MD CHIEF COMPLAINT: Cannot breathe on dialysis HISTORY OF PRESENT ILLNESS: Patient is a 35-year-old gentleman unfortunate complex intubation including history of cardiac disease/CHF, failed renal transplant, end-stage renal disease on dialysis presenting here overnight complaining of significant shortness of breath upon waking at 2 AM. Left the hospital yesterday with recent admissions for similar over the last several weeks. Denies significant dietary indiscretion or fluid intake or salt intake. Denies any swelling but he states he does not normally get this. Denies fever cough or cold. Patient denies any significant pain. Feels bit better when he sits up. States he also feels better when he is here at the hospital on CPAP does not have 1 at home. Was due for dialysis today and last had dialysis on Wednesday. PAST MEDICAL HISTORY: As noted above MEDICATIONS: Reviewed no medications SOCIAL HISTORY: Former smoker PHYSICAL EXAM: GENERAL: alert and oriented in no acute distress on stretcher seated upright on edge of bed Head: normocephalic and atraumatic EYES: No injection, discharge or icterus. NECK: Trachea midline. ENT: Mucous membranes pink and moist. LUNGS: Airway patent. No retractions without significant tachypnea. HEART: Regular rate and rhythm. SKIN: Acyanotic, warm, dry, without rashes EXTREMITIES: Without swelling with left forearm fistula noted. NEUROLOGICAL: No focal deficits. No aphasia. No facial droop or slurred speech. Ambulatory. EK bpm. Normal sinus rhythm. No ST segment elevation or depression QTc of 460. CONTINUOUS CARDIAC MONITORING: was ordered and showed a heart rate of 90s bpm in normal sinus rhythm Patient's laboratory studies and imaging reviewed. Differential includes Reactive airway disease, pneumonia, pneumothorax, COPD, CHF, infections, cardiac ischemia, pulmonary embolism, musculoskeletal, gastrointestinal, as well as other pathologies. IMPRESSION/MEDICAL DECISION MAKING: Patient fortunately complexing reviewed history. Reviewed discharge summary from yesterday. Denies any diet indiscretion, salt intake, or fluids overnight. Woke up in middle of the night laying flat with orthopnea. Significant short of breath. No to be hypoxic here but mildly so. Is improving with some oxygen here into the 90s. Chest x-ray does continue to show some fluid overload. Was due for dialysis today. No severe electrolyte abnormalities noted on blood work. Denies fever cough or cold or significant chest pain. Stable anemia. Doubt this is ACS, URI, pneumonia. Makes minimal urine. Seems like fluid overload and I doubt PE or viral URI at this time. Certainly with hypoxia will require treatment prior to discharge and as such reached out to the hospitalist for admission to bring in for HD. Patient agreeable with this plan. DIAGNOSIS: Hypoxia, volume overload DISPOSITION: Hospitalist will evaluate Patient was agreeable with this plan. Past Med/Surg History Problem List (Updated 02/23/25 @ 08:41 by Juliano Nguyễn M.D.) Acute CHF Pulmonary edema (Acute) Acute hyperkalemia (Acute) Acute heart failure with mildly reduced ejection fraction (HFmrEF, 41-49%) End-stage renal failure with renal transplant (Acute) Pain from arteriovenous fistula Acute pneumonia Acute respiratory failure with hypoxia End-stage renal disease on hemodialysis (Acute) Elevated troponin (Acute) Hypoxia (Acute) Hypertensive emergency (Acute) Right ventricular dysfunction Nonischemic cardiomyopathy Acute on chronic heart failure with mildly reduced ejection fraction (HFmrEF, 41-49%) Myocardial infarction due to demand ischemia Hypertensive urgency Elevated troponin (Acute) Hypoxia (Acute) Pulmonary edema (Acute) Shortness of breath (Acute) Hypertension Prediabetes Antibody mediated rejection of renal transplant ESRD on dialysis (Acute) Anemia requiring transfusions (Acute) Anemia of chronic disease (Acute) Encounter for hemodialysis for ESRD (Acute) Anemia in ESRD (end-stage renal disease) (Acute) Nausea & vomiting RY (acute kidney injury) (Acute) Hypomagnesemia ST segment changes on electrocardiogram Nephropathic cystinosis Renal transplant, status post (Acute) Pyelonephritis Renal tubular acidosis (Chronic) Anemia (Chronic) 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 Trejo. Home hemodialysis. Fanconi syndrome (Chronic) Medical History Chest pain Anemia of chronic disease Depression Surgical History History of tooth extraction WISDOM TEETH Family History Mother Crohn's disease Social History Smoking Status: Former smoker Tobacco Type: E-cigarettes / Vaping Cigarettes Per Day: 5; Second Hand Exposure: No; Do You Dip or Chew Tobacco: No; Hx Alcohol Use: No Hx Substance Use: Yes Last Used Substance: Days (ago) Last Used Substance Other:: 02/10 prior to bed time Substance Use Type Other:: medical marijuana Preferred Language: Swedish Communication Ability: Effective Auxiliary Operator Required: No Beliefs That Will Affect Care: None Current Living Situation: Spouse Feels Safe at Home: Yes Assistive Devices: None Allergies Allergies Allergy/AdvReac Type Severity Reaction Status Date / Time No Known Allergies Allergy Verified 02/11/25 08:17 Home Meds Home Medications Medication Instructions Recorded Confirmed amitriptyline 25 mg tablet 25 mg PO HS 02/23/25 02/23/25 amlodipine 10 mg tablet 10 mg PO DAILY 02/23/25 02/23/25 aspirin 81 mg tablet,delayed 81 mg PO DAILY 02/23/25 02/23/25 release atorvastatin 10 mg tablet 10 mg PO HS 02/23/25 02/23/25 calcium acetate 667 mg tablet 2,001 mg PO TID 02/23/25 02/23/25 cholecalciferol (vitamin D3) 25 25 mcg PO DAILY 02/23/25 02/23/25 mcg (1,000 unit) tablet dapsone 100 mg tablet 100 mg PO DAILY 02/23/25 02/23/25 famotidine 10 mg tablet (Heartburn 10 mg PO DAILY 02/23/25 02/23/25 Relief (famotidine)) fluconazole 100 mg tablet 200 mg PO DAILY 02/23/25 02/23/25 hydralazine 50 mg tablet 50 mg PO TID 02/23/25 02/23/25 metoprolol succinate 50 mg 75 mg PO BID 02/23/25 02/23/25 tablet,extended release 24 hr sodium zirconium cyclosilicate 10 10 g PO DAILY 02/23/25 02/23/25 gram oral powder packet (Lokelma) tamsulosin 0.4 mg capsule 0.4 mg PO DAILY 02/23/25 02/23/25 torsemide 100 mg tablet 100 mg PO DAILY 02/23/25 02/23/25 valganciclovir 450 mg tablet 450 mg PO UD 02/23/25 02/23/25 Results & Data (ED) Vital Signs Vital Signs - 24 hr 02/23/25 04:35 02/23/25 04:51 02/23/25 04:51 Temperature 36.8 C Temperature Source Oral Pulse Rate 99 H Pulse Rate [Apical] Pulse Rate from SpO2 Sensor Pulse Rhythm Pulse Rhythm [Apical] Pulse Strength [Apical] Respiratory Rate 18 Respiratory Effort / Characteristics Non-Labored Spontaneous Non-Labored Respiratory Depth Normal Respiratory Pattern Regular Regular Blood Pressure 142/92 H Blood Pressure [Right Arm] Blood Pressure Mean 108 Blood Pressure Mean [Right Arm] Blood Pressure Position Sitting Blood Pressure Position [Right Arm] Pulse Oximetry 96 91 Oxygen Delivery Method Room Air Room Air Room Air Oxygen Flow Rate 0 Sepsis Recent Fever Within 48 Hours No Sepsis New/Unexplained Change in Mental Status N/A Sepsis Action Taken by Nursing No Action Required 02/23/25 04:51 02/23/25 04:57 02/23/25 04:57 Temperature Temperature Source Pulse Rate 89 90 Pulse Rate [Apical] 90 Pulse Rate from SpO2 Sensor 90 Pulse Rhythm Pulse Rhythm [Apical] Regular Pulse Strength [Apical] Normal Respiratory Rate 15 18 Respiratory Effort / Characteristics Non-Labored Respiratory Depth Normal Respiratory Pattern Regular Blood Pressure Blood Pressure [Right Arm] Blood Pressure Mean Blood Pressure Mean [Right Arm] Blood Pressure Position Blood Pressure Position [Right Arm] Pulse Oximetry 91 93 Oxygen Delivery Method Room Air Oxygen Flow Rate Sepsis Recent Fever Within 48 Hours Sepsis New/Unexplained Change in Mental Status Sepsis Action Taken by Nursing 02/23/25 04:59 02/23/25 05:00 02/23/25 05:12 Temperature Temperature Source Pulse Rate 93 H 88 96 H Pulse Rate [Apical] Pulse Rate from SpO2 Sensor 90 96 H Pulse Rhythm Regular Pulse Rhythm [Apical] Pulse Strength [Apical] Respiratory Rate 15 15 19 Respiratory Effort / Characteristics Respiratory Depth Respiratory Pattern Blood Pressure Blood Pressure [Right Arm] Blood Pressure Mean Blood Pressure Mean [Right Arm] Blood Pressure Position Blood Pressure Position [Right Arm] Pulse Oximetry 91 91 93 Oxygen Delivery Method Room Air Oxygen Flow Rate Sepsis Recent Fever Within 48 Hours Sepsis New/Unexplained Change in Mental Status Sepsis Action Taken by Nursing 02/23/25 05:21 02/23/25 05:30 02/23/25 06:38 Temperature Temperature Source Pulse Rate 90 94 H Pulse Rate [Apical] 95 H Pulse Rate from SpO2 Sensor 90 94 H Pulse Rhythm Pulse Rhythm [Apical] Regular Pulse Strength [Apical] Normal Respiratory Rate 16 14 15 Respiratory Effort / Characteristics Non-Labored Respiratory Depth Normal Respiratory Pattern Regular Blood Pressure Blood Pressure [Right Arm] 140/102 H Blood Pressure Mean Blood Pressure Mean [Right Arm] 114 Blood Pressure Position Blood Pressure Position [Right Arm] Lying Pulse Oximetry 92 95 97 Oxygen Delivery Method Nasal Cannula Oxygen Flow Rate 4 Sepsis Recent Fever Within 48 Hours Sepsis New/Unexplained Change in Mental Status Sepsis Action Taken by Nursing Laboratory Data 02/23/25 04:50 02/23/25 04:50 Lab Results 02/23/25 02/23/25 Range/Units 04:50 06:30 WBC 5.22 (4.8-10.8) K/ul RBC 2.68 L (4.70-6.10) M/uL Hgb 8.2 L (14.0-18.0) g/dL Hct 24.9 L (42.0-52.0) % MCV 92.9 (80.0-100.0) fL MCH 30.6 (25.0-34.0) pg MCHC 32.9 (32.0-36.0) g/dL RDW Std Deviation 52.0 H (36.4-46.3) fL RDW Coeff of [place] 15.4 H (11.5-14.5) % Plt Count 146 (130-400) K/uL MPV 10.7 (9.4-12.4) fL Immature Gran % (Auto) 0.4 % Neut % (Auto) 86.2 % Lymph % (Auto) 7.9 % [place] % (Auto) 3.6 % Eos % (Auto) 0.8 % Baso % (Auto) 1.1 % Neut # (Auto) 4.50 (1.40-6.50) K/uL Lymph # (Auto) 0.41 L (1.20-3.40) K/uL [place] # (Auto) 0.19 (0.11-0.59) K/uL Eos # (Auto) 0.04 (0.00-0.50) K/uL Baso # (Auto) 0.06 (0.00-0.20) K/uL Immature Gran # (Auto) 0.02 (0.01-0.20) K/uL Sodium 133 L (136-145) mmol/L Potassium 5.1 (3.5-5.1) mmol/L Chloride 92 L (98-107) mmol/L Carbon Dioxide 32 (21-32) mmol/L Anion Gap 9 (3-11) BUN 38 H (6-23) mg/dl Creatinine 7.71 H* D (0.6-1.4) mg/dl Est Cr Clr Drug Dosing 13.6 ml/min eGFR 8.79 BUN/Creatinine Ratio 4.9 L (10-20) Glucose 105 H (70-99(Fasting)) mg/dl Calcium 9.5 (8.6-10.3) mg/dl Total Bilirubin 0.7 (0.2-1.0) mg/dl AST 16 (13-39) U/L ALT 6 L (7-52) U/L Alkaline Phosphatase 57 (34-104) U/L Total Protein 7.0 (6.0-8.3) gm/dl Albumin 3.6 (3.4-5.0) gm/dl Globulin 3.4 (2.5-4.0) gm/dl Albumin/Globulin Ratio 1.1 (0.9-2) SARS-CoV-2, RNA, NAAT NEGATIVE (NEGATIVE) Imaging Data Radiologist's Impression: Chest X-Ray 02/23/25 04:47 EXAM: XR chest 1V portable CLINICAL HISTORY: Dyspnea TECHNIQUE: An X-ray image of the chest is obtained in AP portable projection. COMPARISON: Comparison is made with prior x-ray chest portable dated 02/21/2025 00:19:16 CLERK TYPIST FINDINGS: Pulmonary Parenchyma: A stable appearing diffuse interstitial prominence and ill-defined haziness seen, predominantly involving bilateral parahilar regions and both lower zones, suggesting interstitial pulmonary edematous changes. Questionable subtle obscuration of the right costophrenic angle, may represent interval developed minimal pleural effusion. No evidence of pleural effusion or pleural thickening on left side(unchanged). Heart and Mediastinum: Apparent enlargement of heart size, possibly due to AP projection. Bilateral hilar prominence with accentuated peribronchovascular markings, suggestive of hilar vascular congestive changes. Bony Thorax: Visualized bony thorax appears intact without definite evidence of fracture. Soft Tissues: Soft tissues overlying the chest wall are unremarkable. IMPRESSION: 1. Stable appearing diffuse interstitial prominence and ill-defined haziness seen, predominantly involving bilateral parahilar regions and both lower zones, suggesting interstitial pulmonary edematous changes versus infectious process. Clinical correlation and further workup advised 2. Questionable interval developed minimal right-sided pleural effusion(new finding). 3. No other significant interval changes are detected. Electronically signed by Jose Francisco Goins 02-23-2025 06:18 AM Discharge Plan Visit Data Chief Complaint: Shortness of Breath/Dyspnea Stated Complaint: HARD TIME BREATHING AGAIN ED Provider: Juliano Nguyễn Discharge Problem: Shortness of breath, Hypoxia, End-stage renal disease on hemodialysis Patient Disposition: Being Evaluated by Hospitalist Condition: Fair
--- NOTE | 2025-02-23 08:00 | History & Physical Report ---
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 Patient states around 2 AM he woke up from sleep with gasping for breath and some chest discomfort and came to the ER. Requiring oxygen. Currently chest pain resolved. No cough. No fevers. Was nauseous. No abdominal pain. No diarrhea or constipation.. No headache. Hemodynamics are okay. Patient is asking for home oxygen when he gets discharged. Acute CHF Presented with shortness of breath Chest x-ray shows congestion Acute on chronic systolic and diastolic CHF Echo on 02/03/2025 showed EF 40 to 45%. Right ventricular mildly dilated. Moderate mitral regurgitation. Small loculated pericardial effusion. Volume status managed by dialysis Will consult nephrology Will check procalcitonin to rule out infection Close monitor ESRD Due for dialysis today Nephrology consult ESRD due to hereditary cystinosis Status post kidney transplant in 2019 at [facility]. History of transplant rejection Fanconi syndrome On fluconazole and valganciclovir Hypertension On amlodipine, hydralazine, metoprolol succinate and torsemide Chest pain Resolved EKG no findings Will follow troponins History of PVCs Metoprolol succinate Hyperlipidemia On statin Mood disorder On amitriptyline DVT prophylaxis SCDs Heparin subcu Disposition Telemetry Full code. 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 Patient states around 2 AM he woke up from sleep with gasping for breath and some chest discomfort and came to the ER. Requiring oxygen. Currently chest pain resolved. No cough. No fevers. Was nauseous. No abdominal pain. No diarrhea or constipation.. No headache. Hemodynamics are okay. Patient is asking for home oxygen when he gets discharged. Past medical history. As mentioned above. Past surgical history. Renal biopsy. Kidney transplant. Vascular procedures. Family significant for Crohn's disease. Social history. Ongoing vape use. Occasional alcohol use. Allergies Allergy/AdvReac Type Severity Reaction Status Date / Time No Known Allergies Allergy Verified 02/11/25 08:17 Home Medications Medication Instructions Recorded Confirmed Type amitriptyline 25 mg tablet 25 mg PO HS 02/23/25 02/23/25 History amlodipine 10 mg tablet 10 mg PO DAILY 02/23/25 02/23/25 History aspirin 81 mg tablet,delayed 81 mg PO DAILY 02/23/25 02/23/25 History release atorvastatin 10 mg tablet 10 mg PO HS 02/23/25 02/23/25 History calcium acetate 667 mg tablet 2,001 mg PO TID 02/23/25 02/23/25 History cholecalciferol (vitamin D3) 25 25 mcg PO DAILY 02/23/25 02/23/25 History mcg (1,000 unit) tablet dapsone 100 mg tablet 100 mg PO DAILY 02/23/25 02/23/25 History famotidine 10 mg tablet (Heartburn 10 mg PO DAILY 02/23/25 02/23/25 History Relief (famotidine)) fluconazole 100 mg tablet 200 mg PO DAILY 02/23/25 02/23/25 History hydralazine 50 mg tablet 50 mg PO TID 02/23/25 02/23/25 History metoprolol succinate 50 mg 75 mg PO BID 02/23/25 02/23/25 History tablet,extended release 24 hr sodium zirconium cyclosilicate 10 10 g PO DAILY 02/23/25 02/23/25 History gram oral powder packet (Lokelma) tamsulosin 0.4 mg capsule 0.4 mg PO DAILY 02/23/25 02/23/25 History torsemide 100 mg tablet 100 mg PO DAILY 02/23/25 02/23/25 History valganciclovir 450 mg tablet 450 mg PO UD 02/23/25 02/23/25 History Past Med/Surg History Problem List (Updated 02/23/25 @ 07:52 by Tyler Perez MD) Acute CHF Pulmonary edema (Acute) Acute hyperkalemia (Acute) Acute heart failure with mildly reduced ejection fraction (HFmrEF, 41-49%) End-stage renal failure with renal transplant (Acute) Pain from arteriovenous fistula Acute pneumonia Acute respiratory failure with hypoxia End-stage renal disease on hemodialysis (Acute) Elevated troponin (Acute) Hypoxia (Acute) Hypertensive emergency (Acute) Right ventricular dysfunction Nonischemic cardiomyopathy Acute on chronic heart failure with mildly reduced ejection fraction (HFmrEF, 41-49%) Myocardial infarction due to demand ischemia Hypertensive urgency Elevated troponin (Acute) Hypoxia (Acute) Pulmonary edema (Acute) Shortness of breath (Acute) Hypertension Prediabetes Antibody mediated rejection of renal transplant ESRD on dialysis (Acute) Anemia requiring transfusions (Acute) Anemia of chronic disease (Acute) Encounter for hemodialysis for ESRD (Acute) Anemia in ESRD (end-stage renal disease) (Acute) Nausea & vomiting RY (acute kidney injury) (Acute) Hypomagnesemia ST segment changes on electrocardiogram Nephropathic cystinosis Renal transplant, status post (Acute) Pyelonephritis Renal tubular acidosis (Chronic) Anemia (Chronic) 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 Trejo. Home hemodialysis. Fanconi syndrome (Chronic) Medical History Chest pain Anemia of chronic disease Depression Surgical History History of tooth extraction WISDOM TEETH Family History Mother Crohn's disease Social History Smoking Status: Former smoker Tobacco Type: E-cigarettes / Vaping Cigarettes Per Day: 5; Second Hand Exposure: No; Do You Dip or Chew Tobacco: No; Hx Alcohol Use: No Hx Substance Use: Yes Last Used Substance: Days (ago) Last Used Substance Other:: 12/ prior to bed time Substance Use Type Other:: medical marijuana Preferred Language: Welsh Communication Ability: Effective Stretching Machine Tender Frame Required: No Beliefs That Will Affect Care: None Current Living Situation: Spouse Feels Safe at Home: Yes Assistive Devices: None Review of Systems Review of Systems: All systems reviewed & are unremarkable except as noted in HPI & below Physical Exam Physical Exam: General- Not in distress Head- atraumatic ENT- oropharynx clear Neck- supple, no JVD. Lungs- clear to auscultation mild bibasilar crackles, no wheezing Heart- regular rhythm; no murmur, no gallop. Abdomen- normal bowel sounds, soft, nontender, no distension Extremities- no pretibial edema, no erythema seen Neuro- alert, oriented PERRL, no facial palsy; no dysarthria; moves extremities Results & Data Results & Data Vital Signs (Past 12 Hours) Vital Signs Temp Pulse Pulse Resp BP BP Pulse Ox 02/23/25 07:00 97 H 19 95 02/23/25 06:38 95 H 15 140/102 H 97 02/23/25 05:30 94 H 14 95 02/23/25 05:21 90 16 92 02/23/25 05:12 96 H 19 93 02/23/25 05:00 88 15 91 02/23/25 04:59 93 H 15 91 02/23/25 04:57 90 18 93 02/23/25 04:57 89 02/23/25 04:51 90 15 91 02/23/25 04:51 91 02/23/25 04:51 02/23/25 04:35 36.8 C 99 H 18 142/92 H 96 O2 Del Method O2 Flow Rate 02/23/25 07:00 Nasal Cannula 4 02/23/25 06:38 Nasal Cannula 4 02/23/25 05:30 02/23/25 05:21 02/23/25 05:12 02/23/25 05:00 02/23/25 04:59 Room Air 02/23/25 04:57 02/23/25 04:57 02/23/25 04:51 Room Air 02/23/25 04:51 Room Air 0 02/23/25 04:51 Room Air 02/23/25 04:35 Room Air Diagnostic Findings Laboratory Results WBC 5.22 K/ul (4.8-10.8) 02/23/25 04:50 RBC 2.68 M/uL (4.70-6.10) L 02/23/25 04:50 Hgb 8.2 g/dL (14.0-18.0) L 02/23/25 04:50 Hct 24.9 % (42.0-52.0) L 02/23/25 04:50 MCV 92.9 fL (80.0-100.0) 02/23/25 04:50 MCH 30.6 pg (25.0-34.0) 02/23/25 04:50 MCHC 32.9 g/dL (32.0-36.0) 02/23/25 04:50 RDW Std Deviation 52.0 fL (36.4-46.3) H 02/23/25 04:50 RDW Coeff of [place] 15.4 % (11.5-14.5) H 02/23/25 04:50 Plt Count 146 K/uL (130-400) 02/23/25 04:50 MPV 10.7 fL (9.4-12.4) 02/23/25 04:50 Immature Gran % (Auto) 0.4 % 02/23/25 04:50 Neut % (Auto) 86.2 % 02/23/25 04:50 Lymph % (Auto) 7.9 % 02/23/25 04:50 [place] % (Auto) 3.6 % 02/23/25 04:50 Eos % (Auto) 0.8 % 02/23/25 04:50 Baso % (Auto) 1.1 % 02/23/25 04:50 Neut # (Auto) 4.50 K/uL (1.40-6.50) 02/23/25 04:50 Lymph # (Auto) 0.41 K/uL (1.20-3.40) L 02/23/25 04:50 [place] # (Auto) 0.19 K/uL (0.11-0.59) 02/23/25 04:50 Eos # (Auto) 0.04 K/uL (0.00-0.50) 02/23/25 04:50 Baso # (Auto) 0.06 K/uL (0.00-0.20) 02/23/25 04:50 Immature Gran # (Auto) 0.02 K/uL (0.01-0.20) 02/23/25 04:50 Sodium 133 mmol/L (136-145) L 02/23/25 04:50 Potassium 5.1 mmol/L (3.5-5.1) 02/23/25 04:50 Chloride 92 mmol/L (98-107) L 02/23/25 04:50 Carbon Dioxide 32 mmol/L (21-32) 02/23/25 04:50 Anion Gap 9 (3-11) 02/23/25 04:50 BUN 38 mg/dl (6-23) H 02/23/25 04:50 Creatinine 7.71 mg/dl (0.6-1.4) H* D 02/23/25 04:50 Est Cr Clr Drug Dosing 13.6 ml/min 02/23/25 04:50 eGFR 8.79 02/23/25 04:50 BUN/Creatinine Ratio 4.9 (10-20) L 02/23/25 04:50 Glucose 105 mg/dl (70-99(Fasting)) H 02/23/25 04:50 Calcium 9.5 mg/dl (8.6-10.3) 02/23/25 04:50 Total Bilirubin 0.7 mg/dl (0.2-1.0) 02/23/25 04:50 AST 16 U/L (13-39) 02/23/25 04:50 ALT 6 U/L (7-52) L 02/23/25 04:50 Alkaline Phosphatase 57 U/L (34-104) 02/23/25 04:50 Total Protein 7.0 gm/dl (6.0-8.3) 02/23/25 04:50 Albumin 3.6 gm/dl (3.4-5.0) 02/23/25 04:50 Globulin 3.4 gm/dl (2.5-4.0) 02/23/25 04:50 Albumin/Globulin Ratio 1.1 (0.9-2) 02/23/25 04:50 SARS-CoV-2, RNA, NAAT NEGATIVE (NEGATIVE) 02/23/25 06:30 Impressions Chest X-Ray 02/23/25 04:47 EXAM: XR chest 1V portable CLINICAL HISTORY: Dyspnea TECHNIQUE: An X-ray image of the chest is obtained in AP portable projection. COMPARISON: Comparison is made with prior x-ray chest portable dated 02/21/2025 00:19:16 TISSUE TECHNICIAN FINDINGS: Pulmonary Parenchyma: A stable appearing diffuse interstitial prominence and ill-defined haziness seen, predominantly involving bilateral parahilar regions and both lower zones, suggesting interstitial pulmonary edematous changes. Questionable subtle obscuration of the right costophrenic angle, may represent interval developed minimal pleural effusion. No evidence of pleural effusion or pleural thickening on left side(unchanged). Heart and Mediastinum: Apparent enlargement of heart size, possibly due to AP projection. Bilateral hilar prominence with accentuated peribronchovascular markings, suggestive of hilar vascular congestive changes. Bony Thorax: Visualized bony thorax appears intact without definite evidence of fracture. Soft Tissues: Soft tissues overlying the chest wall are unremarkable. IMPRESSION: 1. Stable appearing diffuse interstitial prominence and ill-defined haziness seen, predominantly involving bilateral parahilar regions and both lower zones, suggesting interstitial pulmonary edematous changes versus infectious process. Clinical correlation and further workup advised 2. Questionable interval developed minimal right-sided pleural effusion(new finding). 3. No other significant interval changes are detected. Electronically signed by Jose Francisco Goins 02-23-2025 06:18 AM ECG Additional Comments: EKG. Normal sinus rhythm rate of 93. No significant changes found. Code Status & VTE Plan VTE Prophylaxis Plan VTE Prophylaxis will be ordered: Yes
[2025-02-23] MEDS ORDERED: NITROGLYCERIN SL 0.4 MG/TAB TAB SL PRN (09:02)
[2025-02-23] MEDS: SODIUM ZIRCONIUM CYCLOSILICATE 10 GM PACKET PO SCH (09:57)
[2025-02-23] MEDS: CHOLECALCIFEROL 25 MCG (1000 UNITS) TAB PO SCH (09:58)
[2025-02-23] MEDS: TAMSULOSIN HCL 0.4 MG CAP PO SCH (09:58)
[2025-02-23] MEDS: FLUCONAZOLE 100 MG TAB PO SCH (09:58)
[2025-02-23] MEDS: ASPIRIN 81 MG ECTAB PO SCH (09:58)
[2025-02-23] MEDS: HEPARIN SOD 5,000 UNIT/0.5 ML VIAL SQ SCH (10:00)
--- NOTE | 2025-02-23 13:10 | Communication Note ---
Date of Service: February 23, 2025 Patient is again with shortness of breath, orthopnea. Chest x-ray on admission consistent with pulmonary edema. Labs reviewed; no new significant finding. Patient going hemodialysis today as per nephrology. Continue other home meds as previously taking. Full progress note to follow tomorrow Please note the above document was generated using voice recognition software. It may contain grammatical, syntax or spelling errors. Any formal questions or concerns about the content, text or information contained within the body of this dictation should be directly addressed to the provider for clarification
[2025-02-23] MEDS: CALCIUM ACETATE 667 MG CAP/TAB PO SCH (14:14)
[2025-02-23] MEDS: METOPROLOL SUCC 25MG EXT REL TAB PO SCH (14:33)
[2025-02-23] MEDS: FAMOTIDINE 10 MG TABLET PO SCH (14:33)
[2025-02-23] MEDS: TORSEMIDE 100 MG TAB PO SCH (14:34)
[2025-02-23] MEDS: DAPSONE 25 MG TAB PO SCH (14:34)
[2025-02-23] MEDS ORDERED: LIDOCAINE 4% CREAM 15 GM TUBE EXT PRN (15:49)
--- NOTE | 2025-02-23 16:41 | Nephrology Consultation ---
Date of Consultation February 23, 2025 History of Present Illness Attending Physician: Kirit Blackman MD History of Present Illness Assessment & Plan (1) End-stage renal disease on hemodialysis: h/o NOn adherence at times. Came in with fluid overload/CHF and now much better post dialysis. next HD will be tomorrow and this will be extra dialysis for him. he appear now back to baseline pretty much. NO issues with electrolytes and acid/base. No issues with Access and BP today got 4 kilo off today (2) Acute respiratory failure with hypoxia: Sec to fluid overload. Now much better. Plan time spent 47 mins History of Present Illness Reason for Consultation: ESRD Admitted with SOB Attending Physician: Kirit Blackman MD History of Present Illness 35/M with ESRD on HD--MWF admitted with SOB. found to have CHF on Xray and was needing Bipap. 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 had same admission and then discharged yestereday. Although offfered he did not want to do extra dialysis yesterday. was supposed to do outpt dialysis today but instead he came to ED. already had dialysis today already and 4 kilo removed without issues. BP was somewhat high but now normal. Also now Much better breathing on RA. ROS--12 Systems reviewed and negative Physical Exam Constitutional: On RA and no Distress now Respiratory: decreased air entry bilaterally Cardiovascular: RRR, no murmur, no edema no JVD Chest: b/l Clear now Abdomen: soft, nontender Musculoskeletal: Fistula on left arm with bruit Allergies Allergy/AdvReac Type Severity Reaction Status Date / Time No Known Allergies Allergy Verified 02/11/25 08:17 Home Medications Medication Instructions Recorded Confirmed Type amitriptyline 25 mg tablet 25 mg PO HS 02/23/25 02/23/25 History amlodipine 10 mg tablet 10 mg PO DAILY 02/23/25 02/23/25 History aspirin 81 mg tablet,delayed 81 mg PO DAILY 02/23/25 02/23/25 History release atorvastatin 10 mg tablet 10 mg PO HS 02/23/25 02/23/25 History calcium acetate 667 mg tablet 2,001 mg PO TID 02/23/25 02/23/25 History cholecalciferol (vitamin D3) 25 25 mcg PO DAILY 02/23/25 02/23/25 History mcg (1,000 unit) tablet dapsone 100 mg tablet 100 mg PO DAILY 02/23/25 02/23/25 History famotidine 10 mg tablet (Heartburn 10 mg PO DAILY 02/23/25 02/23/25 History Relief (famotidine)) fluconazole 100 mg tablet 200 mg PO DAILY 02/23/25 02/23/25 History hydralazine 50 mg tablet 50 mg PO TID 02/23/25 02/23/25 History metoprolol succinate 50 mg 75 mg PO BID 02/23/25 02/23/25 History tablet,extended release 24 hr sodium zirconium cyclosilicate 10 10 g PO DAILY 02/23/25 02/23/25 History gram oral powder packet (Lokelma) tamsulosin 0.4 mg capsule 0.4 mg PO DAILY 02/23/25 02/23/25 History torsemide 100 mg tablet 100 mg PO DAILY 02/23/25 02/23/25 History valganciclovir 450 mg tablet 450 mg PO UD 02/23/25 02/23/25 History Patient History Medical History Chest pain Anemia of chronic disease Depression Surgical History History of tooth extraction WISDOM TEETH Family History Mother Crohn's disease Social History Smoking Status: Current every day smoker Tobacco Type: E-cigarettes / Vaping Cigarettes Per Day: 5; Second Hand Exposure: No; Do You Dip or Chew Tobacco: No; Tobacco Cessation Education Requested by Patient: No Hx Alcohol Use: No Hx Substance Use: Yes Last Used Substance: Unknown Substance Use Type Other:: medical marijuana Preferred Language: Macedonian Communication Ability: Effective Solar Photovoltaic Designer Required: No Beliefs That Will Affect Care: None Current Living Situation: Spouse Other Information That Helps Us Care for You: No Feels Safe at Home: Yes Safety Concerns: Feels Safe At This Time Assistive Devices: None Results & Data Vital Signs (Past 12 Hours) Vital Signs Temp Pulse Pulse Pulse Resp BP BP 02/23/25 16:02 37.2 C 113 H 20 141/82 H 02/23/25 14:44 37.3 C 108 H 18 137/81 02/23/25 14:35 36.6 C 95 H 144/100 H 02/23/25 14:31 37.3 C 112 H 18 137/81 02/23/25 14:24 02/23/25 14:00 94 H 138/89 02/23/25 13:30 95 H 146/97 H 02/23/25 13:00 96 H 150/95 H 02/23/25 12:30 97 H 156/104 H 02/23/25 12:00 97 H 154/103 H 02/23/25 11:30 95 H 135/106 H 02/23/25 11:00 92 H 142/96 H 02/23/25 10:30 97 H 143/98 H 02/23/25 10:17 36.7 C 97 H 02/23/25 09:04 93 H 19 166/103 H 02/23/25 09:02 02/23/25 08:00 99 H 18 152/100 H 02/23/25 07:00 97 H 19 02/23/25 06:38 95 H 15 140/102 H 02/23/25 05:30 94 H 14 02/23/25 05:21 90 16 02/23/25 05:12 96 H 19 02/23/25 05:00 88 15 02/23/25 04:59 93 H 15 02/23/25 04:57 90 18 02/23/25 04:57 89 02/23/25 04:51 90 15 02/23/25 04:51 02/23/25 04:51 Pulse Ox Pulse Ox O2 Del Method O2 Del Method O2 Flow Rate O2 Flow Rate 02/23/25 16:02 95 Room Air 02/23/25 14:44 97 Room Air 02/23/25 14:35 02/23/25 14:31 97 Room Air 02/23/25 14:24 Nasal Cannula 4 02/23/25 14:00 02/23/25 13:30 02/23/25 13:00 02/23/25 12:30 02/23/25 12:00 02/23/25 11:30 02/23/25 11:00 02/23/25 10:30 02/23/25 10:17 02/23/25 09:04 98 Nasal Cannula 4 02/23/25 09:02 98 Nasal Cannula 4 02/23/25 08:00 98 Nasal Cannula 4 02/23/25 07:00 95 Nasal Cannula 4 02/23/25 06:38 97 Nasal Cannula 4 02/23/25 05:30 95 02/23/25 05:21 92 02/23/25 05:12 93 02/23/25 05:00 91 02/23/25 04:59 91 Room Air 02/23/25 04:57 93 02/23/25 04:57 02/23/25 04:51 91 Room Air 02/23/25 04:51 91 Room Air 0 02/23/25 04:51 Room Air
--- NOTE | 2025-02-23 18:20 | Electrocardiogram Report ---
Test Reason : Blood Pressure : */* mmHG Vent. Rate : 93 BPM Atrial Rate : 93 BPM P-R Int : 140 ms QRS Dur : 84 ms QT Int : 370 ms P-R-T Axes : 60 41 77 degrees QTcB Int : 460 ms Normal sinus rhythm Normal ECG When compared with ECG of 21-Feb-2025 01:20, No significant change was found Confirmed by Jose Camara ([id number]) on 02/23/2025 6:20:06 PM Referred By: REFERRED SELF Confirmed By: Jose Camara
[2025-02-23] MEDS: AMITRIPTYLINE HCL 25 MG TAB PO SCH (20:46)
[2025-02-23] MEDS: ATORVASTATIN 10 MG TAB PO SCH (20:47)
[2025-02-24 06:16] LABS: Hematocrit (blood only) 23.1 % (42.0-52.0); Hemoglobin 7.7 g/dL (14.0-18.0); Immature Granulocytes # (auto) 0.02 K/uL (0.01-0.20); Immature Granulocytes % (auto) 0.4 %; Mean Corpuscular Hemoglobin 30.8 pg (25.0-34.0); Mean Corpuscular Volume 92.4 fL (80.0-100.0); Platelet Count 137 K/uL (130-400); RDW Standard Deviation 51.3 fL (36.4-46.3); Red Blood Count 2.50 M/uL (4.70-6.10); White Blood Count 4.66 K/ul (4.8-10.8)
[2025-02-24 06:37] LABS: Anion Gap 8.0 (3-11); Blood Urea Nitrogen 26.0 mg/dl (6-23); Calcium 9.3 mg/dl (8.6-10.3); Carbon Dioxide 30.0 mmol/L (21-32); Chloride 96.0 mmol/L (98-107); Creatinine Clr Calc Pharmacy 16.9 ml/min; Glucose 100.0 mg/dl (70-99(Fasting)); Magnesium 2.3 mg/dl (1.7-2.4); Potassium 5.2 mmol/L (3.5-5.1); Sodium 134.0 mmol/L (136-145)
[2025-02-24 06:44] LABS: RBC Morphology Unremarkable
--- NOTE | 2025-02-24 11:22 | Discharge Summary ---
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 Patient states around 2 AM he woke up from sleep with gasping for breath and some chest discomfort and came to the ER. Requiring oxygen. Currently chest pain resolved. No cough. No fevers. Was nauseous. No abdominal pain. No diarrhea or constipation.. No headache. Hemodynamics are okay. Patient is asking for home oxygen when he gets discharged. Past medical history. As mentioned above. Past surgical history. Renal biopsy. Kidney transplant. Vascular procedures. Family significant for Crohn's disease. Social history. Ongoing vape use. Occasional alcohol use. Admission Exam Per Admitting Provider General- Not in distress Head- atraumatic ENT- oropharynx clear Neck- supple, no JVD. Lungs- clear to auscultation mild bibasilar crackles, no wheezing Heart- regular rhythm; no murmur, no gallop. Abdomen- normal bowel sounds, soft, nontender, no distension Extremities- no pretibial edema, no erythema seen Neuro- alert, oriented PERRL, no facial palsy; no dysarthria; moves extremities Principal Diagnosis Acute hypoxemic respiratory failure ESRD on hemodialysis, history of transplant rejection Acute on chronic heart failure Discharge Exam GENERAL: Alert and oriented x3. NAD, on RA. HEENT: No pallor, no icterus. Pupils equal, round and reactive to light. Oral mucosa moist. NECK: No JVD, no neck masses. HEART: S1 and S2 heard. Regular rate and rhythm. No murmur, no gallop. RESPIRATORY SYSTEM: Normal AP diameter. No accessory muscle use. No wheezing, no crackles. ABDOMEN: Soft, bowel sounds present, nontender, no distention. CENTRAL NERVOUS SYSTEM: No facial droop. Speech is clear. Obeys simple commands. Moves extremities. EXTREMITIES: No edema, no erythema seen. Discharge Data Allergies Allergy/AdvReac Type Severity Reaction Status Date / Time No Known Allergies Allergy Verified 02/11/25 08:17 Consultations 02/23/25 06:30 ED Decision to Admit Stat 02/23/25 09:02 Consult Nephrology Routine Hospital Course (1) Acute heart failure with mildly reduced ejection fraction (HFmrEF, 41-49%): (2) End-stage renal failure with renal transplant: (3) Pulmonary edema: Plan Patient presents with shortness of breath and orthopnea Recent history of multiple admission with similar symptoms Chest X-ray shows pulmonary edema. Patient was admitted to medical floor; underwent 2 sessions of hemodialysis. Patient reports significant improvement in his shortness of breath. Multiple discussion was done with the patient to to be compliant with fluid restriction instructions. The fluid not only include water he drinks; I discussed he needs to restrict total fluid intake which include ice, soda, tea, coffee or juice. Patient is at a high risks of repeated hospitalization if he continues to be noncompliant with fluid restriction. Please note the above document was generated using voice recognition software. It may contain grammatical, syntax or spelling errors. Any formal questions or concerns about the content, text or information contained within the body of this dictation should be directly addressed to the provider for clarification Total Time Total Time Spent Total Time Spent (In Minutes): 45 Total Time Includes: Examination of the Patient, Discharge Planning, Medication Reconciliation, Communication With Other Providers and Other Discharge Plan Discharge Items Patient Disposition: Home - Self-Care Reason For Visit: SOB, CHF Discharge Diagnosis: Acute CHF: Condition on Discharge: Fair Activity: Resume your previous activity Non-emergency contact: Primary Care Provider Call non-emergency contact if: you have any medication questions and your symptoms worsen Follow-up/Referrals: Shanita Maharaj MD [Primary Care Provider] - Diet: Regular Fluids: 1000ml (4 cups) Addtl Attending Provider Instructions: Please continue to take your medication as before. It is very important for you to limit your fluid intake to less than 1 L in a day. This include water, coffee, tea, soda, ice or juice. Pending Studies at Discharge: No Stand-Alone Forms: My [employer], Smoking Cessation Medications and DC Order Prescriptions: Continued valganciclovir 450 mg Tablet 450 mg PO UD Rx Instructions: once daily x 2 times a week on wed and for chronic suppression fluconazole 100 mg tablet 200 mg PO DAILY famotidine [Heartburn Relief (famotidine)] 10 mg tablet 10 mg PO DAILY atorvastatin 10 mg tablet 10 mg PO HS metoprolol succinate 50 mg tablet extended release 24 hr 75 mg PO BID aspirin [Aspir-81] 81 mg Tablet,Delayed Release (Dr/Ec) 81 mg PO DAILY amitriptyline 25 mg tablet 25 mg PO HS torsemide 100 mg tablet 100 mg PO DAILY tamsulosin 0.4 mg Capsule 0.4 mg PO DAILY amlodipine 10 mg tablet 10 mg PO DAILY dapsone 100 mg tablet 100 mg PO DAILY hydralazine 50 mg tablet 50 mg PO TID cholecalciferol (vitamin D3) 25 mcg (1,000 unit) Tablet 25 mcg PO DAILY Lokelma 10 gram powder in packet 10 g PO DAILY calcium acetate 667 mg Tablet 2,001 mg PO TID Discharge Orders: Discharge Order (Routine); Ordered 02/24/25 Ordered By: Kirit Blackman Admission Data Admit Date/Time: 02/23/25 06:59 Attending Provider: Kirit Blackamn Admit Provider: Tyler Perez Primary Care Provider: Shanita Maharaj Other Providers: Tyler Perez; Micky Velasquez
[2025-02-24 13:10] VITALS: RESP 16; TEMP 99.9
[2025-02-24] MEDS: ACETAMINOPHEN 325 MG TAB PO PRN (13:15)
[2025-02-24 15:31] VITALS: BP 129/67; PULSE 93; O2SAT 95
[2025-02-26] MEDS ORDERED: VALGANCICLOVIR HCL 450 MG TABLET PO SCH (09:00)
--- NOTE | 2025-02-26 14:31 | Electrocardiogram Report ---
Test Reason : Blood Pressure : */* mmHG Vent. Rate : 86 BPM Atrial Rate : 86 BPM P-R Int : 144 ms QRS Dur : 82 ms QT Int : 382 ms P-R-T Axes : 61 56 95 degrees QTcB Int : 457 ms Normal sinus rhythm T wave abnormality, consider anterior ischemia Abnormal ECG When compared with ECG of 23-Feb-2025 04:47, T wave inversion now evident in Anterior leads Confirmed by Zeus Cobian ([id number]) on 02/26/2025 2:31:22 PM Referred By: REFERRED SELF Confirmed By: Zeus Cobian
== END 2025-02-24 15:25 | disposition home or self-care (01) | DRG 291 ==
LOC: ED 04:32 → EDINP 06:59 → 2S 14:31